=== PATIENT | female | born 1935 | race African-American/Black ===

== ENCOUNTER 2019-11-25 08:05 | Emergency (ER) | payer OTHER ==
[2019-11-25 08:21] VITALS: TEMP 98.5; BMI 17.2
[2019-11-25] MEDS ORDERED: CYCLOBENZAPRINE HCL 10 MG TABLET (FP) PO ONE (08:42)
[2019-11-25] MEDS ORDERED: ACETAMINOPHEN 325 MG TABLET (FP) PO ONE (08:43)
[2019-11-25] MEDS ORDERED: ACETAMINOPHEN 325 MG TABLET (FP) ONE (08:50)
[2019-11-25] MEDS ORDERED: CYCLOBENZAPRINE HCL 10 MG TABLET (FP) ONE (08:50)
--- NOTE | 2019-11-25 09:19 | PDOC ---
History of Present Illness - General Chief Complaint: Pain, Acute Stated Complaint: NECK PAIN Time Seen by Provider: 11/25/19 08:28 History Source: Patient Exam Limitations: No Limitations - History of Present Illness Initial Comments: 11/25/19 08:16 84-year-old female presents to ED with complaints of right-sided neck pain rating to her right shoulder for the past 2 weeks causing her difficulty sleeping due to pain. Patient states was seen by her PCP last week who prescribed her 3 days of prednisone 20 mg with minimal relief. Patient states has been also taking Motrin Tylenol with no improvement. Patient denies difficulty breathing, difficulty swallowing, headache, fever, chills or dizziness/weakness. Patient states appetite remains the same and denies any previous injury or recent fall Is this a multiple visit Asthma Patient?: No Timing/Duration: other Severity: mild, moderate Associated Symptoms: reports: other Past History - Travel Traveled outside of the country in the last 30 days: No Close contact w/someone who was outside of country & ill: No - Past Medical History Allergies/Adverse Reactions: Allergies Allergy/AdvReac Type Severity Reaction Status Date / Time No Known Allergies Allergy Verified 06/22/18 15:22 Home Medications: Ambulatory Orders Amlodipine Besylate [Norvasc -] 10 mg PO DAILY #30 tablet 06/28/18 Carvedilol [Coreg -] 12.5 mg PO BID #60 tablet 06/28/18 Latanoprost 0.005% Eye Drops [Xalatan 0.005% Eye Drops -] 1 drop OU HS #10 ml Lisinopril [Prinivil] 40 mg PO DAILY #30 tablet 06/28/18 Timolol 0.5% [Timoptic 0.5%] 1 drop OU DAILY #15 ml 06/28/18 Warfarin Sodium [Coumadin] 5 mg PO DAILY@1800 #30 tablet 06/28/18 Cyclobenzaprine HCl [Flexeril 10 mg] 5 mg PO BID PRN #12 tablet 11/25/19 Anemia: No Asthma: No Cancer: No Cardiac Disorders: Yes (murmur as a chils/ asymptomatic) CVA: No COPD: No Dementia: No Diabetes: No GI Disorders: No Disorders: No HTN: Yes Liver Disease: No Seizures: No Thyroid Disease: No - Surgical History Abdominal Surgery: No Appendectomy: No Cardiac Surgery: No Orthopedic Surgery: Yes (hip) - Psycho Social/Smoking Cessation Hx Smoking History: Never smoked Have you smoked in the past 12 months: Yes Number of Cigarettes Smoked Daily: 3 Hx Alcohol Use: No Drug/Substance Use Hx: No Substance Use Type: Alcohol Hx Substance Use Treatment: No Patient Lives Alone: No Lives with/in: Children Review of Systems - Review of Systems Able to Perform ROS?: Yes Constitutional: No: Symptoms Reported HEENTM: No: Symptoms Reported Respiratory: No: Symptoms reported Cardiac (ROS): No: Symptoms Reported ABD/GI: No: Symptoms Reported : No: Symptoms Reported Musculoskeletal: Yes: Joint Pain, Neck Pain. No: Back Pain, Joint Swelling, Joint Stiffness Integumentary: No: Symptoms Reported Neurological: No: Symptoms reported Hematologic/Lymphatic: No: Symptoms Reported *Physical Exam - Vital Signs Last Vital Signs Temp Pulse Resp BP Pulse Ox 98.5 F 57 L 17 112/55 L 99 11/25/19 08:18 11/25/19 08:18 11/25/19 08:18 11/25/19 08:18 11/25/19 08:18 - Physical Exam General Appearance: Yes: Nourished, Appropriately Dressed. No: Apparent Distress HEENT: positive: TMs Normal, Pharynx Normal. negative: Pale Conjunctivae Neck: positive: Supple, Tender lateral (Right trapezius). negative: Decreased range of motion, Tender midline Respiratory/Chest: positive: Lungs Clear, Normal Breath Sounds. negative: Chest Tender, Respiratory Distress, Accessory Muscle Use Cardiovascular: positive: Regular Rhythm, Regular Rate. negative: Murmur Extremity: positive: Normal Capillary Refill, Normal Inspection, Normal Range of Motion, Tender (Posterior right shoulder over trapezius) Integumentary: positive: Normal Color, Warm, Moist. negative: Rash, Swelling, Ecchymosis Neurologic: positive: Motor Strength 5/5 (Right shoulder shrug, lateral/front raise, and hand grasp) ED Treatment Course - RADIOLOGY Radiology Studies Ordered: Category Date Time Status CERVICAL SPINE CT W/O CONTR [CT] Stat CT Scan 11/25/19 08:28 Ordered SHOULDER-RIGHT [RAD] Stat Radiology 11/25/19 08:40 Completed Medical Decision Making - Medical Decision Making 11/25/19 08:20 Chief complaint: Right back right shoulder/neck pain for the past 2 to 3 weeks unrelieved with Tylenol and prednisone 3-day pack of 20 mg prescribed by her PCP Dr. Saleh. Exam: Patient with no midline vertebral or cervical tenderness. Noted right trapezius tenderness extending from the base of skull extending to right shoulder. Plan: Shoulder x-ray and cervical CT. Flexeril, Tylenol 11/25/19 09:21 X-ray of the right shoulder shows no acute fracture or subluxation. There is a slight prominence of the right hilum which is unchanged from 06/22/2018. 11/25/19 10:43 Spoke to radiologist who states CT of the spine show spondylolisthesis with narrowed disc spaces/bodies. No fracture subluxation or foreign body/mass. No previous CT for comparison. Recommendation to follow-up with PCP for physical therapy take medication for discomfort and apply heat to the affected area 11/25/19 10:44 Patient states feeling better Discharge - Discharge Information Problems reviewed: Yes Clinical Impression/Diagnosis: Spondylolisthesis of cervical region Condition: Improved Disposition: HOME - Additional Discharge Information Prescriptions: Cyclobenzaprine HCl [Flexeril 10 mg] 5 mg PO BID PRN #12 tablet PRN Reason: Back Pain - Follow up/Referral - Patient Discharge Instructions Patient Printed Discharge Instructions: DI for Spondylolisthesis Additional Instructions: Take Flexeril with 975 mg of Tylenol and if no relief tonight start the Percocet only tomorrow which is also twice a day. Follow-up with physical therapy. May apply heat to the affected area. - Post Discharge Activity
[2019-11-25 11:14] VITALS: BP 111/63; PULSE 69
== END 2019-11-25 11:00 | disposition home or self-care (01) ==
LOC: JER 08:05
DX: M43.12 Spondylolisthesis, cervical region (principal); R01.1 Cardiac murmur, unspecified; I10 Essential (primary) hypertension; Z87.891 Personal history of nicotine dependence
CPT/HCPCS: 72125-TC; 73030-TC-RT-FY; 99282-25

== ENCOUNTER 2019-12-01 05:12 | Inpatient (IN) | payer OTHER ==
[2019-12-01] MEDS ORDERED: SODIUM CHLORIDE 500 ML IV STA ×2 (05:16→21:30)
[2019-12-01] MEDS ORDERED: LIDOCAINE 5% TOPICAL PATCH TP ONE (05:30)
[2019-12-01] MEDS ORDERED: diazePAM 2 MG TABLET PO ONE (05:32)
[2019-12-01] MEDS ORDERED: GABAPENTIN 300 MG CAPSULE PO ONE (05:32)
[2019-12-01] MEDS ORDERED: ACETAMINOPHEN 1000 MG/100 ML VIAL (NON FORMULARY) IVPB ONE (05:32)
[2019-12-01] MEDS ORDERED: ACETAMINOPHEN INJECTION 100 ML IVPB ONE (05:39)
[2019-12-01] MEDS ORDERED: GABAPENTIN 100 MG CAPSULE ONE ×2 (05:39→05:54)
[2019-12-01] MEDS ORDERED: diazePAM 2 MG TABLET ONE (05:39)
[2019-12-01] MEDS ORDERED: LIDOCAINE 5% TOPICAL PATCH ONE (05:40)
--- NOTE | 2019-12-01 05:40 | PDOC ---
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 The pt states that 3 weeks ago she was able to walk with a walker and is now unable to ambulate. She reports RUE and RLE weakness. She denies any recent trauma or falls. She has been seen by her PCP and OT for her symptoms with no improvement. She is currently unable to transfer from bed to chair and it was necessary to lift her from one to the other. The pt lives at home with her daughter and who are now having to take off of work to attempt to care for her. PCP: Dr. Irma Miller 12/01/19 05:57 Past History - Past Medical History Allergies/Adverse Reactions: Allergies Allergy/AdvReac Type Severity Reaction Status Date / Time No Known Allergies Allergy Verified 12/01/19 05:34 Home Medications: Ambulatory Orders Amlodipine Besylate [Norvasc -] 10 mg PO DAILY 12/01/19 Carvedilol [Coreg -] 25 mg PO BID 12/01/19 Lisinopril [Prinivil -] 40 mg PO DAILY 12/01/19 Warfarin Sodium [Coumadin] 5 mg PO ASDIR 12/01/19 Anemia: No Asthma: No Cancer: No Cardiac Disorders: Yes (murmur as a chils/ asymptomatic) CVA: No COPD: No Dementia: No Diabetes: No GI Disorders: No Disorders: No HTN: Yes Liver Disease: No Seizures: No Thyroid Disease: No - Surgical History Abdominal Surgery: No Appendectomy: No Cardiac Surgery: No Orthopedic Surgery: Yes (hip) - Immunization History Immunization Up to Date: Yes - Psycho Social/Smoking Cessation Hx Smoking History: Never smoked Have you smoked in the past 12 months: Yes Number of Cigarettes Smoked Daily: 3 Hx Alcohol Use: No Drug/Substance Use Hx: No Substance Use Type: Alcohol Hx Substance Use Treatment: No Review of Systems - Review of Systems Able to Perform ROS?: Yes Comments:: GENERAL/CONSTITUTIONAL: No fever or chills HEAD, EYES, EARS, NOSE AND THROAT: No change in vision. No change in hearing. No sore throat CARDIOVASCULAR: No shortness of breath RESPIRATORY: Denies cough, hemoptysis GASTROINTESTINAL: No nausea, vomiting, diarrhea or constipation GENITOURINARY: No dysuria, frequency, or change in urination MUSCULOSKELETAL: per HPI SKIN: No rash NEUROLOGIC: +intermittent tingling of b/l hands, R>L; No headache, vertigo, loss of consciousness ENDOCRINE: No increased thirst. No abnormal weight change HEMATOLOGIC/LYMPHATIC: No anemia, easy bleeding, or history of blood clots; + warfarin ALLERGIC/IMMUNOLOGIC: No hives or skin allergy 12/01/19 05:40 Is the patient limited Burkin[place] proficient: No *Physical Exam - Vital Signs Last Vital Signs Temp Pulse Resp BP Pulse Ox 98.1 F 69 18 128/92 98 12/01/19 05:15 12/01/19 05:15 12/01/19 05:15 12/01/19 05:15 12/01/19 05:15 - Physical Exam GENERAL: Awake, alert, and oriented to person/place/time, in no acute distress HEAD: No signs of trauma, normocephalic, atraumatic EYES: PERRLA, EOMI, sclera anicteric, conjunctiva clear ENT: Hearing grossly normal, nares patent, oropharynx clear without exudates. No uvular deviation. Moist mucosa NECK: b/l paraspinous TTP, ROM intact, no stepoffs LUNGS: No distress, speaks in full sentences, clear to auscultation bilaterally HEART: Regular rate and rhythm, normal S1 and S2, no murmurs appreciated, peripheral pulses normal and equal bilaterally CHEST: Diffuse chest wall TTP w/o ecchymosis or bony tenderness ABDOMEN: Soft, nontender, normoactive bowel sounds. No guarding, no rebound EXTREMITIES: Moves all extremities independently, RUE/RLE 4/5; LUE/LLE 5/5 strength NEUROLOGICAL: Cranial nerves II through XII grossly intact. Normal speech, RUE/ RLE 4/5; LUE/LLE 5/5 strength, decreased sensation to light touch over RUE/RLE SKIN: Warm, Dry 12/01/19 05:40 ED Treatment Course - LABORATORY CBC & Chemistry Diagram: 12/01/19 06:00 12/01/19 06:00 - Medications Given in the ED: ED Medications Discontinued Medications Generic Name Dose Route Start Last Admin Trade Name Grant PRN Reason Stop Dose Admin Sodium Chloride 500 mls @ 500 mls/hr 12/01/19 05:16 12/01/19 05:30 Normal Saline - IV 12/01/19 06:15 Not Given ASDIR STA Medical Decision Making - Medical Decision Making The pt is an 84F w/a history of a-flutter (warfarin), HTN, HLD, glaucoma, and 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 Concern for unsafe home setting for pt given functional status Consider subacute stroke or spinal cord compression ED Course Labs sent ECG CT head and c-spine Tylenol, Lidoderm patch, and gabapentin for pain 12/01/19 05:42 No leukocytosis No anemia Lytes unremarkable LFTs unremarkable Trop I 0.18 INR supra-theraputic 12/01/19 06:59 ECG w/ sinus rhythm w/ frequent PACs, TWI in V4-6; no axis deviation Pt signed out to Dr. Mullen 12/01/19 07:01 Discharge - Discharge Information Problems reviewed: Yes Clinical Impression/Diagnosis: Right sided weakness Condition: Fair - Follow up/Referral - Patient Discharge Instructions - Post Discharge Activity
--- NOTE | 2019-12-01 06:25 | PDOC ---
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 - Physicial Exam PE: 12/01/19 06:23 Vitals: Triage Vital signs reviewed General Appearance: No acute distress, well nourished well developed, Head: Atraumatic, Extremities: Limited range of motion to right upper right lower extremity secondary to pain no cyanosis, clubbing, or edema Skin: Warm and dry, no rashes or lesions, no rash, no petechiae Neuro: Strength 4 out of 5 right upper extremity right lower extremity 5 out of 5 left upper extremity left lower extremity sensation intact to all extremities , Psych: flat affect - Medical Decision Making 12/01/19 06:22 84F w/a history of a-flutter (warfarin), HTN, HLD, glaucoma, and 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 12/01/19 06:24 3 to 4 weeks ago patient was able to ambulate at home with a walker now currently had to be carried in by her son Progressively worsening pain and concerning for progressively worsening right- sided weakness differential diagnosis includes possible CVA subacute, chronic pain syndrome, disc herniation with radiculopathy Given patient's inability to ambulate transfer patient unsafe to be discharged home We will start with head CT labs and admit for neurology consultation MRI and further evaluation
[2019-12-01 06:27] LABS: BASO % 0.2 % (0-2.0); EOS % 0.3 % (0-4.5); HEMATOCRIT 36.7 % (32.4-45.2); HEMOGLOBIN 12.2 GM/dL (10.7-15.3); LYMPH % 10.1 % (8-40); MCH 31.2 pg (25.7-33.7); MCHC 33.1 g/dl (32.0-36.0); MEAN CELL VOLUME 94.2 fl (80-96); MONO % 8.3 % (3.8-10.2); NEUT % 81.1 % (42.8-82.8); PLATELET COUNT 180 K/MM3 (134-434); RDW 14.5 % (11.6-15.6); WHITE BLOOD COUNT 6.5 K/mm3 (4.0-10.0)
[2019-12-01 06:44] LABS: PROTHROMBIN TIME (PATIENT) 63.3 SEC (9.7-13.0)
[2019-12-01 06:47] LABS: ACTIVATED PTT 57.9 SECONDS (25.2-36.5)
[2019-12-01 06:49] LABS: CHOLESTEROL 167 mg/dL (50-200); HDL CHOLESTEROL 58 mg/dL (40-60); LDL CHOLESTEROL (ONLY SJRH) 81 mg/dL (5-100); TRIGLYCERIDES 130 mg/dL (0-150)
[2019-12-01 06:51] LABS: ALBUMIN 2.4 g/dl (3.4-5.0); BILIRUBIN,TOTAL 0.8 mg/dL (0.2-1); CALCIUM 8.2 mg/dL (8.5-10.1); CREATININE 1.1 mg/dL (0.55-1.3); POTASSIUM 3.8 mmol/L (3.5-5.1); TOT PROT 5.8 g/dl (6.4-8.2)
[2019-12-01 06:59] LABS: INR 5.28 (0.83-1.09)
[2019-12-01 07:12] VITALS: BMI 22.8
--- NOTE | 2019-12-01 07:50 | PDOC ---
*Physical Exam - Vital Signs Last Vital Signs Temp Pulse Resp BP Pulse Ox 98.1 F 69 18 128/92 98 12/01/19 05:15 12/01/19 05:15 12/01/19 05:15 12/01/19 05:15 12/01/19 05:15 - Physical Exam 12/01/19 07:50 Patient signed out by resident Dr. Lockett CT cervical spine: moderate central canal narrowing at the c5-c6 level and multilevel neuroforaminal narrowing Head CT: no acute pathology Will need admission for pain control and MRI for further workup Plan for admission ED Treatment Course - LABORATORY CBC & Chemistry Diagram: 12/10/19 07:23 12/10/19 06:00 - ADDITIONAL ORDERS Additional order review: Laboratory Results 12/01/19 12/01/19 12/01/19 06:00 06:00 06:00 PT with INR INR PTT (Actin FS) Sodium 140 Potassium 3.8 Chloride 108 H Carbon Dioxide 25 Anion Gap 7 L BUN 14.0 Creatinine 1.1 Est GFR (CKD-EPI)AfAm 53.77 Est GFR (CKD-EPI)NonAf 46.39 Random Glucose 134 H Calcium 8.2 L Total Bilirubin 0.8 AST 26 ALT 30 Alkaline Phosphatase 65 Troponin I 0.18 H Total Protein 5.8 L Albumin 2.4 L Triglycerides 130 Cholesterol 167 Total LDL Cholesterol 81 HDL Cholesterol 58 12/01/19 06:00 PT with INR 63.30 H INR 5.28 H* PTT (Actin FS) 57.9 H Sodium Potassium Chloride Carbon Dioxide Anion Gap BUN Creatinine Est GFR (CKD-EPI)AfAm Est GFR (CKD-EPI)NonAf Random Glucose Calcium Total Bilirubin AST ALT Alkaline Phosphatase Troponin I Total Protein Albumin Triglycerides Cholesterol Total LDL Cholesterol HDL Cholesterol 12/01/19 06:00 RBC 3.90 MCV 94.2 MCHC 33.1 RDW 14.5 MPV 9.0 D Neutrophils % 81.1 D Lymphocytes % 10.1 D Monocytes % 8.3 Eosinophils % 0.3 Basophils % 0.2 - Medications Given in the ED: ED Medications Discontinued Medications Generic Name Dose Route Start Last Admin Trade Name Freq PRN Reason Stop Dose Admin Acetaminophen 1,000 mg 12/01/19 05:32 12/01/19 06:04 Ofirmev Injection - IVPB 12/01/19 05:33 1,000 mg ONCE ONE Administration Diazepam 2 mg 12/01/19 05:32 12/01/19 05:54 Valium - PO 12/01/19 05:33 Not Given ONCE ONE Gabapentin 300 mg 12/01/19 05:32 12/01/19 06:04 Neurontin - PO 12/01/19 05:33 300 mg ONCE ONE Administration Sodium Chloride 500 mls @ 500 mls/hr 12/01/19 05:16 12/01/19 05:30 Normal Saline - IV 12/01/19 06:15 Not Given ASDIR STA Lidocaine 1 patch 12/01/19 05:30 12/01/19 06:04 Lidoderm Patch - TP 12/01/19 05:31 1 patch ONCE ONE Administration Discharge - Discharge Information Problems reviewed: Yes Clinical Impression/Diagnosis: Right sided weakness Condition: Fair Disposition: [facility] F[facility] - Follow up/Referral - Patient Discharge Instructions - Post Discharge Activity
--- NOTE | 2019-12-01 10:05 | EKG ---
Test Reason : Blood Pressure : / mmHG Vent. Rate : 082 BPM Atrial Rate : 082 BPM P-R Int : 136 ms QRS Dur : 086 ms QT Int : 412 ms P-R-T Axes : 042 -02 147 degrees QTc Int : 481 ms SINUS RHYTHM WITH PREMATURE ATRIAL COMPLEXES SEPTAL INFARCT , AGE UNDETERMINED ABNORMAL ECG WHEN COMPARED WITH ECG OF 27-JUN-2018 11:14, PREMATURE ATRIAL COMPLEXES ARE SEEN Confirmed by MADHAVI PUTNAM, SHAWNA ([id number]) on 12/01/2019 10:04:56 AM Referred By: Confirmed By:SHAWNA HENDRICKSON MD
[2019-12-01] MEDS ORDERED: ASPIRIN 325 MG ENTERIC COATED TABLET (FP) PO STA (11:33)
--- NOTE | 2019-12-01 11:43 | HP ---
CHIEF COMPLAINT: weakness, numbness PCP: Dr. 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 Over the past month patient admits worsening weakness of bilateral upper and lower extremities; worst at right lower extremity. Associated with sharp, excruciating pain at her neck that radiates down to her bilateral shoulders, and into her arms. Admits paresthesias bilateral hands. Patient's family at bedside states that approx one month ago patient was able to walk with her walker, however now is bed bound. Denies any recent fall, or trauma. Last appointment with primary care physician was within past few weeks; noted that INR was within normal limits. Currently denies headache, changes in vision, chest pain, palpitations, bowel or bladder incontinence. ER course was notable for: (1) CT head (2) Troponin 0.18 (3) Recent Travel: denies PAST MEDICAL HISTORY: hypertension, hyperlipidemia, Atrial flutter, CVA PAST SURGICAL HISTORY: right hip surgery Social History: Currently lives at home with her children who assist in activities of daily living; currently bed bound. Smoking: Quit 2 years ago. Over 20 years smoking history of 1 pack/ week Alcohol: Denies Drugs: Denies Allergies No Known Allergies Allergy (Verified 12/01/19 05:34) HOME MEDICATIONS: Home Medications Medication Instructions Recorded Amlodipine Besylate [Norvasc -] 10 mg PO DAILY 12/01/19 Carvedilol [Coreg -] 25 mg PO BID 12/01/19 Lisinopril [Prinivil -] 40 mg PO DAILY 12/01/19 Warfarin Sodium [Coumadin] 4 mg PO UTDICT 12/01/19 Warfarin Sodium [Coumadin] 5 mg PO ASDIR 12/01/19 REVIEW OF SYSTEMS 10 system review of systems performed; as per HPI. PHYSICAL EXAMINATION Vital Signs - 24 hr 12/01/19 12/01/19 05:15 10:39 Temperature 98.1 F 99.0 F Pulse Rate 69 Pulse Rate [ 59 L Left] Respiratory 18 18 Rate Blood Pressure 128/92 Blood Pressure 124/87 [Right Arm] O2 Sat by Pulse 98 100 Oximetry (%) GENERAL: Awake, alert, and fully oriented, in mild distress. HEAD: Normal with no signs of trauma. EYES: Pupils equal, round and reactive to light, extraocular movements intact, sclera anicteric, conjunctiva clear. EARS, NOSE, THROAT: Oropharynx clear without exudates. Dry mucous membranes. NECK: Supple without lymphadenopathy, or JVD. LUNGS: Breath sounds equal, clear to auscultation bilaterally. No wheezes, and no crackles. No accessory muscle use. HEART: Irregular rate and rhythm, normal S1 and S2 without murmur, rub or gallop. ABDOMEN: Soft, nontender, not distended. Normoactive bowel sounds, no guarding, no rebound tenderness. MUSCULOSKELETAL: Strength left and right upper extremities 2/5. Right lower extremity 1/5. Left lower extremity 2/5. Strength testing limited by pain. EXTREMITIES: 2+ radial, dorsalis pedis pulses bilterally. Cool. No cyanosis. No clubbing. No peripheral edema bilateral lower extremities. NEUROLOGICAL: Cranial nerves II-XII grossly intact. NIHSS 12 (left arm pronator drift 2+, right arm pronator drift 2+, left leg pronator drift 2+, right leg pronaotr drift 3+, limb ataxia 2+, dysarthria 1+) PSYCHIATRIC: Cooperative. Appropriate mood and affect. SKIN: Warm, dry. Laboratory Results - last 24 hr 12/01/19 12/01/19 12/01/19 06:00 06:00 06:00 WBC 6.5 RBC 3.90 Hgb 12.2 Hct 36.7 MCV 94.2 MCH 31.2 MCHC 33.1 RDW 14.5 Plt Count 180 D MPV 9.0 D Absolute Neuts (auto) 5.3 Neutrophils % 81.1 D Lymphocytes % 10.1 D Monocytes % 8.3 Eosinophils % 0.3 Basophils % 0.2 Nucleated RBC % 0 PT with INR 63.30 H INR 5.28 H* PTT (Actin FS) 57.9 H Sodium Potassium Chloride Carbon Dioxide Anion Gap BUN Creatinine Est GFR (CKD-EPI)AfAm Est GFR (CKD-EPI)NonAf Random Glucose Calcium Total Bilirubin AST ALT Alkaline Phosphatase Troponin I Total Protein Albumin Triglycerides 130 Cholesterol 167 Total LDL Cholesterol 81 HDL Cholesterol 58 12/01/19 12/01/19 12/01/19 06:00 06:00 09:32 WBC RBC Hgb Hct MCV MCH MCHC RDW Plt Count MPV Absolute Neuts (auto) Neutrophils % Lymphocytes % Monocytes % Eosinophils % Basophils % Nucleated RBC % PT with INR INR PTT (Actin FS) Sodium 140 Potassium 3.8 Chloride 108 H Carbon Dioxide 25 Anion Gap 7 L BUN 14.0 Creatinine 1.1 Est GFR (CKD-EPI)AfAm 53.77 Est GFR (CKD-EPI)NonAf 46.39 Random Glucose 134 H Calcium 8.2 L Total Bilirubin 0.8 AST 26 ALT 30 Alkaline Phosphatase 65 Troponin I 0.18 H 0.21 H Total Protein 5.8 L Albumin 2.4 L Triglycerides Cholesterol Total LDL Cholesterol HDL Cholesterol ASSESSMENT/PLAN: Patient is an 84 year old female with history of hypertension, hyperlipidemia, Atrial flutter (on Coumadin), 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 Diffuse weakness -Unclear etiology; relatively recent worsening strength concerning for CVA, however INR reportedly has been normal this past month. Currently supratherapeutic. Patient does have prior CVA in 2018. Negative falls or trauma. Will load with Aspirin 325mg. -CT head reveals chronic lacunar infarct, without acute pathology. -Obtain MRI brain to evaluate for CVA -MRI cervical, thoracic spine to evaluate for paresthesias, weakness. Concern for cord compression, however patient denies bowel/ bladder incontinence. -Neurology evaluation (Dr. Becker) -Cardiac telemetry monitoring -Physical therapy evaluation -Cardiac transthoracic ECHO -Carotid duplex ultrasound -Speech and swallow evaluation, ophthalmic pathologist evaluation -Fall precautions NSTEMI -EKG reveals atrial flutter T wave inversions and ST depressions in lateral leads -Troponin 0.18 -> 0.21 .Will trend. -Cardiology evaluation (Dr. Fermin) -Patient received Aspirin 325mg. INR currently supratherapeutic; will hold chemical anticoagulation pending cardiology evaluation -Cardiac telemetry monitoring Atrial flutter -Rate controlled. Will hold Coumadin in setting of supratherapeutic INR -Rate control with Metoprolol. -Follow PT/INR Hypertension -Currently normotensive. Will hold home antihypertensives to allow for permissive hypertension until CVA is ruled out. -Monitor vital signs closely FEN -Gently hydration with IV normal saline at 75mL/ hour -Follow BMP, replete as necessary -NPO pending speech pathology evaluation Prophylaxis -INR supratherapeutic. Will hold chemical anticoagulation for now, follow daily PT/INR Disposition -Admit to Stroke (telemetry) floor. Visit type - Emergency Visit Emergency Visit: Yes ED Registration Date: 12/01/19 Care time: The patient presented to the Emergency Department on the above date and was hospitalized for further evaluation of their emergent condition. - New Patient This patient is new to me today: Yes Date on this admission: 12/01/19 - Critical Care Critical Care patient: No ATTENDING PHYSICIAN STATEMENT I saw and evaluated the patient. I reviewed the resident's note and discussed the case with the resident. I agree with the resident's findings and plan as documented. SUBJECTIVE: OBJECTIVE: ASSESSMENT AND PLAN:
[2019-12-01] MEDS ORDERED: ASPIRIN 325 MG ENTERIC COATED TABLET (FP) ONE (12:41)
--- NOTE | 2019-12-01 15:05 | ECHO ---
Version: 1 Name: MICHAEL LEE Exam: Adult Echocardiogram Study Date: 12/01/2019, 12:49 PM Age: 84 Years MMode/2D Measurements & Calculations IVSd: 2.04 cm LVIDs: 1.47 cm LVIDd: 3.0 cm LVPWd: 2.15 cm ACS: 1.82 cm Ao root diam: 3.1 cm LA dimension: 5.3 cm Doppler Measurements & Calculations MV E max feliciano: 63.4 cm/sec Med E/e': 23.1 MV A max feliciano: 58.0 cm/sec Med Peak E' Feliciano: 2.7 cm/sec MV E/A: 1.09 Lat E/e': 16.1 Lat Peak E' Feliciano: 3.9 cm/sec MR max P.4 mmHg Ao max P.5 mmHg Ao V2 max: 169.4 cm/sec Procedure A complete two-dimensional transthoracic echocardiogram was performed (2D, M-mode, Doppler and color flow Doppler). Left Ventricle The left ventricle is normal in size. There is severe concentric left ventricular hypertrophy. Left ventricular systolic function is normal. Ejection Fraction = >70%. No regional wall motion abnormali ties noted. Possible infiltrative heart disease. Right Ventricle The right ventricle is grossly normal size. The right ventricular wall motion is normal. Atria The left atrium is severely dilated. Right atrial size is normal. Mitral Valve There is mild mitral valve thickening. There is mild mitral annular calcification. There is mild keshia ral regurgitation. Tricuspid Valve The tricuspid valve is not well visualized, but is grossly normal. There is mild tricuspid regurgita tion. Aortic Valve There is mild aortic sclerosis.;. No aortic regurgitation is present. Pulmonic Valve The pulmonic valve is not well visualized. Mild pulmonic valvular regurgitation. Great Vessels The aortic root is normal size. Pericardium/Pleura There is no pericardial effusion. Summary Statements The left ventricle is normal in size. There is severe concentric left ventricular hypertrophy. Left ventricular systolic function is normal. No regional wall motion abnormalities noted. Ejection Fraction = >70%. The right ventricular wall motion is normal. The left atrium is severely dilated. Right atrial size is normal. There is mild mitral annular calcification. There is mild mitral valve thickening. There is mild mitral regurgitation. There is mild tricuspid regurgitation. There is mild aortic sclerosis.; Mild pulmonic valvular regurgitation. There is no pericardial effusion. Possible infiltrative heart disease Seth Castaneda MD 12/01/2019, 3:04 PM Ordering Physician: NADEEM ANDUJAR Performed By: Belkys Ferguson
--- NOTE | 2019-12-01 15:44 | PN ---
Teaching Attending Note Name of Resident: Quang López ATTENDING PHYSICIAN STATEMENT I saw and evaluated the patient. I reviewed the resident's note and discussed the case with the resident. I agree with the resident's findings and plan as documented. SUBJECTIVE: Reports pain in neck and on movement of UEs and weakness RLE OBJECTIVE: Afebrile, Hemodynamically Stable. Last Vital Signs Temp Pulse Resp BP Pulse Ox 98.1 F 88 20 115/55 L 98 12/01/19 13:25 12/01/19 13:25 12/01/19 13:25 12/01/19 13:25 12/01/19 13:25 HEENT - Atraumatic, Normocephalic. Heart - S1, S2, RRR Lungs - clear to auscultation Abdomen - Soft, non-tender. Extremities - decreased ROM RLE and bilateral UEs due to pain/weakness Neuro - AAO x 3. Decreased Power bilateral UEs and RLE ?limited by pain Laboratory Results - last 24 hr 12/01/19 12/01/19 12/01/19 06:00 06:00 06:00 WBC 6.5 RBC 3.90 Hgb 12.2 Hct 36.7 MCV 94.2 MCH 31.2 MCHC 33.1 RDW 14.5 Plt Count 180 D MPV 9.0 D Absolute Neuts (auto) 5.3 Neutrophils % 81.1 D Lymphocytes % 10.1 D Monocytes % 8.3 Eosinophils % 0.3 Basophils % 0.2 Nucleated RBC % 0 PT with INR 63.30 H INR 5.28 H* PTT (Actin FS) 57.9 H Sodium Potassium Chloride Carbon Dioxide Anion Gap BUN Creatinine Est GFR (CKD-EPI)AfAm Est GFR (CKD-EPI)NonAf Random Glucose Calcium Total Bilirubin AST ALT Alkaline Phosphatase Creatine Kinase Troponin I Total Protein Albumin Triglycerides 130 Cholesterol 167 Total LDL Cholesterol 81 HDL Cholesterol 58 12/01/19 12/01/19 12/01/19 06:00 06:00 09:32 WBC RBC Hgb Hct MCV MCH MCHC RDW Plt Count MPV Absolute Neuts (auto) Neutrophils % Lymphocytes % Monocytes % Eosinophils % Basophils % Nucleated RBC % PT with INR INR PTT (Actin FS) Sodium 140 Potassium 3.8 Chloride 108 H Carbon Dioxide 25 Anion Gap 7 L BUN 14.0 Creatinine 1.1 Est GFR (CKD-EPI)AfAm 53.77 Est GFR (CKD-EPI)NonAf 46.39 Random Glucose 134 H Calcium 8.2 L Total Bilirubin 0.8 AST 26 ALT 30 Alkaline Phosphatase 65 Creatine Kinase Troponin I 0.18 H 0.21 H Total Protein 5.8 L Albumin 2.4 L Triglycerides Cholesterol Total LDL Cholesterol HDL Cholesterol 12/01/19 13:00 WBC RBC Hgb Hct MCV MCH MCHC RDW Plt Count MPV Absolute Neuts (auto) Neutrophils % Lymphocytes % Monocytes % Eosinophils % Basophils % Nucleated RBC % PT with INR INR PTT (Actin FS) Sodium Potassium Chloride Carbon Dioxide Anion Gap BUN Creatinine Est GFR (CKD-EPI)AfAm Est GFR (CKD-EPI)NonAf Random Glucose Calcium Total Bilirubin AST ALT Alkaline Phosphatase Creatine Kinase 46 Troponin I 0.22 H Total Protein Albumin Triglycerides Cholesterol Total LDL Cholesterol HDL Cholesterol Current Medications Generic Name Dose Route Start Last Admin Trade Name Freq PRN Reason Stop Dose Admin Miscellaneous 1 each 12/01/19 22:00 Lidoderm Patch Removal MC DAILY@2200 [facility] Home Medications Medication Instructions Recorded Amlodipine Besylate [Norvasc -] 10 mg PO DAILY 12/01/19 Carvedilol [Coreg -] 25 mg PO BID 12/01/19 Lisinopril [Prinivil -] 40 mg PO DAILY 12/01/19 Warfarin Sodium [Coumadin] 4 mg PO UTDICT 12/01/19 Warfarin Sodium [Coumadin] 5 mg PO ASDIR 12/01/19 ASSESSMENT AND PLAN: 84 year old female with history of HTN, HLD, Atrial flutter (on Coumadin), 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 In 1 month she went from mobilizing with walker to essentially being bed-bound. 1. Neck Pain associated with progressive bilateral UE pain/weakness and RLE weakness Hx prior CVA CT head - shows chronic lacunar infarct on L, no acute findings. CT C-Spine - Severe narrowing C5/6, anterolithesis C7/T1 Hx suspicious for possible spinal lesion - MRI C/T Spine requested along with MRI Brain. US Carotid shows greater than 50% stenosis on L - will consult Vascular Surgery for further recommendations. Echo requested. PT/ST Neuro evaluation. 2. Elevated Troponin, etiology unclear .TnI 0.18 ---> 0.22 ECG - ST/T wave inversion/depression lateral leads. Asymptomatic, no chest discomfort. ?ACS versus neurocardiac phenomenon Telemonitoring Serial TropI measurements. Load with Aspirin Cardiology eval. 3. Atrial Flutter Continue Coreg. Coumadin held due to Supratherapeutic INR. 4. HTN - normally on Coreg, Lisinopril and Norvasc. Will resume only Coreg with slow re-introduction of other anti-hypertensives given borderline BP. DVT Px - on Coumadin, INR Supratherapeutic.
--- NOTE | 2019-12-01 15:50 | CONSULT ---
Admitting History and Physical - Primary Care Physician PCP: Huy Byrnes - Admission History of Present Illness: Per EMR- Patient is an 84 year old female with history of hypertension, hyperlipidemia, Atrial flutter (on Coumadin), 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 Over the past month patient admits worsening weakness of bilateral upper and lower extremities; worst at right lower extremity. Associated with sharp, excruciating pain at her neck that radiates down to her bilateral shoulders, and into her arms. Admits paresthesias bilateral hands. Patient's family at bedside states that approx one month ago patient was able to walk with her walker, however now is bed bound. CT cervical spine: moderate central canal narrowing at the c5-c6 level and multilevel neuroforaminal narrowing Head CT: no acute pathology Pt was independent until a month ago.According to pt's daughter, she had her flu shot early August,(She is not allergic to eggs), got sick late September, was vomiting. They report neck pain/weakness October, then back pain/weakness , then Right arm, left arm, now right leg. Left leg still stronger than right, recently started "slurring her speech" and coughing while drinking.No change in cognition. History Source: Patient, Family Member, Medical Record Limitations to Obtaining History: Clinical Condition (weak, tired) - Past Medical History Cardiovascular: Yes: HTN - Past Surgical History Past Surgical History: Yes: Joint Replacement - Smoking History Smoking history: Never smoked Have you smoked in the past 12 months: Yes Aproximately how many cigarettes per day: 3 - Alcohol/Substance Use Hx Alcohol Use: No History of Substance Use: reports: None History - Admission Reason For Visit: ELEVATED TROPONIN LEVEL, UNABLE TO WALK,WEAKNESS - Diagnostics X-ray: Report Reviewed CT Scan: Report Reviewed MRI: Pending Other: Report Reviewed (50% stenosis on the left internal carotid) - General Mental Status: Alert and Oriented, Awake and Alert, Able to Follow Commands, Flat Affect Attention: Intact Ability to Follow Directions: Good Head/Neck Control: Fair (Reportedly able to control head in upright but fatiques , needs to lean after a while) - Hearing Hearing: Functional Speech Evaluation - Communication Primary Language: ARABIC Communication: Yes: Simple Responses Oral Expression Ability: Yes: Mild Impairment - Speech Production Able to Make Needs Known: Yes: WNL Intelligibility: Yes: Mildly Impaired - Speech Characteristics Voice Loudness: Mildly Soft/Quiet Voice Pitch: Yes: Normal Voice Phonatory-based Quality: Yes: Harsh, Dysphonia Speech Clarity: < 100% Nasal Resonance: Normal Articulation: Yes: Precise (reported by family to be slurred at times.) Rate of Speech: Intact (articulatory diadochokinesis wnl) - Language/Auditory Comprehension Follows: Yes: 2 Stage Simple Commands Observation: Able to respond to yes/no queries: Yes, Yes/No Confusion: No, Comprehends Conversational Speech: Yes - Language/Verbal Expression Able to Communicate Wants and Needs: Yes: WNL - Swallow Evaluation/Bedside Assessment Current Nutritional Intake: NPO Oral Secretions: Yes: WFL Dentition: Yes: Adequate Facial Symmetry at Rest: Symmetrical Facial Symmetry on Retraction: Symmetrical Facial Movement: Controlled Against Resistance Opening: Normal Against Resistance Closing: Normal Pucker Lips: Normal Smile: Normal Lingual Movement: Symmetric Lingual Speed of Movement: Normal Lingual Movement Strgth Against Opposition: Reduced Lingual Movement Characteristics: Fasciculations (possibly? Mild? Reviewed with Neurology to reassess) Laryngeal Elevation: WFL Laryngeal Movement: Able to Palpate Rate of Intake: WFL Bolus Size: WFL Labial Seal: WFL Chewing: WFL Oral Prep Time: WFL A-P Transit: WFL Timing of Swallow: WFL Coughing/Throat Clear: No Recommendations - Speech Evaluation, Impression/Plan Impression: c/o feeling tired/weak. Dysphonia. Language/cognition intact. Slight tongue fasciculations? unsure. Progressive weakness/pain from neck>back> right UE>leftUE> right LE (per daughter)- r/o progressive neuromuscular disease ? Swallow seems functional presently. Aspiration risk. Monitor for deterioration of speech,swallow,pulmonary function. Case reviewed with Dr. Becker. w/u in progress. - Disposition [facility]charge to: [facility], To be Determined - Dysphagia Impressions/Plan Dysphagia Impressions: Mild Impairment, Risk of Aspiration *Silent aspiration: cannot be R/O at bedside Dysphagia Treatment Plan: Small Bites, Chin Tuck/Down, Clear Pocket Food, Trial Feedings, Safe Rate, 1/2 tsp. at a time, Elevate HOB during feed Recommendations: Neuro Consult (f/u -pending bloodwork, MRI, EMG?), Modified Barium Swallow (if cough, congestion, fever) - Recommendations Diet Consistency: Dysphagia Whole Medication Administration: Crushed with applesauce Liquids: Thin Liquids (monitor tolerance) Supplement: Magic Cup, Ensure Pudding
--- NOTE | 2019-12-01 16:23 | CON.NEURO ---
Consult Consult Specialty:: Rosita Referred by:: ER Reason for Consultation:: Pain - History of Present Illness History of Present Illness: this is a pleasant 84-year-old right-handed female patient with multiple medical problem including cardiac arrhythmia or atrial fibrillation on anticoagulation hypertension history of prior stroke in the past coronary artery disease osteoarthritis. Patientcame into the hospital with subacute onset of difficulty with numbness tingling pain. Patient describes mostly neck pain patient denies any history of trauma to the head. Patient had a carotid Doppler and a CAT scan of the headache review the CAT scan of the head which revealed no evidence of acute pathology. When the patient came in her INR was 5.28. Patient was admitted to telemetry for questionable stroke. Since admission patient has been stable with no change in her neurological condition. - History Source History Provided By: Patient, Medical Record Limitations to Obtaining History: Clinical Condition - Past Medical History Cardio/Vascular: Yes: HTN - Past Surgical History Past Surgical History: Yes: Joint Replacement - Alcohol/Substance Use Hx Alcohol Use: No History of Substance Use: reports: None - Smoking History Smoking history: Never smoked Have you smoked in the past 12 months: Yes Aproximately how many cigarettes per day: 3 Home Medications - Allergies Allergies/Adverse Reactions: Allergies Allergy/AdvReac Type Severity Reaction Status Date / Time No Known Allergies Allergy Verified 12/01/19 05:34 - Home Medications Home Medications: Ambulatory Orders Amlodipine Besylate [Norvasc -] 10 mg PO DAILY 12/01/19 Carvedilol [Coreg -] 25 mg PO BID 12/01/19 Lisinopril [Prinivil -] 40 mg PO DAILY 12/01/19 Warfarin Sodium [Coumadin] 4 mg PO UTDICT 12/01/19 Warfarin Sodium [Coumadin] 5 mg PO ASDIR 12/01/19 Family Medical History Family History: Unremarkable Review of Systems - Review of Systems Constitutional: reports: No Symptoms Eyes: reports: No Symptoms Neurological: reports: Headache, Incoordination, Numbness, Parasthesia Physical Exam-Neuro Vital Signs: Vital Signs Temperature 98.1 F 12/01/19 13:25 Pulse Rate 88 12/01/19 13:25 Respiratory Rate 20 12/01/19 13:25 Blood Pressure 115/55 L 12/01/19 13:25 O2 Sat by Pulse Oximetry (%) 98 12/01/19 13:25 Constitutional: Yes: Well Nourished Neck: Yes: WNL Cardiovascular: Yes: WNL Labs: CBC, BMP 12/01/19 06:00 12/01/19 06:00 INR, PTT INR 5.28 (0.83-1.09) H* 12/01/19 06:00 - Neuro Exam Level Of Consciousness: Yes: Oriented to Person, Oriented to Place Eyes: Yes: PERRLA Speech: WNL Dominant Hand: Right Cranial Nerves II-XII Intact: Yes Gag: Present DTR's: 1+ Left Bicep, 1+ Right Bicep, 1+ Left Tricep, 1+ Right Tricep Response to light touch: Abnormal Response to pain prick: Abnormal Response to temperature: Abnormal Motor Strength: 3/5: Left Arm, Right Arm, Left Leg, Right Leg Gait: Deferred Imaging - Results Cat Scan: Image Reviewed Ultrasound: Image Reviewed Problem List - Problems (1) Right sided weakness Code(s): R53.1 - WEAKNESS (2) Acute visual loss Code(s): H53.139 - SUDDEN VISUAL LOSS, UNSPECIFIED EYE Qualifiers: Laterality: unspecified laterality Qualified Code(s): H53.139 - Sudden visual loss, unspecified eye Assessment/Plan 84-year-old woman with multiple medical problem cardiac arrhythmia with risk of embolic stroke very high on top of this patient. Atherosclerotic disease with over 50% stenosis on the left internal carotid Questionable TIA. stroke prevention. Cervical spondylosis 1 Fall precautions. Increase by mouth fluid intake. Tight INR control. MRI MRA of the brain with no contrast. suggest vascular surgery evaluation. Statin. physical therapy. ESR C-reactive protein Thank you very much for allowing me to be part of this patient neurological care Neha Becker M.D.
[2019-12-01] MEDS: CARVEDILOL 25 MG TABLET (FP) PO SCH (22:49)
[2019-12-02] MEDS ORDERED: SODIUM CHLORIDE 1,000 ML IV SCH ×3 (00:30→09:00)
[2019-12-02] MEDS: ATORVASTATIN CA 40 MG TABLET (FP) PO SCH ×2 (01:35→21:16)
[2019-12-02] MEDS: LIDOCAINE PATCH REMOVAL MC SCH ×2 (01:35→21:16)
[2019-12-02] MEDS: ACETAMINOPHEN 325 MG TABLET (FP) PO PRN ×2 (01:48→14:45)
[2019-12-02] MEDS ORDERED: LACTATED RINGERS SOLUTION 1,000 ML/1,000 ML INFUS.BAG IV SCH ×3 (06:30→14:52)
[2019-12-02 06:34] LABS: BASO % 0.2 % (0-2.0); EOS % 0.1 % (0-4.5); HEMATOCRIT 34.8 % (32.4-45.2); HEMOGLOBIN 11.5 GM/dL (10.7-15.3); LYMPH % 10.8 % (8-40); MEAN CELL VOLUME 94.1 fl (80-96); MEAN PLT VOLUME 9.1 fl (7.5-11.1); MONO % 6.6 % (3.8-10.2); NEUT % 82.3 % (42.8-82.8); PLATELET COUNT 178 K/MM3 (134-434); RDW 14.4 % (11.6-15.6); WHITE BLOOD COUNT 6.5 K/mm3 (4.0-10.0)
[2019-12-02 06:53] LABS: INR 3.66 (0.83-1.09); PROTHROMBIN TIME (PATIENT) 43.7 SEC (9.7-13.0)
[2019-12-02 06:56] LABS: ACTIVATED PTT 44.8 SECONDS (25.2-36.5)
[2019-12-02 07:22] LABS: BILIRUBIN,TOTAL 0.8 mg/dL (0.2-1); BLOOD UREA NITROGEN 18.6 mg/dL (7-18); CALCIUM 8.1 mg/dL (8.5-10.1); MAGNESIUM 1.8 mg/dL (1.8-2.4); PHOSPHOROUS 3.4 mg/dL (2.5-4.9); POTASSIUM 3.8 mmol/L (3.5-5.1)
[2019-12-02] MEDS ORDERED: SODIUM CHLORIDE 500 ML IV STA (08:32)
[2019-12-02] MEDS ORDERED: PIPERACILLIN/TAZOB 3.375 GM 3.375 GM in DEXTROSE 5%-WATER - 50 ML IVPB ONE (08:41)
--- NOTE | 2019-12-02 08:53 | PN ---
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 (short form) - Note 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: NEUROSURGERY CONSULT DICTATED Chart reviewed MRI's/CT's reviewed Neck pain with R arm shooting pain and inability to ambulate for 1 month ( walking with walker previously) h/o hypertension, hyperlipidemia, Atrial flutter (on Coumadin), CVA (2018- residual right sided deficits) c/o diffuse worsening weakness, and numbness R > > L. + paresthesias bilateral hands. Denies any recent fall or trauma. Denies headache, N/V, chest pain, palpitations, bowel or bladder incontinence. PE: AF, 82/47 HEENT- NC/AT; Neck- supple; Cor-Irreg; Chest- CTA B; Abd- benign; Ext- no C/C/E CN- intact; Motor- R UE 0-1/5 and LE 0/5; Sensation- intact LT; DTR- hyporereflexic, no LTS WBC 6.5, CRP 8.5; ESR pending; Cr 1 CT C spine- marked C5-6 DDD with anterior wedging C5-6, retrolisthesis,moderate to marked central stenosis, moderate C4-5 stenosis Brain MRI (prelim)- B moderate periventricular small vessel dz; no acute ischemia C spine MRI (prelim)- multilevel DDD; C5-6 vertebral edema, central disc protrusion C4-5 and C5-6; moderate to marked C5-6 (L > R) central and foramenal stenosis and mild-moderate C4-5 stenosis, extensive spondylosis; loss of lordosis; no clear cord edema or myelomalacia Cervical stenosis with myelopathy and profound R sided weakness Possible candidate for cervical decompression and fusion with instrumentation at least C4-5-6 High risk procedure given poor neurological condition/function, degree of compression, and cardiac conditions and prior CVA, as well as need to hold AC for long periods of time chago-operatively Pros and cons f/w pt and daughter Vero by phone C-collar ordered for immobilization/comfort All questions answered MRI with dov to r/o inflammatory/infectious process C5-6 ID consult pending D/w medical team Family wants to make her comfortable for now Will give decadron 2 mg q 6hrs and neurontin
--- NOTE | 2019-12-02 09:14 | PN ---
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, Physician History of Present Illness: events noted Chart review Seen on the medical floor No cardiac event still on the anticoagulation Right leg 0 out of 5 left leg 1 out of 5 Right arm 1 out of 5 Left arm 3 out of 5 Seen by neurosurgery MRI of the brain with no evidence of acute RUMPER pathology MRI of the cervical spine with a high degree cervical compression on the spinal cord with multilevel disc disease Reports are not still available - Current Medication List Current Medications: Active Medications Acetaminophen (Tylenol -) 650 mg PO Q6H PRN PRN Reason: Fever Or Pain Last Admin: 12/02/19 01:48 Dose: 650 mg Aspirin (Asa -) 81 mg PO DAILY MICHAEL Atorvastatin Calcium (Lipitor -) 40 mg PO HS [facility] Last Admin: 12/02/19 01:35 Dose: 40 mg Carvedilol (Coreg -) 25 mg PO BID [facility] Last Admin: 12/01/19 22:49 Dose: Not Given Dexamethasone Sodium Phosphate (Decadron Injection -) 2 mg IVPUSH Q6H-IV MICHAEL Gabapentin (Neurontin -) 100 mg PO TID MICHAEL Lactated Ringer's (Lactated Ringers Solution) 1,000 ml in 1,000 mls @ 125 mls/ hr IV ASDIR MICHAEL Sodium Chloride (Normal Saline -) 500 mls @ 500 mls/hr IV ASDIR STA Stop: 12/02/19 09:31 Last Admin: 12/02/19 08:48 Dose: 500 mls/hr Sodium Chloride (Normal Saline -) 1,000 mls @ 100 mls/hr IV ASDIR MICHAEL Miscellaneous (Lidoderm Patch Removal) 1 each MC DAILY@2200 [facility] Last Admin: 12/02/19 01:35 Dose: 1 each - Objective Vital Signs: Vital Signs Temperature 98.0 F 12/02/19 08:11 Pulse Rate 75 12/02/19 08:11 Respiratory Rate 18 12/02/19 08:11 Blood Pressure 82/47 L 12/02/19 08:11 O2 Sat by Pulse Oximetry (%) 97 12/01/19 21:00 Constitutional: Yes: Well Nourished Eyes: Yes: WNL Neurological: Yes: Alert, Oriented, Babinski negative Labs: CBC, BMP 12/02/19 05:35 12/02/19 05:35 INR, PTT INR 3.66 (0.83-1.09) H 12/02/19 05:35 Problem List - Problems (1) Right sided weakness Assessment/Plan: cervicalstenosis with high degree myelopathy Stroke prevention No acute CVA 1. Continued anti-coagulation. 2. EMG nerve conduction testing. 3. Blood work. 4. SCDs. 5. Physical therapy. . Agree to the plan from the neurosurgery Code(s): R53.1 - WEAKNESS (2) Acute visual loss Code(s): H53.139 - SUDDEN VISUAL LOSS, UNSPECIFIED EYE Qualifiers: Laterality: unspecified laterality Qualified Code(s): H53.139 - Sudden visual loss, unspecified eye
--- NOTE | 2019-12-02 09:33 | PN ---
Teaching Attending Note Name of Resident: Juanita Nash ATTENDING PHYSICIAN STATEMENT I saw and evaluated the patient. I reviewed the resident's note and discussed the case with the resident. I agree with the resident's findings and plan as documented. SUBJECTIVE: she denies any cp or SOB. reports weakness in upper and lower extremities x 2 weeks. denies fever ro chills. denies neck trauma. she reports not being able to urinate since yesterday. not able to have BM since being here . denies saddel anesthesia OBJECTIVE: NAD, awake, alert, cooperative. MMM, no facial droop. CV: irreg irreg , 3/6 SM at apex. Lungs: CTAB Abd: soft, TTP in suprapubic area, bladder is percussed half way between pubic area and umbilicus . Neuro: no facial droop. EOMI, round pupilsm reactive to light . nl facial sensation . tongue at mid line. strength: RUE: shoulder shrug 2/5, shoulder abduction 2/5, biceps 0/5, triceps 0/5, hand associate professor of violin 0. wrist flexion /extension 0. LUE: shoulder shrug 2/5, shoulder abduction 2/5, biceps 3/5, triceps 3/5, hand associate professor of violin weak . wrist flexion /extension 0. RLE: hip flexion 1/5, knee flexion /extension 0/5, ankle dorsiflexion /plantar flexion 0/5. LLE: hip flexion 0/5, knee flexion /extension 0/5, ankle dorsiflexion /plantar flexion 0/5. reflexes: 1+ knee jerk and biceps on L. 0 on R. ankle jerk 0 b/l. sensation to light touch normal even in saddle area. rectal tone : decreased skin: stage 2 saccraal. R posterior shoulder unstagable lesion ASSESSMENT AND PLAN: 84 y/o lady with h.o HTn, CVA, A flutter/A fib , HLP who presented with progressive weakness of upper and lower extremities. 1- C5-6 discitis/OM 2- C5-6 mild cord compression 3- cervical disc disease 4- Urinary retention /fecal retention 5- elevated trop 6- H/o A fib . 7- Coumadin coagulopathy plan : - blood cx - D/w Id , hold off Abx pending MRI with Ty . possible aspiration per IR after MRI results - consult neuro sx. Recs appreciated - MRI of C spine with Ty. - MRI of T spine was not done. will hold off now and focus onn C spine. if T MRI is deemed necessary per neuro sx , will reorder. - echo - IVF, bolus and continuous. Monitor BP - place a guzman - d/w patient the possible need for surgery , she defers for now and wants to speak to children. case was d/w daughter by resident, also no decision on sx is made . - cont to hold coumadin. INR 3.6 - Card eval pending . trop decreased. NO PC . EKG with a fib ,. lateral TWI - Tx to ICU due to hypotension Critical Care Total Critical Care Time (in minutes): 40 Critical Care Statement: The care of this patient involved high complexity decision making to prevent further life threatening deterioration of the patient 's condition and/or to evaluate & treat vital organ system(s) failure or risk of failure.
[2019-12-02] MEDS ORDERED: VANCOMYCIN 1 GM in D5W (PRE-DOCKED) 1,000 MG/250 ML IVPB SCH (10:00)
[2019-12-02] MEDS ORDERED: ASPIRIN 81 MG CHEWABLE TABLETS PO SCH (10:00)
[2019-12-02] MEDS: DEXAMETHASONE SOD PHOSPHATE 4 MG/1 ML VIAL IVPUSH SCH ×3 (10:20→21:15)
[2019-12-02] MEDS: CARVEDILOL 25 MG TABLET (FP) PO SCH (10:20)
--- NOTE | 2019-12-02 10:33 | CON.CARD ---
Consult Consult Specialty:: Cardiology Referred by:: Hospitalist Reason for Consultation:: Cardiac evaluation - History of Present Illness Chief Complaint: Weakness and numbness History of Present Illness: Patient is an 84 year old female with underlying history of HTN, hypercholesterolemia, atrial flutter and CVA with history of visual deficit who presented with diffuse weakness and numbness. Patient also complained of neck discomfort radiating to bilateral shoulders and into the arm and complained of paresthesia of the hands. Patient was seen by Neurosurgery (Dr. Dez Xiao) for cervical spinal stenosis. MRI was suggestive of c5-c6 osteomyelitis/discitis and c4-c5 degenerative disc disease. Echocardiography revealed normal LVEF with severe concentric LVH ?infiltrative disease and mild MR and TR and dilated LA cavity. She denies chest pain, shortness of breath or palpitations. She denies fever or chills. She denies headache or lightheadedness. She denies nausea, vomiting, diarrhea or abdominal pain. She denies change in vision. 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 Cardio/Vascular: Yes: AFIB (Atrial flutter), HTN, Hyperlipdemia - Past Surgical History Past Surgical History: Yes: Joint Replacement - Alcohol/Substance Use Hx Alcohol Use: No History of Substance Use: reports: None - Smoking History Smoking history: Former smoker Have you smoked in the past 12 months: No If you are a former smoker, when did you quit?: 2 yrs Home Medications - Allergies Allergies/Adverse Reactions: Allergies Allergy/AdvReac Type Severity Reaction Status Date / Time No Known Allergies Allergy Verified 12/01/19 05:34 - Home Medications Home Medications: Ambulatory Orders Amlodipine Besylate [Norvasc -] 10 mg PO DAILY 12/01/19 Carvedilol [Coreg -] 25 mg PO BID 12/01/19 Lisinopril [Prinivil -] 40 mg PO DAILY 12/01/19 Warfarin Sodium [Coumadin] 4 mg PO UTDICT 12/01/19 Warfarin Sodium [Coumadin] 5 mg PO ASDIR 12/01/19 Cyclobenzaprine HCl 5 mg PO PRN 12/02/19 Family Medical History Other Family History: HTN, CAD Review of Systems Unable to obtain ROS, reason: Unable to fully obtain - Review of Systems Cardiovascular: denies: Chest Pain, Palpitations, Shortness of Breath Respiratory: denies: Cough Gastrointestinal: denies: Melena, Nausea, Rectal Bleeding, Vomiting Musculoskeletal: reports: Joint Pain Neurological: reports: Parasthesia, Unsteady Gait, Weakness. denies: Dizziness , Headache, Seizure, Syncope Vital Signs: Vital Signs Temperature 98.0 F 12/02/19 08:11 Pulse Rate 75 12/02/19 08:11 Respiratory Rate 18 12/02/19 08:11 Blood Pressure 82/47 L 12/02/19 08:11 O2 Sat by Pulse Oximetry (%) 97 12/01/19 21:00 Neck: Yes: Supple Respiratory: Yes: CTA Bilaterally Gastrointestinal: Yes: Normal Bowel Sounds, Soft. No: Tenderness Cardiovascular: Yes: Regular Rate and Rhythm JVD: No PMI: Non-Displaced Heart Sounds: Yes: S1, S2. No: Gallop Edema: No - Other Data Labs, Other Data: CBC, BMP 12/02/19 05:35 12/02/19 05:35 INR, PTT INR 3.66 (0.83-1.09) H 12/02/19 05:35 Troponin, BNP 12/01/19 12/01/19 13:00 17:15 Troponin I 0.22 H 0.21 H Sinus rhythm with APC and ST-T abnormality in inferolateral leads Echo: Report Reviewed Imaging - Results Chest X-ray: Report Reviewed (No acute pathology) Cat Scan: Report Reviewed (Head CT, Cervical CT noted) Ultrasound: Report Reviewed (Carotid Doppler right carotid stenosis) MRI: Report Reviewed (Cervical MRI noted) EKG: Report Reviewed Problem List - Problems (1) CVA (cerebral vascular accident) Code(s): I63.9 - CEREBRAL INFARCTION, UNSPECIFIED (2) Abnormal ECG Code(s): R94.31 - ABNORMAL ELECTROCARDIOGRAM [ECG] [EKG] (3) Weakness Code(s): R53.1 - WEAKNESS (4) Paresthesia Code(s): R20.2 - PARESTHESIA OF SKIN (5) Hypercholesterolemia Code(s): E78.00 - PURE HYPERCHOLESTEROLEMIA, UNSPECIFIED (6) HTN (hypertension) Code(s): I10 - ESSENTIAL (PRIMARY) HYPERTENSION (7) Hypotension Code(s): I95.9 - HYPOTENSION, UNSPECIFIED (8) LVH (left ventricular hypertrophy) Code(s): I51.7 - CARDIOMEGALY (9) Right sided weakness Code(s): R53.1 - WEAKNESS (10) Atrial flutter Code(s): I48.92 - UNSPECIFIED ATRIAL FLUTTER Qualifiers: Atrial flutter type: atypical Qualified Code(s): I48.4 - Atypical atrial flutter (11) Demand ischemia Code(s): I24.8 - OTHER FORMS OF ACUTE ISCHEMIC HEART DISEASE (12) Cervical spinal stenosis Code(s): M48.02 - SPINAL STENOSIS, CERVICAL REGION Assessment/Plan 1. Cervical spinal stenosis and possible osteomyelitis/discitis 2. HTN 3. Hypercholesterolemia 4. History of atrial flutter [id number] score of 6-7 5. CVA 6. Concentric LVH ? rule out infiltrative heart disease 7. Abnormal ECG suggests CAD 8. Demand ischemia with elevated troponin PLAN: 1. Currently hypotensive. Carvedilol, Amlodipine and Lisinopril held until BP normalized. Fluid resuscitation. 2. Neurosurgery input noted and further plans are to be followed 3. Steroids as per Neurosurgery 4. Trend troponin 5. Echocardiography reviewed. 6. Currently Coumadin held due to supratherapeutic INR. Keep INR btw 2-3 unless surgery is planned 7. May consider Tm99 PYP study to rule out amyloidosis once clinically stable Further plans are to be followed Seth Castaneda MD
--- NOTE | 2019-12-02 11:47 | PN ---
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, SPORTS MEDICINE PHYSICIAN - Note 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: Followed by neurodurgery and neurosurgery MRI of the brain with no evidence of acute BALANCE WHEEL FACER pathology MRI of the cervical spine with a high degree cervical compression on the spinal cord with multilevel disc disease Selected Entries 12/01/19 12/01/19 12/01/19 05:15 10:39 13:25 Breakfast Temperature 98.1 F 99.0 F 98.1 F Blood Pressure 128/92 Blood Pressure 124/87 115/55 L [Right Arm] 12/01/19 12/01/19 12/01/19 16:41 18:00 19:24 Breakfast Temperature 97.8 F 97.5 F L Blood Pressure 110/51 L 84/44 L 94/49 L Blood Pressure [Right Arm] 12/01/19 12/02/19 12/02/19 20:00 00:00 02:00 Breakfast Temperature 97.5 F L 97.8 F Blood Pressure 87/44 L 99/50 L 98/55 L Blood Pressure [Right Arm] 12/02/19 12/02/19 12/02/19 06:00 06:23 06:45 Breakfast Temperature 97.8 F Blood Pressure 80/41 L 81/36 L 89/48 L Blood Pressure [Right Arm] 12/02/19 12/02/19 12/02/19 07:38 08:11 08:38 Breakfast Temperature 98.0 F Blood Pressure 91/47 L 82/47 L 87/43 L Blood Pressure [Right Arm] 12/02/19 12/02/19 12/02/19 09:50 10:28 10:50 Breakfast 0 Temperature Blood Pressure 93/56 L 95/47 L Blood Pressure [Right Arm] Laboratory Tests 12/01/19 12/02/19 12/02/19 06:00 05:35 05:35 WBC 6.5 PT with INR 63.30 H 43.70 H INR 5.28 H* 3.66 H
--- NOTE | 2019-12-02 12:10 | PN ---
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 (short form) - Note 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: ID CONSULT DICTATED MRI EVIDENCE OF POSSIBLE OM/ DISCITIS AT C5C6 LEVEL PT FOR MRI WITH GADOLINIUM IN THE ABSENCE OF +BC WOULD HOLD OFF ON EMPIRIC ANTIBIOTIC THERAPY IN ANTICIPATION OF POSSIBLE ASPIRATION/BX OF DISC SPACE FOR CULTURES DISCUSSED WITH NEUROSURGERY
--- NOTE | 2019-12-02 12:51 | CONS ---
INFECTIOUS DISEASE CONSULTATION DATE OF CONSULTATION: DATE OF DICTATION: 12/02/2019 HISTORY: The patient is an 84-year-old female who was evaluated for MRI finding of osteomyelitis/diskitis C5-C6. The patient was admitted to the hospital on December 01, 2019, with worsening back and neck pain associated with weakness. According to the notes, she had been able to ambulate 3 weeks ago with a walker, however, now is nonambulatory. She presented to the hospital where an MRI of the brain was performed and was negative for acute CVA. CT of the cervical spine showed marked C5-C6 degenerative disk disease with anterior wedging. A cervical spine MRI was performed and showed multilevel degenerative disk disease, C5-C6 vertebral edema with disk protrusion C4-C5, C5-C6, and [id number] central foraminal stenosis. She was seen in consultation by neurosurgery and felt to possibly be a candidate for cervical decompression and fusion with instrumentation at the C4-C6 level. Her clinical course has been complicated by hypotension and atrial flutter. An MRI with gadolinium has been ordered to further assess the presence or absence of diskitis/osteomyelitis at the C5-C6 level. The patient denies any traumatic injury to her neck or spine. No recent febrile illness. Blood cultures have been obtained and are pending. Her hospital course is significant for absence of fever and a normal white blood cell count. Sedimentation rate 46, C-reactive protein 8.5. PAST MEDICAL HISTORY: Positive for stroke, atrial flutter, hypertension, hyperlipidemia, glaucoma, chronic back pain. ALLERGIES: No known allergies. MEDICATIONS: Norvasc, Coreg, Prinivil, Coumadin. SOCIAL HISTORY: She reports being born in [place] and a lifelong resident. No significant travel history. LABORATORY DATA: White count 6.5, hematocrit 34.8, platelets 178. Blood cultures pending. PHYSICAL EXAMINATION: General: She is supine in bed. Weak appearing. Vital Signs: Temperature 98.0, blood pressure 95/47, pulse 77 irregular, respirations 20 per minute. HEENT: Sclerae anicteric. Heart: Sounds S1, S2. Irregular. Lungs: Grossly clear. Diminished bilaterally. Abdomen: Soft and nontender. Extremities: Positive for pedal edema. Negative Homans sign. IMPRESSION: MRI evidence of possible osteomyelitis/diskitis at the C5-C6 level. PLAN: Patient is to have an MRI with gadolinium. Await that study. Case discussed with neurosurgery. We will hold on antibiotic therapy at the present time. Should there be evidence of diskitis or osteomyelitis, would obtain percutaneous aspiration of the disk space or vertebral biopsy for culture and pathology. Would hold off on antibiotics pending possible biopsy to increase yield of any bacterial growth. Obtain specimen for routine culture and sensitivity, AFB, and fungi. Antibiotics can be started after biopsies are performed or if blood cultures become positive. Thank you for the kind referral. TARUN SALMERON M.D. [id number]
--- NOTE | 2019-12-02 13:06 | CONSULT ---
Consultation: REQUESTING PROVIDER: Dr Schwarz CONSULT REQUEST: ICU management HISTORY OF PRESENT ILLNESS: Patient is an 84 year old female with history of hypertension, hyperlipidemia, Atrial flutter (on Coumadin), CVA (2018- residual right visual deficits) presents with complaint of diffuse worsening weakness, and numbness found to have C5-C6 cord compression and possible discitis of C5-C6 on MRI- ICU was consulted for hypotension- patients MAPS were ranging from 62-72 ; patient had received 500cc bolus x1 and was started on LR maintenance fluid of 125. REVIEW OF SYSTEMS: CONSTITUTIONAL: Absent: fever, chills, diaphoresis, generalized weakness, malaise, loss of appetite, weight change HEENT: Absent: rhinorrhea, nasal congestion, throat pain, throat swelling, difficulty swallowing, mouth swelling, ear pain, eye pain, visual changes CARDIOVASCULAR: Absent: chest pain, syncope, palpitations, irregular heart rate, lightheadedness , peripheral edema RESPIRATORY: Absent: cough, shortness of breath, dyspnea with exertion, orthopnea, wheezing, stridor, hemoptysis GASTROINTESTINAL: Absent: abdominal pain, abdominal distension, nausea, vomiting, diarrhea, constipation, melena, hematochezia GENITOURINARY: Absent: dysuria, frequency, urgency, hesitancy, hematuria, flank pain, genital pain MUSCULOSKELETAL: Absent: myalgia, arthralgia, joint swelling, back pain, neck pain SKIN: Absent: rash, itching, pallor HEMATOLOGIC/IMMUNOLOGIC: Absent: easy bleeding, easy bruising, lymphadenopathy, frequent infections ENDOCRINE: Absent: unexplained weight gain, unexplained weight loss, heat intolerance, cold intolerance NEUROLOGIC: Present: focal weakness, paresthesias Absent: headache, focal weakness or paresthesias, dizziness, unsteady gait, seizure, mental status changes, bladder or bowel incontinence PSYCHIATRIC: Absent: anxiety, depression, suicidal or homicidal ideation, hallucinations. PHYSICAL EXAMINATION Vital Signs - 24 hr 12/01/19 12/01/19 12/01/19 13:25 16:41 17:25 Temperature 98.1 F 97.8 F Pulse Rate 85 Pulse Rate [ 88 Left] Respiratory 20 22 H Rate Blood Pressure 110/51 L Blood Pressure 115/55 L [Right Arm] O2 Sat by Pulse 98 97 Oximetry (%) 12/01/19 12/01/19 12/01/19 18:00 19:24 20:00 Temperature 97.5 F L 97.5 F L Pulse Rate 89 79 71 Pulse Rate [ Left] Respiratory 22 H 22 H 20 Rate Blood Pressure 84/44 L 94/49 L 87/44 L Blood Pressure [Right Arm] O2 Sat by Pulse Oximetry (%) 12/01/19 12/02/19 12/02/19 21:00 00:00 02:00 Temperature 97.8 F Pulse Rate 78 Pulse Rate [ Left] Respiratory 20 20 Rate Blood Pressure 99/50 L 98/55 L Blood Pressure [Right Arm] O2 Sat by Pulse 97 Oximetry (%) 12/02/19 12/02/19 12/02/19 06:00 06:23 06:45 Temperature 97.8 F Pulse Rate 79 83 Pulse Rate [ Left] Respiratory 20 Rate Blood Pressure 80/41 L 81/36 L 89/48 L Blood Pressure [Right Arm] O2 Sat by Pulse Oximetry (%) 12/02/19 12/02/19 12/02/19 07:38 08:11 08:38 Temperature 98.0 F Pulse Rate 82 75 86 Pulse Rate [ Left] Respiratory 18 18 Rate Blood Pressure 91/47 L 82/47 L 87/43 L Blood Pressure [Right Arm] O2 Sat by Pulse Oximetry (%) 12/02/19 12/02/19 09:50 10:50 Temperature Pulse Rate 81 77 Pulse Rate [ Left] Respiratory Rate Blood Pressure 93/56 L 95/47 L Blood Pressure [Right Arm] O2 Sat by Pulse Oximetry (%) GENERAL: Awake, alert, laying in bed; NAD . EYES: PEERLA; EOMI; no scleral icterus NECK: no JVD; no lymphadenopathy LUNGS: CTA B/L; no rales/rhonchi or wheezing HEART: irregularly irregular s1 s2 + murmur RUSB ABDOMEN: Soft, NT/ND +BS in all 4 quadrants MUSCULOSKELETAL: Normal range of motion at all joints. No bony deformities or tenderness. No CVA tenderness. EXTREMITIES: warm; well-perfused trace pedal edema B/L NEUROLOGICAL: Cranial nerves II-XII intact. Normal speech. RUE 2/5 strength; RLE 3/5; LUE 2/5 strength LLE 1/5 strength sensation intact; no facial droop PSYCHIATRIC: Cooperative. Good eye contact. Appropriate mood and affect. SKIN: Warm, dry, normal turgor, no rashes or lesions noted. Laboratory Results - last 24 hr 12/01/19 12/01/19 12/02/19 13:00 17:15 05:35 WBC 6.5 RBC 3.70 Hgb 11.5 Hct 34.8 MCV 94.1 MCH 31.0 MCHC 33.0 RDW 14.4 Plt Count 178 MPV 9.1 Absolute Neuts (auto) 5.4 Neutrophils % 82.3 Lymphocytes % 10.8 Monocytes % 6.6 Eosinophils % 0.1 Basophils % 0.2 Nucleated RBC % 0 ESR PT with INR INR PTT (Actin FS) Sodium Potassium Chloride Carbon Dioxide Anion Gap BUN Creatinine Est GFR (CKD-EPI)AfAm Est GFR (CKD-EPI)NonAf Random Glucose Hemoglobin A1c % Calcium Phosphorus Magnesium Total Bilirubin AST ALT Alkaline Phosphatase Creatine Kinase 46 44 Troponin I 0.22 H 0.21 H C-Reactive Protein Total Protein Albumin Triglycerides Cholesterol Total LDL Cholesterol HDL Cholesterol TSH 12/02/19 12/02/19 12/02/19 05:35 05:35 05:35 WBC RBC Hgb Hct MCV MCH MCHC RDW Plt Count MPV Absolute Neuts (auto) Neutrophils % Lymphocytes % Monocytes % Eosinophils % Basophils % Nucleated RBC % ESR PT with INR 43.70 H INR 3.66 H PTT (Actin FS) 44.8 H Sodium 139 Potassium 3.8 Chloride 110 H Carbon Dioxide 22 Anion Gap 7 L BUN 18.6 H Creatinine 1.0 Est GFR (CKD-EPI)AfAm 60.33 Est GFR (CKD-EPI)NonAf 52.06 Random Glucose 99 Hemoglobin A1c % 6.1 Calcium 8.1 L Phosphorus 3.4 Magnesium 1.8 Total Bilirubin 0.8 AST 14 L ALT 21 Alkaline Phosphatase 57 Creatine Kinase Troponin I C-Reactive Protein Total Protein 5.0 L Albumin 2.0 L Triglycerides 96 Cholesterol 143 Total LDL Cholesterol 71 HDL Cholesterol 54 TSH 0.61 12/02/19 12/02/19 05:35 05:35 WBC RBC Hgb Hct MCV MCH MCHC RDW Plt Count MPV Absolute Neuts (auto) Neutrophils % Lymphocytes % Monocytes % Eosinophils % Basophils % Nucleated RBC % ESR 46 H PT with INR INR PTT (Actin FS) Sodium Potassium Chloride Carbon Dioxide Anion Gap BUN Creatinine Est GFR (CKD-EPI)AfAm Est GFR (CKD-EPI)NonAf Random Glucose Hemoglobin A1c % Calcium Phosphorus Magnesium Total Bilirubin AST ALT Alkaline Phosphatase Creatine Kinase Troponin I C-Reactive Protein 8.5 H Total Protein Albumin Triglycerides Cholesterol Total LDL Cholesterol HDL Cholesterol TSH Active Medications Generic Name Dose Route Start Last Admin Trade Name Grant PRN Reason Stop Dose Admin Acetaminophen 650 mg 12/02/19 01:34 12/02/19 01:48 Tylenol - PO 650 mg Q6H PRN Administration Fever Or Pain Atorvastatin Calcium 40 mg 12/01/19 22:00 12/02/19 01:35 Lipitor - PO 40 mg HS MICHAEL Administration Dexamethasone Sodium Phosphate 2 mg 12/02/19 09:15 12/02/19 10:20 Decadron Injection - IVPUSH 2 mg Q6H-IV MICHAEL Administration Gabapentin 100 mg 12/02/19 14:00 Neurontin - PO TID MICHAEL Lactated Ringer's 1,000 ml in 1,000 mls @ 100 mls/hr 12/02/19 11:54 Lactated Ringers Solution IV ASDIR MICHAEL Miscellaneous 1 each 12/01/19 22:00 12/02/19 01:35 Lidoderm Patch Removal MC 1 each DAILY@2200 MICHAEL Administration ASSESSMENT/PLAN: Patient is an 84 year old female with history of hypertension, hyperlipidemia, Atrial flutter (on Coumadin), CVA (2018- residual right visual deficits) presents with complaint of diffuse worsening weakness, and numbness found to have C5-C6 cord compression and possible discitis of C5-C6 on MRI- ICU was consulted for hypotension #Neuro history of CVA c5/c6 cord compression; possible c5-c6 discitis neuro surg consulted- family wants to hold off surgery for now decadron 2q6H neuro checks neuro on board #Cardio HTN, HLD< A flutter -hypotensive; received 500cc bolus and started on maintenance fluids -maintain MAP of >65 not needing ICU and pressors at the moment; will reevaluate c/w coumadin c/w lipitor hold off anti-hypertensives give another 500 cc bolus F/E/N LR @125ml/hr monitor electrolytes NPO until speech and swallow dvt ppx: coumadin not needing ICU currently- will reevalute later on this afternoon; Dispo: We will continue to follow the patient. Thank you for this consultative opportunity. ATTENDING PHYSICIAN STATEMENT I saw and evaluated the patient. I reviewed the resident's note and discussed the case with the resident. I agree with the resident's findings and plan as documented. SUBJECTIVE: OBJECTIVE: ASSESSMENT AND PLAN:
--- NOTE | 2019-12-02 13:49 | CONSULT ---
Consult Consult Specialty:: PM&R Dr Maya for Dr Barroso Reason for Consultation:: EMG - History of Present Illness Chief Complaint: diffuse weakness, R>L History of Present Illness: This is an 84 year old woman with a medical history of CVA 2018 with residual visual deficits, A flutter, HTN, HLD, who was admitted to [facility] 12/01/19 with 1 month of rapidly worsening weakness, R>L body. She reports 1 month ago she could walk "as much as I needed to", now bedbound. MRI brain 12/01/19 showed no acute pathology with chronic microvascular changes. MRI cervical spine 12/01/19 shows possible osteomyelitis/ disciitis C5/6 with grade 1 retrolisthesis C5 over C6 and B facet athropathy causing moderate to marked canal stenosis and mild cord compression, B C6 nerve root impingement, C4/5 moderately severe DDD with disc osteophytes causing cord impingement and moderate central stenosis, and C6/7 L lateral HNP impinging L C7 nerve. Neurology was consulted, who requested MRI/ MRA brain and Vascular consult. ST consult determined she has mild dysphagia. Cardiology was consulted as well. She has not been seen by PT. Physiatry was requested to perform EMG which was completed. - Past Medical History Cardio/Vascular: Yes: HTN - Past Surgical History Past Surgical History: Yes: Joint Replacement - Alcohol/Substance Use Hx Alcohol Use: No History of Substance Use: reports: None - Smoking History Smoking history: Never smoked Have you smoked in the past 12 months: Yes Aproximately how many cigarettes per day: 3 If you are a former smoker, when did you quit?: 2 yrs - Social History Usual Living Arrangement: Other (lives with family in house, previously ambulated with ) Home Medications - Allergies Allergies/Adverse Reactions: Allergies Allergy/AdvReac Type Severity Reaction Status Date / Time No Known Allergies Allergy Verified 12/01/19 05:34 - Home Medications Home Medications: Ambulatory Orders Amlodipine Besylate [Norvasc -] 10 mg PO DAILY 12/01/19 Carvedilol [Coreg -] 25 mg PO BID 12/01/19 Lisinopril [Prinivil -] 40 mg PO DAILY 12/01/19 Warfarin Sodium [Coumadin] 4 mg PO UTDICT 12/01/19 Warfarin Sodium [Coumadin] 5 mg PO ASDIR 12/01/19 Review of Systems Findings/Remarks: Denies fevers, chills, changes in vision/ hearing/ mood, CP, SOB, abdominal pain , nausea, vomiting, constipation, diarrhea, dysuria, BUE/ BLE paresthesias/ numbness. Notes profound progressive weakness, R>L body. Physical Exam Vital Signs: Vital Signs Temperature 98.0 F 12/02/19 08:11 Pulse Rate 77 12/02/19 10:50 Respiratory Rate 18 12/02/19 08:11 Blood Pressure 95/47 L 12/02/19 10:50 O2 Sat by Pulse Oximetry (%) 97 12/01/19 21:00 Musculoskeletal: Yes: Other (General: calm elderly AAF lying in bed NAD, speaks quietly; unable to range BUE/ BLE 2/2 pain, grossly 1/5 RUE, 2/5 LUE, 0/5 RLE except for 1/5 R HF, and 4/5 LLE except for 2/5 L HF; Pinprick reduced BUE/ BLE ; no BLE pitting edema, no B calf tenderness) Labs: CBC, BMP 12/02/19 05:35 12/02/19 05:35 Imaging - Results MRI: Report Reviewed (as per HPI) Assessment/Plan Electrodiagnostics were performed, please see scanned images for further details. There is electrophysiological evidence of a severe sensorimotor, axonal with rare demyelination, peripheral neuropathy. There was no obvious evidence of a bilateral cervical or right lumbar radiculopathy. Study was limited by diffuse weakness causing inability to participate. 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 5) Moderate to severe multiple cervical stenosis with mild cord compression C5/6 6) Possible C5/6 disciitis/ osteomyelitis 7) Mild dysphagia 8) Cervical DDD/ DJD 9) hx CVA 2018 with residual visual deficits 10) A flutter, HTN, HLD 11) BMI WNL 12) Up to date flu shot, no documented pneumovax Recommendations: 1) PT for stretching strenghtening ROM and functional mobility 2) Falls, safety precautions 3) Cardiac precautions 4) Peripheral neuropathy work-up: ddx includes but is not limited to: vitamin deficiency (B12, folate, thiamine), EtOH abuse, gout, sarcoid, connective tissue diseae (ie, RA/ SLE), chronic liver disease, hypothyroidism, DM, renal disease 5) Continue plan/ work-up as per Neurology; rapidity of acute changes/ loss of function not necessarily explained by EMG findings 6) Denies constipation on current bowel regimen 7) Continue plan per primary team 8) Consider repeat EMG in 1-2 months if weakness progresses; if discharged, may f/u with Dr Barroso at [facility], [phone], option 1 9) Discharge planning: to be determined once medically stable, likely will require [facility]/ SNF once medically stable Thank you for this referral.
[2019-12-02] MEDS: GABAPENTIN 100 MG CAPSULE PO SCH ×2 (14:45→21:16)
[2019-12-02] MEDS ORDERED: LACTATED RINGERS SOLUTION 1,000 ML/500 ML INFUS.BAG IV ONE (15:00)
--- NOTE | 2019-12-02 15:27 | CONS ---
DATE OF CONSULTATION: 12/02/2019 CHIEF COMPLAINT: Right upper and lower extremity weakness and inability to ambulate. HISTORY OF PRESENT ILLNESS: Patient is an 84-year-old, right-handed female with a history of atrial flutter on Coumadin, hypertension, hypercholesterolemia, CVA, who complained of worsening weakness for the past month. She was previously able to ambulate with a walker, by report. She is complaining of pain shooting down through her right shoulder and right arm and forearm. She developed worsening weakness of the right upper and lower extremity. She denies bowel or bladder incontinence. She has no significant chest pain or headaches. She also has paresthesias of her hands. There is no recent fever or chills or any recent infection, by report. PAST MEDICAL HISTORY: Significant for hypertension, atrial flutter on anticoagulation, hypercholesterolemia, CVA. CURRENT MEDICATIONS: Include Lidoderm patches, Tylenol, Coreg, Lipitor, baby aspirin. ALLERGIES: There is no known drug allergy. FAMILY HISTORY: Noncontributory. SOCIAL HISTORY: She does not smoke or drink. She lives at home. She is retired. REVIEW OF SYSTEMS: Otherwise negative for major constitutional, head and neck, cardiovascular, pulmonary, gastrointestinal, genitourinary, endocrinological, neurological or psychological problem except for the above. PHYSICAL EXAMINATION: Vital Signs: Temperature is 98, blood pressure is 182/47 with a pulse rate of 75. HEENT: Examination shows her to be normocephalic, atraumatic, anicteric. Neck: Supple with mild tenderness on the right side and paraspinal muscle spasm. Range of motion is diminished. Coronary: Examination demonstrated irregular rhythm. Lungs: Clear bilaterally. Abdomen: Benign. Extremities: Examination showed no obvious signs of DVT. Neurologic: Cranial nerves examination intact 2 through 12. Motor examination shows fairly flaccid right side upper and lower extremity. Right upper extremity is at best 1 out of 5 and lower extremity is 0 out of 5. Sensory examination is intact to light touch. Deep tendon reflexes are hyporeflexive throughout. There is no pathological long-tract sign. Gait was not tested for safety reasons. LABORATORY: Examination shows a white blood cell count of 6.5. ESR is pending. Hemoglobin is 11.5. BUN and creatinine are 18.6 and 1, respectively. C- reactive protein is 8.5. INR is 3.66 and PTT is 44.8. IMAGING: CT scan of the head demonstrated oxbf-uo-jalaxope periventricular small-vessel disease. There is a chronic left cerebellar lacunar infarct. CT scan of the cervical spine demonstrated multi-level degenerative disk disease and qgkdcclb-sv-erxqvg spondylosis. There is degenerative disk space narrowing at C5-6 with anterior wedging of C5 greater than C6. There is retrolisthesis at C5-6. There is also facet arthrosis at multiple levels. MRI of the brain demonstrated moderate periventricular small-vessel disease with no acute stroke. This is preliminary finding. MRI of the cervical spine demonstrated moderate C5-6 disk space narrowing with spondylolisthesis. There is a broad-based disk bulge and biujprow-ex-uwpcnh canal stenosis. There is C4-5 disk protrusion with mild spinal cord impingement. There is no edema or myelomalacia of the spinal cord. There is some mild C4-5 foraminal narrowing. Multi-level degenerative disk disease and spondylosis is once again noted. IMPRESSION: 1. C5-C6 disk disease with possible diskitis/osteomyelitis with stenosis. 2. C4-C5 moderate stenosis. 3. Atrial flutter, on anticoagulation, and hypertension. 4. History of cerebrovascular accident. RECOMMENDATIONS: Patient presents with a 1-month history of progressive weakness and severe pain going down through her right shoulder and arm. She also has hand paresthesia. She has no fever or chills or any recent infections. On neurological examination, she has nearly-flaccid right upper and lower extremity. She has no aphasia or asymmetry. CT scan and non-contrast MRI demonstrated C5-6 disk space collapse with degenerative disk disease, as well as edema of the vertebral body of C5 and C6. There is also partial collapse of the C5 more than C6 vertebral body. There is borlapvk-gt-dvjlnc stenosis, as a result, and disk protrusion, and osteophytes. There is also upli-nc-cowghpib stenosis at C4-5. It is curious that she has moderate concentric stenosis at C5-6 but predominantly right sided (arm and leg) weakness and pain. An MRI of the cervical spine with dov is recommended with contrast to rule out diskitis/osteomyelitis. In the meantime, in order to better control her pain, I would recommend low-dose IV steroid of Decadron 2 mg q.6 and Neurontin for her radiculopathy. I did speak to the daughter in detail about a potential surgery. It would be extremely high risk because of her age, cardiac condition, as well as prior stroke. She would also need to be off anticoagulation, for at least 48 hours before and after surgery. Increased embolic or thrombolic risks can be anticipated, based on that. The patient was already seen by her radiology interventional physician, by report. The pros and cons of treatment approaches were discussed with the patient, medical team, as well as her daughter by telephone. I also ordered a rigid cervical collar to be applied, for both immobilization and comfort. Infectious Disease team has already been consulted. ANNIKA BERNARD M.D. [id number] MTDD
--- NOTE | 2019-12-02 15:59 | PN ---
Teaching Attending Note Name of Resident: Genia Mcneil ATTENDING PHYSICIAN STATEMENT I saw and evaluated the patient. I reviewed the resident's note and discussed the case with the resident. I agree with the resident's findings and plan as documented. SUBJECTIVE: Patient seen and examined in the Telemetry unit. 84 F, hypertension, hyperlipidemia, Atrial flutter (on Coumadin),and pervious CVA. Admitted via the ER due to weakness and numbness due to a C5-C6 cord compression and possible discitis of C5-C6 on MRI. ICU consulted for hypotension. At the time of evaluation it appears that the patient has only received 1 x 500cc bolus and was started on LR @ 125cc/hr. She is asymptomatic at present. Intake & Output 11/29/19 11/30/19 12/01/19 12/02/19 23:59 23:59 23:59 23:59 Intake Total 450 Output Total 1000 Balance -550 Weight 121 lb 121 lb Last Vital Signs Temp Pulse Resp BP Pulse Ox 98.0 F 114 H 18 90/47 L 96 12/02/19 08:11 12/02/19 14:00 12/02/19 08:11 12/02/19 14:00 12/02/19 08:50 Active Medications Acetaminophen (Tylenol -) 650 mg PO Q6H PRN PRN Reason: Fever Or Pain Last Admin: 12/02/19 14:45 Dose: 650 mg Atorvastatin Calcium (Lipitor -) 40 mg PO HS [facility] Last Admin: 12/02/19 01:35 Dose: 40 mg Dexamethasone Sodium Phosphate (Decadron Injection -) 2 mg IVPUSH Q6H-IV [facility] Last Admin: 12/02/19 14:45 Dose: 2 mg Gabapentin (Neurontin -) 100 mg PO TID [facility] Last Admin: 12/02/19 14:45 Dose: 100 mg Lactated Ringer's (Lactated Ringers Solution) 1,000 ml in 1,000 mls @ 125 mls/ hr IV ASDIR MICHAEL Lactated Ringer's (Lactated Ringers Solution) 1,000 ml in 500 mls @ 500 mls/hr IV ONCE ONE Stop: 12/02/19 15:59 Last Admin: 12/02/19 15:09 Dose: 500 mls/hr Miscellaneous (Lidoderm Patch Removal) 1 each [facility] DAILY@2200 [facility] Last Admin: 12/02/19 01:35 Dose: 1 each GENERAL: Awake, alert, laying in bed; NAD . EYES: PEERLA; EOMI; no scleral icterus NECK: no JVD; no lymphadenopathy LUNGS: CTA B/L; no rales/rhonchi or wheezing HEART: irregularly irregular s1 s2 + murmur RUSB ABDOMEN: Soft, NT/ND +BS in all 4 quadrants MUSCULOSKELETAL: Normal range of motion at all joints. No bony deformities or tenderness. No CVA tenderness. EXTREMITIES: warm; well-perfused trace pedal edema B/L NEUROLOGICAL: RUE 2/5 strength; RLE 3/5; LUE 2/5 strength LLE 1/5 strength sensation intact; no facial droop PSYCHIATRIC: Cooperative. Good eye contact. Appropriate mood and affect. SKIN: Warm, dry, normal turgor, no rashes or lesions noted. Laboratory Results - last 24 hr 12/01/19 12/01/19 12/02/19 13:00 17:15 05:35 WBC 6.5 RBC 3.70 Hgb 11.5 Hct 34.8 MCV 94.1 MCH 31.0 MCHC 33.0 RDW 14.4 Plt Count 178 MPV 9.1 Absolute Neuts (auto) 5.4 Neutrophils % 82.3 Lymphocytes % 10.8 Monocytes % 6.6 Eosinophils % 0.1 Basophils % 0.2 Nucleated RBC % 0 ESR PT with INR INR PTT (Actin FS) Sodium Potassium Chloride Carbon Dioxide Anion Gap BUN Creatinine Est GFR (CKD-EPI)AfAm Est GFR (CKD-EPI)NonAf Random Glucose Hemoglobin A1c % Calcium Phosphorus Magnesium Total Bilirubin AST ALT Alkaline Phosphatase Creatine Kinase 46 44 Troponin I 0.22 H 0.21 H C-Reactive Protein Total Protein Albumin Triglycerides Cholesterol Total LDL Cholesterol HDL Cholesterol TSH 12/02/19 12/02/19 12/02/19 05:35 05:35 05:35 WBC RBC Hgb Hct MCV MCH MCHC RDW Plt Count MPV Absolute Neuts (auto) Neutrophils % Lymphocytes % Monocytes % Eosinophils % Basophils % Nucleated RBC % ESR PT with INR 43.70 H INR 3.66 H PTT (Actin FS) 44.8 H Sodium 139 Potassium 3.8 Chloride 110 H Carbon Dioxide 22 Anion Gap 7 L BUN 18.6 H Creatinine 1.0 Est GFR (CKD-EPI)AfAm 60.33 Est GFR (CKD-EPI)NonAf 52.06 Random Glucose 99 Hemoglobin A1c % 6.1 Calcium 8.1 L Phosphorus 3.4 Magnesium 1.8 Total Bilirubin 0.8 AST 14 L ALT 21 Alkaline Phosphatase 57 Creatine Kinase Troponin I C-Reactive Protein Total Protein 5.0 L Albumin 2.0 L Triglycerides 96 Cholesterol 143 Total LDL Cholesterol 71 HDL Cholesterol 54 TSH 0.61 12/02/19 12/02/19 05:35 05:35 WBC RBC Hgb Hct MCV MCH MCHC RDW Plt Count MPV Absolute Neuts (auto) Neutrophils % Lymphocytes % Monocytes % Eosinophils % Basophils % Nucleated RBC % ESR 46 H PT with INR INR PTT (Actin FS) Sodium Potassium Chloride Carbon Dioxide Anion Gap BUN Creatinine Est GFR (CKD-EPI)AfAm Est GFR (CKD-EPI)NonAf Random Glucose Hemoglobin A1c % Calcium Phosphorus Magnesium Total Bilirubin AST ALT Alkaline Phosphatase Creatine Kinase Troponin I C-Reactive Protein 8.5 H Total Protein Albumin Triglycerides Cholesterol Total LDL Cholesterol HDL Cholesterol TSH ASSESSMENT/PLAN: Hypotension due to suspected Hypovolemia Low clinical suspicion of Sepsis Hypertension Hyperlipidemia Atrial flutter (on Coumadin) Previous CVA C5 - C6 cord compression AFlutter IVF resuscitation Noted ID evaluation: Off ABX for now Close monitoring of hemodynamics Follow I & O Decadron noted Follow Neuro exam Rate control per Cardiology Hold any anti-hypertensive agents At present clinically stable to remain in Telemetry Please call for any change in condition or with any questions Thank you. Dr Martino
[2019-12-02] MEDS: VASOPRESSIN 50 UNITS in SODIUM CHLORIDE 97.5 ML IVPB SCH (18:04)
[2019-12-02] MEDS: LACTATED RINGERS SOLUTION 1,000 ML/1,000 ML INFUS.BAG IV SCH (18:05)
--- NOTE | 2019-12-02 20:28 | PN ---
Physical Exam: SUBJECTIVE: Patient seen and examined. Patient found to have cord compression and possible discitis on MRI imaging. Spoke with family and Dr. Xiao ([facility] [[email or web address] regarding findings. Patient is leaving decisions on continuing care to her family. Family is not ready to make a decision on whether or not they would even want surgery at this point but will have a family meeting tonight to decide further course of action. Family is ok with central line if needed for pressor support and want patient to remain full code status. OBJECTIVE: Vital Signs Period Temp Pulse Resp BP Sys/Hutton Pulse Ox Last 24 Hr 97.5 F-98.0 F 71-114 18-20 69-106/36-57 96-99 GENERAL: The patient is awake, alert, and fully oriented, in no acute distress. HEAD: Normal with no signs of trauma. EYES: PERRL, EOMI NECK: Trachea midline, full range of motion, supple. LUNGS: Breath sounds equal, clear to auscultation bilaterally, no wheezes, no crackles, no accessory muscle use. HEART: irregularly irregular ABDOMEN: Soft, nontender, nondistended, normoactive bowel sounds, no guarding EXTREMITIES: 2+ pulses, warm NEUROLOGICAL: Normal speech. No facial droop. Right sided weakness > left. 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 2/5 shoulder shruf bilaterally. 0/5 biceps, triceps on right side. 3/5 biceps, triceps on left side. 0/5 strength bilaterally of lower extremity. Able to wiggle toes on left lower extremity but not right lower extremity. sensation intact throughout. 1+ patellar and biceps reflex on Left, 0 on right. no saddle anesthesia. Decreased rectal tone. PSYCH: Normal mood, normal affect. SKIN: Warm, dry, normal turgor. Small area of skin breakage noted over sacral area, no signs of infection, bleeding Laboratory Results - last 24 hr 12/02/19 12/02/19 12/02/19 05:35 05:35 05:35 WBC 6.5 RBC 3.70 Hgb 11.5 Hct 34.8 MCV 94.1 MCH 31.0 MCHC 33.0 RDW 14.4 Plt Count 178 MPV 9.1 Absolute Neuts (auto) 5.4 Neutrophils % 82.3 Lymphocytes % 10.8 Monocytes % 6.6 Eosinophils % 0.1 Basophils % 0.2 Nucleated RBC % 0 ESR PT with INR 43.70 H INR 3.66 H PTT (Actin FS) 44.8 H Sodium 139 Potassium 3.8 Chloride 110 H Carbon Dioxide 22 Anion Gap 7 L BUN 18.6 H Creatinine 1.0 Est GFR (CKD-EPI)AfAm 60.33 Est GFR (CKD-EPI)NonAf 52.06 Random Glucose 99 Hemoglobin A1c % Calcium 8.1 L Phosphorus 3.4 Magnesium 1.8 Total Bilirubin 0.8 AST 14 L ALT 21 Alkaline Phosphatase 57 C-Reactive Protein Total Protein 5.0 L Albumin 2.0 L Triglycerides 96 Cholesterol 143 Total LDL Cholesterol 71 HDL Cholesterol 54 TSH 0.61 12/02/19 12/02/19 12/02/19 05:35 05:35 05:35 WBC RBC Hgb Hct MCV MCH MCHC RDW Plt Count MPV Absolute Neuts (auto) Neutrophils % Lymphocytes % Monocytes % Eosinophils % Basophils % Nucleated RBC % ESR 46 H PT with INR INR PTT (Actin FS) Sodium Potassium Chloride Carbon Dioxide Anion Gap BUN Creatinine Est GFR (CKD-EPI)AfAm Est GFR (CKD-EPI)NonAf Random Glucose Hemoglobin A1c % 6.1 Calcium Phosphorus Magnesium Total Bilirubin AST ALT Alkaline Phosphatase C-Reactive Protein 8.5 H Total Protein Albumin Triglycerides Cholesterol Total LDL Cholesterol HDL Cholesterol TSH Active Medications Generic Name Dose Route Start Last Admin Trade Name Freq PRN Reason Stop Dose Admin Acetaminophen 650 mg 12/02/19 01:34 12/02/19 14:45 Tylenol - PO 650 mg Q6H PRN Administration Fever Or Pain Atorvastatin Calcium 40 mg 12/01/19 22:00 12/02/19 01:35 Lipitor - PO 40 mg HS MICHAEL Administration Dexamethasone Sodium Phosphate 2 mg 12/02/19 09:15 12/02/19 14:45 Decadron Injection - IVPUSH 2 mg Q6H-IV MICHAEL Administration Gabapentin 100 mg 12/02/19 14:00 12/02/19 14:45 Neurontin - PO 100 mg TID MICHAEL Administration Lactated Ringer's 1,000 ml in 1,000 mls @ 125 mls/hr 12/02/19 16:00 12/02/19 18:05 Lactated Ringers Solution IV 125 mls/hr ASDIR MICHAEL Administration Vasopressin 50 units/ Sodium 100 mls @ 4 mls/hr 12/02/19 17:15 12/02/19 18:04 Chloride IVPB 5 units/hr TITR MICHAEL 10 mls/hr Administration Protocol 2 UNITS/HR Miscellaneous 1 each 12/01/19 22:00 12/02/19 01:35 Lidoderm Patch Removal MC 1 each DAILY@2200 MICHAEL Administration ASSESSMENT/PLAN: 84 y/o/f with PMHx of hypertension, hyperlipidemia, Atrial flutter (on Coumadin) , 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 findings suspicious for discitis/osteomyelitis of C5/C6 with prevertebral soft tissue thickening/prevertebral fluid seen. - Holding abx for discitis pending MRI with gadolinium due to need for possible aspiration pending results -CT head reveals chronic lacunar infarct, without acute pathology. -Neurology evaluation (Dr. Becker) -NSx consulted (Dr. Xiao) - possible candidate for cervical decompression and fusion - High risk procedure given poor neurological condition/function, degree of compression, and cardiac conditions and prior CVA, as well as need to hold AC for long periods of time chago-operatively - MRI with dov to r/o inflammatory/infectious process C5-6 - Started on Decadron 2mg Q6hrs and Neurontin 100mg TID -ECHO - EF >70%, possible infiltrative heart disease, severe concentric left ventricular hypertrophy -Carotid duplex ultrasound - significant intimal thickening in both common carotid arteries up to the bifurcation. moderate dize plaques with calcifications of the right common carotid bifurcation, front and proximal internal carotid artery as well as large plaques with calcifications at the left common carotid bifurcation/bulb and proximal internal carotid artery without evidence of hemodynamically significant stenosis. -Speech and swallow evaluation - dysphagia whole diet with thin liquids. give medications crushed with applesauce -Fall precautions -F/u Blood cx -PMR consulted for EMG, will follow recs Hypotension -unclear etiology -Patient transferred to ICU for closer monitoring and possible need for pressors -IVF -holding anti-HTN meds NSTEMI -EKG reveals atrial flutter T wave inversions and ST depressions in lateral leads -Troponin trended to peak of 0.22 -Cardiology evaluation (Dr. Fermin), appreciate recs -Holding AC in the anticipation of possible surgical intervention -Follow INR -Cardiac telemetry monitoring Atrial flutter -Rate controlled. Will hold Coumadin in setting of supratherapeutic INR and need for possible surgical intervention -holding metoprolol as patient is currently hypotensive -Follow PT/INR FEN -LR @ 125mls/hr -monitor and replete lytes as needed -Dysphagia whole diet with thin liquids Prophylaxis -INR supratherapeutic. follow PT/INR -holding chemical AC in case surgical intervention is needed Disposition -Transferred to ICU for closer monitoring, hypotension, possible need for pressors Visit type - Emergency Visit Emergency Visit: Yes ED Registration Date: 12/01/19 Care time: The patient presented to the Emergency Department on the above date and was hospitalized for further evaluation of their emergent condition. - New Patient This patient is new to me today: Yes Date on this admission: 12/02/19 - Critical Care Critical Care patient: Yes Total Critical Care Time (in minutes): 36 Critical Care Statement: The care of this patient involved high complexity decision making to prevent further life threatening deterioration of the patient 's condition and/or to evaluate & treat vital organ system(s) failure or risk of failure. ATTENDING PHYSICIAN STATEMENT I saw and evaluated the patient. I reviewed the resident's note and discussed the case with the resident. I agree with the resident's findings and plan as documented. SUBJECTIVE: OBJECTIVE: ASSESSMENT AND PLAN:
[2019-12-02 22:50] LABS: EPI CELLS 6.8 /HPF (0-5/HPF); HYALINE CASTS 34 /lpf (0-8); PH,URINE 5.5 (5.0-8.0); URINE APPEARANCE CLOUDY; URINE BACTERIA 966.4 /hpf (NEGATIVE); URINE BILIRUBIN NEGATIVE (NEGATIVE); URINE COLOR YELLOW; URINE GLUCOSE (UA) NEGATIVE (NEGATIVE); URINE KETONE TRACE (NEGATIVE); URINE LEUK ESTERASE 2+ (NEGATIVE); URINE NITRITE NEGATIVE (NEGATIVE); URINE PROTEIN 1+ (NEGATIVE); URINE WBC 117 /hpf (0-5)
--- NOTE | 2019-12-02 23:44 | PN ---
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 (short form) - Note 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: Pt seen and reassessed on telemetry unit. Found to remain hypotensive with MAP in the 50s despite maintenance fluids @ 125 cc/hr and another 500cc bolus. She also remains asymptomatic at this time. Will transfer patient to ICU for close BP monitoring and start peripheral vasopressin. Dr. Galindo contacted and made aware. Daughter and son at bedside and verbalized understanding and in agreement of plan for transfer to ICU for further monitoring. Both agreed for central line placement if needed in the future for potential vasopressor support if hemodynamics remain unstable. Consent form signed and placed in chart.
[2019-12-03 00:32] LABS: URINE RBC 31.7 /hpf (0-4); YEAST NONE SEEN (NEGATIVE)
[2019-12-03] MEDS: DEXAMETHASONE SOD PHOSPHATE 4 MG/1 ML VIAL IVPUSH SCH ×4 (03:07→21:39)
[2019-12-03] MEDS: GABAPENTIN 100 MG CAPSULE PO SCH ×3 (06:13→21:39)
[2019-12-03] MEDS: ACETAMINOPHEN 325 MG TABLET (FP) PO PRN ×2 (06:13→21:46)
[2019-12-03 07:35] LABS: INR 3.11 (0.83-1.09); PROTHROMBIN TIME (PATIENT) 37.1 SEC (9.7-13.0)
[2019-12-03 07:56] LABS: ALBUMIN 1.8 g/dl (3.4-5.0); BILIRUBIN,TOTAL 0.6 mg/dL (0.2-1); BLOOD UREA NITROGEN 25.4 mg/dL (7-18); CALCIUM 7.7 mg/dL (8.5-10.1); MAGNESIUM 1.7 mg/dL (1.8-2.4); TOT PROT 4.8 g/dl (6.4-8.2)
[2019-12-03] MEDS ORDERED: MAGNESIUM SULF 50% (8.12 MEQ/2 ML-1 GM VIAL) IVPB ONE (07:56)
[2019-12-03 08:28] LABS: HEMATOCRIT 31.4 % (32.4-45.2); HEMOGLOBIN 10.5 GM/dL (10.7-15.3); MCH 31.3 pg (25.7-33.7); MCHC 33.3 g/dl (32.0-36.0); MEAN CELL VOLUME 93.9 fl (80-96); MEAN PLT VOLUME 9.3 fl (7.5-11.1); PLATELET COUNT 182 K/MM3 (134-434); RBC 3.35 M/mm3 (3.60-5.2); RDW 14.9 % (11.6-15.6); WHITE BLOOD COUNT 10.2 K/mm3 (4.0-10.0)
--- NOTE | 2019-12-03 09:14 | PN ---
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 (short form) - Note 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: NEUROSURGERY Neck pain with R arm shooting pain and inability to ambulate for 1 month In ICU for hypotension In less pain In [place] J collar PE: AF, 89/47 Sitting up in bed; in good spirit HEENT- NC/AT; Neck- supple; Cor-Irreg; Chest- CTA B; Abd- benign; Ext- no C/C/E CN- intact; Motor- R UE 2-3/5 and LE 0/5; L sided 4-; Sensation- intact LT; DTR - hyporereflexic, no LTS Blood culture / gram + cocci in chain CT C spine- marked C5-6 DDD with anterior wedging C5-6, retrolisthesis, moderate to marked central stenosis, moderate C4-5 stenosis Brain MRI - B moderate periventricular small vessel dz; no acute ischemia C spine MRI - multilevel DDD; C5-6 vertebral edema, central disc protrusion C4- 5 and C5-6; moderate to marked C5-6 (L > R) central and foramenal stenosis and mild-moderate C4-5 stenosis, extensive spondylosis; loss of lordosis; no clear cord edema or myelomalacia 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 and profound R sided weakness, which is not concordant with symmetric B stenosis at C5-6 stenosis (in fact L sided stenosis is slightly more severe) Possible candidate for cervical decompression and fusion with instrumentation at least C4-5-6 High risk procedure given poor neurological condition/function, degree of compression, and cardiac conditions and prior CVA, as well as need to hold AC for long periods of time chago-operatively Pros and cons f/w pt and daughter Vero by phone Family opting for medical tx only C-collar ordered for immobilization/comfort All questions answered MRI with dov pending D/w ID Consider IR for bx as surgery is not desired, though has 11/29 blood culture D/C decadron in AM 12/04 after 48 hrs
--- NOTE | 2019-12-03 09:22 | PN ---
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, DENTURE PACKER - Note 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: Patient's b/p remained low. Transferred to ICU EMG-electrophysiological evidence of a severe sensorimotor, axonal with rare demyelination, peripheral neuropathy. There was no obvious evidence of a bilateral cervical or right lumbar radiculopathy Selected Entries 12/02/19 12/02/19 12/02/19 02:00 06:00 08:11 Diet Tolerated Temperature 97.8 F 97.8 F 98.0 F 12/02/19 12/02/19 12/02/19 10:28 19:41 22:02 Diet Tolerated Refused Refused Temperature 98.3 F 12/03/19 02:00 Diet Tolerated Temperature 98.2 F Laboratory Tests 12/02/19 12/03/19 05:35 06:30 WBC 6.5 10.2 H Dysphagia whole/thin liquids ordered.
[2019-12-03] MEDS ORDERED: DEXTROSE 5%-WATER - 50 ML IVPB ONE (09:48)
[2019-12-03] MEDS ORDERED: cefTRIAXone SODIUM 1 GM VIAL ONE (09:48)
[2019-12-03] MEDS ORDERED: CEFTRIAXONE 1 GM in DEXTROSE 5%-WATER - 50 ML IVPB SCH (10:00)
[2019-12-03] MEDS: CEFTRIAXONE 2 GM in DEXTROSE 5%-WATER 100 ML IVPB SCH (11:15)
[2019-12-03] MEDS ORDERED: SODIUM CHLORIDE 500 ML IV STA (11:17)
[2019-12-03] MEDS ORDERED: PT OWN MED DRAWER 7, Y5N ONE (11:36)
[2019-12-03] MEDS ORDERED: DEXTROSE 5%-WATER 100 ML IVPB ONE (11:36)
--- NOTE | 2019-12-03 11:51 | PN ---
Teaching Attending Note Name of Resident: Evelyn Mott ATTENDING PHYSICIAN STATEMENT I saw and evaluated the patient. I reviewed the resident's note and discussed the case with the resident. I agree with the resident's findings and plan as documented. SUBJECTIVE: Pt seen and examined in the ICU. Transferred to ICU for refractory hypotension, briefly on vasopressin gtt now off pressors. OBJECTIVE: Vital Signs Period Temp Pulse Resp BP Sys/Hutton Pulse Ox Last 24 Hr 97.9 F-98.3 F 78-114 13-19 69-135/39-90 96-99 Intake & Output 11/30/19 12/01/19 12/02/19 12/03/19 23:59 23:59 23:59 23:59 Intake Total 3247 979 Output Total 1000 300 Balance 2247 679 Weight 54.885 kg 54.885 kg Gen: NAD in cervical collar Heart: RRR Lung: decreased breath sounds at the bases Abd: soft, nontender Ext: no edema CBC, BMP 12/03/19 06:30 12/03/19 06:30 Active Medications Acetaminophen (Tylenol -) 650 mg PO Q6H PRN PRN Reason: Fever Or Pain Last Admin: 12/03/19 06:13 Dose: 650 mg Atorvastatin Calcium (Lipitor -) 40 mg PO HS MICHAEL Last Admin: 12/02/19 21:16 Dose: 40 mg Dexamethasone Sodium Phosphate (Decadron Injection -) 2 mg IVPUSH Q6H-IV [facility]HAEL Last Admin: 12/03/19 10:44 Dose: 2 mg Gabapentin (Neurontin -) 100 mg PO TID MICHAEL Last Admin: 12/03/19 06:13 Dose: 100 mg Lactated Ringer's (Lactated Ringers Solution) 1,000 ml in 1,000 mls @ 125 mls/ hr IV ASDIR MICHAEL Last Admin: 12/02/19 18:05 Dose: 125 mls/hr Vasopressin 50 units/ Sodium (Chloride) 100 mls @ 4 mls/hr IVPB TITR MICHAEL; Protocol Last Titration: 12/03/19 05:00 Dose: 2 units/hr, 4 mls/hr Ceftriaxone Sodium 2 gm/ (Dextrose) 100 mls @ 100 mls/hr IVPB DAILY MICHAEL; Protocol Vancomycin HCl (Vancomycin (Pre-Docked)) 1,000 mg in 250 mls @ 166.667 mls/hr IVPB BID MICHAEL; Protocol Sodium Chloride (Normal Saline -) 500 mls @ 500 mls/hr IV ASDIR STA Stop: 12/03/19 12:16 Miscellaneous (Lidoderm Patch Removal) 1 each MC DAILY@2200 [facility] Last Admin: 12/02/19 21:16 Dose: 1 each ASSESSMENT AND PLAN: Hypovolemic Shock Cervical Spinal Cord Compression Atrial Flutter LV Diastolic Dysfunction r/o UTI Hyperlipidemia h/o HTN h/o CVA - IVF boluses as needed - decadron per neurosurgery - on empiric antibiotics - f/u cultures - neuro checks - MRI C-spine - rate controlled - continue anticoagulation - continue ICU monitoring for now
--- NOTE | 2019-12-03 12:05 | PN ---
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, Physician History of Present Illness: Hemodynamics stabilizing off pressors, remains in rate-controlled afib. - Current Medication List Current Medications: Active Medications Acetaminophen (Tylenol -) 650 mg PO Q6H PRN PRN Reason: Fever Or Pain Last Admin: 12/03/19 06:13 Dose: 650 mg Atorvastatin Calcium (Lipitor -) 40 mg PO HS MICHAEL Last Admin: 12/02/19 21:16 Dose: 40 mg Dexamethasone Sodium Phosphate (Decadron Injection -) 2 mg IVPUSH Q6H-IV MICHAEL Last Admin: 12/03/19 10:44 Dose: 2 mg Gabapentin (Neurontin -) 100 mg PO TID MICHAEL Last Admin: 12/03/19 06:13 Dose: 100 mg Lactated Ringer's (Lactated Ringers Solution) 1,000 ml in 1,000 mls @ 125 mls/ hr IV ASDIR MICHAEL Last Admin: 12/02/19 18:05 Dose: 125 mls/hr Vasopressin 50 units/ Sodium (Chloride) 100 mls @ 4 mls/hr IVPB TITR MICHAEL; Protocol Last Titration: 12/03/19 05:00 Dose: 2 units/hr, 4 mls/hr Ceftriaxone Sodium 2 gm/ (Dextrose) 100 mls @ 100 mls/hr IVPB DAILY MICHAEL; Protocol Vancomycin HCl (Vancomycin (Pre-Docked)) 1,000 mg in 250 mls @ 166.667 mls/hr IVPB BID MICHAEL; Protocol Sodium Chloride (Normal Saline -) 500 mls @ 500 mls/hr IV ASDIR STA Stop: 12/03/19 12:16 Miscellaneous (Lidoderm Patch Removal) 1 each MC DAILY@2200 [facility] Last Admin: 12/02/19 21:16 Dose: 1 each - Objective Vital Signs: Vital Signs Temperature 97.9 F 12/03/19 10:00 Pulse Rate 83 12/03/19 10:00 Respiratory Rate 18 12/03/19 10:00 Blood Pressure 112/48 L 12/03/19 10:00 O2 Sat by Pulse Oximetry (%) 100 12/03/19 09:00 Constitutional: Yes: No Distress, Calm, Thin Neck: Yes: Supple Cardiovascular: Yes: Pulse Irregular Respiratory: Yes: Regular, Diminished Gastrointestinal: Yes: Normal Bowel Sounds, Soft Edema: No Labs: CBC, BMP 12/03/19 06:30 12/03/19 06:30 INR, PTT INR 3.11 (0.83-1.09) H 12/03/19 06:30 - ....Imaging EKG: Report Reviewed (Tele: Rate-controlled afib) Problem List - Problems (1) Abnormal ECG Code(s): R94.31 - ABNORMAL ELECTROCARDIOGRAM [ECG] [EKG] (2) CVA (cerebral vascular accident) Code(s): I63.9 - CEREBRAL INFARCTION, UNSPECIFIED Qualifiers: CVA mechanism: unspecified Qualified Code(s): I63.9 - Cerebral infarction, unspecified (3) Cervical spinal stenosis Code(s): M48.02 - SPINAL STENOSIS, CERVICAL REGION (4) HTN (hypertension) Code(s): I10 - ESSENTIAL (PRIMARY) HYPERTENSION Qualifiers: Hypertension type: essential hypertension Qualified Code(s): I10 - Essential (primary) hypertension (5) Hypercholesterolemia Code(s): E78.00 - PURE HYPERCHOLESTEROLEMIA, UNSPECIFIED (6) LVH (left ventricular hypertrophy) Code(s): I51.7 - CARDIOMEGALY (7) Atrial flutter Code(s): I48.92 - UNSPECIFIED ATRIAL FLUTTER Qualifiers: Atrial flutter type: atypical Qualified Code(s): I48.4 - Atypical atrial flutter (8) Spondylolisthesis of cervical region Code(s): M43.12 - SPONDYLOLISTHESIS, CERVICAL REGION (9) Demand ischemia Code(s): I24.8 - OTHER FORMS OF ACUTE ISCHEMIC HEART DISEASE Assessment/Plan 12/01/19 Normal LV size with severe LVH with normal LV fxn, severe LAE, mild MR , TR, UT, possible infiltrative heart disease 1. Cervical spinal cord compression and possible C5/C6 osteomyelitis/discitis 2. Strep bacteremia with hypovolemic/septic shock 2. HTN heart disease 3. Hypercholesterolemia 4. Paroxysmal atrial fib/flutter [id number] score of 6-7 and supratherapeutic INR 5. CVA 6. Concentric LVH ? rule out infiltrative heart disease 7. Abnormal ECG suggests CAD 8. Demand ischemia with elevated troponin PLAN: 1. Abx course per C&S 2. Resume Carvedilol, Amlodipine and Lisinopril once hemodynamics stabilize. Fluid resuscitation, decadron per NSG 3. Neurosurgery input noted and family opts for medical therapy 4. Troponin downtrending 5. MRI c-spine 6. Currently Coumadin held due to supratherapeutic INR. Keep INR btw 2-3 unless surgery is planned 7. May consider Tm99 PYP study to rule out amyloidosis once clinically stable
--- NOTE | 2019-12-03 12:07 | PN ---
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, Physician History of Present Illness: AWAKE, ALERT IN BED TRANSFERRED TO ICU WITH HYPOTENSION OFFERS NO COMPLAINTS DENIES PAIN AFEBRILE WBC SL ELEVATED BC + GPCC - Current Medication List Current Medications: Active Medications Acetaminophen (Tylenol -) 650 mg PO Q6H PRN PRN Reason: Fever Or Pain Last Admin: 12/03/19 06:13 Dose: 650 mg Atorvastatin Calcium (Lipitor -) 40 mg PO HS MICHAEL Last Admin: 12/02/19 21:16 Dose: 40 mg Dexamethasone Sodium Phosphate (Decadron Injection -) 2 mg IVPUSH Q6H-IV MICHAEL Last Admin: 12/03/19 10:44 Dose: 2 mg Gabapentin (Neurontin -) 100 mg PO TID MICHAEL Last Admin: 12/03/19 06:13 Dose: 100 mg Lactated Ringer's (Lactated Ringers Solution) 1,000 ml in 1,000 mls @ 125 mls/ hr IV ASDIR MICHAEL Last Admin: 12/02/19 18:05 Dose: 125 mls/hr Vasopressin 50 units/ Sodium (Chloride) 100 mls @ 4 mls/hr IVPB TITR MICHAEL; Protocol Last Titration: 12/03/19 05:00 Dose: 2 units/hr, 4 mls/hr Ceftriaxone Sodium 2 gm/ (Dextrose) 100 mls @ 100 mls/hr IVPB DAILY MICHAEL; Protocol Vancomycin HCl (Vancomycin (Pre-Docked)) 1,000 mg in 250 mls @ 166.667 mls/hr IVPB BID MICHAEL; Protocol Sodium Chloride (Normal Saline -) 500 mls @ 500 mls/hr IV ASDIR STA Stop: 12/03/19 12:16 Miscellaneous (Lidoderm Patch Removal) 1 each MC DAILY@2200 [facility] Last Admin: 12/02/19 21:16 Dose: 1 each - Objective Vital Signs: Vital Signs Temperature 97.9 F 12/03/19 10:00 Pulse Rate 83 12/03/19 10:00 Respiratory Rate 18 12/03/19 10:00 Blood Pressure 112/48 L 12/03/19 10:00 O2 Sat by Pulse Oximetry (%) 100 12/03/19 09:00 Constitutional: Yes: No Distress Eyes: Yes: Conjunctiva Clear Cardiovascular: Yes: Regular Rate and Rhythm, S1, S2 Respiratory: Yes: Diminished Gastrointestinal: Yes: Normal Bowel Sounds, Soft. No: Tenderness Edema: Yes Labs: CBC, BMP 12/03/19 06:30 12/03/19 06:30 INR, PTT INR 3.11 (0.83-1.09) H 12/03/19 06:30 Assessment/Plan R/O OSTEOMYELITIS/ DISCITIS C5C6 +BC STREP SP REPEAT BC OBTAINED START CEFTRIAXONE/ VANCOMYCIN AWAIT C/S RESULTS
[2019-12-03] MEDS: VANCOMYCIN 1 GRAM (PRE-DOCKED) 1,000 MG/250 ML BAG IVPB SCH ×2 (12:54→21:40)
--- NOTE | 2019-12-03 13:43 | PN ---
Physical Exam: SUBJECTIVE: Patient seen and examined. Peripheral vaso stopped this morning w/ MAP maintained mid 60s, . Cervical collar in place. OBJECTIVE: Vital Signs Period Temp Pulse Resp BP Sys/Hutton Pulse Ox Last 24 Hr 97.9 F-98.3 F 78-114 13-19 69-135/39-90 96-100 GENERAL: lying in bed NAD HEENT: hard c-collar in place. PERRLA. MMM. LUNGS: CTABL no incr work of breathing HEART: RRR S1S2 heard no mrg ABDOMEN: Soft NTND. +BS. EXTREMITIES: 2+ pulses, warm, well-perfused, no edema. NEUROLOGICAL: Reflexes: 1+ b/l bicep; 1+ L brachioradialis, 0 R brachioradialis. 1+ b/l knee jerk, 1+ b/l ankle jerk. 0 anal wink, no rectal tone. Handgrip strength diminished b/l, L stronger than R Sensation: Decreased RUE sensation to sharp/ dull. Intact LUE & b/l LE, diminished RLE. Motor: decreased motor strength throughout. 1/5 LUE; 0/5 RUE extension/ flexion. 1/5 LLE & RLE extension/ flexion SKIN: No rahes or lesions noted Laboratory Results - last 24 hr 12/02/19 12/02/19 12/02/19 21:10 21:10 21:10 WBC RBC Hgb Hct MCV MCH MCHC RDW Plt Count MPV ESR PT with INR INR Sodium Potassium Chloride Carbon Dioxide Anion Gap BUN Creatinine Est GFR (CKD-EPI)AfAm Est GFR (CKD-EPI)NonAf Random Glucose Calcium Magnesium Total Bilirubin GGT 26 AST ALT Alkaline Phosphatase Total Protein Albumin Vitamin B12 481 Serum Folate 5 Urine Color Urine Appearance Urine pH Ur Specific Yoder Urine Protein Urine Glucose (UA) Urine Ketones Urine Blood Urine Nitrite Urine Bilirubin Urine Urobilinogen Ur Leukocyte Esterase Urine WBC (Auto) Urine RBC (Auto) Urine Casts (Auto) U Pathogenic Cast Auto U Epithel Cells (Auto) Urine Bacteria (Auto) Urine Yeast (Auto) Rheumatoid Factor < 10.0 12/02/19 12/03/19 12/03/19 22:00 06:30 06:30 WBC RBC Hgb Hct MCV MCH MCHC RDW Plt Count MPV ESR PT with INR 37.10 H INR 3.11 H Sodium 140 Potassium 4.0 Chloride 111 H Carbon Dioxide 20 L Anion Gap 9 BUN 25.4 H Creatinine 1.0 Est GFR (CKD-EPI)AfAm 60.33 Est GFR (CKD-EPI)NonAf 52.06 Random Glucose 129 H Calcium 7.7 L Magnesium 1.7 L Total Bilirubin 0.6 GGT AST 20 ALT 24 Alkaline Phosphatase 56 Total Protein 4.8 L Albumin 1.8 L Vitamin B12 Serum Folate Urine Color Yellow Urine Appearance Cloudy Urine pH 5.5 Ur Specific Yoder 1.019 Urine Protein 1+ H Urine Glucose (UA) Negative Urine Ketones Trace H Urine Blood 3+ H Urine Nitrite Negative Urine Bilirubin Negative Urine Urobilinogen 1.0 Ur Leukocyte Esterase 2+ H Urine WBC (Auto) 117 Urine RBC (Auto) 31.7 Urine Casts (Auto) 34 U Pathogenic Cast Auto Few U Epithel Cells (Auto) 6.8 Urine Bacteria (Auto) 966.4 Urine Yeast (Auto) None seen Rheumatoid Factor 12/03/19 12/03/19 06:30 06:30 WBC 10.2 H RBC 3.35 L Hgb 10.5 L Hct 31.4 L MCV 93.9 MCH 31.3 MCHC 33.3 RDW 14.9 Plt Count 182 MPV 9.3 ESR 91 H PT with INR INR Sodium Potassium Chloride Carbon Dioxide Anion Gap BUN Creatinine Est GFR (CKD-EPI)AfAm Est GFR (CKD-EPI)NonAf Random Glucose Calcium Magnesium Total Bilirubin GGT AST ALT Alkaline Phosphatase Total Protein Albumin Vitamin B12 Serum Folate Urine Color Urine Appearance Urine pH Ur Specific Yoder Urine Protein Urine Glucose (UA) Urine Ketones Urine Blood Urine Nitrite Urine Bilirubin Urine Urobilinogen Ur Leukocyte Esterase Urine WBC (Auto) Urine RBC (Auto) Urine Casts (Auto) U Pathogenic Cast Auto U Epithel Cells (Auto) Urine Bacteria (Auto) Urine Yeast (Auto) Rheumatoid Factor Active Medications Generic Name Dose Route Start Last Admin Trade Name Freq PRN Reason Stop Dose Admin Acetaminophen 650 mg 12/02/19 01:34 12/03/19 06:13 Tylenol - PO 650 mg Q6H PRN Administration Fever Or Pain Atorvastatin Calcium 40 mg 12/01/19 22:00 12/02/19 21:16 Lipitor - PO 40 mg HS MICHAEL Administration Dexamethasone Sodium Phosphate 2 mg 12/02/19 09:15 12/03/19 10:44 Decadron Injection - IVPUSH 2 mg Q6H-IV MICHAEL Administration Gabapentin 100 mg 12/02/19 14:00 12/03/19 06:13 Neurontin - PO 100 mg TID MICHAEL Administration Lactated Ringer's 1,000 ml in 1,000 mls @ 125 mls/hr 12/02/19 16:00 12/02/19 18:05 Lactated Ringers Solution IV 125 mls/hr ASDIR MICHAEL Administration Vasopressin 50 units/ Sodium 100 mls @ 4 mls/hr 12/02/19 17:15 12/03/19 05:00 Chloride IVPB 2 units/hr TITR MICHAEL 4 mls/hr Titration Protocol 2 UNITS/HR Ceftriaxone Sodium 2 gm/ 100 mls @ 100 mls/hr 12/03/19 11:15 12/03/19 11:15 Dextrose IVPB 100 mls/hr DAILY MICHAEL Administration Protocol Vancomycin HCl 1,000 mg in 250 mls @ 166.667 mls/hr 12/03/19 11:15 12/03/19 12:54 Vancomycin (Pre-Docked) IVPB 166.667 mls/hr BID MICHAEL Administration Protocol Miscellaneous 1 each 12/01/19 22:00 12/02/19 21:16 Lidoderm Patch Removal MC 1 each DAILY@2200 MICHAEL Administration Imaging: CT C-spine 11/25/19: C5-C6. Facet joint arthropathy with widened facet joints. Retrolisthesis of C4 on C5 betito, 4.5 mm. Central spinal canal stenosis, the AP dimension of spinal canal betito. 5.4 mm. Bilateral neural foramina stenosis. Loss of height of C5 vertebral body anteriorly. Demineralized endplates with irregular contour of the endplates. Anterior annular calcifications. No evidence of significant prevertebral soft tissue swelling. Differential diagnosis, chronic intervertebral osteochondrosis possibly related to instability in view of the presence of the facet joint arthropathy, retrolisthesis, discitis. CT C-spine 12/01: Severe degenerative narrowing of C5-C6 intervertebral disc space with marked anterior wedging/ compression of C5 and mild to moderate compression of C6 vertebral bodies that may be related to prior trauma, degenerative changes or infection. Grade 1 retrolisthesis of C5 over C6 with mild posterior spur formation resulting in moderate canal stenosis as well as moderately severe narrowing of the right foramen and moderate narrowing of the left foramen again seen. Widening of the facet joints again noted, bilaterally without gross jumped facets or subluxation. Minimal anterolisthesis of C7 over T1 again noted. Otherwise, no gross acute fracture or subluxation are identified. MRI brain & C-spinew/o contrast 12/02: Findings as described above suggestive of osteomyelitis/discitis at C5-C6 level. Grade 1 retrolisthesis of C5 over C6, approximately 5 mm with mild broadbase disc bulge and bilateral facet hypertrophy resulting in moderate to marked canal stenosis and at least mild cord compression. Marked narrowing of the new foramina impinging both C6 nerve roots C4-C5 moderately severe degenerative disc disease with mild to moderate disc osteophyte complex impinging the cord and resulting in moderate degenerative central spinal canal stenosis. C6-C7 mild mainly left lateral disc bulge impinging left C7 nerve root Carotid U/s 12/01: There is significant intimal thickening in both common carotid arteries up to the bifurcation. Multiple moderate-sized plaques with calcifications in the proximal and mid left common carotid artery. There are moderate-size plaques with calcifications of the right common carotid bifurcation, frontal and proximal internal carotid artery as well as large plaques with calcifications at the left common carotid bifurcation/bulb and proximal internal carotid artery without evidence of hemodynamically significant stenosis, bilaterally. However, on the grayscale images, there appears to be greater than 50% stenosis in the left bulb/proximal internal carotid artery. Correlation with CTA of the neck could be obtained for further evaluation. CT head 12/01: Moderate atrophy. Left cerebellar chronic lacunar infarct again seen. Otherwise, no gross acute intracranial pathology is identified. Correlate clinically to determine further evaluation and follow-up. ASSESSMENT/PLAN: 84 y.o. F PMH HTN, HLD, A-flutter (on coumadin), CVA (2018 w/ residual R sided deficits of RUE & RLE, R sided vision) presenting fror weakness & cervical joseph thesias found to have c-spine stenosis. #[employer] -Imaging studies CT head, CT Brain & c-spine, MRI brain & C-spine as above -Scheduled for MRI brain w/ contrast tonight -Neurology (Dr. Perez) following -Neurosurgery (Dr. Xiao): possible candidate for cervical decompression & fusion C4-C6 although procedure is high-risk. C/w Baca J collar. F/u MRI w. contrast. -Continue decadron & gabapentin -Speech & swallow evaluated: dysphagia whole/ thin liquids -frequent neuro checks #CV -Overnight patient was hypotensive, MAP 50's s/p fluid resuscitation & brought to ICU -Peripheral vaso started overnight w/ improvement of MAP; patient has been off pressors sice this morning w/ MAP improvement -No CVC placed, monitor off pressors-- (access to IJ may be problematic w/ cervical spinal compression-- peripheral pressors if needed) -A-flutter: was on coumadin, INR supratherapeutic therefore holding for now. Maintain therapeutic INR 2-3 -Holding home anti-htn meds (amlodipine, lisinpril) -Trops peaked at 0.22 -Monitor vitals closely -cardio following-- may consider Tm99 PYP study to r/o amyloidosis once clinically stable #Pulm -no acute issues -Saturating 97% on RA -CXR shows no acute pathology #ID -Poss OM of c-spine seen on MRI; neurosurg not feasible at this time, consider IR biopsy although risks involved given degree of compression -1 of 2 blood cx's growing gm + cocci; f/u repeat cultures -Starting ceftriaxone/ vanc -ID following #FEN -LR @125cc/hr -trend lytes replete prn -whole/ thin liquids dysphagia diet #PPX -holding coumadin 2/2 supratherapeutic INR; follow coags #Dispo -Patient expresses verbal wishes to have medical management decisions made by her son Herve who she states is her HCP -Continue with ICU monitoring Visit type - Emergency Visit Emergency Visit: No - New Patient This patient is new to me today: No - Critical Care Critical Care patient: Yes Total Critical Care Time (in minutes): 36 Critical Care Statement: The care of this patient involved high complexity decision making to prevent further life threatening deterioration of the patient's condition and/or to evaluate & treat vital organ system(s) failure or risk of failure. ATTENDING PHYSICIAN STATEMENT I saw and evaluated the patient. I reviewed the resident's note and discussed the case with the resident. I agree with the resident's findings and plan as documented. SUBJECTIVE: OBJECTIVE: ASSESSMENT AND PLAN:
[2019-12-03] MEDS: LACTATED RINGERS SOLUTION 1,000 ML/1,000 ML INFUS.BAG IV SCH (17:43)
[2019-12-03] MEDS: AMINO ACIDS/PROTEIN HYDROLYS 30 ML LIQUID.PKT PO SCH (17:44)
[2019-12-03] MEDS: VASOPRESSIN 50 UNITS in SODIUM CHLORIDE 97.5 ML IVPB SCH (17:45)
--- NOTE | 2019-12-03 18:07 | PN ---
Physical Exam: SUBJECTIVE: Patient seen and examined. No acute events overnight. MRI not done as patient's BP was not stable. Patient states that she is feeling better today and is able to move her left arm and leg more today compared to yesterday. Denies chest pain, abd pain, fever, chills, SOB. OBJECTIVE: Vital Signs Period Temp Pulse Resp BP Sys/Hutton Pulse Ox Last 24 Hr 97.8 F-98.3 F 72-94 13-21 69-135/39-90 96-100 GENERAL: The patient is awake, alert, and fully oriented, in no acute distress. HEAD: Normal with no signs of trauma. EYES: PERRL, EOMI NECK: Trachea midline, full range of motion, supple. LUNGS: Breath sounds equal, clear to auscultation bilaterally, no wheezes, no crackles, no accessory muscle use. HEART: irregularly irregular ABDOMEN: Soft, nontender, nondistended, normoactive bowel sounds, no guarding EXTREMITIES: 2+ pulses, warm NEUROLOGICAL: Normal speech. No facial droop. Right sided weakness > left. 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 2/5 shoulder shrug bilaterally. 0/5 biceps, triceps on right side. 3/5 biceps, triceps on left side. 0/5 strength of right lower extremity. Able to bend left lower extremity at the knee and flex/extend ankle. Able to wiggle toes on left lower extremity but not right lower extremity. sensation intact throughout. PSYCH: Normal mood, normal affect. SKIN: Warm, dry, normal turgor. Small area of skin breakage noted over sacral area, no signs of infection, bleeding Laboratory Results - last 24 hr 12/02/19 12/02/19 12/02/19 21:10 21:10 21:10 WBC RBC Hgb Hct MCV MCH MCHC RDW Plt Count MPV ESR PT with INR INR Sodium Potassium Chloride Carbon Dioxide Anion Gap BUN Creatinine Est GFR (CKD-EPI)AfAm Est GFR (CKD-EPI)NonAf Random Glucose Calcium Magnesium Total Bilirubin GGT 26 AST ALT Alkaline Phosphatase Total Protein Albumin Vitamin B12 481 Serum Folate 5 Urine Color Urine Appearance Urine pH Ur Specific [place] Urine Protein Urine Glucose (UA) Urine Ketones Urine Blood Urine Nitrite Urine Bilirubin Urine Urobilinogen Ur Leukocyte Esterase Urine WBC (Auto) Urine RBC (Auto) Urine Casts (Auto) U Pathogenic Cast Auto U Epithel Cells (Auto) Urine Bacteria (Auto) Urine Yeast (Auto) Rheumatoid Factor < 10.0 12/02/19 12/03/19 12/03/19 22:00 06:30 06:30 WBC RBC Hgb Hct MCV MCH MCHC RDW Plt Count MPV ESR PT with INR 37.10 H INR 3.11 H Sodium 140 Potassium 4.0 Chloride 111 H Carbon Dioxide 20 L Anion Gap 9 BUN 25.4 H Creatinine 1.0 Est GFR (CKD-EPI)AfAm 60.33 Est GFR (CKD-EPI)NonAf 52.06 Random Glucose 129 H Calcium 7.7 L Magnesium 1.7 L Total Bilirubin 0.6 GGT AST 20 ALT 24 Alkaline Phosphatase 56 Total Protein 4.8 L Albumin 1.8 L Vitamin B12 Serum Folate Urine Color Yellow Urine Appearance Cloudy Urine pH 5.5 Ur Specific [place] 1.019 Urine Protein 1+ H Urine Glucose (UA) Negative Urine Ketones Trace H Urine Blood 3+ H Urine Nitrite Negative Urine Bilirubin Negative Urine Urobilinogen 1.0 Ur Leukocyte Esterase 2+ H Urine WBC (Auto) 117 Urine RBC (Auto) 31.7 Urine Casts (Auto) 34 U Pathogenic Cast Auto Few U Epithel Cells (Auto) 6.8 Urine Bacteria (Auto) 966.4 Urine Yeast (Auto) None seen Rheumatoid Factor 12/03/19 12/03/19 06:30 06:30 WBC 10.2 H RBC 3.35 L Hgb 10.5 L Hct 31.4 L MCV 93.9 MCH 31.3 MCHC 33.3 RDW 14.9 Plt Count 182 MPV 9.3 ESR 91 H PT with INR INR Sodium Potassium Chloride Carbon Dioxide Anion Gap BUN Creatinine Est GFR (CKD-EPI)AfAm Est GFR (CKD-EPI)NonAf Random Glucose Calcium Magnesium Total Bilirubin GGT AST ALT Alkaline Phosphatase Total Protein Albumin Vitamin B12 Serum Folate Urine Color Urine Appearance Urine pH Ur Specific [place] Urine Protein Urine Glucose (UA) Urine Ketones Urine Blood Urine Nitrite Urine Bilirubin Urine Urobilinogen Ur Leukocyte Esterase Urine WBC (Auto) Urine RBC (Auto) Urine Casts (Auto) U Pathogenic Cast Auto U Epithel Cells (Auto) Urine Bacteria (Auto) Urine Yeast (Auto) Rheumatoid Factor Active Medications Generic Name Dose Route Start Last Admin Trade Name Freq PRN Reason Stop Dose Admin Acetaminophen 650 mg 12/02/19 01:34 12/03/19 06:13 Tylenol - PO 650 mg Q6H PRN Administration Fever Or Pain Amino Acids 30 ml 12/03/19 17:30 12/03/19 17:44 Prosource No Carb Liquid Pkt PO 30 ml BID@0800,1730 MICHAEL Administration Atorvastatin Calcium 40 mg 12/01/19 22:00 12/02/19 21:16 Lipitor - PO 40 mg HS MICHAEL Administration Dexamethasone Sodium Phosphate 2 mg 12/02/19 09:15 12/03/19 15:08 Decadron Injection - IVPUSH 2 mg Q6H-IV MICHAEL Administration Gabapentin 100 mg 12/02/19 14:00 12/03/19 15:08 Neurontin - PO 100 mg TID MICHAEL Administration Lactated Ringer's 1,000 ml in 1,000 mls @ 125 mls/hr 12/02/19 16:00 12/03/19 17:43 Lactated Ringers Solution IV 125 mls/hr ASDIR MICHAEL Administration Vasopressin 50 units/ Sodium 100 mls @ 4 mls/hr 12/02/19 17:15 12/03/19 17:45 Chloride IVPB Not Given TITR MICHAEL Protocol 2 UNITS/HR Ceftriaxone Sodium 2 gm/ 100 mls @ 100 mls/hr 12/03/19 11:15 12/03/19 11:15 Dextrose IVPB 100 mls/hr DAILY MICHAEL Administration Protocol Vancomycin HCl 1,000 mg in 250 mls @ 166.667 mls/hr 12/03/19 11:15 12/03/19 12:54 Vancomycin (Pre-Docked) IVPB 166.667 mls/hr BID MICHAEL Administration Protocol Miscellaneous 1 each 12/01/19 22:00 12/02/19 21:16 Lidoderm Patch Removal MC 1 each DAILY@2200 MICHAEL Administration ASSESSMENT/PLAN: 84 y/o/f with PMHx of hypertension, hyperlipidemia, Atrial flutter (on Coumadin) , 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 findings suspicious for discitis/osteomyelitis of C5/C6 with prevertebral soft tissue thickening/prevertebral fluid seen. -CT head reveals chronic lacunar infarct, without acute pathology. -Neurology evaluation (Dr. Becker) -NSx consulted (Dr. Xiao) - possible candidate for cervical decompression and fusion - High risk procedure given poor neurological condition/function, degree of compression, and cardiac conditions and prior CVA, as well as need to hold AC for long periods of time chago-operatively - MRI with dov to r/o inflammatory/infectious process C5-6 still pending until patient is stable enough to go down for MRI - Started on Decadron 2mg Q6hrs and Neurontin 100mg TID -ECHO - EF >70%, possible infiltrative heart disease, severe concentric left ventricular hypertrophy -Carotid duplex ultrasound - significant intimal thickening in both common carotid arteries up to the bifurcation. moderate dize plaques with calcifications of the right common carotid bifurcation, front and proximal internal carotid artery as well as large plaques with calcifications at the left common carotid bifurcation/bulb and proximal internal carotid artery without evidence of hemodynamically significant stenosis. -Speech and swallow evaluation - dysphagia whole diet with thin liquids. give medications crushed with applesauce -Fall precautions -F/u Blood cx -PMR consulted for EMG, will follow recs Hypotension -unclear etiology, possibly 2/2 to UTI vs +Blood cx -Patient transferred to ICU for closer monitoring -IVF -holding anti-HTN meds -Intermittently on peripheral vasopression for BP support Sepsis 2/2 UTI vs +Blood cx? -UA positive for UTI. Trace ketones, 2+ Leuk esterase. WBC 117, Bacteria 996 -Blood cx positive, possible contaminate -Repeat Blood cx -Started on Vancomycin and Ceftriaxone (12/03) NSTEMI -EKG reveals atrial flutter T wave inversions and ST depressions in lateral leads -Troponin trended to peak of 0.22 -Cardiology evaluation (Dr. Fermin), appreciate recs -Holding AC in the anticipation of possible surgical intervention -Follow INR -Cardiac telemetry monitoring Atrial flutter -Rate controlled. Will hold Coumadin in setting of supratherapeutic INR and need for possible surgical intervention -holding metoprolol as patient is currently hypotensive -Follow PT/INR FEN -LR @ 125mls/hr -monitor and replete lytes as needed -Dysphagia whole diet with thin liquids Prophylaxis -INR supratherapeutic. follow PT/INR -holding chemical AC in case surgical intervention is needed Disposition -Transferred to ICU for closer monitoring, hypotension, possible need for pressors Visit type - Emergency Visit Emergency Visit: Yes ED Registration Date: 12/01/19 Care time: The patient presented to the Emergency Department on the above date and was hospitalized for further evaluation of their emergent condition. - New Patient This patient is new to me today: No - Critical Care Critical Care patient: Yes Total Critical Care Time (in minutes): 36 Critical Care Statement: The care of this patient involved high complexity decision making to prevent further life threatening deterioration of the patient 's condition and/or to evaluate & treat vital organ system(s) failure or risk of failure. ATTENDING PHYSICIAN STATEMENT I saw and evaluated the patient. I reviewed the resident's note and discussed the case with the resident. I agree with the resident's findings and plan as documented. SUBJECTIVE: OBJECTIVE: ASSESSMENT AND PLAN:
[2019-12-03] MEDS: ATORVASTATIN CA 40 MG TABLET (FP) PO SCH (21:39)
[2019-12-03] MEDS: LIDOCAINE PATCH REMOVAL MC SCH (21:40)
--- NOTE | 2019-12-03 22:37 | PN ---
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, Physician History of Present Illness: events noted Chart reviwed Alert Awake Oriented Feels better hemodynmically still with low but better BP Seen in [facility] ICU On a collar - Current Medication List Current Medications: Active Medications Acetaminophen (Tylenol -) 650 mg PO Q6H PRN PRN Reason: Fever Or Pain Last Admin: 12/03/19 21:46 Dose: 650 mg Amino Acids (Prosource No Carb Liquid Pkt) 30 ml PO BID@0800,1730 [facility] Last Admin: 12/03/19 17:44 Dose: 30 ml Atorvastatin Calcium (Lipitor -) 40 mg PO HS MICHAEL Last Admin: 12/03/19 21:39 Dose: 40 mg Dexamethasone Sodium Phosphate (Decadron Injection -) 2 mg IVPUSH Q6H-IV MICHAEL Last Admin: 12/03/19 21:39 Dose: 2 mg Gabapentin (Neurontin -) 100 mg PO TID MICHAEL Last Admin: 12/03/19 21:39 Dose: 100 mg Lactated Ringer's (Lactated Ringers Solution) 1,000 ml in 1,000 mls @ 125 mls/ hr IV ASDIR MICHAEL Last Admin: 12/03/19 17:43 Dose: 125 mls/hr Vasopressin 50 units/ Sodium (Chloride) 100 mls @ 4 mls/hr IVPB TITR MICHAEL; Protocol Last Admin: 12/03/19 17:45 Dose: Not Given Ceftriaxone Sodium 2 gm/ (Dextrose) 100 mls @ 100 mls/hr IVPB DAILY [facility]; Protocol Last Admin: 12/03/19 11:15 Dose: 100 mls/hr Vancomycin HCl (Vancomycin (Pre-Docked)) 1,000 mg in 250 mls @ 166.667 mls/hr IVPB BID MICHAEL; Protocol Last Admin: 12/03/19 21:40 Dose: 166.667 mls/hr Miscellaneous (Lidoderm Patch Removal) 1 each MC DAILY@2200 MICHAEL Last Admin: 12/03/19 21:40 Dose: 1 each - Objective Vital Signs: Vital Signs Temperature 97.8 F 12/03/19 14:00 Pulse Rate 73 12/03/19 19:00 Respiratory Rate 15 12/03/19 19:52 Blood Pressure 105/42 L 12/03/19 19:00 O2 Sat by Pulse Oximetry (%) 100 12/03/19 19:52 Constitutional: Yes: Well Nourished Eyes: Yes: WNL HENT: Yes: WNL Neurological: Yes: Alert, Oriented, Babinski positive ...Motor Strength: LUE (2), LLE (3), RUE (1), RLE (0) Labs: CBC, BMP 12/03/19 06:30 12/03/19 06:30 INR, PTT INR 3.11 (0.83-1.09) H 12/03/19 06:30 Problem List - Problems (1) Right sided weakness Assessment/Plan: Await MRI results DVT prophylaxis Await neuropathy panel PT Agree to neurosurgery plan follow nuclear study Code(s): R53.1 - WEAKNESS (2) Acute visual loss Code(s): H53.139 - SUDDEN VISUAL LOSS, UNSPECIFIED EYE Qualifiers: Laterality: unspecified laterality Qualified Code(s): H53.139 - Sudden visual loss, unspecified eye
[2019-12-04] MEDS: DEXAMETHASONE SOD PHOSPHATE 4 MG/1 ML VIAL IVPUSH SCH (03:00)
[2019-12-04] MEDS: GABAPENTIN 100 MG CAPSULE PO SCH ×3 (06:02→22:18)
[2019-12-04 07:01] LABS: BASO % 0.1 % (0-2.0); HEMOGLOBIN 10.6 GM/dL (10.7-15.3); LYMPH % 3.4 % (8-40); MCH 31.2 pg (25.7-33.7); MCHC 33.2 g/dl (32.0-36.0); MEAN PLT VOLUME 8.5 fl (7.5-11.1); MONO % 3.3 % (3.8-10.2); NEUT % 93.2 % (42.8-82.8); PLATELET COUNT 193 K/MM3 (134-434); RDW 14.8 % (11.6-15.6); WHITE BLOOD COUNT 10.4 K/mm3 (4.0-10.0)
[2019-12-04 07:16] LABS: PROTHROMBIN TIME (PATIENT) 49.3 SEC (9.7-13.0)
[2019-12-04 07:40] LABS: BLOOD UREA NITROGEN 27.2 mg/dL (7-18); POTASSIUM 4.1 mmol/L (3.5-5.1)
[2019-12-04 07:41] LABS: ALBUMIN 1.8 g/dl (3.4-5.0); BILIRUBIN,TOTAL 0.3 mg/dL (0.2-1); MAGNESIUM 1.8 mg/dL (1.8-2.4); PHOSPHOROUS 2.7 mg/dL (2.5-4.9); TOT PROT 4.9 g/dl (6.4-8.2)
[2019-12-04 08:06] LABS: CARCINOEMBRYONIC ANTIGEN 7.6 ng/mL (0.0-4.7)
[2019-12-04 08:39] LABS: INR 4.12 (0.83-1.09)
--- NOTE | 2019-12-04 08:43 | PN ---
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 (short form) - Note 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: NEUROSURGERY Neck pain better In ICU In less pain In [place] J collar PE: AF, BP higher Sitting up in bed; in good spirit HEENT- NC/AT; Neck- supple; Cor-Irreg; Chest- CTA B; Abd- benign; Ext- no C/C/E CN- intact; Motor- R UE 2-3/5 and LE 0/5; L side 4-; Sensation- intact LT; DTR- hyporereflexic, no LTS Blood culture 1/4 gram group B strep CT C spine- marked C5-6 DDD with anterior wedging C5-6, retrolisthesis, moderate to marked central stenosis, moderate C4-5 stenosis Brain MRI - B moderate periventricular small vessel dz; no acute ischemia C spine MRI - multilevel DDD; C5-6 vertebral edema, central disc protrusion C4- 5 and C5-6; moderate to marked C5-6 (L > R) central and foramenal stenosis and mild-moderate C4-5 stenosis, extensive spondylosis; loss of lordosis; no clear cord edema or myelomalacia 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
[2019-12-04 08:53] LABS: ANISOCYTOSIS 0; MACROCYTOSIS 0; PLATELET ESTIMATE NORMAL
[2019-12-04] MEDS ORDERED: DEXTROSE 5%-WATER 100 ML IVPB ONE (09:36)
[2019-12-04] MEDS: VANCOMYCIN 1 GRAM (PRE-DOCKED) 1,000 MG/250 ML BAG IVPB SCH (09:40)
[2019-12-04] MEDS: CEFTRIAXONE 2 GM in DEXTROSE 5%-WATER 100 ML IVPB SCH (09:40)
[2019-12-04] MEDS: AMINO ACIDS/PROTEIN HYDROLYS 30 ML LIQUID.PKT PO SCH ×2 (09:40→17:00)
--- NOTE | 2019-12-04 09:49 | PN ---
Teaching Attending Note Name of Resident: Sabra Santiago ATTENDING PHYSICIAN STATEMENT I saw and evaluated the patient. I reviewed the resident's note and discussed the case with the resident. I agree with the resident's findings and plan as documented. Seen and examined; no new complaints. Stable. XF from ICU. Off pressors. On abx now per ID. Family does not wish for surgical procedure but is discussing IR with respect to bx. Discussed with Dr. Xiao. Moreno fernandez. 10 sys ROS done and negative aside from HPI VS labs imaging reviewed NAD AAO resting in bed HR wnl, +s1/2 Normal mood, appropriate behavior NT ND +BS CN2-12 wnl, no fnd imaging reviewed Microbiology 12/02/19 00:00 Blood - Peripheral Venous Blood Culture - Preliminary NO GROWTH OBTAINED AFTER 96 HOURS, INCUBATION TO CONTINUE FOR 1 DAYS. 12/02/19 00:00 Blood - Peripheral Venous Blood Culture - Preliminary NO GROWTH OBTAINED AFTER 96 HOURS, INCUBATION TO CONTINUE FOR 1 DAYS. 12/02/19 10:07 Blood - Peripheral Venous Blood Culture - Final Strep Agalactiae Group B 12/02/19 09:53 Blood - Peripheral Venous Blood Culture - Preliminary NO GROWTH OBTAINED AFTER 72 HOURS, INCUBATION TO CONTINUE FOR 2 DAYS. 12/03/19 07:38 Blood - Peripheral Venous Blood Culture - Preliminary NO GROWTH OBTAINED AFTER 48 HOURS, INCUBATION TO CONTINUE FOR 3 DAYS. 12/03/19 07:30 Blood - Peripheral Venous Blood Culture - Preliminary NO GROWTH OBTAINED AFTER 48 HOURS, INCUBATION TO CONTINUE FOR 3 DAYS. Echo noted; discussed Imaging reviewed; pending contrasted MRI. We called down to elucidate when this would be done. Delay due to the use of pressors. ASSESSMENT AND PLAN: Patient presents for suspected discitis, nsgy and IR following. Started on empiric abx as was on pressors. 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 Continue to monitor; appreicate all epert input.
--- NOTE | 2019-12-04 10:09 | PN ---
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, Physician History of Present Illness: AWAKE, RESPONSIVE IN BED CERVICAL COLLAR IN PLACE COMPLAINS OF R SHOULDER PAIN DENIES NECK PAIN AFEBRILE WBC SL ELEVATED 10.4 BC + GRP B STREP REPEAT BC PENDING ECHO NOTED NO VEGETATIONS - Current Medication List Current Medications: Active Medications Acetaminophen (Tylenol -) 650 mg PO Q6H PRN PRN Reason: Fever Or Pain Last Admin: 12/03/19 21:46 Dose: 650 mg Amino Acids (Prosource No Carb Liquid Pkt) 30 ml PO BID@0800,1730 [facility] Last Admin: 12/04/19 09:40 Dose: 30 ml Atorvastatin Calcium (Lipitor -) 40 mg PO HS [facility] Last Admin: 12/03/19 21:39 Dose: 40 mg Gabapentin (Neurontin -) 100 mg PO TID [facility] Last Admin: 12/04/19 06:02 Dose: 100 mg Lactated Ringer's (Lactated Ringers Solution) 1,000 ml in 1,000 mls @ 125 mls/ hr IV ASDIR [facility] Last Admin: 12/03/19 17:43 Dose: 125 mls/hr Ceftriaxone Sodium 2 gm/ (Dextrose) 100 mls @ 100 mls/hr IVPB DAILY [facility]; Protocol Last Admin: 12/04/19 09:40 Dose: 100 mls/hr Vancomycin HCl (Vancomycin (Pre-Docked)) 1,000 mg in 250 mls @ 166.667 mls/hr IVPB BID [facility]; Protocol Last Admin: 12/04/19 09:40 Dose: 166.667 mls/hr Miscellaneous (Lidoderm Patch Removal) 1 each MC DAILY@2200 [facility] Last Admin: 12/03/19 21:40 Dose: 1 each - Objective Vital Signs: Vital Signs Temperature 97.4 F L 12/04/19 09:49 Pulse Rate 78 12/04/19 08:22 Respiratory Rate 16 12/04/19 08:22 Blood Pressure 131/77 12/04/19 09:00 O2 Sat by Pulse Oximetry (%) 98 12/04/19 08:35 Constitutional: Yes: No Distress Eyes: Yes: Conjunctiva Clear Cardiovascular: Yes: Regular Rate and Rhythm, S1, S2 Respiratory: Yes: CTA Bilaterally Gastrointestinal: Yes: Normal Bowel Sounds, Soft. 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
--- NOTE | 2019-12-04 10:31 | PN ---
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, Physician History of Present Illness: Hemodynamics stabilized off pressors, remains in rate-controlled afib. - Current Medication List Current Medications: Active Medications Acetaminophen (Tylenol -) 650 mg PO Q6H PRN PRN Reason: Fever Or Pain Last Admin: 12/03/19 21:46 Dose: 650 mg Amino Acids (Prosource No Carb Liquid Pkt) 30 ml PO BID@0800,1730 [facility] Last Admin: 12/04/19 09:40 Dose: 30 ml Atorvastatin Calcium (Lipitor -) 40 mg PO HS [facility] Last Admin: 12/03/19 21:39 Dose: 40 mg Gabapentin (Neurontin -) 100 mg PO TID [facility] Last Admin: 12/04/19 06:02 Dose: 100 mg Lactated Ringer's (Lactated Ringers Solution) 1,000 ml in 1,000 mls @ 125 mls/ hr IV ASDIR [facility] Last Admin: 12/03/19 17:43 Dose: 125 mls/hr Ceftriaxone Sodium 2 gm/ (Dextrose) 100 mls @ 100 mls/hr IVPB DAILY [facility]; Protocol Last Admin: 12/04/19 09:40 Dose: 100 mls/hr Miscellaneous (Lidoderm Patch Removal) 1 each MC DAILY@2200 [facility] Last Admin: 12/03/19 21:40 Dose: 1 each - Objective Vital Signs: Vital Signs Temperature 97.4 F L 12/04/19 09:49 Pulse Rate 78 12/04/19 08:22 Respiratory Rate 16 12/04/19 08:22 Blood Pressure 131/77 12/04/19 09:00 O2 Sat by Pulse Oximetry (%) 98 12/04/19 08:35 Constitutional: Yes: No Distress, Calm, Thin Neck: Yes: Supple Cardiovascular: Yes: Pulse Irregular Respiratory: Yes: Regular, Diminished Gastrointestinal: Yes: Normal Bowel Sounds, Soft Edema: No Labs: CBC, BMP 12/04/19 06:27 12/04/19 06:27 INR, PTT INR 4.12 (0.83-1.09) H* 12/04/19 06:27 - ....Imaging EKG: Report Reviewed (Tele: Afib) Problem List - Problems (1) Abnormal ECG Code(s): R94.31 - ABNORMAL ELECTROCARDIOGRAM [ECG] [EKG] (2) CVA (cerebral vascular accident) Code(s): I63.9 - CEREBRAL INFARCTION, UNSPECIFIED Qualifiers: CVA mechanism: unspecified Qualified Code(s): I63.9 - Cerebral infarction, unspecified (3) Cervical spinal stenosis Code(s): M48.02 - SPINAL STENOSIS, CERVICAL REGION (4) HTN (hypertension) Code(s): I10 - ESSENTIAL (PRIMARY) HYPERTENSION Qualifiers: Hypertension type: essential hypertension Qualified Code(s): I10 - Essential (primary) hypertension (5) Hypercholesterolemia Code(s): E78.00 - PURE HYPERCHOLESTEROLEMIA, UNSPECIFIED (6) LVH (left ventricular hypertrophy) Code(s): I51.7 - CARDIOMEGALY (7) Atrial flutter Code(s): I48.92 - UNSPECIFIED ATRIAL FLUTTER Qualifiers: Atrial flutter type: atypical Qualified Code(s): I48.4 - Atypical atrial flutter (8) Spondylolisthesis of cervical region Code(s): M43.12 - SPONDYLOLISTHESIS, CERVICAL REGION (9) Demand ischemia Code(s): I24.8 - OTHER FORMS OF ACUTE ISCHEMIC HEART DISEASE Assessment/Plan 12/01/19 Normal LV size with severe LVH with normal LV fxn, severe LAE, mild MR , TR, [place], possible infiltrative heart disease 1. Cervical spinal cord compression and possible C5/C6 osteomyelitis/discitis 2. Group B strep bacteremia with hypovolemic/septic shock 2. HTN heart disease 3. Hypercholesterolemia 4. Paroxysmal atrial fib/flutter [id number] score of 6-7 and supratherapeutic INR 5. CVA 6. Concentric LVH ? rule out infiltrative heart disease 7. Abnormal ECG suggests CAD 8. Demand ischemia with elevated troponin PLAN: 1. Abx course 6-8 weeks per C&S 2. Resume Carvedilol, Amlodipine and Lisinopril once hemodynamics stabilize. Fluid resuscitation, decadron per NSG 3. Neurosurgery input noted and family opts for medical therapy 4. Troponin downtrending 5. MRI c-spine 6. Currently Coumadin held due to supratherapeutic INR. Keep INR btw 2-3 unless surgery is planned 7. May consider Tm99 PYP study to rule out amyloidosis once clinically stable
--- NOTE | 2019-12-04 11:08 | PN ---
Teaching Attending Note Name of Resident: Jose Beaulieu ATTENDING PHYSICIAN STATEMENT I saw and evaluated the patient. I reviewed the resident's note and discussed the case with the resident. I agree with the resident's findings and plan as documented. SUBJECTIVE: Pt seen and examined in the ICU. Off pressors, blood pressures improved. Heart rates controlled. OBJECTIVE: Vital Signs Period Temp Pulse Resp BP Sys/Hutton Pulse Ox Last 24 Hr 97.4 F-98 F 60-83 15-21 96-131/42-86 98-100 Intake & Output 12/01/19 12/02/19 12/03/19 12/04/19 23:59 23:59 23:59 23:59 Intake Total 3247 3985 875 Output Total 1000 800 450 Balance 2247 3185 425 Weight 54.885 kg 54.885 kg Gen: NAD in cervical collar Heart: RRR Lung: decreased breath sounds at the bases Abd: soft, nontender Ext: + UE edema CBC, BMP 12/04/19 06:27 12/04/19 06:27 Active Medications Acetaminophen (Tylenol -) 650 mg PO Q6H PRN PRN Reason: Fever Or Pain Last Admin: 12/03/19 21:46 Dose: 650 mg Amino Acids (Prosource No Carb Liquid Pkt) 30 ml PO BID@0800,1730 [facility] Last Admin: 12/04/19 09:40 Dose: 30 ml Atorvastatin Calcium (Lipitor -) 40 mg PO HS [facility] Last Admin: 12/03/19 21:39 Dose: 40 mg Carvedilol (Coreg -) 3.125 mg PO BID [facility] Gabapentin (Neurontin -) 100 mg PO TID [facility] Last Admin: 12/04/19 06:02 Dose: 100 mg Lactated Ringer's (Lactated Ringers Solution) 1,000 ml in 1,000 mls @ 125 mls/ hr IV ASDIR [facility] Last Admin: 12/03/19 17:43 Dose: 125 mls/hr Ceftriaxone Sodium 2 gm/ (Dextrose) 100 mls @ 100 mls/hr IVPB DAILY [facility]; Protocol Last Admin: 12/04/19 09:40 Dose: 100 mls/hr Lisinopril (Prinivil) 5 mg PO DAILY [facility] Miscellaneous (Lidoderm Patch Removal) 1 each MC DAILY@2200 [facility] Last Admin: 12/03/19 21:40 Dose: 1 each ASSESSMENT AND PLAN: Hypovolemic Shock r/o Cervical Spinal Cord Compression Atrial Flutter LV Diastolic Dysfunction r/o UTI Group B Strep Bacteremia Hyperlipidemia h/o HTN h/o CVA Anemia - IVF boluses as needed - decadron per neurosurgery - on empiric antibiotics - f/u cultures - neuro checks - MRI C-spine - rate controlled - continue anticoagulation - can monitor on floor
--- NOTE | 2019-12-04 11:28 | PN ---
Teaching Attending Note Name of Resident: Sabra Santiago ASSESSMENT AND PLAN: I saw and evaluated the patient. I reviewed the resident's note and discussed the case with the resident. I agree with the resident's findings and plan as documented. Will discuss about initiating abx as still in septic shock needing pressors. If family wants no tx may be medical management anyways. FU additional cx, rest per resident note. 10 sys ROS done and negative aside from HPI VS labs imaging reviewed NAD AAO resting in bed HR wnl, +s1/2 Normal mood, appropriate behavior NT ND +BS CN2-12 wnl, no fnd imaging reviewed Microbiology 12/02/19 00:00 Blood - Peripheral Venous Blood Culture - Preliminary NO GROWTH OBTAINED AFTER 96 HOURS, INCUBATION TO CONTINUE FOR 1 DAYS. 12/02/19 00:00 Blood - Peripheral Venous Blood Culture - Preliminary NO GROWTH OBTAINED AFTER 96 HOURS, INCUBATION TO CONTINUE FOR 1 DAYS. 12/02/19 10:07 Blood - Peripheral Venous Blood Culture - Final Strep Agalactiae Group B 12/02/19 09:53 Blood - Peripheral Venous Blood Culture - Preliminary NO GROWTH OBTAINED AFTER 72 HOURS, INCUBATION TO CONTINUE FOR 2 DAYS. 12/03/19 07:38 Blood - Peripheral Venous Blood Culture - Preliminary NO GROWTH OBTAINED AFTER 48 HOURS, INCUBATION TO CONTINUE FOR 3 DAYS. 12/03/19 07:30 Blood - Peripheral Venous Blood Culture - Preliminary NO GROWTH OBTAINED AFTER 48 HOURS, INCUBATION TO CONTINUE FOR 3 DAYS. Echo noted; discussed Imaging reviewed; pending contrasted MRI. We called down to elucidate when this would be done. Delay due to the use of pressors. ASSESSMENT AND PLAN: Patient presents for suspected discitis, nsgy following. 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 Continue to monitor; appreicate all epert input.
[2019-12-04] MEDS: ACETAMINOPHEN 325 MG TABLET (FP) PO PRN (11:45)
[2019-12-04] MEDS: LACTATED RINGERS SOLUTION 1,000 ML/1,000 ML INFUS.BAG IV SCH (12:00)
[2019-12-04] MEDS: oxyCODONE HCL 5 MG TABLET PO PRN ×2 (13:48→22:18)
--- NOTE | 2019-12-04 14:50 | PN ---
Physical Exam: SUBJECTIVE: Patient seen and examined in the morning. No acute events overnight, no events on cardiac monitoring. Patient is now off of vasopressors. No complaints of chest pain, shortness of breath, abdominal pain. Patient complains of generalized myalgias. OBJECTIVE: Vital Signs Period Temp Pulse Resp BP Sys/Hutton Pulse Ox Last 24 Hr 97.4 F-98 F 60-82 15-20 104-131/42-77 98-100 GENERAL: The patient is awake, alert, and fully oriented, in no acute distress. HEAD: Normal with no signs of trauma. EYES: PERRLA, EOMI LUNGS: Breath sounds equal, clear to auscultation bilaterally, no wheezes, no crackles HEART: S1 S2 no murmurs rubs or gallops ABDOMEN: Soft, nontender, nondistended, normoactive bowel sounds, no guarding, no rebound, no hepatosplenomegaly, no masses. EXTREMITIES: 2+ pulses, warm, well-perfused, no edema. NEUROLOGICAL: 0/5 Right upper and lower extremity strength. 3/5 strength on the left upper and lower extremity. No facial droop. Gross sensation in tact. PSYCH: Normal mood, normal affect. SKIN: Warm, dry, normal turgor, no rashes or lesions noted Laboratory Results - last 24 hr 12/03/19 12/03/19 12/04/19 06:30 06:30 06:27 WBC 10.4 H RBC 3.40 L Hgb 10.6 L Hct 32.0 L MCV 94.0 MCH 31.2 MCHC 33.2 RDW 14.8 Plt Count 193 MPV 8.5 Absolute Neuts (auto) 9.7 H Neutrophils % 93.2 H Neutrophils % (Manual) 91.0 H Band Neutrophils % 0.0 Lymphocytes % 3.4 L D Lymphocytes % (Manual) 7.0 L Monocytes % 3.3 L Monocytes % (Manual) 2 L Eosinophils % 0.0 D Eosinophils % (Manual) 0.0 Basophils % 0.1 Basophils % (Manual) 0.0 Myelocytes % (Man) 0 Promyelocytes % (Man) 0 Blast Cells % (Manual) 0 Nucleated RBC % 0 Metamyelocytes 0 Hypochromia 0 Platelet Estimate Normal Polychromasia 0 Poikilocytosis 0 Anisocytosis 0 Microcytosis 0 Macrocytosis 0 PT with INR INR Sodium Potassium Chloride Carbon Dioxide Anion Gap BUN Creatinine Est GFR (CKD-EPI)AfAm Est GFR (CKD-EPI)NonAf Random Glucose Hemoglobin A1c % 5.8 Calcium Phosphorus Magnesium Total Bilirubin AST ALT Alkaline Phosphatase Total Protein Albumin Carcinoembryonic Ag 7.6 H 12/04/19 12/04/19 06:27 06:27 WBC RBC Hgb Hct MCV MCH MCHC RDW Plt Count MPV Absolute Neuts (auto) Neutrophils % Neutrophils % (Manual) Band Neutrophils % Lymphocytes % Lymphocytes % (Manual) Monocytes % Monocytes % (Manual) Eosinophils % Eosinophils % (Manual) Basophils % Basophils % (Manual) Myelocytes % (Man) Promyelocytes % (Man) Blast Cells % (Manual) Nucleated RBC % Metamyelocytes Hypochromia Platelet Estimate Polychromasia Poikilocytosis Anisocytosis Microcytosis Macrocytosis PT with INR 49.30 H INR 4.12 H* Sodium 138 Potassium 4.1 Chloride 109 H Carbon Dioxide 22 Anion Gap 7 L BUN 27.2 H Creatinine 1.0 Est GFR (CKD-EPI)AfAm 60.33 Est GFR (CKD-EPI)NonAf 52.06 Random Glucose 163 H Hemoglobin A1c % Calcium 8.0 L Phosphorus 2.7 Magnesium 1.8 Total Bilirubin 0.3 AST 19 ALT 22 Alkaline Phosphatase 56 Total Protein 4.9 L Albumin 1.8 L Carcinoembryonic Ag Active Medications Generic Name Dose Route Start Last Admin Trade Name Freq PRN Reason Stop Dose Admin Acetaminophen 650 mg 12/02/19 01:34 12/04/19 11:45 Tylenol - PO 650 mg Q6H PRN Administration Fever Amino Acids 30 ml 12/03/19 17:30 12/04/19 09:40 Prosource No Carb Liquid Pkt PO 30 ml BID@0800,1730 MICHAEL Administration Atorvastatin Calcium 40 mg 12/01/19 22:00 12/03/19 21:39 Lipitor - PO 40 mg HS MICHAEL Administration Carvedilol 3.125 mg 12/04/19 22:00 Coreg - PO BID MICHAEL Gabapentin 100 mg 12/02/19 14:00 12/04/19 13:49 Neurontin - PO 100 mg TID MICHAEL Administration Ceftriaxone Sodium 2 gm/ 100 mls @ 100 mls/hr 12/03/19 11:15 12/04/19 09:40 Dextrose IVPB 100 mls/hr DAILY MICHAEL Administration Protocol Lactated Ringer's 1,000 ml in 1,000 mls @ 42 mls/hr 12/04/19 11:11 12/04/19 12:00 Lactated Ringers Solution IV 42 mls/hr ASDIR MICHAEL Administration Lisinopril 5 mg 12/05/19 10:00 Prinivil PO DAILY MICHAEL Miscellaneous 1 each 12/01/19 22:00 12/03/19 21:40 Lidoderm Patch Removal MC 1 each DAILY@2200 MICHAEL Administration Oxycodone HCl 5 mg 12/04/19 13:24 12/04/19 13:48 Roxicodone - PO 5 mg Q6H PRN Administration PAIN LEVEL 6-10 ASSESSMENT/PLAN: 84 F PMH HTN, HLD, A-flutter (coumadin), 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 Neuro -CT head showed no acute changes, left cerebellar chronic lacunar infarct present. -CT Spine on 11/25 showed C5-C6. Facet joint arthropathy with widened facet joints. Retrolisthesis of C4 on C5 betito, 4.5 mm. Central spinal canal stenosis, the AP dimension of spinal canal betito. 5.4 mm. Bilateral neural foramina stenosis. Loss of height of C5 vertebral body anteriorly. Demineralized endplates with irregular contour of the endplates. Anterior annular calcifications. No evidence of significant prevertebral soft tissue swelling. -CT spine on 12/01 showed Severe degenerative narrowing of C5-C6 intervertebral disc space with marked anterior wedging/ compression of C5 and mild to moderate compression of C6 vertebral bodies that may be related to prior trauma, degenerative changes or infection. Grade 1 retrolisthesis of C5 over C6 with mild posterior spur formation resulting in moderate canal stenosis as well as moderately severe narrowing of the right foramen and moderate narrowing of the left foramen again seen. -MRI Brain and C-spine suggestive of osteomyelitis/discitis at C5-C6 level. Grade 1 retrolisthesis of C5 over C6, approximately 5 mm with mild broadbase disc bulge and bilateral facet hypertrophy resulting in moderate to marked canal stenosis and at least mild cord compression. Marked narrowing of the new foramina impinging both C6 nerve roots C4-C5 moderately severe degenerative disc disease with mild to moderate disc osteophyte complex impinging the cord and resulting in moderate degenerative central spinal canal stenosis. C6-C7 mild mainly left lateral disc bulge impinging left C7 nerve root -MRI c-spine with contrast planned for today early evening -Bone scan ordered. -EMG shows demyelinating neuropathy -last dose of decadron -continue with gabepentin -continue Willacy J collar -Neurology consulted, appreciate recs -Neurosurgery consulted, appreciate recs Cardiovascular -Patient maintaining MAP >65. -Vasopressin stopped -A-flutter, patient is supratherapuetic. Holding coumadin -Troponin peaked at 0.22 -May consider Tm99 PYP study to rule out amyloidosis once clinically stable as per cardiology -Can resume Carvedilol, Amlodipine, Lisinopril when HD tolerate. -Cardiology consulted, appreciate recs Pulmonology -no acute issues -Satting well on RA ID -Potential Osteomyelitis seen on C-spine MRI. 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 Visit type - Emergency Visit Emergency Visit: Yes ED Registration Date: 12/01/19 Care time: The patient presented to the Emergency Department on the above date and was hospitalized for further evaluation of their emergent condition. - New Patient This patient is new to me today: No - Critical Care Critical Care patient: Yes Total Critical Care Time (in minutes): 45 Critical Care Statement: The care of this patient involved high complexity dec ision making to prevent further life threatening deterioration of the patient's condition and/or to evaluate & treat vital organ system(s) failure or risk of failure. ATTENDING PHYSICIAN STATEMENT I saw and evaluated the patient. I reviewed the resident's note and discussed the case with the resident. I agree with the resident's findings and plan as documented. SUBJECTIVE: OBJECTIVE: ASSESSMENT AND PLAN:
--- NOTE | 2019-12-04 15:29 | PN ---
Physical Exam: SUBJECTIVE: Patient seen and examined. Patient feels that she is getting some of her strength back and is able to move her right arm more today. No acute events overnight. Unable to get MRI due to availability issues, will hopefully get MRI tonight. OBJECTIVE: Vital Signs Period Temp Pulse Resp BP Sys/Hutton Pulse Ox Last 24 Hr 97.4 F-98 F 60-82 15-20 104-131/42-77 98-100 GENERAL: The patient is awake, alert, and fully oriented, in no acute distress. HEAD: Normal with no signs of trauma. EYES: PERRL, EOMI NECK: Trachea midline, full range of motion, supple. LUNGS: Breath sounds equal, clear to auscultation bilaterally, no wheezes, no crackles, no accessory muscle use. HEART: irregularly irregular ABDOMEN: Soft, nontender, nondistended, normoactive bowel sounds, no guarding EXTREMITIES: 2+ pulses, warm NEUROLOGICAL: Normal speech. No facial droop. Right sided weakness > left. Weak hand form tamper bilaterally but improving. 2/5 shoulder shrug bilaterally. 2/5 biceps , triceps on right side. 3/5 biceps, triceps on left side. 1/5 strength of right lower extremity. Able to bend left lower extremity at the knee and flex/ extend ankle. Able to wiggle toes on bilateral lower extremities. sensation intact throughout. PSYCH: Normal mood, normal affect. SKIN: Warm, dry, normal turgor. Laboratory Results - last 24 hr 12/03/19 12/03/19 12/04/19 06:30 06:30 06:27 WBC 10.4 H RBC 3.40 L Hgb 10.6 L Hct 32.0 L MCV 94.0 MCH 31.2 MCHC 33.2 RDW 14.8 Plt Count 193 MPV 8.5 Absolute Neuts (auto) 9.7 H Neutrophils % 93.2 H Neutrophils % (Manual) 91.0 H Band Neutrophils % 0.0 Lymphocytes % 3.4 L D Lymphocytes % (Manual) 7.0 L Monocytes % 3.3 L Monocytes % (Manual) 2 L Eosinophils % 0.0 D Eosinophils % (Manual) 0.0 Basophils % 0.1 Basophils % (Manual) 0.0 Myelocytes % (Man) 0 Promyelocytes % (Man) 0 Blast Cells % (Manual) 0 Nucleated RBC % 0 Metamyelocytes 0 Hypochromia 0 Platelet Estimate Normal Polychromasia 0 Poikilocytosis 0 Anisocytosis 0 Microcytosis 0 Macrocytosis 0 PT with INR INR Sodium Potassium Chloride Carbon Dioxide Anion Gap BUN Creatinine Est GFR (CKD-EPI)AfAm Est GFR (CKD-EPI)NonAf Random Glucose Hemoglobin A1c % 5.8 Calcium Phosphorus Magnesium Total Bilirubin AST ALT Alkaline Phosphatase Total Protein Albumin Carcinoembryonic Ag 7.6 H 12/04/19 12/04/19 06:27 06:27 WBC RBC Hgb Hct MCV MCH MCHC RDW Plt Count MPV Absolute Neuts (auto) Neutrophils % Neutrophils % (Manual) Band Neutrophils % Lymphocytes % Lymphocytes % (Manual) Monocytes % Monocytes % (Manual) Eosinophils % Eosinophils % (Manual) Basophils % Basophils % (Manual) Myelocytes % (Man) Promyelocytes % (Man) Blast Cells % (Manual) Nucleated RBC % Metamyelocytes Hypochromia Platelet Estimate Polychromasia Poikilocytosis Anisocytosis Microcytosis Macrocytosis PT with INR 49.30 H INR 4.12 H* Sodium 138 Potassium 4.1 Chloride 109 H Carbon Dioxide 22 Anion Gap 7 L BUN 27.2 H Creatinine 1.0 Est GFR (CKD-EPI)AfAm 60.33 Est GFR (CKD-EPI)NonAf 52.06 Random Glucose 163 H Hemoglobin A1c % Calcium 8.0 L Phosphorus 2.7 Magnesium 1.8 Total Bilirubin 0.3 AST 19 ALT 22 Alkaline Phosphatase 56 Total Protein 4.9 L Albumin 1.8 L Carcinoembryonic Ag Active Medications Generic Name Dose Route Start Last Admin Trade Name Freq PRN Reason Stop Dose Admin Acetaminophen 650 mg 12/02/19 01:34 12/04/19 11:45 Tylenol - PO 650 mg Q6H PRN Administration Fever Amino Acids 30 ml 12/03/19 17:30 12/04/19 09:40 Prosource No Carb Liquid Pkt PO 30 ml BID@0800,1730 MICHAEL Administration Atorvastatin Calcium 40 mg 12/01/19 22:00 12/03/19 21:39 Lipitor - PO 40 mg HS MICHAEL Administration Carvedilol 3.125 mg 12/04/19 22:00 Coreg - PO BID MICHAEL Gabapentin 100 mg 12/02/19 14:00 12/04/19 13:49 Neurontin - PO 100 mg TID MICHAEL Administration Ceftriaxone Sodium 2 gm/ 100 mls @ 100 mls/hr 12/03/19 11:15 12/04/19 09:40 Dextrose IVPB 100 mls/hr DAILY MICHAEL Administration Protocol Lactated Ringer's 1,000 ml in 1,000 mls @ 42 mls/hr 12/04/19 11:11 12/04/19 12:00 Lactated Ringers Solution IV 42 mls/hr ASDIR MICHAEL Administration Lisinopril 5 mg 12/05/19 10:00 Prinivil PO DAILY MICHAEL Miscellaneous 1 each 12/01/19 22:00 12/03/19 21:40 Lidoderm Patch Removal MC 1 each DAILY@2200 MICHAEL Administration Oxycodone HCl 5 mg 12/04/19 13:24 12/04/19 13:48 Roxicodone - PO 5 mg Q6H PRN Administration PAIN LEVEL 6-10 ASSESSMENT/PLAN: 84 y/o/f with PMHx of hypertension, hyperlipidemia, Atrial flutter (on Coumadin) , 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 #Diffuse weakness possibly 2/2 to cervical cord compression -MRI with severe central canal stenosis at C5/C6 with B/L neural foraminal stenosis and cord compression. findings suspicious for discitis/osteomyelitis of C5/C6 with prevertebral soft tissue thickening/prevertebral fluid seen. -CT head reveals chronic lacunar infarct, without acute pathology. -Neurology evaluation (Dr. Becker) -NSx consulted (Dr. Xiao) - possible candidate for cervical decompression and fusion - High risk procedure given poor neurological condition/function, degree of compression, and cardiac conditions and prior CVA, as well as need to hold AC for long periods of time chago-operatively - MRI with dov to r/o inflammatory/infectious process C5-6 still pending due to MRI availability - Discontinue Decadron. - Continue Neurontin 100mg TID -ECHO - EF >70%, possible infiltrative heart disease, severe concentric left ventricular hypertrophy -Carotid duplex ultrasound - significant intimal thickening in both common carotid arteries up to the bifurcation. moderate dize plaques with calcifications of the right common carotid bifurcation, front and proximal internal carotid artery as well as large plaques with calcifications at the left common carotid bifurcation/bulb and proximal internal carotid artery without evidence of hemodynamically significant stenosis. -Speech and swallow evaluation - dysphagia whole diet with thin liquids. give medications crushed with applesauce -Fall precautions -PMR consulted for EMG, will follow recs -Bone scan ordered #Sepsis 2/2 UTI vs +Blood cx? -UA positive for UTI. Trace ketones, 2+ Leuk esterase. WBC 117, Bacteria 996 -Blood cx positive for Group B strep -repeat Blood cultures negative to date -Continue Ceftriaxone (started 12/03) -DC Vanco -will need terminal gauger (6-8weeks) of abx tx -Hypotension improved, off vasopressin #NSTEMI -EKG reveals atrial flutter T wave inversions and ST depressions in lateral leads -Troponin trended to peak of 0.22 -Cardiology evaluation (Dr. Fermin), appreciate recs -May consider Tm99 PYP study to rule out amyloidosis once clinically stable -Holding AC in the anticipation of possible surgical intervention -Follow INR -Cardiac telemetry monitoring #Atrial flutter -Rate controlled. Will hold Coumadin in setting of supratherapeutic INR and need for possible surgical intervention -holding metoprolol as patient is currently hypotensive -Follow PT/INR -Keep INR between 2-3 unless surgery or biopsy by IR planned #FEN -LR @ 42mls/hr -monitor and replete lytes as needed -Dysphagia whole diet with thin liquids #Prophylaxis -INR supratherapeutic. follow PT/INR -holding chemical AC in case surgical intervention is needed #Disposition -MRI pending -Andre does not want surgery at this time Visit type - Emergency Visit Emergency Visit: Yes ED Registration Date: 12/01/19 Care time: The patient presented to the Emergency Department on the above date and was hospitalized for further evaluation of their emergent condition. - New Patient This patient is new to me today: No - Critical Care Critical Care patient: Yes Total Critical Care Time (in minutes): 36 Critical Care Statement: The care of this patient involved high complexity decision making to prevent further life threatening deterioration of the patient 's condition and/or to evaluate & treat vital organ system(s) failure or risk of failure. ATTENDING PHYSICIAN STATEMENT I saw and evaluated the patient. I reviewed the resident's note and discussed the case with the resident. I agree with the resident's findings and plan as documented. SUBJECTIVE: OBJECTIVE: ASSESSMENT AND PLAN:
--- NOTE | 2019-12-04 17:23 | PN ---
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, Physician History of Present Illness: events noted Cahrt reviwed Alert awake Follws commands Still with same weakness BP is better - Current Medication List Current Medications: Active Medications Acetaminophen (Tylenol -) 650 mg PO Q6H PRN PRN Reason: Fever Last Admin: 12/04/19 11:45 Dose: 650 mg Amino Acids (Prosource No Carb Liquid Pkt) 30 ml PO BID@0800,1730 [facility] Last Admin: 12/04/19 17:00 Dose: 30 ml Atorvastatin Calcium (Lipitor -) 40 mg PO HS [facility] Last Admin: 12/03/19 21:39 Dose: 40 mg Carvedilol (Coreg -) 3.125 mg PO BID MICHAEL Gabapentin (Neurontin -) 100 mg PO TID [facility] Last Admin: 12/04/19 13:49 Dose: 100 mg Ceftriaxone Sodium 2 gm/ (Dextrose) 100 mls @ 100 mls/hr IVPB DAILY [facility]; Protocol Last Admin: 12/04/19 09:40 Dose: 100 mls/hr Lactated Ringer's (Lactated Ringers Solution) 1,000 ml in 1,000 mls @ 42 mls/ hr IV ASDIR [facility] Last Admin: 12/04/19 12:00 Dose: 42 mls/hr Lisinopril (Prinivil) 5 mg PO DAILY [facility] Miscellaneous (Lidoderm Patch Removal) 1 each MC DAILY@2200 [facility] Last Admin: 12/03/19 21:40 Dose: 1 each Oxycodone HCl (Roxicodone -) 5 mg PO Q6H PRN PRN Reason: PAIN LEVEL 6-10 Last Admin: 12/04/19 13:48 Dose: 5 mg - Objective Vital Signs: Vital Signs Temperature 97.6 F 12/04/19 14:00 Pulse Rate 82 12/04/19 16:00 Respiratory Rate 18 12/04/19 16:00 Blood Pressure 120/52 L 12/04/19 16:00 O2 Sat by Pulse Oximetry (%) 98 12/04/19 08:35 Constitutional: Yes: Well Nourished Eyes: Yes: WNL Neurological: Yes: Alert, Oriented, Babinski negative ...Motor Strength: RUE (1), RLE (0) Labs: CBC, BMP 12/04/19 06:27 12/04/19 06:27 INR, PTT INR 4.12 (0.83-1.09) H* 12/04/19 06:27 Problem List - Problems (1) Right sided weakness Assessment/Plan: 1. Bone scan 2. PT bedside Neuropathy moise in progress Neurottin the same Code(s): R53.1 - WEAKNESS (2) Acute visual loss Code(s): H53.139 - SUDDEN VISUAL LOSS, UNSPECIFIED EYE Qualifiers: Laterality: unspecified laterality Qualified Code(s): H53.139 - Sudden visual loss, unspecified eye
[2019-12-04] MEDS ORDERED: CARVEDILOL 3.125 MG TABLET (FP) PO SCH (22:00)
[2019-12-04] MEDS: ATORVASTATIN CA 40 MG TABLET (FP) PO SCH (22:18)
[2019-12-05] MEDS: LIDOCAINE PATCH REMOVAL MC SCH (00:11)
[2019-12-05] MEDS: GABAPENTIN 100 MG CAPSULE PO SCH ×3 (05:06→21:00)
[2019-12-05 07:15] LABS: INR 3.75 (0.83-1.09); PROTHROMBIN TIME (PATIENT) 44.9 SEC (9.7-13.0)
[2019-12-05 07:16] LABS: BASO % 0.1 % (0-2.0); HEMATOCRIT 31.5 % (32.4-45.2); HEMOGLOBIN 10.3 GM/dL (10.7-15.3); LYMPH % 3.6 % (8-40); MCHC 32.8 g/dl (32.0-36.0); MEAN CELL VOLUME 94.6 fl (80-96); MEAN PLT VOLUME 8.5 fl (7.5-11.1); MONO % 4.6 % (3.8-10.2); NEUT % 91.7 % (42.8-82.8); PLATELET COUNT 180 K/MM3 (134-434); RBC 3.33 M/mm3 (3.60-5.2); RDW 14.3 % (11.6-15.6); WHITE BLOOD COUNT 8.5 K/mm3 (4.0-10.0)
[2019-12-05 07:38] LABS: ALBUMIN 1.7 g/dl (3.4-5.0); BILIRUBIN,TOTAL 0.2 mg/dL (0.2-1); BLOOD UREA NITROGEN 25.9 mg/dL (7-18); CREATININE 0.9 mg/dL (0.55-1.3); PHOSPHOROUS 2.4 mg/dL (2.5-4.9); POTASSIUM 4.1 mmol/L (3.5-5.1); TOT PROT 4.6 g/dl (6.4-8.2)
--- NOTE | 2019-12-05 07:40 | PN ---
Physical Exam: SUBJECTIVE: Patient seen and examined. No changes to prior. Still wearing C- collar. States that she feels about the same. Denies chest pain, SOB, chills, fever, or other concerns. OBJECTIVE: Vital Signs Period Temp Pulse Resp BP Sys/[place]utton Pulse Ox Last 24 Hr 97.4 F-97.8 F 60-87 16-22 112-135/47-77 98-98 GENERAL: The patient is awake, alert, and fully oriented, in no acute distress. HEAD: Normal with no signs of trauma. EYES: PERRL, EOMI NECK: Trachea midline, full range of motion, supple. LUNGS: Breath sounds equal, clear to auscultation bilaterally, no wheezes, no crackles, no accessory muscle use. HEART: irregularly irregular ABDOMEN: Soft, nontender, nondistended, normoactive bowel sounds, no guarding EXTREMITIES: 2+ pulses, warm NEUROLOGICAL: Normal speech. No facial droop. Right sided weakness > left. 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 2/5 shoulder shrug bilaterally. 2/5 biceps , triceps on right side. 3/5 biceps, triceps on left side. 1/5 strength of right lower extremity. Able to bend left lower extremity at the knee and flex/ extend ankle. Able to wiggle toes on bilateral lower extremities. sensation intact throughout. PSYCH: Normal mood, normal affect. SKIN: Warm, dry, normal turgor. Laboratory Results - last 24 hr 12/03/19 12/03/19 12/04/19 06:30 06:30 06:27 Neutrophils % (Manual) 91.0 H Band Neutrophils % 0.0 Lymphocytes % (Manual) 7.0 L Monocytes % (Manual) 2 L Eosinophils % (Manual) 0.0 Basophils % (Manual) 0.0 Myelocytes % (Man) 0 Promyelocytes % (Man) 0 Blast Cells % (Manual) 0 Nucleated RBC % 0 Metamyelocytes 0 Hypochromia 0 Platelet Estimate Normal Polychromasia 0 Poikilocytosis 0 Anisocytosis 0 Microcytosis 0 Macrocytosis 0 PT with INR INR Sodium Potassium Chloride Carbon Dioxide Anion Gap BUN Creatinine Est GFR (CKD-EPI)AfAm Est GFR (CKD-EPI)NonAf Random Glucose Calcium Phosphorus Magnesium Total Bilirubin AST ALT Alkaline Phosphatase Total Protein Total Protein (PEP) 4.8 L Albumin Albumin (PEP) 2.1 L Globulin 2.7 Albumin/Globulin Ratio 0.8 Beta Globulins 0.6 L Aldolase 6.8 Carcinoembryonic Ag 7.6 H Vancomycin Pre-Dose JOSE DE JESUS M-Obdulio Not observed ESE Screen Negative 12/04/19 12/04/19 12/05/19 06:27 06:27 01:30 Neutrophils % (Manual) Band Neutrophils % Lymphocytes % (Manual) Monocytes % (Manual) Eosinophils % (Manual) Basophils % (Manual) Myelocytes % (Man) Promyelocytes % (Man) Blast Cells % (Manual) Nucleated RBC % Metamyelocytes Hypochromia Platelet Estimate Polychromasia Poikilocytosis Anisocytosis Microcytosis Macrocytosis PT with INR INR 4.12 H* Sodium 138 Potassium 4.1 Chloride 109 H Carbon Dioxide 22 Anion Gap 7 L BUN 27.2 H Creatinine 1.0 Est GFR (CKD-EPI)AfAm 60.33 Est GFR (CKD-EPI)NonAf 52.06 Random Glucose 163 H Calcium 8.0 L Phosphorus 2.7 Magnesium 1.8 Total Bilirubin 0.3 AST 19 ALT 22 Alkaline Phosphatase 56 Total Protein 4.9 L Total Protein (PEP) Albumin 1.8 L Albumin (PEP) Globulin Albumin/Globulin Ratio Beta Globulins Aldolase Carcinoembryonic Ag Vancomycin Pre-Dose 12.3 L JOSE DE JESUS M-Obdulio SEE Screen 12/05/19 12/05/19 06:10 07:00 Neutrophils % (Manual) Band Neutrophils % Lymphocytes % (Manual) Monocytes % (Manual) Eosinophils % (Manual) Basophils % (Manual) Myelocytes % (Man) Promyelocytes % (Man) Blast Cells % (Manual) Nucleated RBC % Metamyelocytes Hypochromia Platelet Estimate Polychromasia Poikilocytosis Anisocytosis Microcytosis Macrocytosis PT with INR 44.90 H INR 3.75 H Sodium 140 Potassium 4.1 Chloride 110 H Carbon Dioxide 25 Anion Gap 5 L BUN 25.9 H Creatinine 0.9 Est GFR (CKD-EPI)AfAm 68.53 Est GFR (CKD-EPI)NonAf 59.13 Random Glucose 96 Calcium 8.0 L Phosphorus 2.4 L Magnesium 2.0 Total Bilirubin 0.2 AST 27 ALT 33 Alkaline Phosphatase 55 Total Protein 4.6 L Total Protein (PEP) Albumin 1.7 L Albumin (PEP) Globulin Albumin/Globulin Ratio Beta Globulins Aldolase Carcinoembryonic Ag Vancomycin Pre-Dose JOSE DE JESUS M-Obdulio ESE Screen Active Medications Generic Name Dose Route Start Last Admin Trade Name Freq PRN Reason Stop Dose Admin Acetaminophen 650 mg 12/05/19 00:11 Tylenol - PO Q6H PRN Fever Or Pain Amino Acids 30 ml 12/05/19 08:00 Prosource No Carb Liquid Pkt PO BID@0800,1730 [facility] Atorvastatin Calcium 40 mg 12/05/19 22:00 Lipitor - PO HS MICHAEL Carvedilol 3.125 mg 12/05/19 10:00 Coreg - PO BID MICHAEL Gabapentin 100 mg 12/05/19 06:00 12/05/19 05:06 Neurontin - PO 100 mg TID MICHAEL Administration Lactated Ringer's 1,000 ml in 1,000 mls @ 42 mls/hr 12/04/19 11:11 12/04/19 12:00 Lactated Ringers Solution IV 42 mls/hr ASDIR MICHAEL Administration Ceftriaxone Sodium 2 gm/ 100 mls @ 100 mls/hr 12/05/19 10:00 Dextrose IVPB DAILY [facility] Protocol Lisinopril 5 mg 12/05/19 10:00 Prinivil PO DAILY MICHAEL Oxycodone HCl 5 mg 12/04/19 13:24 12/04/19 22:18 Roxicodone - PO 5 mg Q6H PRN Administration PAIN LEVEL 6-10 ASSESSMENT/PLAN: 84 y/o/f with PMHx of hypertension, hyperlipidemia, Atrial flutter (on Coumadin) , 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 #Diffuse weakness possibly 2/2 to cervical cord compression -MRI with severe central canal stenosis at C5/C6 with B/L neural foraminal stenosis and cord compression. findings suspicious for discitis/osteomyelitis of C5/C6 with prevertebral soft tissue thickening/prevertebral fluid seen. -CT head reveals chronic lacunar infarct, without acute pathology. -Neurology evaluation (Dr. Becker) -NSx consulted (Dr. Xiao) - Family to opt for medical management at this time, do not want surgery - MRI with dov - OM of C5-C6 and possibly anterior aspect of C4. No gross paravertebral abscess identified - Discontinued Decadron. - Continue Neurontin 100mg TID -ECHO - EF >70%, possible infiltrative heart disease, severe concentric left ventricular hypertrophy -Carotid duplex ultrasound - significant intimal thickening in both common carotid arteries up to the bifurcation. moderate dize plaques with calcifications of the right common carotid bifurcation, front and proximal internal carotid artery as well as large plaques with calcifications at the left common carotid bifurcation/bulb and proximal internal carotid artery without evidence of hemodynamically significant stenosis. -Speech and swallow evaluation - dysphagia whole diet with thin liquids. give medications crushed with applesauce -Fall precautions -PMR consulted for EMG, will follow recs -Bone scan ordered #Sepsis 2/2 UTI vs +Blood cx -UA positive for UTI. Trace ketones, 2+ Leuk esterase. 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 Fermin), appreciate recs -May consider Tm99 PYP study to rule out amyloidosis once clinically stable -Holding AC in the anticipation of possible surgical intervention -Follow INR -Cardiac telemetry monitoring - Resumed Carvedilol 3.125 bid, Lipitor 40 qd, Lisinopril 5mg daily. Resume other anti-HTN home meds as appropriate #Atrial flutter -Rate controlled. Will hold Coumadin in setting of supratherapeutic INR and need for possible surgical intervention -holding metoprolol as patient is currently hypotensive -Follow PT/INR -Keep INR between 2-3 unless surgery or biopsy by IR planned #FEN -LR @ 42mls/hr -monitor and replete lytes as needed -Dysphagia whole diet with thin liquids #Prophylaxis -INR supratherapeutic. follow PT/INR -holding chemical AC #Disposition -Famly does not want surgery at this time -continue medical management Visit type - Emergency Visit Emergency Visit: Yes ED Registration Date: 12/01/19 Care time: The patient presented to the Emergency Department on the above date and was hospitalized for further evaluation of their emergent condition. - New Patient This patient is new to me today: No - Critical Care Critical Care patient: No ATTENDING PHYSICIAN STATEMENT I saw and evaluated the patient. I reviewed the resident's note and discussed the case with the resident. I agree with the resident's findings and plan as documented. SUBJECTIVE: OBJECTIVE: ASSESSMENT AND PLAN:
--- NOTE | 2019-12-05 08:15 | PN ---
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 (short form) - Note 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: NEUROSURGERY Neck pain better On 7W In less pain In [place] J collar PE: Tmax 97.8, AF, BP higher Sitting up in bed; in good spirit HEENT- NC/AT; Neck- supple; Cor-Irreg; Chest- CTA B; Abd- benign; Ext- no C/C/E CN- intact; Motor- R UE 2-3/5 and LE 0/5; L side 4-; Sensation- intact LT; DTR- hyporereflexic, no LTS WBC 8.5 Blood culture 1/4 gram group B strep CT C spine- marked C5-6 DDD with anterior wedging C5-6, retrolisthesis, moderate to marked central stenosis, moderate C4-5 stenosis Brain MRI - B moderate periventricular small vessel dz; no acute ischemia C spine MRI - multilevel DDD; C5-6 vertebral edema, central disc protrusion C4- 5 and C5-6; moderate to marked C5-6 (L > R) central and foramenal stenosis and mild-moderate C4-5 stenosis, extensive spondylosis; loss of lordosis; no clear cord edema or myelomalacia C spine with dov- poor imaging quliaty though with enhancement of C5 and C6, mild lower ant C4 enhancement, other findings per prior completed noncontrast study 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
[2019-12-05] MEDS ORDERED: DEXTROSE 5%-WATER 100 ML IVPB ONE (08:50)
--- NOTE | 2019-12-05 09:48 | PN ---
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, Physician History of Present Illness: Remains in rate-controlled afib. Underwent c-spine MRI. - Current Medication List Current Medications: Active Medications Acetaminophen (Tylenol -) 650 mg PO Q6H PRN PRN Reason: Fever Or Pain Amino Acids (Prosource No Carb Liquid Pkt) 30 ml PO BID@0800,1730 [facility] Atorvastatin Calcium (Lipitor -) 40 mg PO HS [facility] Carvedilol (Coreg -) 3.125 mg PO BID [facility] Gabapentin (Neurontin -) 100 mg PO TID [facility] Last Admin: 12/05/19 05:06 Dose: 100 mg Lactated Ringer's (Lactated Ringers Solution) 1,000 ml in 1,000 mls @ 42 mls/ hr IV ASDIR [facility] Last Admin: 12/04/19 12:00 Dose: 42 mls/hr Ceftriaxone Sodium 2 gm/ (Dextrose) 100 mls @ 100 mls/hr IVPB DAILY [facility]; Protocol Lisinopril (Prinivil) 5 mg PO DAILY [facility] Oxycodone HCl (Roxicodone -) 5 mg PO Q6H PRN PRN Reason: PAIN LEVEL 6-10 Last Admin: 12/04/19 22:18 Dose: 5 mg - Objective Vital Signs: Vital Signs Temperature 97.4 F L 12/05/19 05:00 Pulse Rate 81 12/05/19 01:00 Respiratory Rate 20 12/05/19 05:00 Blood Pressure 135/64 12/05/19 05:00 O2 Sat by Pulse Oximetry (%) 98 12/04/19 21:00 Constitutional: Yes: No Distress, Calm, Thin Neck: Yes: Supple Cardiovascular: Yes: Pulse Irregular Respiratory: Yes: Regular, Diminished Gastrointestinal: Yes: Normal Bowel Sounds, Soft Edema: No Labs: CBC, BMP 12/05/19 06:10 12/05/19 06:10 INR, PTT INR 3.75 (0.83-1.09) H 12/05/19 07:00 Problem List - Problems (1) Abnormal ECG Code(s): R94.31 - ABNORMAL ELECTROCARDIOGRAM [ECG] [EKG] (2) CVA (cerebral vascular accident) Code(s): I63.9 - CEREBRAL INFARCTION, UNSPECIFIED Qualifiers: CVA mechanism: unspecified Qualified Code(s): I63.9 - Cerebral infarction, unspecified (3) Cervical spinal stenosis Code(s): M48.02 - SPINAL STENOSIS, CERVICAL REGION (4) HTN (hypertension) Code(s): I10 - ESSENTIAL (PRIMARY) HYPERTENSION Qualifiers: Hypertension type: essential hypertension Qualified Code(s): I10 - Essential (primary) hypertension (5) Hypercholesterolemia Code(s): E78.00 - PURE HYPERCHOLESTEROLEMIA, UNSPECIFIED (6) LVH (left ventricular hypertrophy) Code(s): I51.7 - CARDIOMEGALY (7) Atrial flutter Code(s): I48.92 - UNSPECIFIED ATRIAL FLUTTER Qualifiers: Atrial flutter type: atypical Qualified Code(s): I48.4 - Atypical atrial flutter (8) Spondylolisthesis of cervical region Code(s): M43.12 - SPONDYLOLISTHESIS, CERVICAL REGION (9) Demand ischemia Code(s): I24.8 - OTHER FORMS OF ACUTE ISCHEMIC HEART DISEASE Assessment/Plan 12/01/19 Normal LV size with severe LVH with normal LV fxn, severe LAE, mild MR , TR, NC, possible infiltrative heart disease 1. Cervical spinal cord compression and possible C5/C6 osteomyelitis/discitis 2. Group B strep bacteremia with hypovolemic/septic shock 2. HTN heart disease 3. Hypercholesterolemia 4. Paroxysmal atrial fib/flutter [id number] score of 6-7 and supratherapeutic INR 5. CVA 6. Concentric LVH ? rule out infiltrative heart disease 7. Abnormal ECG suggests CAD 8. Demand ischemia with elevated troponin PLAN: 1. Abx course 6-8 weeks per C&S 2. Resumed Carvedilol 3.125 bid, Lipitor 40 qd, Amlodipine and Lisinopril 5 qd with uptitration as hemodynamics tolerate 3. Neurosurgery input noted and family opts for medical therapy 4. Troponin downtrending 5. MRI c-spine 6. Currently Coumadin held due to supratherapeutic INR. Keep INR btw 2-3 unless surgery is planned 7. May consider Tm99 PYP study to rule out amyloidosis once clinically stable
[2019-12-05] MEDS ORDERED: LISINOPRIL 5 MG TABLET (FP) PO SCH (10:00)
[2019-12-05] MEDS: AMINO ACIDS/PROTEIN HYDROLYS 30 ML LIQUID.PKT PO SCH ×2 (10:08→16:38)
[2019-12-05] MEDS: CARVEDILOL 3.125 MG TABLET (FP) PO SCH ×2 (10:09→21:00)
[2019-12-05] MEDS: LISINOPRIL 5 MG TABLET (FP) PO SCH (10:09)
[2019-12-05] MEDS: CEFTRIAXONE 2 GM in DEXTROSE 5%-WATER 100 ML IVPB SCH (10:09)
--- NOTE | 2019-12-05 10:24 | PN ---
Teaching Attending Note Name of Resident: Sabra Santiago I saw and evaluated the patient. I reviewed the resident's note and discussed the case with the resident. I agree with the resident's findings and plan as documented. Seen and examined; no new complaints. Stable. XF from ICU. Off pressors. On abx now per ID. Family does not wish for surgical procedure but is discussing IR with respect to bx. Discussed with Dr. Xiao. DCing greggadron. 10 sys ROS done and negative aside from HPI VS labs imaging reviewed NAD AAO resting in bed HR wnl, +s1/2 Normal mood, appropriate behavior NT ND +BS CN2-12 wnl, no fnd imaging reviewed Microbiology 12/02/19 00:00 Blood - Peripheral Venous Blood Culture - Preliminary NO GROWTH OBTAINED AFTER 96 HOURS, INCUBATION TO CONTINUE FOR 1 DAYS. 12/02/19 00:00 Blood - Peripheral Venous Blood Culture - Preliminary NO GROWTH OBTAINED AFTER 96 HOURS, INCUBATION TO CONTINUE FOR 1 DAYS. 12/02/19 10:07 Blood - Peripheral Venous Blood Culture - Final Strep Agalactiae Group B 12/02/19 09:53 Blood - Peripheral Venous Blood Culture - Preliminary NO GROWTH OBTAINED AFTER 72 HOURS, INCUBATION TO CONTINUE FOR 2 DAYS. 12/03/19 07:38 Blood - Peripheral Venous Blood Culture - Preliminary NO GROWTH OBTAINED AFTER 48 HOURS, INCUBATION TO CONTINUE FOR 3 DAYS. 12/03/19 07:30 Blood - Peripheral Venous Blood Culture - Preliminary NO GROWTH OBTAINED AFTER 48 HOURS, INCUBATION TO CONTINUE FOR 3 DAYS. Echo noted; discussed Imaging reviewed; pending contrasted MRI. We called down to elucidate when this would be done. Delay due to the use of pressors. ASSESSMENT AND PLAN: Patient presents for suspected discitis, nsgy and IR following. Continue abx, MRI done today and pending report. Once this is done will elucidate if any biopsy needs to absolutely be completed and will thusly be able to dispo. She is stable on the floor. Problems include: -Septic Shock, resolved. -Probable discitis, pending potential biopsy -UTI -Severe central canal stenosis at C5/C6 with B/L neural foraminal stenosis and cord compression -P-AF/Aflutter on AC, held 2/2 coagulopathy -Coagulopathy, trending coags -Hx HTN -Hx HLD -Bacteremia -NSTEMI, likely secondary to subendocardial ischemia -Consider tech99 to r/o amyloid. Continue to monitor; appreicate all epert input.
[2019-12-05 11:52] LABS: ANISOCYTOSIS 0; MACROCYTOSIS 0; PLATELET ESTIMATE NORMAL
[2019-12-05] MEDS: LACTATED RINGERS SOLUTION 1,000 ML/1,000 ML INFUS.BAG IV SCH (13:53)
[2019-12-05] MEDS: oxyCODONE HCL 5 MG TABLET PO PRN (13:54)
[2019-12-05] MEDS: ACETAMINOPHEN 325 MG TABLET (FP) PO PRN (15:37)
[2019-12-05] MEDS ORDERED: oxyCODONE HCL 5 MG TABLET PO ONE (17:20)
--- NOTE | 2019-12-05 19:27 | PN ---
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, Physician History of Present Illness: AWAKE, RESPONSIVE IN BED CERVICAL COLLAR IN PLACE COMPLAINS OF R SHOULDER PAIN DENIES NECK PAIN AFEBRILE BC + GRP B STREP REPEAT BC NO GROWTH ECHO NOTED NO VEGETATIONS - Current Medication List Current Medications: Active Medications Acetaminophen (Tylenol -) 650 mg PO Q6H PRN PRN Reason: Fever Or Pain Last Admin: 12/05/19 15:37 Dose: 650 mg Amino Acids (Prosource No Carb Liquid Pkt) 30 ml PO BID@0800,1730 [facility] Last Admin: 12/05/19 16:38 Dose: 30 ml Atorvastatin Calcium (Lipitor -) 40 mg PO HS [facility] Carvedilol (Coreg -) 3.125 mg PO BID [facility] Last Admin: 12/05/19 10:09 Dose: 3.125 mg Gabapentin (Neurontin -) 100 mg PO TID [facility] Last Admin: 12/05/19 13:54 Dose: 100 mg Lactated Ringer's (Lactated Ringers Solution) 1,000 ml in 1,000 mls @ 42 mls/ hr IV ASDIR [facility] Last Admin: 12/05/19 13:53 Dose: 42 mls/hr Ceftriaxone Sodium 2 gm/ (Dextrose) 100 mls @ 100 mls/hr IVPB DAILY [facility]; Protocol Last Admin: 12/05/19 10:09 Dose: 100 mls/hr Lisinopril (Prinivil) 5 mg PO DAILY [facility] Last Admin: 12/05/19 10:09 Dose: 5 mg Oxycodone HCl (Roxicodone -) 5 mg PO Q6H PRN PRN Reason: PAIN LEVEL 6-10 Last Admin: 12/05/19 13:54 Dose: 5 mg - Objective Vital Signs: Vital Signs Temperature 98.7 F 12/05/19 18:00 Pulse Rate 88 12/05/19 18:00 Respiratory Rate 20 12/05/19 14:24 Blood Pressure 103/59 L 12/05/19 18:00 O2 Sat by Pulse Oximetry (%) 98 12/05/19 09:00 Eyes: Yes: Sclera Icterus Cardiovascular: Yes: Regular Rate and Rhythm, S1, S2 Respiratory: Yes: CTA Bilaterally Gastrointestinal: Yes: Normal Bowel Sounds, Soft Edema: Yes Labs: CBC, BMP 12/05/19 06:10 12/05/19 06:10 INR, PTT INR 3.75 (0.83-1.09) H 12/05/19 07:00 Assessment/Plan GRP B STREP BACTEREMIA PROBABLE GRP B STREP OSTEOMYELITIS/ DISCITIS C5C6 REPEAT BC NO GROWTH CONTINUE CEFTRIAXONE WILL NEED MCC (6-8W) IV ANTIBIOTIC TX
[2019-12-05] MEDS: VANCOMYCIN 1 GRAM (PRE-DOCKED) 1,000 MG/250 ML BAG IVPB SCH (20:25)
[2019-12-05] MEDS: ATORVASTATIN CA 40 MG TABLET (FP) PO SCH (21:00)
[2019-12-05] MEDS ORDERED: LIDOCAINE PATCH REMOVAL MC SCH (22:00)
[2019-12-06] MEDS: ACETAMINOPHEN 325 MG TABLET (FP) PO PRN ×3 (01:31→17:56)
[2019-12-06] MEDS: oxyCODONE HCL 5 MG TABLET PO PRN ×3 (01:31→17:57)
[2019-12-06] MEDS: GABAPENTIN 100 MG CAPSULE PO SCH ×3 (05:04→22:34)
[2019-12-06] MEDS ORDERED: DEXTROSE 5%-WATER 100 ML IVPB ONE (09:31)
[2019-12-06] MEDS: AMINO ACIDS/PROTEIN HYDROLYS 30 ML LIQUID.PKT PO SCH ×2 (09:42→16:35)
[2019-12-06] MEDS: CEFTRIAXONE 2 GM in DEXTROSE 5%-WATER 100 ML IVPB SCH (09:53)
[2019-12-06] MEDS: CARVEDILOL 3.125 MG TABLET (FP) PO SCH ×2 (09:54→22:33)
[2019-12-06] MEDS: LISINOPRIL 5 MG TABLET (FP) PO SCH (09:54)
--- NOTE | 2019-12-06 09:55 | PN ---
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, Physician History of Present Illness: Patient is an 84 year old female with underlying history of HTN, hypercholesterolemia, atrial flutter and CVA with history of visual deficit who presented with diffuse weakness and numbness. Patient also complained of neck discomfort radiating to bilateral shoulders and into the arm and complained of paresthesia of the hands. Patient was seen by Neurosurgery (Dr. Dez Xiao) for cervical spinal stenosis. MRI was suggestive of c5-c6 osteomyelitis/discitis and c4-c5 degenerative disc disease. Echocardiography revealed normal LVEF with severe concentric LVH ?infiltrative disease and mild MR and TR and dilated LA cavity. She denies chest pain, shortness of breath or palpitations. She denies fever or chills. She denies headache or lightheadedness. She denies nausea, vomiting, diarrhea or abdominal pain. She denies change in vision. She denies recent fall or any trauma - Current Medication List Current Medications: Active Medications Acetaminophen (Tylenol -) 650 mg PO Q6H PRN PRN Reason: Fever Or Pain Last Admin: 12/06/19 09:45 Dose: 650 mg Amino Acids (Prosource No Carb Liquid Pkt) 30 ml PO BID@0800,1730 [facility] Last Admin: 12/06/19 09:42 Dose: 30 ml Atorvastatin Calcium (Lipitor -) 40 mg PO HS [facility] Last Admin: 12/05/19 21:00 Dose: 40 mg Carvedilol (Coreg -) 3.125 mg PO BID [facility] Last Admin: 12/06/19 09:54 Dose: 3.125 mg Gabapentin (Neurontin -) 100 mg PO TID [facility] Last Admin: 12/06/19 05:04 Dose: 100 mg Lactated Ringer's (Lactated Ringers Solution) 1,000 ml in 1,000 mls @ 42 mls/ hr IV ASDIR [facility] Last Admin: 12/05/19 13:53 Dose: 42 mls/hr Ceftriaxone Sodium 2 gm/ (Dextrose) 100 mls @ 100 mls/hr IVPB DAILY [facility]; Protocol Last Admin: 12/06/19 09:53 Dose: 100 mls/hr Lisinopril (Prinivil) 5 mg PO DAILY [facility] Last Admin: 12/06/19 09:54 Dose: 5 mg Oxycodone HCl (Roxicodone -) 5 mg PO Q6H PRN PRN Reason: PAIN LEVEL 6-10 Last Admin: 12/06/19 09:42 Dose: 5 mg - Objective Vital Signs: Vital Signs Temperature 97.7 F 12/06/19 09:54 Pulse Rate 88 12/06/19 09:54 Respiratory Rate 20 12/06/19 09:54 Blood Pressure 119/62 12/06/19 09:54 O2 Sat by Pulse Oximetry (%) 98 12/05/19 21:00 Eyes: Yes: WNL, Conjunctiva Clear, EOM Intact HENT: Yes: WNL, Atraumatic, Normocephalic Neck: Yes: WNL, Supple, Trachea Midline Cardiovascular: Yes: WNL, Regular Rate and Rhythm Respiratory: Yes: WNL, Regular, CTA Bilaterally Gastrointestinal: Yes: WNL, Normal Bowel Sounds Genitourinary: Yes: WNL Musculoskeletal: Yes: WNL Extremities: Yes: WNL Edema: No Integumentary: Yes: WNL ...Motor Strength: WNL Psychiatric: Yes: WNL Labs: CBC, BMP 12/05/19 06:10 12/05/19 06:10 INR, PTT INR 3.75 (0.83-1.09) H 12/05/19 07:00 Assessment/Plan 12/01/19 Normal LV size with severe LVH with normal LV fxn, severe LAE, mild MR , TR, SD, possible infiltrative heart disease 1. Cervical spinal cord compression and possible C5/C6 osteomyelitis/discitis 2. Group B strep bacteremia with hypovolemic/septic shock 2. HTN heart disease 3. Hypercholesterolemia 4. Paroxysmal atrial fib/flutter [id number] score of 6-7 and supratherapeutic INR 5. CVA 6. Concentric LVH ? rule out infiltrative heart disease 7. Abnormal ECG suggests CAD 8. Demand ischemia with elevated troponin PLAN: 1. Abx course 6-8 weeks per C&S 2. Resumed Carvedilol 3.125 bid, Lipitor 40 qd, Amlodipine and Lisinopril 5 qd with uptitration as hemodynamics tolerate 3. Neurosurgery input noted and family opts for medical therapy 4. Troponin downtrending 5. MRI c-spine 6. Currently Coumadin held due to supratherapeutic INR. Keep INR btw 2-3 unless surgery is planned 7. May consider Tm99 PYP study to rule out amyloidosis once clinically stable. coverage dr. Fermin
--- NOTE | 2019-12-06 10:10 | PN ---
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 (short form) - Note 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: NEUROSURGERY R shoulder pain Family at bedside On 7W In less pain In [place] J collar PE: Tmax 98.4, AF, BP higher Sitting up in bed; in good spirit HEENT- NC/AT; Neck- supple; Cor-Irreg; Chest- CTA B; Abd- benign; Ext- no C/C/E CN- intact; Motor- R UE 2/5 and LE 0/5; L side 4-; Sensation- intact LT; DTR- hyporereflexic, no LTS Blood culture 1/4 gram group B strep; repeat negative CT C spine- marked C5-6 DDD with anterior wedging C5-6, retrolisthesis, moderate to marked central stenosis, moderate C4-5 stenosis Brain MRI - B moderate periventricular small vessel dz; no acute ischemia C spine MRI - multilevel DDD; C5-6 vertebral edema, central disc protrusion C4- 5 and C5-6; moderate to marked C5-6 (L > R) central and foramenal stenosis and mild-moderate C4-5 stenosis, extensive spondylosis; no cord edema or myelomalacia C spine with dov- poor imaging quliaty though with enhancement of C5 and C6, mild lower ant C4 enhancement, other findings per prior completed noncontrast study 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
--- NOTE | 2019-12-06 13:32 | PN ---
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, Physician History of Present Illness: events noted Chart reviewed Was out of the ICU Hemodynamically stable Seen on the floor Still using the Solomon collar Weakness is same Right leg is 0 - Current Medication List Current Medications: Active Medications Acetaminophen (Tylenol -) 650 mg PO Q6H PRN PRN Reason: Fever Or Pain Last Admin: 12/06/19 09:45 Dose: 650 mg Amino Acids (Prosource No Carb Liquid Pkt) 30 ml PO BID@0800,1730 [facility] Last Admin: 12/06/19 09:42 Dose: 30 ml Atorvastatin Calcium (Lipitor -) 40 mg PO HS [facility] Last Admin: 12/05/19 21:00 Dose: 40 mg Carvedilol (Coreg -) 3.125 mg PO BID [facility] Last Admin: 12/06/19 09:54 Dose: 3.125 mg Gabapentin (Neurontin -) 100 mg PO TID [facility] Last Admin: 12/06/19 05:04 Dose: 100 mg Lactated Ringer's (Lactated Ringers Solution) 1,000 ml in 1,000 mls @ 42 mls/ hr IV ASDIR [facility] Last Admin: 12/05/19 13:53 Dose: 42 mls/hr Ceftriaxone Sodium 2 gm/ (Dextrose) 100 mls @ 100 mls/hr IVPB DAILY [facility]; Protocol Last Admin: 12/06/19 09:53 Dose: 100 mls/hr Lisinopril (Prinivil) 5 mg PO DAILY [facility] Last Admin: 12/06/19 09:54 Dose: 5 mg Oxycodone HCl (Roxicodone -) 5 mg PO Q6H PRN PRN Reason: PAIN LEVEL 6-10 Last Admin: 12/06/19 09:42 Dose: 5 mg - Objective Vital Signs: Vital Signs Temperature 97.7 F 12/06/19 09:54 Pulse Rate 88 12/06/19 09:54 Respiratory Rate 20 12/06/19 09:54 Blood Pressure 119/62 12/06/19 09:54 O2 Sat by Pulse Oximetry (%) 98 12/05/19 21:00 Constitutional: Yes: Well Nourished, Diaphoresis Eyes: Yes: WNL Neurological: Yes: Alert, Oriented, Babinski positive ...Motor Strength: LUE (4), LLE (3), RUE (1), RLE (0) Labs: CBC, BMP 12/05/19 06:10 12/05/19 06:10 INR, PTT INR 3.75 (0.83-1.09) H 12/05/19 07:00 Problem List - Problems (1) Right sided weakness Assessment/Plan: osteomyelitis confirmed on the MRI with contrast nuclear study is not done continue the collar. Follow-up with ID. Physical therapy. DVT prophylaxis. Agreed to the neurosurgery plan Code(s): R53.1 - WEAKNESS (2) Acute visual loss Code(s): H53.139 - SUDDEN VISUAL LOSS, UNSPECIFIED EYE Qualifiers: Laterality: unspecified laterality Qualified Code(s): H53.139 - Sudden visual loss, unspecified eye
--- NOTE | 2019-12-06 13:34 | PN ---
Physical Exam: SUBJECTIVE: Patient seen and examined. She has no complaints. OBJECTIVE: Vital Signs Period Temp Pulse Resp BP Sys/Hutton Pulse Ox Last 24 Hr 97.7 F-98.7 F 80-88 20-20 103-122/59-74 98 GENERAL: The patient is awake, alert, and fully oriented, in no acute distress, wearing [place] J cervical collar. LUNGS: Breath sounds equal, clear to auscultation bilaterally, no wheezes, no crackles, no accessory muscle use. HEART: Regular rate and rhythm, S1, S2 without murmur, rub or gallop. ABDOMEN: Soft, nontender, nondistended, normoactive bowel sounds, no guarding, no rebound, no hepatosplenomegaly, no masses. EXTREMITIES: 2+ pulses, warm, well-perfused, no edema. Laboratory Results - last 24 hr 12/02/19 21:10 Homocysteine 9.1 Active Medications Generic Name Dose Route Start Last Admin Trade Name Freq PRN Reason Stop Dose Admin Acetaminophen 650 mg 12/05/19 00:11 12/06/19 09:45 Tylenol - PO 650 mg Q6H PRN Administration Fever Or Pain Amino Acids 30 ml 12/05/19 08:00 12/06/19 09:42 Prosource No Carb Liquid Pkt PO 30 ml BID@0800,1730 MICHAEL Administration Atorvastatin Calcium 40 mg 12/05/19 22:00 12/05/19 21:00 Lipitor - PO 40 mg HS MICHAEL Administration Carvedilol 3.125 mg 12/05/19 10:00 12/06/19 09:54 Coreg - PO 3.125 mg BID MICHAEL Administration Gabapentin 100 mg 12/05/19 06:00 12/06/19 05:04 Neurontin - PO 100 mg TID MICHAEL Administration Lactated Ringer's 1,000 ml in 1,000 mls @ 42 mls/hr 12/04/19 11:11 12/05/19 13:53 Lactated Ringers Solution IV 42 mls/hr ASDIR MICHAEL Administration Ceftriaxone Sodium 2 gm/ 100 mls @ 100 mls/hr 12/05/19 10:00 12/06/19 09:53 Dextrose IVPB 100 mls/hr DAILY MICHAEL Administration Protocol Lisinopril 5 mg 12/05/19 10:00 12/06/19 09:54 Prinivil PO 5 mg DAILY MICHAEL Administration Oxycodone HCl 5 mg 12/04/19 13:24 12/06/19 09:42 Roxicodone - PO 5 mg Q6H PRN Administration PAIN LEVEL 6-10 ASSESSMENT/PLAN: This is an 84 year old woman with a history of HTN, hyperlipidemia, atrial flutter, CVA who presented to the ED with neck pain, increasing weakness of both arms and both legs, and paresthesias of her hands. 1. Cervical stenosis with myelopathy - Family chose conservative management over surgery - Continue Neurontin - Maintain cervical collar x 10 weeks 2. Septic shock secondary to UTI, group B Strep bacteremia and C5-C6 discitis/ osteomyelitis - Off pressors - Continue ceftriaxone x 6-8 weeks 3. Demand ischemia 4. HTN - Continue lisinopril, Coreg 5. Hyperlipidemia - Continue Lipitor 6. Paroxysmal atrial flutter - Currently in sinus rhythm - Coumadin on hold secondary to supratherapeutic INR - Monitor INR and keep 2-3 7. History of CVA 8. Disposition - Plan for discharge to short-term rehab Visit type - Emergency Visit Emergency Visit: Yes ED Registration Date: 12/01/19 Care time: The patient presented to the Emergency Department on the above date and was hospitalized for further evaluation of their emergent condition. - New Patient This patient is new to me today: Yes Date on this admission: 12/06/19 - Critical Care Critical Care patient: No - Discharge Referral Referred to [facility] Med P.C.: No
[2019-12-06] MEDS: LACTATED RINGERS SOLUTION 1,000 ML/1,000 ML INFUS.BAG IV SCH (14:16)
[2019-12-06] MEDS: ATORVASTATIN CA 40 MG TABLET (FP) PO SCH (22:33)
[2019-12-07] MEDS: oxyCODONE HCL 5 MG TABLET PO PRN ×2 (03:43→14:00)
[2019-12-07] MEDS: GABAPENTIN 100 MG CAPSULE PO SCH ×3 (05:57→22:22)
[2019-12-07 06:45] LABS: HEMATOCRIT 30.2 % (32.4-45.2); MCH 31.1 pg (25.7-33.7); MCHC 33.2 g/dl (32.0-36.0); MEAN CELL VOLUME 93.9 fl (80-96); MEAN PLT VOLUME 8.7 fl (7.5-11.1); PLATELET COUNT 189 K/MM3 (134-434); RBC 3.22 M/mm3 (3.60-5.2); RDW 14.4 % (11.6-15.6)
[2019-12-07 07:00] LABS: BLOOD UREA NITROGEN 23.9 mg/dL (7-18); CALCIUM 7.7 mg/dL (8.5-10.1); CREATININE 0.8 mg/dL (0.55-1.3); POTASSIUM 3.8 mmol/L (3.5-5.1)
[2019-12-07 07:42] LABS: INR 2.38 (0.83-1.09); PROTHROMBIN TIME (PATIENT) 28.3 SEC (9.7-13.0)
--- NOTE | 2019-12-07 08:00 | PN ---
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, Physician History of Present Illness: Patient is an 84 year old female with underlying history of HTN, hypercholesterolemia, atrial flutter and CVA with history of visual deficit who presented with diffuse weakness and numbness. Patient also complained of neck discomfort radiating to bilateral shoulders and into the arm and complained of paresthesia of the hands. Patient was seen by Neurosurgery (Dr. Dez Xiao) for cervical spinal stenosis. MRI was suggestive of c5-c6 osteomyelitis/discitis and c4-c5 degenerative disc disease. Echocardiography revealed normal LVEF with severe concentric LVH ?infiltrative disease and mild MR and TR and dilated LA cavity. She denies chest pain, shortness of breath or palpitations. She denies fever or chills. She denies headache or lightheadedness. She denies nausea, vomiting, diarrhea or abdominal pain. She denies change in vision. She denies recent fall or any trauma - Current Medication List Current Medications: Active Medications Acetaminophen (Tylenol -) 650 mg PO Q6H PRN PRN Reason: Fever Or Pain Last Admin: 12/06/19 17:56 Dose: 650 mg Amino Acids (Prosource No Carb Liquid Pkt) 30 ml PO BID@0800,1730 [facility] Last Admin: 12/06/19 16:35 Dose: 30 ml Atorvastatin Calcium (Lipitor -) 40 mg PO HS [facility] Last Admin: 12/06/19 22:33 Dose: 40 mg Carvedilol (Coreg -) 3.125 mg PO BID [facility] Last Admin: 12/06/19 22:33 Dose: 3.125 mg Gabapentin (Neurontin -) 100 mg PO TID [facility] Last Admin: 12/07/19 05:57 Dose: 100 mg Lactated Ringer's (Lactated Ringers Solution) 1,000 ml in 1,000 mls @ 42 mls/ hr IV ASDIR [facility] Last Admin: 12/06/19 14:16 Dose: 42 mls/hr Ceftriaxone Sodium 2 gm/ (Dextrose) 100 mls @ 100 mls/hr IVPB DAILY [facility]; Protocol Last Admin: 12/06/19 09:53 Dose: 100 mls/hr Lisinopril (Prinivil) 5 mg PO DAILY [facility] Last Admin: 12/06/19 09:54 Dose: 5 mg Oxycodone HCl (Roxicodone -) 5 mg PO Q6H PRN PRN Reason: PAIN LEVEL 6-10 Last Admin: 12/07/19 03:43 Dose: 5 mg - Objective Vital Signs: Vital Signs Temperature 98.1 F 12/07/19 06:00 Pulse Rate 92 H 12/07/19 06:00 Respiratory Rate 19 12/07/19 06:00 Blood Pressure 113/59 L 12/07/19 06:00 O2 Sat by Pulse Oximetry (%) 96 12/06/19 21:00 Eyes: Yes: WNL, Conjunctiva Clear, EOM Intact HENT: Yes: WNL, Atraumatic, Normocephalic Neck: Yes: WNL, Supple, Trachea Midline Cardiovascular: Yes: WNL, Regular Rate and Rhythm Respiratory: Yes: WNL, Regular, CTA Bilaterally Gastrointestinal: Yes: WNL, Normal Bowel Sounds Genitourinary: Yes: WNL Musculoskeletal: Yes: WNL Extremities: Yes: WNL Edema: No Integumentary: Yes: WNL Neurological: Yes: Alert, Oriented ...Motor Strength: WNL Psychiatric: Yes: WNL Labs: CBC, BMP 12/07/19 05:40 INR, PTT INR 2.38 (0.83-1.09) H 12/07/19 05:40 Problem List - Problems (1) Abnormal ECG Code(s): R94.31 - ABNORMAL ELECTROCARDIOGRAM [ECG] [EKG] (2) CVA (cerebral vascular accident) Code(s): I63.9 - CEREBRAL INFARCTION, UNSPECIFIED Qualifiers: CVA mechanism: unspecified Qualified Code(s): I63.9 - Cerebral infarction, unspecified (3) Cervical spinal stenosis Code(s): M48.02 - SPINAL STENOSIS, CERVICAL REGION (4) HTN (hypertension) Code(s): I10 - ESSENTIAL (PRIMARY) HYPERTENSION Qualifiers: Hypertension type: essential hypertension Qualified Code(s): I10 - Essential (primary) hypertension (5) Hypercholesterolemia Code(s): E78.00 - PURE HYPERCHOLESTEROLEMIA, UNSPECIFIED (6) Hypotension Code(s): I95.9 - HYPOTENSION, UNSPECIFIED (7) LVH (left ventricular hypertrophy) Code(s): I51.7 - CARDIOMEGALY (8) Paresthesia Code(s): R20.2 - PARESTHESIA OF SKIN (9) Right sided weakness Code(s): R53.1 - WEAKNESS (10) Weakness Code(s): R53.1 - WEAKNESS (11) Acute visual loss Code(s): H53.139 - SUDDEN VISUAL LOSS, UNSPECIFIED EYE Qualifiers: Laterality: unspecified laterality Qualified Code(s): H53.139 - Sudden visual loss, unspecified eye (12) Atrial flutter Code(s): I48.92 - UNSPECIFIED ATRIAL FLUTTER Qualifiers: Atrial flutter type: atypical Qualified Code(s): I48.4 - Atypical atrial flutter (13) Spondylolisthesis of cervical region Code(s): M43.12 - SPONDYLOLISTHESIS, CERVICAL REGION (14) Poor compliance with medication Code(s): Z91.14 - PATIENT'S OTHER NONCOMPLIANCE WITH MEDICATION REGIMEN (15) Demand ischemia Code(s): I24.8 - OTHER FORMS OF ACUTE ISCHEMIC HEART DISEASE (16) Hypertensive emergency, no CHF Code(s): I16.1 - HYPERTENSIVE EMERGENCY Assessment/Plan 12/01/19 Normal LV size with severe LVH with normal LV fxn, severe LAE, mild MR , TR, KS, possible infiltrative heart disease 1. Cervical spinal cord compression and possible C5/C6 osteomyelitis/discitis 2. Group B strep bacteremia with hypovolemic/septic shock 2. HTN heart disease 3. Hypercholesterolemia 4. Paroxysmal atrial fib/flutter [id number] score of 6-7 and supratherapeutic INR 5. CVA 6. Concentric LVH ? rule out infiltrative heart disease 7. Abnormal ECG suggests CAD 8. Demand ischemia with elevated troponin PLAN: 1. Abx course 6-8 weeks per C&S 2. Resumed Carvedilol 3.125 bid, Lipitor 40 qd, Amlodipine and Lisinopril 5 qd with uptitration as hemodynamics tolerate 3. Neurosurgery input noted and family opts for medical therapy 4. Troponin downtrending 5. MRI c-spine 6. Currently Coumadin held due to supratherapeutic INR. Keep INR btw 2-3 unless surgery is planned 7. May consider Tm99 PYP study to rule out amyloidosis once clinically stable. coverage dr. Fermin
--- NOTE | 2019-12-07 08:54 | PN ---
Teaching Attending Note Name of Resident: Balwinder Ackerman ATTENDING PHYSICIAN STATEMENT I saw and evaluated the patient. I reviewed the resident's note and discussed the case with the resident. I agree with the resident's findings and plan as documented. Seen and examined; please see resident note for further historical information. I personally verified all z[place]ora historical information and exam findings. Personally interpreted all imaging and diagnostics and reviewed appropriate consults. I reviewed all labs and vital signs as per resident note and EMR as documented. I agree with the above assessment and plan unless supplemented by myself in the following. Agree with subjective information as outlined in the resident history of present illness. No additional information afforded by the family or the patient at this juncture 10 item review of systems was completed and is negative aside from history of present illness. VS, labs, imaging reviewed NAD, AAO, resting comfortably in bed. RRR s1/2 no mgr Normal muscle tone no developing myelopathic symptoms or exam signs Neck is supple, trachea midline, no teofilo LN. somewhat limited ROM secondary to pain Lungs CTAB with sym expansion NT ND +BS no teofilo organomegaly CN2-12 wnl; no FND NC AT EOMI PERRLA Normal mood, appropriate behavior, euthymic affect No skin breakdown or rashes noted Echocardiogram reviewed from December 01 MRI reviewed. Microbiology reviewed, group B strep bacteremia noted Potential outpatient tech 99 scan to rule out infiltrative heart disease from underlying amyloidosis Assessment plan: Patient presents with suspected discitis and group B strep bacteremia and septic shock which is now resolved and she is off pressors. She remains in a [place] J cervical collar with neurosurgery, neurology, and infectious disease following. The family is opted for conservative approach given her age and comorbidities. Problems include: Septic shock, resolved and off pressors Cervical stenosis with myelopathy Osteomyelitis, MRI confirmed. Antibiotics for 6 to 8 weeks as per infectious disease consultation. 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 Will consult pharmacy to help with dosing. Monitor INR Supratherapeutic INR as per above History of CVA as per above Deconditioning, plan for SNF placement. Rule out infiltrative heart disease with likely tch-99 scan as outpatient Need to discuss full goals of care with family prior to discharge as given the nature of her disease is a good chance that she will have continued moderate to severe symptomatology potentially necessitating readmission for pain control, worsening of the neuropathy or myelopathy.
[2019-12-07] MEDS ORDERED: DEXTROSE 5%-WATER 100 ML IVPB ONE (09:14)
--- NOTE | 2019-12-07 09:21 | PN ---
Physical Exam: SUBJECTIVE: Patient seen and examined at the bedside. Patient states she feels tired but feels that her limbs are stronger than yesterday. Endorses limb numbness. Denies extremity pain, cp, sob, abd pain, n/v/c/d, headaches, dizziness, lightheadedness. OBJECTIVE: Vital Signs Period Temp Pulse Resp BP Sys/Hutton Pulse Ox Last 24 Hr 97.7 F-98.3 F 86-92 19-20 92-119/42-62 96 GENERAL: The patient is awake, alert, and fully oriented, in no acute distress. HEAD: Normal with no signs of trauma. EYES: PERRL, extraocular movements intact. ENT: Ooropharynx clear without exudates, moist mucous membranes. NECK: In cervical collar. LUNGS: Breath sounds equal, clear to auscultation bilaterally, no wheezes, no crackles, no accessory muscle use. HEART: Normal rate and irregular rhythm, S1, S2 without murmur, rub. ABDOMEN: Soft, nontender, nondistended, normoactive bowel sounds, no guarding, no rebound, no masses. EXTREMITIES: 2+ pulses, warm, well-perfused, no edema. NEUROLOGICAL: No facial droop. Weak hand managing attorney bilaterally worse on the R. 2/5 shoulder shrug bilaterally. 2/5 biceps, triceps on right side. 4/5 biceps, triceps on left side. 0/5 strength of right lower extremity. 4/5 LLE throughout. Sensation diminished on the R side on the lower extremity to gross touch. All other sensation intact PSYCH: Normal mood, normal affect. SKIN: Warm, dry, normal turgor, no rashes or lesions noted Laboratory Results - last 24 hr 12/07/19 12/07/19 12/07/19 05:40 05:40 05:40 WBC 9.0 RBC 3.22 L Hgb 10.0 L Hct 30.2 L MCV 93.9 MCH 31.1 MCHC 33.2 RDW 14.4 Plt Count 189 MPV 8.7 PT with INR 28.30 H INR 2.38 H Sodium 140 Potassium 3.8 Chloride 110 H Carbon Dioxide 26 Anion Gap 4 L BUN 23.9 H Creatinine 0.8 Est GFR (CKD-EPI)AfAm 79.02 Est GFR (CKD-EPI)NonAf 68.18 Random Glucose 88 Calcium 7.7 L Active Medications Generic Name Dose Route Start Last Admin Trade Name Freq PRN Reason Stop Dose Admin Acetaminophen 650 mg 12/05/19 00:11 12/06/19 17:56 Tylenol - PO 650 mg Q6H PRN Administration Fever Or Pain Amino Acids 30 ml 12/05/19 08:00 12/06/19 16:35 Prosource No Carb Liquid Pkt PO 30 ml BID@0800,1730 MICHAEL Administration Atorvastatin Calcium 40 mg 12/05/19 22:00 12/06/19 22:33 Lipitor - PO 40 mg HS MICHAEL Administration Carvedilol 3.125 mg 12/05/19 10:00 12/06/19 22:33 Coreg - PO 3.125 mg BID MICHAEL Administration Gabapentin 100 mg 12/05/19 06:00 12/07/19 05:57 Neurontin - PO 100 mg TID MICHAEL Administration Lactated Ringer's 1,000 ml in 1,000 mls @ 42 mls/hr 12/04/19 11:11 12/06/19 14:16 Lactated Ringers Solution IV 42 mls/hr ASDIR MICHAEL Administration Ceftriaxone Sodium 2 gm/ 100 mls @ 100 mls/hr 12/05/19 10:00 12/06/19 09:53 Dextrose IVPB 100 mls/hr DAILY MICHAEL Administration Protocol Lisinopril 5 mg 12/05/19 10:00 12/06/19 09:54 Prinivil PO 5 mg DAILY MICHAEL Administration Oxycodone HCl 5 mg 12/04/19 13:24 12/07/19 03:43 Roxicodone - PO 5 mg Q6H PRN Administration PAIN LEVEL 6-10 ASSESSMENT/PLAN: Mary Lou Garza is an 84 year old female with a past medical history of hypertension, hyperlipidemia, Atrial flutter (on Coumadin), 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 Diffuse weakness 2/2 to cervical cord compression - MRI with severe central canal stenosis at C5/C6 with B/L neural foraminal stenosis and cord compression. findings suspicious for discitis/o osteomyelitis of C5/C6 with prevertebral soft tissue thickening/prevertebral fluid seen. - MRI with dov - OM of C5-C6 and possibly anterior aspect of C4. No gross paravertebral abscess identified - CT head reveals chronic lacunar infarct, without acute pathology. - Neurology evaluation (Dr. Becker), recs appreciated - NSx consulted (Dr. Xiao), recs appreciated - Family to opt for medical management at this time, do not want surgery - Discontinued Decadron. - Continue Neurontin 100mg TID - ECHO - EF >70%, possible infiltrative heart disease, severe concentric left ventricular hypertrophy - Carotid duplex ultrasound - significant intimal thickening in both common carotid arteries up to the bifurcation. moderate dize plaques with calcifications of the right common carotid bifurcation, front and proximal internal carotid artery as well as large plaques with calcifications at the left common carotid bifurcation/bulb and proximal internal carotid artery without evidence of hemodynamically significant stenosis. - Speech and swallow evaluation - dysphagia whole diet with thin liquids. give medications crushed with applesauce - Fall precautions - PMR consulted for EMG, will follow recs Sepsis 2/2 UTI vs +Blood cx - UA positive for UTI. Trace ketones, 2+ Leuk esterase. WBC 117, Bacteria 996, repeat UA positive for infection, improved - Ucx pending - Blood cx positive for Group B strep - repeat Blood cultures negative to date - Continue Ceftriaxone (started 12/03), discussed MRI findings with ID - will need penitentiary (6-8weeks) of abx tx for osteo, will need PICC placement with IR - Hypotension improved, off vasopressin NSTEMI - EKG reveals atrial flutter T wave inversions and ST depressions in lateral leads - Troponin trended to peak of 0.22 - Cardiology evaluation (Dr. Fermin), appreciate recs - May consider Tm99 PYP study to rule out amyloidosis once clinically stable, will likely have as outpatient - Follow INR - Cardiac telemetry monitoring - Resumed Carvedilol 3.125 bid, Lipitor 40 qd, Lisinopril 5mg daily. Atrial flutter - Rate controlled. - holding metoprolol as patient is currently hypotensive - Follow PT/INR, coumadin dosing as per pharmacy - Keep INR between 2-3 DVT Prophylaxis - SCDs - follow PT/INR, redose coumadin as per pharmacy FEN - LR @ 42mls/hr - continue to monitor electrolytes and replete as necessary - Dysphagia whole diet with thin liquids Disposition - continue to monitor on Med-surg - Family does not want surgery at this time, will continue with medical management - pending placement at [facility] Visit type - Emergency Visit Emergency Visit: Yes ED Registration Date: 12/01/19 Care time: The patient presented to the Emergency Department on the above date and was hospitalized for further evaluation of their emergent condition. - New Patient This patient is new to me today: Yes Date on this admission: 12/07/19 - Critical Care Critical Care patient: No
--- NOTE | 2019-12-07 09:25 | PN ---
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 (short form) - Note 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: NEUROSURGERY In minimal pain this am In [place] J collar PE: Tmax 98.4, AF, VSS Sitting up in bed; in good spirit HEENT- NC/AT; Neck- supple; Cor-Irreg; Chest- CTA B; Abd- benign; Ext- no C/C/E CN- intact; Motor- R UE 2/5 and LE 0/5; L side 4-; Sensation- intact LT; DTR- hyporereflexic, no LTS Blood culture 1/4 gram group B strep; repeat negative C spine MRI - multilevel DDD; C5-6 vertebral edema, central disc protrusion C4- 5 and C5-6; moderate to marked C5-6 (L > R) central and foramenal stenosis and mild-moderate C4-5 stenosis, extensive spondylosis; no cord edema or myelomalacia C spine with dov- poor imaging quliaty though with enhancement of C5 and C6, mild lower ant C4 enhancement, other findings per prior completed noncontrast study 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 and profound R sided weakness, though is not concordant with symmetric B stenosis at C5-6 stenosis (in fact L sided stenosis is slightly more severe); clinical picture complicated by multiple prior CVS's C-collar for immobilization/comfort x 10- weeks Family opted against surgucal intervention after hearing the pros and cons (pt deferred decision to family) long-term iv abx 6-8 weeks per ID Consider IR for bx as surgery is not desired, though pt has 1/4+ blood culture with group B strep on ceftriaxone; ID feels dx is accurate and coverage is adequate Care d/w medical team
[2019-12-07] MEDS: AMINO ACIDS/PROTEIN HYDROLYS 30 ML LIQUID.PKT PO SCH ×2 (09:29→17:31)
[2019-12-07] MEDS: CEFTRIAXONE 2 GM in DEXTROSE 5%-WATER 100 ML IVPB SCH (09:29)
[2019-12-07] MEDS: LISINOPRIL 5 MG TABLET (FP) PO SCH (09:31)
[2019-12-07] MEDS: CARVEDILOL 3.125 MG TABLET (FP) PO SCH ×2 (09:40→22:22)
[2019-12-07 12:53] LABS: EPI CELLS 5.4 /HPF (0-5/HPF); HYALINE CASTS 3 /lpf (0-8); URINE APPEARANCE CLEAR; URINE BILIRUBIN NEGATIVE (NEGATIVE); URINE COLOR YELLOW; URINE GLUCOSE (UA) NEGATIVE (NEGATIVE); URINE KETONE NEGATIVE (NEGATIVE); URINE LEUK ESTERASE 1+ (NEGATIVE); URINE NITRITE NEGATIVE (NEGATIVE); URINE PROTEIN 2+ (NEGATIVE); URINE RBC 198 /hpf (0-4); URINE UROBILINOGEN 0.2 mg/dL (0.2-1.0); URINE WBC 19 /hpf (0-5)
[2019-12-07] MEDS: LACTATED RINGERS SOLUTION 1,000 ML/1,000 ML INFUS.BAG IV SCH (15:07)
[2019-12-07] MEDS: ACETAMINOPHEN 325 MG TABLET (FP) PO PRN (15:10)
[2019-12-07] MEDS ORDERED: PT OWN MED DRAWER 7, Y5N ONE (22:15)
[2019-12-07] MEDS: ATORVASTATIN CA 40 MG TABLET (FP) PO SCH (22:22)
[2019-12-08] MEDS: oxyCODONE HCL 5 MG TABLET PO PRN ×3 (02:27→22:04)
[2019-12-08] MEDS: GABAPENTIN 100 MG CAPSULE PO SCH ×3 (06:10→22:04)
[2019-12-08 07:41] LABS: BASO % 0.1 % (0-2.0); EOS % 0.2 % (0-4.5); HEMATOCRIT 31.5 % (32.4-45.2); HEMOGLOBIN 10.7 GM/dL (10.7-15.3); LYMPH % 4.8 % (8-40); MCH 32.1 pg (25.7-33.7); MCHC 33.9 g/dl (32.0-36.0); MEAN CELL VOLUME 94.6 fl (80-96); MEAN PLT VOLUME 8.8 fl (7.5-11.1); MONO % 4.3 % (3.8-10.2); NEUT % 90.6 % (42.8-82.8); PLATELET COUNT 226 K/MM3 (134-434); RBC 3.32 M/mm3 (3.60-5.2); RDW 14.5 % (11.6-15.6); WHITE BLOOD COUNT 10.4 K/mm3 (4.0-10.0)
[2019-12-08 08:16] LABS: INR 2.21 (0.83-1.09); PROTHROMBIN TIME (PATIENT) 26.3 SEC (9.7-13.0)
[2019-12-08 08:44] LABS: CALCIUM 7.6 mg/dL (8.5-10.1); CREATININE 0.9 mg/dL (0.55-1.3); MAGNESIUM 1.9 mg/dL (1.8-2.4); PHOSPHOROUS 2.7 mg/dL (2.5-4.9)
[2019-12-08] MEDS: AMINO ACIDS/PROTEIN HYDROLYS 30 ML LIQUID.PKT PO SCH ×2 (09:00→17:46)
--- NOTE | 2019-12-08 09:02 | PN ---
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, Physician History of Present Illness: Remains in rate-controlled afib. - Current Medication List Current Medications: Active Medications Acetaminophen (Tylenol -) 650 mg PO Q6H PRN PRN Reason: Fever Or Pain Last Admin: 12/07/19 15:10 Dose: 650 mg Amino Acids (Prosource No Carb Liquid Pkt) 30 ml PO BID@0800,1730 [facility] Last Admin: 12/07/19 17:31 Dose: 30 ml Atorvastatin Calcium (Lipitor -) 40 mg PO HS [facility] Last Admin: 12/07/19 22:22 Dose: 40 mg Carvedilol (Coreg -) 3.125 mg PO BID [facility] Last Admin: 12/07/19 22:22 Dose: 3.125 mg Gabapentin (Neurontin -) 100 mg PO TID [facility] Last Admin: 12/08/19 06:10 Dose: 100 mg Lactated Ringer's (Lactated Ringers Solution) 1,000 ml in 1,000 mls @ 42 mls/ hr IV ASDIR [facility] Last Admin: 12/07/19 15:07 Dose: 42 mls/hr Ceftriaxone Sodium 2 gm/ (Dextrose) 100 mls @ 100 mls/hr IVPB DAILY [facility]; Protocol Last Admin: 12/07/19 09:29 Dose: 100 mls/hr Lisinopril (Prinivil) 5 mg PO DAILY [facility] Last Admin: 12/07/19 09:31 Dose: 5 mg Oxycodone HCl (Roxicodone -) 5 mg PO Q6H PRN PRN Reason: PAIN LEVEL 6-10 Last Admin: 12/08/19 02:27 Dose: 5 mg - Objective Vital Signs: Vital Signs Temperature 97.4 F L 12/08/19 06:02 Pulse Rate 96 H 12/08/19 06:02 Respiratory Rate 12/08/19 06:02 Blood Pressure 144/62 12/08/19 06:02 O2 Sat by Pulse Oximetry (%) 96 12/07/19 21:00 Constitutional: Yes: No Distress, Calm, Thin Neck: Yes: Supple Cardiovascular: Yes: Regular Rate and Rhythm Respiratory: Yes: Regular, Diminished Gastrointestinal: Yes: Soft, Hypoactive Bowel Sounds Edema: No Labs: CBC, BMP 12/08/19 06:15 12/08/19 06:15 INR, PTT INR 2.21 (0.83-1.09) H 12/08/19 06:15 Problem List - Problems (1) Abnormal ECG Code(s): R94.31 - ABNORMAL ELECTROCARDIOGRAM [ECG] [EKG] (2) CVA (cerebral vascular accident) Code(s): I63.9 - CEREBRAL INFARCTION, UNSPECIFIED Qualifiers: CVA mechanism: unspecified Qualified Code(s): I63.9 - Cerebral infarction, unspecified (3) Cervical spinal stenosis Code(s): M48.02 - SPINAL STENOSIS, CERVICAL REGION (4) HTN (hypertension) Code(s): I10 - ESSENTIAL (PRIMARY) HYPERTENSION Qualifiers: Hypertension type: essential hypertension Qualified Code(s): I10 - Essential (primary) hypertension (5) Hypercholesterolemia Code(s): E78.00 - PURE HYPERCHOLESTEROLEMIA, UNSPECIFIED (6) LVH (left ventricular hypertrophy) Code(s): I51.7 - CARDIOMEGALY (7) Atrial flutter Code(s): I48.92 - UNSPECIFIED ATRIAL FLUTTER Qualifiers: Atrial flutter type: atypical Qualified Code(s): I48.4 - Atypical atrial flutter (8) Spondylolisthesis of cervical region Code(s): M43.12 - SPONDYLOLISTHESIS, CERVICAL REGION (9) Demand ischemia Code(s): I24.8 - OTHER FORMS OF ACUTE ISCHEMIC HEART DISEASE Assessment/Plan 12/01/19 Normal LV size with severe LVH with normal LV fxn, severe LAE, mild MR , TR, WI, possible infiltrative heart disease 12/04/2019: C spine MRI - multilevel DDD; C5-6 vertebral edema, central disc protrusion C4-5 and C5-6; moderate to marked C5-6 (L > R) central and foramenal stenosis and mild-moderate C4-5 stenosis, extensive spondylosis; loss of lordosis; no clear cord edema or myelomalacia 1. Cervical spinal cord compression and possible C5/C6 osteomyelitis/discitis 2. Group B strep bacteremia with hypovolemic/septic shock 2. HTN heart disease 3. Hypercholesterolemia 4. Paroxysmal atrial fib/flutter [id number] score of 6-7 and therapeutic INR 5. CVA 6. Concentric LVH ? rule out infiltrative heart disease 7. Abnormal ECG suggests CAD 8. Demand ischemia with elevated troponin PLAN: 1. Abx course 6-8 weeks per C&S, C-collar for immobilization/comfort x 10 weeks 2. Resumed Carvedilol 3.125 bid, Lipitor 40 qd, Amlodipine and Lisinopril 5 qd with uptitration as hemodynamics tolerate 3. Neurosurgery input noted and family opts for medical therapy 4. Troponin downtrending 5. MRI c-spine reviewed 6. Resume Coumadin per therapeutic INR. Keep INR btw 2-3 unless surgery is planned 7. May consider Tm99 PYP study to rule out amyloidosis once clinically stable
[2019-12-08] MEDS ORDERED: DEXTROSE 5%-WATER 100 ML IVPB ONE (10:05)
[2019-12-08] MEDS ORDERED: PT OWN MED DRAWER 7, Y5N ONE ×2 (10:06→13:07)
[2019-12-08] MEDS: LISINOPRIL 5 MG TABLET (FP) PO SCH (10:11)
[2019-12-08] MEDS: CARVEDILOL 3.125 MG TABLET (FP) PO SCH ×2 (10:12→22:56)
[2019-12-08] MEDS: CEFTRIAXONE 2 GM in DEXTROSE 5%-WATER 100 ML IVPB SCH (10:13)
--- NOTE | 2019-12-08 10:32 | PN ---
Teaching Attending Note Name of Resident: Balwinder Ackerman ATTENDING PHYSICIAN STATEMENT I saw and evaluated the patient. I reviewed the resident's note and discussed the case with the resident. I agree with the resident's findings and plan as documented. Daughter wish to rediscuss potential for operation with neurosurgery, communicated to their service. Decided to opt for medical intervention which is reasonable. Will resume discharge planning. Patient has no new complaints, denies progressive radicular symptoms, states she feels a little bit better today but still has overall weakness as described on previous examinations. She is afebrile, hemodynamically stable, and continues to be monitored on the medicine service. She continues on per infectious disease and we will continue to monitor her clinically. PICC line ordered. Can be discharged facility when bed made available. VS, labs, imaging reviewed NAD, AAO, resting comfortably in bed. RRR s1/2 no mgr Normal muscle tone, unchanged extremity exam with right lower extremity 0 out of 5 with bilateral upper extremity is able to be moved, mobile left lower extremity. Remains in Grayling J collar. Neck is supple, trachea midline, no teofilo LN Lungs CTAB with sym expansion NT ND +BS no teofilo organomegaly CN2-12 wnl; no FND NC AT EOMI PERRLA Normal mood, appropriate behavior, euthymic affect No skin breakdown or rashes noted Echocardiogram reviewed from December 01 MRI reviewed. Microbiology reviewed, group B strep bacteremia noted Potential outpatient tech 99 scan to rule out infiltrative heart disease from underlying amyloidosis Assessment plan: Patient presents with suspected discitis and group B strep bacteremia and septic shock which is now resolved and she is off pressors. She remains in a Grayling J cervical collar with neurosurgery, neurology, and infectious disease following. The family is opted for conservative approach given her age and comorbidities. Problems include: Septic shock, resolved and off pressors Cervical stenosis with myelopathy Osteomyelitis, MRI confirmed. Antibiotics for 6 to 8 weeks as per infectious disease consultation. 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 Will consult pharmacy to help with dosing. Monitor INR Supratherapeutic INR as per above History of CVA as per above Deconditioning, plan for SNF placement. Rule out infiltrative heart disease with likely tch-99 scan as outpatient Need to discuss full goals of care with family prior to discharge as given the nature of her disease is a good chance that she will have continued moderate to severe symptomatology potentially necessitating readmission for pain control, worsening of the neuropathy or myelopathy.
--- NOTE | 2019-12-08 10:41 | PN ---
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 (short form) - Note 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: NEUROSURGERY NO new complaint Ate only a little breakfast PE: Tmax 98.4, AF, VSS Sitting up in bed; in good spirit HEENT- NC/AT; Neck- supple; Cor-Irreg; Chest- CTA B; Abd- benign; Ext- no C/C/E CN- intact; Motor- R UE 2/5 and LE 0/5; L side 4-; Sensation- intact LT; DTR- hyporereflexic, no LTS WBC 10.4 Blood culture 1/ gram group B strep; repeat negative C-collar for immobilization/comfort x 10 weeks detention iv abx 6-8 weeks per ID
[2019-12-08] MEDS ORDERED: CARVEDILOL 3.125 MG TABLET (FP) PO ONE (11:48)
[2019-12-08] MEDS: ACETAMINOPHEN 325 MG TABLET (FP) PO PRN (13:09)
[2019-12-08] MEDS: LACTATED RINGERS SOLUTION 1,000 ML/1,000 ML INFUS.BAG IV SCH ×2 (13:10→18:47)
--- NOTE | 2019-12-08 15:45 | PN ---
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, Physician History of Present Illness: AWAKE, RESPONSIVE IN BED DENIES NECK PAIN AFEBRILE BC + GRP B STREP ECHO NOTED NO VEGETATIONS - Current Medication List Current Medications: Active Medications Acetaminophen (Tylenol -) 650 mg PO Q6H PRN PRN Reason: Fever Or Pain Last Admin: 12/08/19 13:09 Dose: 650 mg Amino Acids (Prosource No Carb Liquid Pkt) 30 ml PO BID@0800,1730 [facility] Last Admin: 12/08/19 09:00 Dose: Not Given Atorvastatin Calcium (Lipitor -) 40 mg PO HS [facility] Last Admin: 12/07/19 22:22 Dose: 40 mg Carvedilol (Coreg -) 3.125 mg PO BID [facility] Gabapentin (Neurontin -) 100 mg PO TID [facility] Last Admin: 12/08/19 13:09 Dose: 100 mg Lactated Ringer's (Lactated Ringers Solution) 1,000 ml in 1,000 mls @ 42 mls/ hr IV ASDIR [facility] Last Admin: 12/08/19 13:10 Dose: Not Given Ceftriaxone Sodium 2 gm/ (Dextrose) 100 mls @ 100 mls/hr IVPB DAILY [facility]; Protocol Last Admin: 12/08/19 10:13 Dose: 100 mls/hr Lisinopril (Prinivil) 5 mg PO DAILY [facility] Last Admin: 12/08/19 10:11 Dose: 5 mg Oxycodone HCl (Roxicodone -) 5 mg PO Q6H PRN PRN Reason: PAIN LEVEL 6-10 Last Admin: 12/08/19 09:00 Dose: 5 mg Warfarin Sodium (Coumadin -) 4 mg PO DAILY@1800 [facility] - Objective Vital Signs: Vital Signs Temperature 97.8 F 12/08/19 14:16 Pulse Rate 92 H 12/08/19 14:16 Respiratory Rate 18 12/08/19 14:16 Blood Pressure 97/55 L 12/08/19 14:16 O2 Sat by Pulse Oximetry (%) 96 12/08/19 09:00 Constitutional: Yes: No Distress Eyes: Yes: Conjunctiva Clear Cardiovascular: Yes: Regular Rate and Rhythm, S1, S2 Respiratory: Yes: CTA Bilaterally Gastrointestinal: Yes: Normal Bowel Sounds, Soft. No: Tenderness Edema: Yes Labs: CBC, BMP 12/08/19 06:15 12/08/19 06:15 INR, PTT INR 2.21 (0.83-1.09) H 12/08/19 06:15 Assessment/Plan GRP B STREP BACTEREMIA PROBABLE GRP B STREP OSTEOMYELITIS/ DISCITIS C5C6 REPEAT BC NO GROWTH CONTINUE CEFTRIAXONE WILL NEED MEDIA RELATIONS ASSOCIATE IV ANTIBIOTIC TX CEFTRIAXONE 2GM IVPB Q24H X 5 WEEKS
[2019-12-08] MEDS ORDERED: SODIUM CHLORIDE 0.9% 500 ML INFUS.BAG IV ONE (16:36)
[2019-12-08] MEDS: WARFARIN NA 2 MG TABLET (UD) PO SCH (17:56)
[2019-12-08] MEDS ORDERED: CARVEDILOL 6.25 MG TABLET (FP) PO SCH (22:00)
[2019-12-08] MEDS: ATORVASTATIN CA 40 MG TABLET (FP) PO SCH (22:04)
[2019-12-09] MEDS: GABAPENTIN 100 MG CAPSULE PO SCH ×3 (05:30→21:16)
--- NOTE | 2019-12-09 06:17 | PN ---
Physical Exam: SUBJECTIVE: THIS NOTE IS FOR 12/08/19 Patient seen and examined at bedside this AM. No acute events overnight. Pt here to be managed for osteomyelitis. Pt still declining surgical management. Pt having some discomfort with the neck collar. OBJECTIVE: Vital Signs Period Temp Pulse Resp BP Sys/Hutton Pulse Ox Last 24 Hr 97.4 F-98 F 91-101 16-20 87-127/51-84 96-97 GENERAL: The patient is awake, alert, and fully oriented, in no acute distress. NECK: neck collar in place LUNGS: Breath sounds equal, clear to auscultation bilaterally, no wheezes, no crackles, no accessory muscle use. HEART: Regular rate and rhythm, S1, S2 without murmur, rub or gallop. ABDOMEN: Soft, nontender, nondistended, normoactive bowel sounds, no guarding, no rebound. EXTREMITIES: 2+ pulses, warm, well-perfused, no edema. NEUROLOGICAL:No facial droop. Weak hand rail track maintainer bilaterally worse on the R. 2/5 shoulder shrug bilaterally. 2/5 biceps, triceps on right side. 4/5 biceps, triceps on left side. 0/5 strength of right lower extremity. 4/5 LLE throughout. Sensation diminished on the R side on the lower extremity to gross touch. All other sensation intact. PSYCH: Normal mood, normal affect. SKIN: Warm, dry, no rashes or lesions noted Laboratory Results - last 24 hr 12/03/19 12/08/19 12/08/19 06:30 06:15 06:15 WBC 10.4 H RBC 3.32 L Hgb 10.7 Hct 31.5 L MCV 94.6 MCH 32.1 MCHC 33.9 RDW 14.5 Plt Count 226 MPV 8.8 Absolute Neuts (auto) 9.4 H Neutrophils % 90.6 H Lymphocytes % 4.8 L D Monocytes % 4.3 Eosinophils % 0.2 D Basophils % 0.1 Nucleated RBC % 0 PT with INR 26.30 H INR 2.21 H Sodium Potassium Chloride Carbon Dioxide Anion Gap BUN Creatinine Est GFR (CKD-EPI)AfAm Est GFR (CKD-EPI)NonAf Random Glucose Calcium Phosphorus Magnesium Serum Cryoglobulins 12/08/19 06:15 WBC RBC Hgb Hct MCV MCH MCHC RDW Plt Count MPV Absolute Neuts (auto) Neutrophils % Lymphocytes % Monocytes % Eosinophils % Basophils % Nucleated RBC % PT with INR INR Sodium 142 Potassium 4.0 Chloride 110 H Carbon Dioxide 25 Anion Gap 7 L BUN 24.0 H Creatinine 0.9 Est GFR (CKD-EPI)AfAm 68.53 Est GFR (CKD-EPI)NonAf 59.13 Random Glucose 79 Calcium 7.6 L Phosphorus 2.7 Magnesium 1.9 Serum Cryoglobulins Active Medications Generic Name Dose Route Start Last Admin Trade Name Freq PRN Reason Stop Dose Admin Acetaminophen 650 mg 12/05/19 00:11 12/08/19 13:09 Tylenol - PO 650 mg Q6H PRN Administration Fever Or Pain Amino Acids 30 ml 12/05/19 08:00 12/08/19 17:46 Prosource No Carb Liquid Pkt PO Not Given BID@0800,1730 [facility] Atorvastatin Calcium 40 mg 12/05/19 22:00 12/08/19 22:04 Lipitor - PO 40 mg HS [facility] Administration Carvedilol 3.125 mg 12/08/19 22:00 12/08/19 22:56 Coreg - PO 3.125 mg BID [facility] Administration Gabapentin 100 mg 12/05/19 06:00 12/09/19 05:30 Neurontin - PO 100 mg TID [facility] Administration Lactated Ringer's 1,000 ml in 1,000 mls @ 42 mls/hr 12/04/19 11:11 12/08/19 18:47 Lactated Ringers Solution IV 42 mls/hr ASDIR [facility] Administration Ceftriaxone Sodium 2 gm/ 100 mls @ 100 mls/hr 12/05/19 10:00 12/08/19 10:13 Dextrose IVPB 100 mls/hr DAILY [facility] Administration Protocol Lisinopril 5 mg 12/05/19 10:00 12/08/19 10:11 Prinivil PO 5 mg DAILY [facility] Administration Oxycodone HCl 5 mg 12/07/19 15:32 12/08/19 22:04 Roxicodone - PO 5 mg Q6H PRN Administration PAIN LEVEL 6-10 Warfarin Sodium 4 mg 12/08/19 18:00 12/08/19 17:56 Coumadin - PO 4 mg DAILY@1800 [facility] Administration ASSESSMENT/PLAN: Mary Lou Garza is an 84 year old female with a past medical history of hypertension, hyperlipidemia, Atrial flutter (on Coumadin), 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 Images: - MRI with severe central canal stenosis at C5/C6 with B/L neural foraminal stenosis and cord compression. findings suspicious for discitis/o osteomyelitis of C5/C6 with prevertebral soft tissue thickening/prevertebral fluid seen. - MRI with dov - OM of C5-C6 and possibly anterior aspect of C4. No gross paravertebral abscess identified - CT head reveals chronic lacunar infarct, without acute pathology. - Carotid duplex ultrasound - significant intimal thickening in both common carotid arteries up to the bifurcation. moderate dize plaques with calcifications of the right common carotid bifurcation, front and proximal internal carotid artery as well as large plaques with calcifications at the left common carotid bifurcation/bulb and proximal internal carotid artery without evidence of hemodynamically significant stenosis. Diffuse weakness 2/2 to cervical cord compression - Neurology evaluation (Dr. Becker) signing off at this time - NSx consulted (Dr. Xiao)- d/w pt pros and cons of surgical debridement and possible improvement of R sided neuro deficits - cons are partially risks/co-morbidities of Aflutter on AC, CVA risks, other GA risks, age, although ID felt infection is under control. Daughter prefers medical tx. - Discontinued Decadron. - Continue Neurontin 100mg TID - ECHO - EF >70%, possible infiltrative heart disease, severe concentric left ventricular hypertrophy - Speech and swallow evaluation - dysphagia whole diet with thin liquids. give medications crushed with applesauce - Fall precautions - PMR consulted for EMG, will follow recs Sepsis 2/2 UTI vs +Blood cx - Ucx negative - Blood cx positive for Group B strep - repeat Blood cultures negative to date - Continue Ceftriaxone 2g daily X 5 wks upon d/c (started 12/03), discussed MRI findings with ID - obtaining PICC placement with IR - Hypotension improved, off vasopressin NSTEMI - EKG reveals atrial flutter T wave inversions and ST depressions in lateral leads - Troponin trended to peak of 0.22 - Cardiology evaluation (Dr. Fermin), appreciate recs - May consider Tm99 PYP study to rule out amyloidosis once clinically stable, will likely have as outpatient - Follow INR - Cardiac telemetry monitoring - Resumed Carvedilol 3.125 bid, Lipitor 40 qd, Lisinopril 5mg daily. Atrial flutter - Rate controlled. - holding metoprolol as patient is currently hypotensive - Follow PT/INR, coumadin 4mg confirmed with pharmacy as correct dose for d/c. Pt will f/u with PCP for INR check in 1-2 wks. - Keep INR between 2-3 DVT Prophylaxis - SCDs FEN - LR @ 42mls/hr - continue to monitor electrolytes and replete as necessary - Diabetic diet Disposition - continue to monitor on Med-surg - Family does not want surgery at this time, will continue with medical management - pending placement at SNF Visit type - Emergency Visit Emergency Visit: Yes ED Registration Date: 12/01/19 Care time: The patient presented to the Emergency Department on the above date and was hospitalized for further evaluation of their emergent condition. - New Patient This patient is new to me today: Yes Date on this admission: 12/09/19 - Critical Care Critical Care patient: No - Discharge Referral Referred to [facility] Med P.C.: No ATTENDING PHYSICIAN STATEMENT I saw and evaluated the patient. I reviewed the resident's note and discussed the case with the resident. I agree with the resident's findings and plan as documented. SUBJECTIVE: OBJECTIVE: ASSESSMENT AND PLAN:
--- NOTE | 2019-12-09 07:34 | PN ---
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 (short form) - Note 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: NEUROSURGERY No new complaint PE: Tmax 97.9, AF, VSS Sitting up in bed; in good spirit HEENT- NC/AT; Neck- supple; Cor-Irreg; Chest- CTA B; Abd- benign; Ext- no C/C/E CN- intact; Motor- R UE 2/5 and LE 0/5; L side 4-; Sensation- intact LT; DTR- hyporereflexic, no LTS WBC 10.4 Blood culture 11/29 gram group B strep; repeat negative C-collar for immobilization/comfort x 10 weeks meterman iv abx Ceftriaxone 5 weeks per ID C spine x-rays to assess alignment today Care d/w daughter yesterday by phone with pros and cons of surgical tx laid out , she opts to continue current iv abx course
[2019-12-09 08:39] LABS: BASO % 0.2 % (0-2.0); EOS % 0.3 % (0-4.5); HEMATOCRIT 31.7 % (32.4-45.2); HEMOGLOBIN 10.6 GM/dL (10.7-15.3); MCH 31.2 pg (25.7-33.7); MCHC 33.5 g/dl (32.0-36.0); MEAN CELL VOLUME 93.2 fl (80-96); MEAN PLT VOLUME 8.1 fl (7.5-11.1); NEUT % 87.5 % (42.8-82.8); PLATELET COUNT 301 K/MM3 (134-434); RDW 14.4 % (11.6-15.6); WHITE BLOOD COUNT 7.5 K/mm3 (4.0-10.0)
[2019-12-09 08:52] LABS: INR 2.6 (0.83-1.09)
[2019-12-09 09:03] LABS: ALBUMIN 1.6 g/dl (3.4-5.0); BILIRUBIN,TOTAL 0.2 mg/dL (0.2-1); BLOOD UREA NITROGEN 24.9 mg/dL (7-18); CALCIUM 7.8 mg/dL (8.5-10.1); POTASSIUM 4.1 mmol/L (3.5-5.1); TOT PROT 4.6 g/dl (6.4-8.2)
[2019-12-09] MEDS: AMINO ACIDS/PROTEIN HYDROLYS 30 ML LIQUID.PKT PO SCH ×2 (09:15→18:15)
[2019-12-09] MEDS ORDERED: PT OWN MED DRAWER 7, Y5N ONE (10:17)
[2019-12-09] MEDS ORDERED: DEXTROSE 5%-WATER 100 ML IVPB ONE (10:17)
[2019-12-09] MEDS: CEFTRIAXONE 2 GM in DEXTROSE 5%-WATER 100 ML IVPB SCH (10:19)
[2019-12-09] MEDS: LISINOPRIL 5 MG TABLET (FP) PO SCH (10:19)
[2019-12-09] MEDS: CARVEDILOL 3.125 MG TABLET (FP) PO SCH ×2 (10:20→21:16)
[2019-12-09] MEDS: oxyCODONE HCL 5 MG TABLET PO PRN (10:21)
[2019-12-09] MEDS: LACTATED RINGERS SOLUTION 1,000 ML/1,000 ML INFUS.BAG IV SCH (10:21)
[2019-12-09] MEDS ORDERED: IPRATROPIUM BR 0.02% 0.5 MG/2.5 ML VIAL.NEB. NEB PRN (10:50)
--- NOTE | 2019-12-09 12:57 | PN ---
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, Physician Chief Complaint: Currently with cervical collar History of Present Illness: Patient was seen and examined. Awake and alert. Chart was reviewed Denies chest pain or SOB, but with neck discomfort - Current Medication List Current Medications: Active Medications Acetaminophen (Tylenol -) 650 mg PO Q6H PRN PRN Reason: Fever Or Pain Last Admin: 12/08/19 13:09 Dose: 650 mg Amino Acids (Prosource No Carb Liquid Pkt) 30 ml PO BID@0800,1730 [facility] Last Admin: 12/09/19 09:15 Dose: Not Given Atorvastatin Calcium (Lipitor -) 40 mg PO HS [facility] Last Admin: 12/08/19 22:04 Dose: 40 mg Carvedilol (Coreg -) 3.125 mg PO BID [facility] Last Admin: 12/09/19 10:20 Dose: 3.125 mg Gabapentin (Neurontin -) 100 mg PO TID [facility] Last Admin: 12/09/19 05:30 Dose: 100 mg Ceftriaxone Sodium 2 gm/ (Dextrose) 100 mls @ 100 mls/hr IVPB DAILY [facility]; Protocol Last Admin: 12/09/19 10:19 Dose: 100 mls/hr Ipratropium [place] (Atrovent 0.02% Nebulizer -) 1 amp NEB Q6H PRN PRN Reason: DYSPEPSIA Stop: 12/16/19 10:50 Lisinopril (Prinivil) 5 mg PO DAILY [facility] Last Admin: 12/09/19 10:19 Dose: 5 mg Oxycodone HCl (Roxicodone -) 5 mg PO Q6H PRN PRN Reason: PAIN LEVEL 6-10 Last Admin: 12/09/19 10:21 Dose: 5 mg Warfarin Sodium (Coumadin -) 4 mg PO DAILY@1800 [facility] Last Admin: 12/08/19 17:56 Dose: 4 mg - Objective Vital Signs: Vital Signs Temperature 98.3 F 12/09/19 09:27 Pulse Rate 100 H 12/09/19 09:27 Respiratory Rate 22 H 12/09/19 09:27 Blood Pressure 121/68 12/09/19 09:27 O2 Sat by Pulse Oximetry (%) 97 12/09/19 08:06 Cardiovascular: Yes: Regular Rate and Rhythm, S1, S2 Respiratory: Yes: CTA Bilaterally Gastrointestinal: Yes: Normal Bowel Sounds, Soft. No: Tenderness Edema: No Labs: CBC, BMP 12/09/19 07:54 12/09/19 07:54 INR, PTT INR 2.60 (0.83-1.09) H 12/09/19 07:54 Problem List - Problems (1) CVA (cerebral vascular accident) Code(s): I63.9 - CEREBRAL INFARCTION, UNSPECIFIED Qualifiers: CVA mechanism: unspecified Qualified Code(s): I63.9 - Cerebral infarction, unspecified (2) Abnormal ECG Code(s): R94.31 - ABNORMAL ELECTROCARDIOGRAM [ECG] [EKG] (3) Weakness Code(s): R53.1 - WEAKNESS (4) Paresthesia Code(s): R20.2 - PARESTHESIA OF SKIN (5) Hypercholesterolemia Code(s): E78.00 - PURE HYPERCHOLESTEROLEMIA, UNSPECIFIED (6) HTN (hypertension) Code(s): I10 - ESSENTIAL (PRIMARY) HYPERTENSION Qualifiers: Hypertension type: essential hypertension Qualified Code(s): I10 - Essential (primary) hypertension (7) Hypotension Code(s): I95.9 - HYPOTENSION, UNSPECIFIED (8) LVH (left ventricular hypertrophy) Code(s): I51.7 - CARDIOMEGALY (9) Right sided weakness Code(s): R53.1 - WEAKNESS (10) Atrial flutter Code(s): I48.92 - UNSPECIFIED ATRIAL FLUTTER Qualifiers: Atrial flutter type: atypical Qualified Code(s): I48.4 - Atypical atrial flutter (11) Demand ischemia Code(s): I24.8 - OTHER FORMS OF ACUTE ISCHEMIC HEART DISEASE (12) Cervical spinal stenosis Code(s): M48.02 - SPINAL STENOSIS, CERVICAL REGION Assessment/Plan 1. Cervical spinal cord compression and possible C5/C6 osteomyelitis/discitis 2. Group B strep bacteremia with hypovolemic/septic shock 2. HTN 3. Hypercholesterolemia 4. Paroxysmal atrial fibrillation/flutter [id number] score of 6-7 5. CVA 6. Concentric LVH ? rule out infiltrative heart disease 7. Abnormal ECG suggests CAD 8. Demand ischemia with elevated troponin PLAN: 1. Antibiotic courseand C-collar for immobilization 2. Continue Carvedilol 3.125 mg BID, Lipitor 40 mg QHS and Lisinopril 5 mg QD with uptitration as hemodynamics tolerate 3. Neurosurgery input noted 4. Continue Coumadin per therapeutic INR. Keep INR btw 2-3 5. May consider Tm99 PYP study to rule out amyloidosis once clinically stable Seth Castaneda MD
--- NOTE | 2019-12-09 13:19 | PN ---
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 I offered her the pizza on the rable, that was her daughter's and she started eating it. Mastication is slow due to J brace, and swallow affected by brace as well. Upon questioning, she admits to feeling depressed. Wants to be home. Her daughter reports that 2-3 other family members had this disease and recovered functionally. Suggest soft, easy to chew diet, Outside food as desired HOB elevated. Small bites. Feed slowly. Alternate solids with liquids. Consider antidepressant/ appetite stimulant. Reviewed with nursing
[2019-12-09] MEDS ORDERED: FUROSEMIDE 40 MG/4 ML INJECTABLE VIAL IVPUSH ONE (16:46)
--- NOTE | 2019-12-09 16:48 | PN ---
Physical Exam: SUBJECTIVE: Patient seen and examined. No acute complaints. Still having significant weakness in her RLE unable to move it at all. LLE able to wiggle toes. OBJECTIVE: Vital Signs Period Temp Pulse Resp BP Sys/[place] Pulse Ox Last 24 Hr 97.4 F-98.3 F 91-111 20-22 87-127/52-84 97-97 GENERAL: The patient is awake, alert, and fully oriented, in no acute distress. NECK: C- collar in place. LUNGS: Breath sounds equal, wheezing worse at the bases. HEART: Regular rate and rhythm, S1, S2 without murmur, rub or gallop. ABDOMEN: Soft, nontender, nondistended, normoactive bowel sounds, no guarding, no rebound. EXTREMITIES: 2+ pulses, warm, well-perfused, no edema. NEUROLOGICAL: Normal speech, gait not observed. RLE 0/5 ROM, weakness but able to wiggle toes on LLE 2/5 ROM. SKIN: Warm, dry, no rashes or lesions noted Laboratory Results - last 24 hr 12/03/19 12/09/19 12/09/19 06:30 07:54 07:54 WBC 7.5 RBC 3.40 L Hgb 10.6 L Hct 31.7 L MCV 93.2 MCH 31.2 MCHC 33.5 RDW 14.4 Plt Count 301 D MPV 8.1 Absolute Neuts (auto) 6.6 Neutrophils % 87.5 H Lymphocytes % 6.0 L D Monocytes % 6.0 Eosinophils % 0.3 Basophils % 0.2 Nucleated RBC % 0 PT with INR 31.00 H INR 2.60 H Sodium Potassium Chloride Carbon Dioxide Anion Gap BUN Creatinine Est GFR (CKD-EPI)AfAm Est GFR (CKD-EPI)NonAf Random Glucose Calcium Total Bilirubin AST ALT Alkaline Phosphatase Total Protein Albumin Serum Cryoglobulins 12/09/19 07:54 WBC RBC Hgb Hct MCV MCH MCHC RDW Plt Count MPV Absolute Neuts (auto) Neutrophils % Lymphocytes % Monocytes % Eosinophils % Basophils % Nucleated RBC % PT with INR INR Sodium 142 Potassium 4.1 Chloride 111 H Carbon Dioxide 26 Anion Gap 5 L BUN 24.9 H Creatinine 1.0 Est GFR (CKD-EPI)AfAm 60.33 Est GFR (CKD-EPI)NonAf 52.06 Random Glucose 91 Calcium 7.8 L Total Bilirubin 0.2 AST 50 H ALT 52 Alkaline Phosphatase 84 Total Protein 4.6 L Albumin 1.6 L Serum Cryoglobulins Active Medications Generic Name Dose Route Start Last Admin Trade Name Freq PRN Reason Stop Dose Admin Acetaminophen 650 mg 12/05/19 00:11 12/08/19 13:09 Tylenol - PO 650 mg Q6H PRN Administration Fever Or Pain Amino Acids 30 ml 12/05/19 08:00 12/09/19 09:15 Prosource No Carb Liquid Pkt PO Not Given BID@0800,1730 [facility] Atorvastatin Calcium 40 mg 12/05/19 22:00 12/08/19 22:04 Lipitor - PO 40 mg HS MICHAEL Administration Carvedilol 3.125 mg 12/08/19 22:00 12/09/19 10:20 Coreg - PO 3.125 mg BID MICHAEL Administration Gabapentin 100 mg 12/05/19 06:00 12/09/19 14:40 Neurontin - PO Not Given TID [facility] Ceftriaxone Sodium 2 gm/ 100 mls @ 100 mls/hr 12/05/19 10:00 12/09/19 10:19 Dextrose IVPB 100 mls/hr DAILY MICHAEL Administration Protocol Ipratropium [place] 1 amp 12/09/19 10:50 Atrovent 0.02% Nebulizer - NEB 12/16/19 10:50 Q6H PRN DYSPEPSIA Lisinopril 5 mg 12/05/19 10:00 12/09/19 10:19 Prinivil PO 5 mg DAILY MICHAEL Administration Oxycodone HCl 5 mg 12/07/19 15:32 12/09/19 10:21 Roxicodone - PO 5 mg Q6H PRN Administration PAIN LEVEL 6-10 Warfarin Sodium 4 mg 12/08/19 18:00 12/08/19 17:56 Coumadin - PO 4 mg DAILY@1800 MICHAEL Administration ASSESSMENT/PLAN: Mary Lou Garza is an 84 year old female with a past medical history of hypertension, hyperlipidemia, Atrial flutter (on Coumadin), 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 Images: - MRI with severe central canal stenosis at C5/C6 with B/L neural foraminal stenosis and cord compression. findings suspicious for discitis/o osteomyelitis of C5/C6 with prevertebral soft tissue thickening/prevertebral fluid seen. - MRI with dov - OM of C5-C6 and possibly anterior aspect of C4. No gross paravertebral abscess identified - CT head reveals chronic lacunar infarct, without acute pathology. - Carotid duplex ultrasound - significant intimal thickening in both common carotid arteries up to the bifurcation. moderate dize plaques with calcifications of the right common carotid bifurcation, front and proximal internal carotid artery as well as large plaques with calcifications at the left common carotid bifurcation/bulb and proximal internal carotid artery without evidence of hemodynamically significant stenosis. Cervical cord myelopathy/osteomyelitis - C- spine sclerotic knob and neck with soft tissue calcifications. will need CT spine as o/p. - NSx consulted (Dr. Xiao)- can be d/c on steroid taper as written in my D/c plan. - PICC placed for residential abx - Continue Neurontin 100mg TID - ECHO - EF >70%, possible infiltrative heart disease, severe concentric left ventricular hypertrophy - Speech and swallow evaluation- soft diet with thin liquids. give medications crushed with applesauce - Fall precautions - Continue Ceftriaxone 2g daily X 5 wks upon d/c (started 12/03), discussed MRI findings with ID - 5mg Q8H prn oxycodone for pain scale 6-10 and continue as o/p. # ? Pleural Fluid/Infiltrate - CXR showing PF with atelectasis/infiltrate at left base - IV lasix 40 IVP - will assess patient U.O. following this and place guzman back in if pt not tolerating voiding trial. - ipratroprium neb prn and will continue as o/p. - pt is hypoalbuminemic due to malnourishment likely and likely is cause of the pleural fluid from decreased oncotic pressure induced 3rd spacing. - Protein-5.7, Alb- 2.8 Ruled out NSTEMI - EKG reveals atrial flutter T wave inversions and ST depressions in lateral leads - Troponin trended to peak of 0.22 - May consider Tm99 PYP study to rule out amyloidosis once clinically stable, will likely have as outpatient - Cardiac telemetry monitoring - Resumed Carvedilol 3.125 bid, Lipitor 40 qd, Lisinopril 5mg daily. Paroxysmal Atrial flutter - Rate controlled. - holding metoprolol as patient is currently hypotensive - Follow PT/INR, coumadin 4mg confirmed with pharmacy as correct dose for d/c. Pt will f/u with PCP for INR check in 1-2 wks. - Keep INR between 2-3 DVT Prophylaxis - SCDs pt on coumadin. FEN - holding fluids - continue to monitor electrolytes and replete as necessary - Diabetic diet Disposition - continue to monitor on Med-Surg - placement confirmed at [facility] Visit type - Emergency Visit Emergency Visit: Yes ED Registration Date: 12/01/19 Care time: The patient presented to the Emergency Department on the above date and was hospitalized for further evaluation of their emergent condition. - New Patient This patient is new to me today: No - Critical Care Critical Care patient: No - Discharge Referral Referred to [facility] Med P.C.: No ATTENDING PHYSICIAN STATEMENT I saw and evaluated the patient. I reviewed the resident's note and discussed the case with the resident. I agree with the resident's findings and plan as documented. SUBJECTIVE: OBJECTIVE: ASSESSMENT AND PLAN:
--- NOTE | 2019-12-09 17:05 | PN ---
Teaching Attending Note Name of Resident: Wisam Moss ATTENDING PHYSICIAN STATEMENT I saw and evaluated the patient. I reviewed the resident's note and discussed the case with the resident. I agree with the resident's findings and plan as documented. SUBJECTIVE: Complains of discomfort bilateral UEs. OBJECTIVE: Afebrile, Hemodynamically Stable. Last Vital Signs Temp Pulse Resp BP Pulse Ox 98.3 F 111 H 20 118/59 L 97 12/09/19 13:35 12/09/19 13:35 12/09/19 13:35 12/09/19 13:35 12/09/19 08:06 HEENT - Atraumatic, Normocephalic. C-Collar in place. Heart - S1, S2, Tachy Lungs - bilateral wheeze. Abdomen - Soft, non-tender. Bowel Sounds normal. Extremities - no edema, no calf tenderness. Neuro - Bilateral UE weakness sec to pain 4/5. LLE 3-4/5, RLE 2/5 Laboratory Results - last 24 hr 12/03/19 12/09/19 12/09/19 06:30 07:54 07:54 WBC 7.5 RBC 3.40 L Hgb 10.6 L Hct 31.7 L MCV 93.2 MCH 31.2 MCHC 33.5 RDW 14.4 Plt Count 301 D MPV 8.1 Absolute Neuts (auto) 6.6 Neutrophils % 87.5 H Lymphocytes % 6.0 L D Monocytes % 6.0 Eosinophils % 0.3 Basophils % 0.2 Nucleated RBC % 0 PT with INR 31.00 H INR 2.60 H Sodium Potassium Chloride Carbon Dioxide Anion Gap BUN Creatinine Est GFR (CKD-EPI)AfAm Est GFR (CKD-EPI)NonAf Random Glucose Calcium Total Bilirubin AST ALT Alkaline Phosphatase Total Protein Albumin Serum Cryoglobulins 12/09/19 07:54 WBC RBC Hgb Hct MCV MCH MCHC RDW Plt Count MPV Absolute Neuts (auto) Neutrophils % Lymphocytes % Monocytes % Eosinophils % Basophils % Nucleated RBC % PT with INR INR Sodium 142 Potassium 4.1 Chloride 111 H Carbon Dioxide 26 Anion Gap 5 L BUN 24.9 H Creatinine 1.0 Est GFR (CKD-EPI)AfAm 60.33 Est GFR (CKD-EPI)NonAf 52.06 Random Glucose 91 Calcium 7.8 L Total Bilirubin 0.2 AST 50 H ALT 52 Alkaline Phosphatase 84 Total Protein 4.6 L Albumin 1.6 L Serum Cryoglobulins Current Medications Generic Name Dose Route Start Last Admin Trade Name Freq PRN Reason Stop Dose Admin Acetaminophen 650 mg 12/05/19 00:11 12/08/19 13:09 Tylenol - PO 650 mg Q6H PRN Administration Fever Or Pain Amino Acids 30 ml 12/05/19 08:00 12/09/19 09:15 Prosource No Carb Liquid Pkt PO Not Given BID@0800,1730 [facility] Atorvastatin Calcium 40 mg 12/05/19 22:00 12/08/19 22:04 Lipitor - PO 40 mg HS [facility] Administration Carvedilol 3.125 mg 12/08/19 22:00 12/09/19 10:20 Coreg - PO 3.125 mg BID [facility] Administration Gabapentin 100 mg 12/05/19 06:00 12/09/19 14:40 Neurontin - PO Not Given TID [facility] Ceftriaxone Sodium 2 gm/ 100 mls @ 100 mls/hr 12/05/19 10:00 12/09/19 10:19 Dextrose IVPB 100 mls/hr DAILY [facility] Administration Protocol Ipratropium [place] 1 amp 12/09/19 10:50 Atrovent 0.02% Nebulizer - NEB 12/16/19 10:50 Q6H PRN DYSPEPSIA Lisinopril 5 mg 12/05/19 10:00 12/09/19 10:19 Prinivil PO 5 mg DAILY [facility] Administration Oxycodone HCl 5 mg 12/07/19 15:32 12/09/19 10:21 Roxicodone - PO 5 mg Q6H PRN Administration PAIN LEVEL 6-10 Warfarin Sodium 4 mg 12/08/19 18:00 12/08/19 17:56 Coumadin - PO 4 mg DAILY@1800 [facility] Administration Home Medications Medication Instructions Recorded Amlodipine Besylate [Norvasc -] 10 mg PO DAILY 12/01/19 Carvedilol [Coreg -] 25 mg PO BID 12/01/19 Lisinopril [Prinivil -] 40 mg PO DAILY 12/01/19 Warfarin Sodium [Coumadin] 4 mg PO UTDICT 12/01/19 Warfarin Sodium [Coumadin] 5 mg PO ASDIR 12/01/19 Cyclobenzaprine HCl 5 mg PO PRN 12/02/19 Ipratropium 0.02% Nebulizer 0.5 mg IH PRN #1 vial.neb. 12/09/19 [Atrovent 0.02% Nebulizer -] Oxycodone HCl 5 mg PO Q8H PRN #30 tablet MDD 40 12/09/19 Prednisone See Taper PO ASDIR #18 tablet 12/09/19 ASSESSMENT AND PLAN: 84 year old female with HTN, HLD, Atrial flutter, Hx of CVA, presented to the ED with neck pain, increasing weakness of both arms and RLE, progressed to LLE. 1. Cervical stenosis with myelopathy/Cord Compression Patient/family declines Neurosurgical intervention. Completed course of steroids Continue Neurontin and Cervical collar (for 10 weeks) 2. Septic Shock sec to C5/6 Disciitis/OM + UTI with Group B Strep Bacteremia Maintaining BP off pressors. Continue ceftriaxone for 6 weeks total as per ID PICC and Adira when stable. 3. Acute on Chronic Diastolic CHF, likely sec to IV fluid hydration. CXR changes and bilateral wheeze on PE Lasix IVP 40mg X 1. Will monitor response. 4. HTN - continue Lisinopril, Coreg. 5. HLD - Continue Lipitor. 6. Atrial flutter (Paroxysmal) On coumadin. INR therapeutic, 2.6. Continue Coreg 7. Hx CVA - continue Coumadin, Statin DVT Px - on Coumadin. Dispo - Adira in AM
[2019-12-09] MEDS: WARFARIN NA 2 MG TABLET (UD) PO SCH (18:15)
[2019-12-09] MEDS: ATORVASTATIN CA 40 MG TABLET (FP) PO SCH (21:16)
[2019-12-10] MEDS: GABAPENTIN 100 MG CAPSULE PO SCH ×2 (06:35→14:26)
[2019-12-10 07:47] LABS: BASO % 0.4 % (0-2.0); EOS % 0.5 % (0-4.5); HEMATOCRIT 32.5 % (32.4-45.2); HEMOGLOBIN 10.7 GM/dL (10.7-15.3); LYMPH % 9.4 % (8-40); MCH 31.1 pg (25.7-33.7); MEAN CELL VOLUME 94.2 fl (80-96); MEAN PLT VOLUME 8.5 fl (7.5-11.1); MONO % 8.1 % (3.8-10.2); NEUT % 81.6 % (42.8-82.8); PLATELET COUNT 284 K/MM3 (134-434); RBC 3.45 M/mm3 (3.60-5.2); RDW 14.5 % (11.6-15.6); WHITE BLOOD COUNT 4.9 K/mm3 (4.0-10.0)
[2019-12-10 08:02] LABS: ALBUMIN 1.6 g/dl (3.4-5.0); BILIRUBIN,TOTAL 0.2 mg/dL (0.2-1); BLOOD UREA NITROGEN 27.6 mg/dL (7-18); CALCIUM 7.9 mg/dL (8.5-10.1); CREATININE 1.2 mg/dL (0.55-1.3); POTASSIUM 3.7 mmol/L (3.5-5.1); TOT PROT 4.8 g/dl (6.4-8.2)
[2019-12-10] MEDS ORDERED: DEXTROSE 5%-WATER 100 ML IVPB ONE (09:12)
[2019-12-10] MEDS ORDERED: PT OWN MED DRAWER 7, Y5N ONE (09:12)
--- NOTE | 2019-12-10 09:53 | EKG ---
Test Reason : Blood Pressure : / mmHG Vent. Rate : 100 BPM Atrial Rate : 159 BPM P-R Int : 000 ms QRS Dur : 084 ms QT Int : 386 ms P-R-T Axes : 000 -20 147 degrees QTc Int : 497 ms ATRIAL FIBRILLATION WITH PREMATURE VENTRICULAR OR ABERRANTLY CONDUCTED COMPLEXES SEPTAL INFARCT (CITED ON OR BEFORE 22-JUN-2018) ABNORMAL ECG WHEN COMPARED WITH ECG OF 01-DEC-2019 06:21, ATRIAL FIBRILLATION HAS REPLACED SINUS RHYTHM T WAVE INVERSION MORE EVIDENT IN ANTERIOR LEADS Confirmed by YE PUTNAM, YANY ([id number]) on 12/10/2019 9:53:05 AM Referred By: Confirmed By:YANY BELCHER MD
--- NOTE | 2019-12-10 10:17 | PN ---
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, Physician History of Present Illness: Remains in rate-controlled afib. Plan for PICC line. - Current Medication List Current Medications: Active Medications Acetaminophen (Tylenol -) 650 mg PO Q6H PRN PRN Reason: Fever Or Pain Last Admin: 12/08/19 13:09 Dose: 650 mg Amino Acids (Prosource No Carb Liquid Pkt) 30 ml PO BID@0800,1730 [facility] Last Admin: 12/09/19 18:15 Dose: Not Given Atorvastatin Calcium (Lipitor -) 40 mg PO HS [facility] Last Admin: 12/09/19 21:16 Dose: 40 mg Carvedilol (Coreg -) 3.125 mg PO BID [facility] Last Admin: 12/09/19 21:16 Dose: 3.125 mg Carvedilol (Coreg -) 3.125 mg PO ONCE ONE Stop: 12/10/19 10:17 Gabapentin (Neurontin -) 100 mg PO TID [facility] Last Admin: 12/10/19 06:35 Dose: 100 mg Ceftriaxone Sodium 2 gm/ (Dextrose) 100 mls @ 100 mls/hr IVPB DAILY [facility]; Protocol Last Admin: 12/09/19 10:19 Dose: 100 mls/hr Ipratropium [place] (Atrovent 0.02% Nebulizer -) 1 amp NEB Q6H PRN PRN Reason: DYSPEPSIA Stop: 12/16/19 10:50 Last Admin: 12/09/19 18:24 Dose: 1 amp Lisinopril (Prinivil) 5 mg PO DAILY [facility] Last Admin: 12/09/19 10:19 Dose: 5 mg Oxycodone HCl (Roxicodone -) 5 mg PO Q6H PRN PRN Reason: PAIN LEVEL 6-10 Last Admin: 12/09/19 10:21 Dose: 5 mg Warfarin Sodium (Coumadin -) 4 mg PO DAILY@1800 [facility] Last Admin: 12/09/19 18:15 Dose: 4 mg - Objective Vital Signs: Vital Signs Temperature 98.1 F 12/10/19 06:02 Pulse Rate 107 H 12/10/19 06:02 Respiratory Rate 20 12/10/19 06:02 Blood Pressure 157/82 12/10/19 06:02 O2 Sat by Pulse Oximetry (%) 97 12/09/19 21:00 Constitutional: Yes: No Distress, Calm, Thin Neck: Yes: Supple Cardiovascular: Yes: Pulse Irregular Respiratory: Yes: Regular, Diminished Gastrointestinal: Yes: Normal Bowel Sounds, Soft Edema: No Labs: CBC, BMP 12/10/19 07:23 12/10/19 06:00 INR, PTT INR 2.60 (0.83-1.09) H 12/09/19 07:54 Problem List - Problems (1) Abnormal ECG Code(s): R94.31 - ABNORMAL ELECTROCARDIOGRAM [ECG] [EKG] (2) CVA (cerebral vascular accident) Code(s): I63.9 - CEREBRAL INFARCTION, UNSPECIFIED Qualifiers: CVA mechanism: unspecified Qualified Code(s): I63.9 - Cerebral infarction, unspecified (3) Cervical spinal stenosis Code(s): M48.02 - SPINAL STENOSIS, CERVICAL REGION (4) HTN (hypertension) Code(s): I10 - ESSENTIAL (PRIMARY) HYPERTENSION Qualifiers: Hypertension type: essential hypertension Qualified Code(s): I10 - Essential (primary) hypertension (5) Hypercholesterolemia Code(s): E78.00 - PURE HYPERCHOLESTEROLEMIA, UNSPECIFIED (6) LVH (left ventricular hypertrophy) Code(s): I51.7 - CARDIOMEGALY (7) Atrial flutter Code(s): I48.92 - UNSPECIFIED ATRIAL FLUTTER Qualifiers: Atrial flutter type: atypical Qualified Code(s): I48.4 - Atypical atrial flutter (8) Spondylolisthesis of cervical region Code(s): M43.12 - SPONDYLOLISTHESIS, CERVICAL REGION (9) Demand ischemia Code(s): I24.8 - OTHER FORMS OF ACUTE ISCHEMIC HEART DISEASE Assessment/Plan 12/01/19 Normal LV size with severe LVH with normal LV fxn, severe LAE, mild MR , TR, WI, possible infiltrative heart disease 12/04/2019: C spine MRI - multilevel DDD; C5-6 vertebral edema, central disc protrusion C4-5 and C5-6; moderate to marked C5-6 (L > R) central and foramenal stenosis and mild-moderate C4-5 stenosis, extensive spondylosis; loss of lordosis; no clear cord edema or myelomalacia 1. Cervical spinal cord compression and possible C5/C6 osteomyelitis/discitis 2. Group B strep bacteremia with hypovolemic/septic shock 2. HTN 3. Hypercholesterolemia 4. Paroxysmal atrial fibrillation/flutter [id number] score of 6-7 5. CVA 6. Concentric LVH ? rule out infiltrative heart disease 7. Abnormal ECG suggests CAD 8. Demand ischemia with elevated troponin PLAN: 1. Complete antibiotic course via PICC line and C-collar for immobilization 2. Continue Carvedilol 3.125 mg BID, Lipitor 40 mg QHS and Lisinopril 5 mg QD with uptitration as hemodynamics tolerate 3. Neurosurgery input noted 4. Continue Coumadin per therapeutic INR. Keep INR btw 2-3 5. May consider Tm99 PYP study to rule out amyloidosis once clinically stable
[2019-12-10] MEDS: oxyCODONE HCL 5 MG TABLET PO PRN (10:51)
[2019-12-10] MEDS: CEFTRIAXONE 2 GM in DEXTROSE 5%-WATER 100 ML IVPB SCH (10:53)
[2019-12-10] MEDS: CARVEDILOL 3.125 MG TABLET (FP) PO SCH (10:54)
[2019-12-10] MEDS: CARVEDILOL 3.125 MG TABLET (FP) PO ONE ×2 (10:54→11:13)
[2019-12-10] MEDS: LISINOPRIL 5 MG TABLET (FP) PO SCH (10:57)
[2019-12-10] MEDS: AMINO ACIDS/PROTEIN HYDROLYS 30 ML LIQUID.PKT PO SCH ×2 (10:59→18:25)
--- NOTE | 2019-12-10 12:45 | PN ---
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 - Note 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: Per ID- GRP B STREP BACTEREMIA PROBABLE GRP B STREP OSTEOMYELITIS/ DISCITIS C5C6 WILL NEED HALFWAY IV ANTIBIOTIC TX CEFTRIAXONE 2GM IVPB Q24H X 5 WEEKS Selected Entries 12/08/19 12/08/19 12/08/19 02:02 06:02 09:43 Breakfast 100% Lunch Temperature 98.3 F 97.4 F L 12/08/19 12/08/19 12/08/19 09:53 09:57 10:40 Breakfast 100% 0 Lunch Temperature 98 F 12/08/19 12/08/19 12/08/19 14:16 15:06 18:00 Breakfast Lunch 25% Temperature 97.8 F 97.8 F 12/08/19 12/09/19 12/09/19 22:00 01:57 06:02 Breakfast Lunch Temperature 97.9 F 97.4 F L 97.7 F 12/09/19 12/09/19 12/10/19 09:26 09:27 01:49 Breakfast 25% Lunch Temperature 98.3 F 97.4 F L 12/10/19 12/10/19 12/10/19 06:02 11:52 11:53 Breakfast 0 0 Lunch Temperature 98.1 F Laboratory Tests 12/07/19 12/08/19 12/09/19 05:40 06:15 07:54 WBC 9.0 10.4 H 7.5 12/10/19 07:23 WBC 4.9 Appetite quite limited. Suggest soft, easy to chew diet, Outside food as desired HOB elevated. Small bites. Feed slowly. Alternate solids with liquids. Consider antidepressant/ appetite stimulant. Reviewed with nursing
[2019-12-10] MEDS ORDERED: DEXAMETHASONE 4 MG TABLET (FP) PO SCH (14:00)
--- NOTE | 2019-12-10 14:11 | DS ---
Physical Exam: SUBJECTIVE: Patient seen and examined at bedside. C- collar in place, not c/o pain. PICC line in place. No fevers, chills overnight. Pt found to have Aflutter and stable trops slight bump and no symptoms. OBJECTIVE: Vital Signs Period Temp Pulse Resp BP Sys/Hutton Pulse Ox Last 24 Hr 97.4 F-98.1 F 95-107 20-20 119-157/72-82 97 PHYSICAL EXAM GENERAL: The patient is awake, alert, and fully oriented, in no acute distress. NECK: C- collar in place LUNGS: Breath sounds reduced, no wheezes present. HEART: Regular rate and rhythm, S1, S2 without murmur, rub or gallop. ABDOMEN: Soft, nontender, nondistended, normoactive bowel sounds, no guarding, no rebound, EXTREMITIES: 2+ pulses, warm, well-perfused, no edema. NEUROLOGICAL: unable to move b/l LE's, LLE can only wiggle toes. Slightly worse than yesterday. LABS Laboratory Results - last 24 hr 12/09/19 12/10/19 12/10/19 22:30 06:00 06:00 WBC RBC Hgb Hct MCV MCH MCHC RDW Plt Count MPV Absolute Neuts (auto) Neutrophils % Lymphocytes % Monocytes % Eosinophils % Basophils % Nucleated RBC % Sodium 143 Potassium 3.7 Chloride 111 H Carbon Dioxide 28 Anion Gap 4 L BUN 27.6 H Creatinine 1.2 Est GFR (CKD-EPI)AfAm 48.40 Est GFR (CKD-EPI)NonAf 41.76 Random Glucose 123 H Calcium 7.9 L Total Bilirubin 0.2 AST 72 H ALT 64 H Alkaline Phosphatase 87 Creatine Kinase 65 Troponin I 0.23 H 0.24 H Total Protein 4.8 L Albumin 1.6 L 12/10/19 07:23 WBC 4.9 RBC 3.45 L Hgb 10.7 Hct 32.5 MCV 94.2 MCH 31.1 MCHC 33.0 RDW 14.5 Plt Count 284 MPV 8.5 Absolute Neuts (auto) 4.0 Neutrophils % 81.6 Lymphocytes % 9.4 D Monocytes % 8.1 Eosinophils % 0.5 Basophils % 0.4 Nucleated RBC % 0 Sodium Potassium Chloride Carbon Dioxide Anion Gap BUN Creatinine Est GFR (CKD-EPI)AfAm Est GFR (CKD-EPI)NonAf Random Glucose Calcium Total Bilirubin AST ALT Alkaline Phosphatase Creatine Kinase Troponin I Total Protein Albumin HOSPITAL COURSE: Date of Admission:12/01/19 Imaging: - MRI: severe central canal stenosis at C5/C6 with B/L neural foraminal stenosis and cord compression. findings suspicious for discitis/o osteomyelitis of C5/C6 with prevertebral soft tissue thickening/prevertebral fluid seen. - MRI with dov - OM of C5-C6 and possibly anterior aspect of C4. No gross paravertebral abscess identified - CT head reveals chronic lacunar infarct, without acute pathology. - Carotid duplex ultrasound - significant intimal thickening in both common carotid arteries up to the bifurcation. moderate dize plaques with calcifications of the right common carotid bifurcation, front and proximal internal carotid artery as well as large plaques with calcifications at the left common carotid bifurcation/bulb and proximal internal carotid artery without evidence of hemodynamically significant stenosis. CXR- ? pleural fluid w atelectasis/infiltrate in LLL This is an 84 y/o F with multiple comorbidities who was admitted to r/o CVA in presence of Aflutter. Full w/u for CVA did not show any Acute CVA. 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 Pt should follow up for CT spine given her recent findings on C-spine xray that showed soft tissue calcifications with neurosurgery (Dr. Xiao) as o/p as well as neuro (Dr. Perez). She was seen by ID (Azam) who placed her on ceftriaxone 2g daily X 5 wks for her OM treatment. Pt was sent home on a steroid taper per neurosurgeries requests as well. She is expected to follow up with ID regarding when exactly to d/c the abx. Furthermore, pt was monitored on tele for her pAF along with some trops that were likely due to demand ischemia from her tachycardia. Pt was also seen by cardio who would like to continue carvedilol 3.125 BID as well as pt should follow up with Dr. Murphy as o/ p. Pt on 12/09 was found to have some wheezing and a CXR found ? infiltrate/ pleural fluid but no wbc or fevers along with improvement in her wheezing with some lasix prompting her being stable enough for her d/c. She was informed that she may return at any time to the ER if she has any acute worsening of her current sx's or cp, sob, abd pain, nausea, vomiting. Date of Discharge: 12/10/19 Discharge Summary Problems reviewed: Yes Reason For Visit: ELEVATED TROPONIN LEVEL, UNABLE TO WALK,WEAKNESS Current Active Problems Cervical spinal stenosis (Acute) Hypercholesterolemia (Chronic) Hypotension (Chronic) LVH (left ventricular hypertrophy) (Chronic) Condition: Fair - Instructions Diet, Activity, Other Instructions: You were admitted for evaluation for body weakness. While you were here you had several imaging studies done (MRI, CT, Echo, Carotid). They were found to be abnormal indicating a questionable bone infection with some spinal cord tightness and inflammation. This has prompted us to place a special IV to give you antibiotics for several weeks. You should also wear a neck collar for the next 10 weeks. Medications to start taking after discharge. You will be taking ceftriaxone antibiotic for 6-8 weeks. Dose: 2g Ceftriaxone one time daily X 5 weeks upon d/c. Make sure to keep in contact with your infectious disease doctor (Dr. Nascimento) regarding how long to be on the antibiotics. Also, you will need to take your decadron (steroid) medication taper as follows: 4mg (one pill) X 3 per day for 3 days. Then 4mg(one pill) X 2 per day for 3 days. Then 4mg (one pill) X 1 per day for 3 days and then you can discontinue this medication. Total of 18 pills in 9 days. You may take oxycodone 5mg one pill every 8 hours as needed for pain. You will need to take Lipitor 20mg one time per day before bed. You will need to take carvedilol 3.125 mg twice daily once when you wake up and the next dose 12 hours later for your blood pressure and heart rate management. You will to adjust your previous home dose of warfarin to 4mg by mouth (one pill ) once daily. You should have a blood test (PT/INR) checked every 2 weeks now that your INR is stable (between 2-3). You will need to take Ipratroprium 0.8% Nebulizer as needed for wheezing daily and let your primary doctor know that you have been wheezing while here. You will need to continue all other home medications as prescribed. You will need to follow up with Infectious disease (Dr. Nascimento) in 1 week. You will need to follow up with your Primary care physician in 3-5 days. You should follow up with your research manager(Dr. Murphy) in 1 week. You should follow up with your neurosurgeon (Dr. Xiao) for possible CT (imaging ) of your neck given we did find some calcification on your bone in your neck OR if you are experiencing any signs of weakness within a week. Return to the hospital emergency room if you have any worsening of your symptoms or chest pain, shortness of breath. Referrals: Rehan Nascimento MD [Staff Physician] - Dez Xiao MD [Staff Physician] - Steven Murphy MD [Staff Physician] - 1 Week Delmi Gamez MD [Staff Physician] - 1 Week Disposition: ALF FACILITY - Home Medications Comprehensive Discharge Medication List: Ambulatory Orders Amlodipine Besylate [Norvasc -] 10 mg PO DAILY 12/01/19 Carvedilol [Coreg -] 25 mg PO BID 12/01/19 Lisinopril [Prinivil -] 40 mg PO DAILY 12/01/19 Warfarin Sodium [Coumadin] 4 mg PO UTDICT 12/01/19 Warfarin Sodium [Coumadin] 5 mg PO ASDIR 12/01/19 Cyclobenzaprine HCl 5 mg PO PRN 12/02/19 Ipratropium 0.02% Nebulizer [Atrovent 0.02% Nebulizer -] 0.5 mg IH PRN #1 vial.neb. 12/09/19 Oxycodone HCl 5 mg PO Q8H PRN #30 tablet MDD 40 12/09/19 Dexamethasone [Decadron] See Taper PO ASDIR 9 Days #18 tablet 12/10/19 - Discharge Referral Referred to [facility] No ATTENDING PHYSICIAN STATEMENT I saw and evaluated the patient. I reviewed the resident's note and discussed the case with the resident. I agree with the resident's findings and plan as documented. SUBJECTIVE: OBJECTIVE: ASSESSMENT AND PLAN:
--- NOTE | 2019-12-10 15:11 | PN ---
Teaching Attending Note Name of Resident: Wisam Moss ATTENDING PHYSICIAN STATEMENT I saw and evaluated the patient. I reviewed the resident's note and discussed the case with the resident. I agree with the resident's findings and plan as documented. SUBJECTIVE: Complains of some discomfort bilateral UEs, poor appetite. OBJECTIVE: Afebrile, Hemodynamically Stable. Signs appear progressive now with urinary retention requiring indwelling guzman. Last Vital Signs Temp Pulse Resp BP Pulse Ox 97.6 F 100 H 18 117/56 L 97 12/10/19 14:55 12/10/19 14:55 12/10/19 14:55 12/10/19 14:55 12/09/19 21:00 HEENT - Atraumatic, Normocephalic. C-Collar in place. Heart - S1, S2, HR 100 Lungs - wheeze resolved. Abdomen - Soft, non-tender. Bowel Sounds normal. Extremities - no edema, no calf tenderness. Neuro - Bilateral UE weakness 4/5. LLE 2/5, RLE 0/5 Laboratory Results - last 24 hr 12/09/19 12/10/19 12/10/19 22:30 06:00 06:00 WBC RBC Hgb Hct MCV MCH MCHC RDW Plt Count MPV Absolute Neuts (auto) Neutrophils % Lymphocytes % Monocytes % Eosinophils % Basophils % Nucleated RBC % Sodium 143 Potassium 3.7 Chloride 111 H Carbon Dioxide 28 Anion Gap 4 L BUN 27.6 H Creatinine 1.2 Est GFR (CKD-EPI)AfAm 48.40 Est GFR (CKD-EPI)NonAf 41.76 Random Glucose 123 H Calcium 7.9 L Total Bilirubin 0.2 AST 72 H ALT 64 H Alkaline Phosphatase 87 Creatine Kinase 65 Troponin I 0.23 H 0.24 H Total Protein 4.8 L Albumin 1.6 L 12/10/19 12/10/19 07:23 13:30 WBC 4.9 RBC 3.45 L Hgb 10.7 Hct 32.5 MCV 94.2 MCH 31.1 MCHC 33.0 RDW 14.5 Plt Count 284 MPV 8.5 Absolute Neuts (auto) 4.0 Neutrophils % 81.6 Lymphocytes % 9.4 D Monocytes % 8.1 Eosinophils % 0.5 Basophils % 0.4 Nucleated RBC % 0 Sodium Potassium Chloride Carbon Dioxide Anion Gap BUN Creatinine Est GFR (CKD-EPI)AfAm Est GFR (CKD-EPI)NonAf Random Glucose Calcium Total Bilirubin AST ALT Alkaline Phosphatase Creatine Kinase Troponin I 0.22 H Total Protein Albumin Current Medications Generic Name Dose Route Start Last Admin Trade Name Freq PRN Reason Stop Dose Admin Acetaminophen 650 mg 12/05/19 00:11 12/08/19 13:09 Tylenol - PO 650 mg Q6H PRN Administration Fever Or Pain Amino Acids 30 ml 12/05/19 08:00 12/10/19 10:59 Prosource No Carb Liquid Pkt PO 30 ml BID@0800,1730 MICHAEL Administration Atorvastatin Calcium 40 mg 12/05/19 22:00 12/09/19 21:16 Lipitor - PO 40 mg HS MICHAEL Administration Carvedilol 3.125 mg 12/08/19 22:00 12/10/19 10:54 Coreg - PO 3.125 mg BID MICHAEL Administration Dexamethasone 4 mg 12/10/19 14:00 12/10/19 14:26 Decadron - PO 4 mg TID MICHAEL Administration Gabapentin 100 mg 12/05/19 06:00 12/10/19 14:26 Neurontin - PO 100 mg TID MICHAEL Administration Ceftriaxone Sodium 2 gm/ 100 mls @ 100 mls/hr 12/05/19 10:00 12/10/19 10:53 Dextrose IVPB 100 mls/hr DAILY MICHAEL Administration Protocol Ipratropium [place] 1 amp 12/09/19 10:50 12/09/19 18:24 Atrovent 0.02% Nebulizer - NEB 12/16/19 10:50 1 amp Q6H PRN Administration DYSPEPSIA Lisinopril 5 mg 12/05/19 10:00 12/10/19 10:57 Prinivil PO 5 mg DAILY MICHAEL Administration Oxycodone HCl 5 mg 12/07/19 15:32 12/10/19 10:51 Roxicodone - PO 5 mg Q6H PRN Administration PAIN LEVEL 6-10 Warfarin Sodium 4 mg 12/08/19 18:00 12/09/19 18:15 Coumadin - PO 4 mg DAILY@1800 MICHAEL Administration Home Medications Medication Instructions Recorded Amlodipine Besylate [Norvasc -] 10 mg PO DAILY 12/01/19 Carvedilol [Coreg -] 25 mg PO BID 12/01/19 Lisinopril [Prinivil -] 40 mg PO DAILY 12/01/19 Warfarin Sodium [Coumadin] 4 mg PO UTDICT 12/01/19 Warfarin Sodium [Coumadin] 5 mg PO ASDIR 12/01/19 Cyclobenzaprine HCl 5 mg PO PRN 12/02/19 Ipratropium 0.02% Nebulizer 0.5 mg IH PRN #1 vial.neb. 12/09/19 [Atrovent 0.02% Nebulizer -] Oxycodone HCl 5 mg PO Q8H PRN #30 tablet MDD 40 12/09/19 Dexamethasone [Decadron] See Taper PO ASDIR 9 Days #18 12/10/19 tablet ASSESSMENT AND PLAN: 84 year old female with HTN, HLD, Atrial flutter, Hx of CVA, presented to the ED with neck pain, increasing weakness of both arms and RLE, progressed to LLE. 1. Cervical stenosis with myelopathy/Cord Compression Patient/family declines Neurosurgical intervention. Tapering course of steroid as per NeuroSx. Discussed with Dr. Xiao. Continue Neurontin and Cervical collar (for 10 weeks) Urinary retention - requiring guzman placement. Will need aggressive bowel regimen given progressive spinal symptoms/signs. 2. Septic Shock sec to C5/6 Disciitis/OM + UTI with Group B Strep Bacteremia Setic shock resolved, maintaining BP off pressors. Continue Ceftriaxone for additional 5 weeks as per ID PICC placed. For transfer to [facility]. 3. Acute on Chronic Diastolic CHF, likely sec to IV fluid hydration. CXR changes and bilateral wheeze on PE - responded to Lasix 40mg IVP x 1. No further signs of fluid overload. IV fluids stopped. 4. HTN - continue Lisinopril, Coreg. 5. HLD - Continue Lipitor. 6. Atrial flutter (Paroxysmal) On Coumadin. INR therapeutic - for INR in AM at [facility]. Continue Coreg 7. Hx CVA - continue Coumadin, Statin DVT Px - on Coumadin. Dispo - [facility] Prognosis - poor. Patient has progressive spinal symptoms, declines surgical intervention. Symptomatic treatment/support.
[2019-12-10] MEDS: WARFARIN NA 2 MG TABLET (UD) PO SCH (18:24)
[2019-12-10 18:37] VITALS: BP 110/66; PULSE 95; TEMP 98
== END 2019-12-10 18:53 | DRG 539 ==
LOC: JER 05:12 → JERBED 07:58 → J4W 15:42 → JICU 12-02 17:21 → J7W 12-04 21:14
PROVIDERS: ADMIT Internal Medicine
PROC: 02HV33Z Insertion of Infusion Device into Superior Vena Cava, Percutaneous Approach (ICD-10-PCS; principal; 2019-12-09)
PROC: B548ZZA Ultrasonography of Superior Vena Cava, Guidance (ICD-10-PCS; 2019-12-09)
DX: M46.22 Osteomyelitis of vertebra, cervical region (principal); R65.21 Severe sepsis with septic shock; A40.1 Sepsis due to streptococcus, group B; I50.33 Acute on chronic diastolic (congestive) heart failure; I48.92 Unspecified atrial flutter; H53.139 Sudden visual loss, unspecified eye; G95.29 Other cord compression; I24.8 Other forms of acute ischemic heart disease; N39.0 Urinary tract infection, site not specified; D68.9 Coagulation defect, unspecified; G95.89 Other specified diseases of spinal cord; M46.42 Discitis, unspecified, cervical region; E78.5 Hyperlipidemia, unspecified; H40.9 Unspecified glaucoma; Z79.01 Long term (current) use of anticoagulants; M43.10 Spondylolisthesis, site unspecified; Z86.73 Personal history of transient ischemic attack (TIA), and cerebral infarction without residual deficits; M48.02 Spinal stenosis, cervical region; I95.9 Hypotension, unspecified; E86.1 Hypovolemia; I48.0 Paroxysmal atrial fibrillation; I11.0 Hypertensive heart disease with heart failure
CPT/HCPCS: 36415; 36569; 70450-TC; 70551-TC; 71045-TC-FY; 72040-TC; 72125-TC; 72141-TC; 72142-TC; 77001-TC-FY; 80048; 80053; 80061; 81003; 82085; 82378; 82550; 82595; 82607; 82746; 82977; 83036; 83090; 83721; 83735; 84100; 84155; 84165; 84443; 84484; 85025; 85027; 85610; 85651; 85730; 86038; 86140; 86431; 87040; 87086; 87186; 93005; 93010; 93306-TC; 93880-TC; 94010; 94640; 95860-TC; 99285-25; A9579; C1751; G0480; J0131; J7030

== ENCOUNTER 2019-12-19 11:48 | Inpatient (IN) | payer OTHER ==
--- NOTE | 2019-12-19 12:09 | PDOC ---
History of Present Illness - General Chief Complaint: Rectal Bleed Stated Complaint: GI BLEED History Source: Patient Exam Limitations: No Limitations - History of Present Illness Initial Comments: 12/19/19 12:08 Mary Lou Garza is an 84F with PMH CVA with R-sided deficits, GBS bacteremia, Aflutter on Coumadin and Coreg, HTN, HLD, and cervical spine osteomyelitis on PICC ceftriaxone presenting with rectal and urinary bleeding. Per [facility] records and chart review, patient was recently admitted to [facility] for cervical spine osteomyelitis and sepsis as well as supratherapeutic INR, no neurosurgical intervention, discharged on 12/10/19 with a PICC and daily IV ceftriaxone to [facility]. Sent from [facility] for blood in stool and blood in urine. Patient is a poor historian and does not remember important aspects of her medical history, says she has never had a stroke and does not know about any spinal problems. Says she feels fine at this time. Patient denies any chest pain , neck pain, SOB, abdominal pain, burning with urination. family at bedside say that before her recent hospitalization she was more active , has had some confusion and weakness since being hospitalized last week and is acting at baseline, no new AMS. PMD [place] Past History - Past Medical History Allergies/Adverse Reactions: Allergies Allergy/AdvReac Type Severity Reaction Status Date / Time No Known Allergies Allergy Verified 12/01/19 05:34 Home Medications: Ambulatory Orders Amlodipine Besylate [Norvasc -] 10 mg PO DAILY 12/01/19 Carvedilol [Coreg -] 25 mg PO BID 12/01/19 Lisinopril [Prinivil -] 40 mg PO DAILY 12/01/19 Warfarin Sodium [Coumadin] 4 mg PO UTDICT 12/01/19 Warfarin Sodium [Coumadin] 5 mg PO ASDIR 12/01/19 Cyclobenzaprine HCl 5 mg PO PRN 12/02/19 Ipratropium 0.02% Nebulizer [Atrovent 0.02% Nebulizer -] 0.5 mg IH PRN #1 vial.neb. 12/09/19 Oxycodone HCl 5 mg PO Q8H PRN #30 tablet MDD 40 12/09/19 Dexamethasone [Decadron] See Taper PO ASDIR 9 Days #18 tablet 12/10/19 Acetaminophen 650 mg PO Q6H 12/19/19 Ceftriaxone 2 gm-D5w Bag 2 gm IV DAILY 12/19/19 Anemia: No Asthma: No Cancer: No Cardiac Disorders: Yes (murmur as a chils/ asymptomatic) CVA: Yes COPD: No Dementia: No Diabetes: No GI Disorders: No Disorders: No HTN: Yes Liver Disease: No Seizures: No Thyroid Disease: No - Surgical History Abdominal Surgery: No Appendectomy: No Cardiac Surgery: No Orthopedic Surgery: Yes (hip) - Immunization History Immunization Up to Date: Yes - Psycho Social/Smoking Cessation Hx Smoking History: Former smoker Have you smoked in the past 12 months: No Number of Cigarettes Smoked Daily: 3 If you are a former smoker, when did you quit?: 2 yrs 'Breaking Loose' booklet given: 12/01/19 Hx Alcohol Use: No Drug/Substance Use Hx: No Substance Use Type: Alcohol Hx Substance Use Treatment: No Review of Systems - Review of Systems Able to Perform ROS?: Yes Constitutional: No: Chills, Fever HEENTM: No: Symptoms Reported Respiratory: No: Cough, Shortness of Breath, Wheezing Cardiac (ROS): No: Chest Pain, Edema, Irregular Heart Rate, Lightheadedness, Palpitations ABD/GI: No: Nausea, Poor Appetite, Poor Fluid Intake : Yes: Hematuria. No: Burning Musculoskeletal: No: Back Pain, Neck Pain Integumentary: No: Symptoms Reported Neurological: Yes: Weakness Endocrine: No: Symptoms Reported Hematologic/Lymphatic: No: Symptoms Reported All Other Systems: Reviewed and Negative *Physical Exam - Physical Exam General Appearance: Yes: Appropriately Dressed, Thin. No: Apparent Distress HEENT: positive: EOMI, RAMAN, Normal ENT Inspection, Symmetrical, Pharynx Normal , Muffled/Hoarse voice, Hearing Grossly Normal. negative: Scleral Icterus (R), Scleral Icterus (L), Pharyngeal Erythema, Tonsillar Exudate, Tonsillar Erythema Neck: positive: Trachea midline, Normal Thyroid, Supple. negative: Tender, Rigid, Lymphadenopathy (R), Lymphadenopathy (L), Tender lateral, Tender midline Respiratory/Chest: positive: Lungs Clear, Normal Breath Sounds. negative: Chest Tender, Respiratory Distress, Accessory Muscle Use, Crackles, Rales, Rhonchi, Stridor, Wheezing Cardiovascular: positive: Regular Rhythm, Regular Rate. negative: Edema, Murmur Female Pelvic Exam: positive: other (has Adamson in place with 200cc yessi red urine, pus from urethra) Gastrointestinal/Abdominal: positive: Normal Bowel Sounds, Flat, Soft. negative : Tender, Organomegaly, Pulsatile Mass Rectal Exam: positive: heme positive stool. negative: normal rectal tone ( external anal spincter open with brown stool streake with blood leaking out, non -tender, no active bleeding), hemorrhoids Musculoskeletal: positive: Normal Inspection. negative: CVA Tenderness, Decreased Range of Motion Extremity: positive: Normal Capillary Refill, Normal Inspection, Normal Range of Motion, Pelvis Stable. negative: Tender Integumentary: positive: Normal Color, Dry, Warm, Other (Stage 1 ulcers to thoracic and lumbar spine) Neurologic: positive: nuclear medicine tech II-XII NML intact, Alert, Normal Response, Numbness ( says her sensation is decreased to R arm and leg). negative: Motor Strength 5/ 5 (poor ability to move R arm or R leg), Facial Droop ED Treatment Course - LABORATORY CBC & Chemistry Diagram: 12/19/19 13:45 12/19/19 13:45 Medical Decision Making - Medical Decision Making 12/19/19 14:06 Patient is an 84F with history of CVA with deficits, Aflutter on Coumadin, GBS bacteremia, cervical spine osteomyelitis on daily ceftriaxone, here for blood in urine and stool for the past few days. Rectal temperature is 95.7F, SBP 80s, non-tachycardic, with pus and bloody urine from urethra and mildly bloody stools, overall presentation concerning for sepsis. Per chart review patient had supratherapeutic INR, Coumadin was being withheld at [facility], last INR 8.3 on 12/15/19 per [facility] records, possible cause of bleeding. Has been getting 1g ceftriaxone daily via PICC but has clear signs of UTI despite this, last urine culture negative for infection at [facility]. Sepsis labs ordered, giving 30cc/kg IVF, ECG and CXR for eval heart condition and for PNA. 12/19/19 14:19 Labs notable for: - FOBT positive - VBG pH 7.28, CO2 70 consistent with acidosis, likely due to sepsis - lactate 2.2 - WBC 9.3 - Hgb 8.8 down from 10.7 nine days ago - INR 2.17 within range for Warfarin - UA + blood/LE consistent with UTI, giving 4.5mg Zosyn for treatment - K 5.8, giving 6U insulin with D50 and 1g calcium gluconate for treatment 12/19/19 16:[address] Chawla office for admission. 12/19/19 17:[address] Chawla's office. Spoke to Donna with hospitalist team, good for admission under Dr. Lawrence in tele. 12/19/19 18:35 Placing order for Adamson replacement. Discharge - Discharge Information Problems reviewed: Yes Clinical Impression/Diagnosis: Hyperkalemia, Lactic acidosis Osteomyelitis Qualifiers: Osteomyelitis type: unspecified type Osteomyelitis location: other site Qualified Code(s): M86.9 - Osteomyelitis, unspecified Atrial flutter Qualifiers: Atrial flutter type: typical Qualified Code(s): I48.3 - Typical atrial flutter Sepsis Qualifiers: Sepsis type: sepsis due to unspecified organism Sepsis acute organ dysfunction status: without acute organ dysfunction Qualified Code(s): A41.9 - Sepsis, unspecified organism Condition: Stable - Admission Yes - Follow up/Referral - Patient Discharge Instructions - Post Discharge Activity
[2019-12-19] MEDS ORDERED: SODIUM CHLORIDE 0.9% 500 ML INFUS.BAG IV ONE (12:32)
[2019-12-19] MEDS ORDERED: SODIUM CHLORIDE 1,837 ML IV ONE (13:29)
--- NOTE | 2019-12-19 13:59 | EKG ---
Test Reason : Blood Pressure : / mmHG Vent. Rate : 072 BPM Atrial Rate : 375 BPM P-R Int : 000 ms QRS Dur : 080 ms QT Int : 426 ms P-R-T Axes : 000 004 128 degrees QTc Int : 466 ms ATRIAL FIBRILLATION WITH PREMATURE VENTRICULAR OR ABERRANTLY CONDUCTED COMPLEXES T WAVE ABNORMALITY, CONSIDER LATERAL ISCHEMIA ABNORMAL ECG WHEN COMPARED WITH ECG OF 09-DEC-2019 18:35, CRITERIA FOR SEPTAL INFARCT ARE NO LONGER PRESENT T WAVE INVERSION NO LONGER EVIDENT IN ANTERIOR LEADS Confirmed by TARUN YOUNG MD ([id number]) on 12/19/2019 1:59:23 PM Referred By: Confirmed By:TARUN YOUNG MD
--- NOTE | 2019-12-19 14:02 | PDOC ---
Documentation entered by Cecilia Morales SCRIBE, acting as scribe for Wayne Delcid MD. Wayne Delcid MD: This documentation has been prepared by the Andrew keating Adrianna, SCRIBE, under my direction and personally reviewed by me in its entirety. I confirm that the documentation accurately reflects all work, treatment, procedures, and medical decision making performed by me. Attending Attestation - Resident Resident Name: EstefaniasullyLeon - ED Attending Attestation I have performed the following: I have examined & evaluated the patient, The case was reviewed & discussed with the resident, I agree w/resident's findings & plan, Exceptions are as noted - HPI HPI: The patient is an 84 year old female, with a significant PMH of a-flutter (on warfarin), HTN, HLD, glaucoma, GBS bacteremia, chronic back pain 2/2 spondylolisthesis, cervical spine osteomyelitis (on PICC ceftriaxone), and reported previous CVA (with right-sided deficits), who presents to the ED [facility] from [facility] for evaluation of rectal bleeding and hematuria. Patient was recently admitted to [facility] for cervical spine osteomyelitis, SEPSIS, and supratherapeutic INR. She was discharged 9 days ago with a PICC line and daily ceftriaxone. She returns today for blood in her stool and her urine. Patient is a poor historian, and denies any acute complaints while in the ED. Allergies: NKA, NKDA Surgical History: Hip orthopedic surgery Social History: Former smoker (quit 3 years ago). Denies EtOH or illicit drug use PCP: Dr. Chawla - Physicial Exam PE: Vitals: Triage vital signs reviewed General Appearance: No acute distress, well nourished, well developed Cardiac: Regular rate and rhythm, no murmurs, no rubs, no gallops Lungs: Clear to auscultation bilateral, good air movement bilaterally Abdomen: Soft, nondistended, normal bowel sounds, nontender to palpation Extremities: Full range of motion to all extremities, no cyanosis, clubbing, or edema Skin: Warm and dry, no rashes or lesions, no rash, no petechiae Psych: Normal mood, normal affect - Medical Decision Making 12/30/19 17:17 Patient on IV antibiotics for osteomyelitis presents with fatigue hypothermia and signs and symptoms consistent with sepsis Sepsis order set initiated Broad-spectrum antibiotics ordered Will admit to medicine for further management. Heart Score/ECG Review - ECG Impressions Comment:: EKG performed at 13:07 on 12/19/2019 demonstrates rate of 72bpm, Afib with premature ventricular or aberrantly conducted complexes. T wave abnormality, consider lateral ischemia.
[2019-12-19 14:10] LABS: VENOUS PH 7.28 (7.31-7.41)
[2019-12-19 14:11] LABS: VENOUS PO2 < 49 mmHg (28-48)
[2019-12-19 14:12] LABS: BASO % 0.1 % (0-2.0); EOS % 0.1 % (0-4.5); HEMATOCRIT 27.7 % (32.4-45.2); HEMOGLOBIN 8.8 GM/dL (10.7-15.3); LYMPH % 4.9 % (8-40); MCH 30.8 pg (25.7-33.7); MCHC 31.9 g/dl (32.0-36.0); MEAN CELL VOLUME 96.5 fl (80-96); MEAN PLT VOLUME 9.8 fl (7.5-11.1); MONO % 3.9 % (3.8-10.2); PLATELET COUNT 197 K/MM3 (134-434); RBC 2.87 M/mm3 (3.60-5.2); RDW 14.7 % (11.6-15.6); WHITE BLOOD COUNT 9.3 K/mm3 (4.0-10.0)
[2019-12-19 14:13] LABS: VENOUS PC02 70.8 mmHg (38-52)
[2019-12-19 14:39] LABS: INR 2.17 (0.83-1.09); PROTHROMBIN TIME (PATIENT) 25.8 SEC (9.7-13.0)
[2019-12-19 14:42] LABS: ACTIVATED PTT 33.4 SECONDS (25.2-36.5)
[2019-12-19 14:45] LABS: PH,URINE 6.5 (5.0-8.0); URINE APPEARANCE Turbid; URINE BILIRUBIN Negative (NEGATIVE); URINE COLOR Red; URINE GLUCOSE (UA) Negative (NEGATIVE); URINE KETONE Negative (NEGATIVE); URINE LEUK ESTERASE 3+ (NEGATIVE); URINE NITRITE Negative (NEGATIVE); URINE PROTEIN 2+ (NEGATIVE); URINE UROBILINOGEN 0.2 mg/dL (0.2-1.0)
[2019-12-19 15:29] LABS: ALBUMIN 1.6 g/dl (3.4-5.0); BILIRUBIN,TOTAL 0.3 mg/dL (0.2-1); BLOOD UREA NITROGEN 29.9 mg/dL (7-18); CALCIUM 7.7 mg/dL (8.5-10.1); CREATININE 0.9 mg/dL (0.55-1.3); POTASSIUM 5.8 mmol/L (3.5-5.1); TOT PROT 4.6 g/dl (6.4-8.2)
[2019-12-19] MEDS ORDERED: DEXTROSE 50%-WATER - 25 GM/50 ML VIAL IVPUSH ONE (15:32)
[2019-12-19] MEDS ORDERED: CALCIUM GLUCONATE 10% - 1,000 MG/10 ML VIAL IVPUSH ONE (15:32)
[2019-12-19] MEDS ORDERED: INSULIN REGULAR HUMAN 100 UNITS/ML *VIAL IVPUSH ONE (15:32)
[2019-12-19] MEDS ORDERED: PIPERACILLIN/TAZOB 4.5 GM 4.5 GM in DEXTROSE 5%-WATER 100 ML IVPB ONE (15:44)
[2019-12-19] MEDS ORDERED: DEXTROSE 50%-WATER - 25 GM/50 ML VIAL ONE (15:53)
[2019-12-19] MEDS ORDERED: PIPERACILLIN/TAZOB 4.5 GM 4.5 GM/100 ML BAG IVPB ONE (15:54)
[2019-12-19] MEDS ORDERED: INSULIN REGULAR HUMAN 100 UNITS/ML *VIAL ONE (15:54)
[2019-12-19] MEDS ORDERED: CALCIUM GLUCONATE 10% - 1,000 MG/10 ML VIAL ONE ×2 (15:54→16:06)
[2019-12-19 16:36] LABS: PLATELET ESTIMATE ADEQUATE
--- NOTE | 2019-12-19 17:53 | HP ---
CHIEF COMPLAINT: hematuria and bleeding via rectum. sent by [facility] PCP: Dr. Chawla HISTORY OF PRESENT ILLNESS: Patient is a 84 year old female with a significant past medical history of CVA with right sided deficits/weakness. She is bed bound at baseline and noted to also have weakness of her left lower ext. She is able to minimally move left arm. She has medical history that also includes, aflutter (on coumadin), hypertension, hyperlipidemia, recent cervical spine osteomyelitis with a picc line placement on last admission at [facility] (admitted on 12/01/2019 for sepsis, acute cervical spine osteomyelitis and supratherapeurtic INR. She was discharged on 12/10/2019). She was sent to [facility] on 12/10/2019 to continue Ceftriaxone and physical therapy but was sent back to [facility] today for rectal bleeding and hematuria. 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 She was seen by neurosurgery (Dr. Xiao). She was also seen by Dr. Nascimento (ID) and placed on ceftriaxone 2g daily for 5 weeks for osteomyelitis. Patient presents to the ED with a rectal temperature of 95.7 and placed on dylan hugger, SBP 80s with pus and bloody urine from urethra and mildly bloody stools. Overall presentation concerning for sepsis. Blood and urine cultures sent and pending. Was given Zosyn in the ED. Per chart review, patient had a supratherapeutic INR and coumadin was being withheld at [facility]. Her last INR 8.3 on 12/15/19 per [facility] records. ED course notable for: 1. rectal temperature is 95.7F SBP 80s, non-tachycardic, with pus and bloody urine from urethra and mildly bloody stools 2. lactic acidosis 2.2 3. INR of 8.3 on [facility] records, now 2.1 on [facility] labs. 4. IVF for hypotension 5. FOBT positive 6. VBG pH 7.28, CO2 70 consistent with acidosis 7. K. 5.8, treated and repeat labs pending (giving 6U insulin with D50 and 1g calcium gluconate) 8. WBC 9.3 10. hmg 8.8, down from 10.7 on recent admission 11. INR 2.17 within range for Warfarin 12. Zosyn for + UA 13. hypothermia (placed on dylan blanket) Recent Travel: none PAST MEDICAL/SURGICAL HISTORY: CVA, atrial flutter, hypertension, hyperlipidemia , cervical spine osteomyelitis Social History: Smoking: none Alcohol: none Drugs: none Allergies none No Known Allergies Allergy (Verified 12/01/19 05:34) HOME MEDICATIONS: Home Medications Medication Instructions Recorded Amlodipine Besylate [Norvasc -] 10 mg PO DAILY 12/01/19 Carvedilol [Coreg -] 25 mg PO BID 12/01/19 Lisinopril [Prinivil -] 40 mg PO DAILY 12/01/19 Warfarin Sodium [Coumadin] 4 mg PO UTDICT 12/01/19 Warfarin Sodium [Coumadin] 5 mg PO ASDIR 12/01/19 Cyclobenzaprine HCl 5 mg PO PRN 12/02/19 Ipratropium 0.02% Nebulizer 0.5 mg IH PRN #1 vial.neb. 12/09/19 [Atrovent 0.02% Nebulizer -] Oxycodone HCl 5 mg PO Q8H PRN #30 tablet MDD 40 12/09/19 Dexamethasone [Decadron] See Taper PO ASDIR 9 Days #18 12/10/19 tablet Acetaminophen 650 mg PO Q6H 12/19/19 Ceftriaxone 2 gm-D5w Bag 2 gm IV DAILY 12/19/19 PHYSICAL EXAMINATION Vital Signs - 24 hr 12/19/19 12/19/19 11:48 16:34 Temperature 95.7 F L 97.4 F L Pulse Rate 66 Pulse Rate [ 80 Left Radial] Respiratory 18 17 Rate Blood Pressure 88/53 L Blood Pressure 113/56 L [Left Arm] O2 Sat by Pulse 97 97 Oximetry (%) GENERAL: Awake, alert, speaks in a whisper, in no acute distress. HEAD: Normal with no signs of trauma. c collar in place. EYES: Pupils equal, round and reactive to light EARS, NOSE, THROAT: Ears normal, nares patent, oropharynx clear without exudates. dry mucous membranes. NECK: Normal range of motion, supple without lymphadenopathy, JVD, or masses. LUNGS: Breath sounds equal, diminished bilaterally, mild accessory muscle use. on 2 liters HEART: irregular ABDOMEN: Soft, nontender, not distended, normoactive bowel sounds, no guarding, no rebound, no masses. No hepatomegaly or splenomegaly. UPPER EXTREMITIES: able to minimally move left arm 2/5, left leg 2/5, right side hemiparesis. LOWER EXTREMITIES: +1 lower ext edema NEUROLOGICAL: slow normal speech.bed bound. PSYCHIATRIC: Cooperative. SKIN: stage 2, early stage 3 of sacrum Laboratory Results - last 24 hr 12/19/19 12/19/19 12/19/19 12:28 13:45 13:45 WBC 9.3 RBC 2.87 L Hgb 8.8 L Hct 27.7 L MCV 96.5 H MCH 30.8 MCHC 31.9 L RDW 14.7 Plt Count 197 D MPV 9.8 D Absolute Neuts (auto) 8.5 H Neutrophils % 91.0 H Neutrophils % (Manual) 88.0 H Lymphocytes % 4.9 L D Lymphocytes % (Manual) 8.0 D Monocytes % 3.9 Monocytes % (Manual) 4 Eosinophils % 0.1 Eosinophils % (Manual) 0.0 Basophils % 0.1 Basophils % (Manual) 0.0 Nucleated RBC % 0 Platelet Estimate Adequate PT with INR 25.80 H INR 2.17 H PTT (Actin FS) 33.4 VBG pH POC VBG pCO2 POC VBG pO2 VBG HCO3 VBG O2 Sat (Dilip) VBG Base Excess Sodium Potassium Chloride Carbon Dioxide Anion Gap BUN Creatinine Est GFR (CKD-EPI)AfAm Est GFR (CKD-EPI)NonAf Random Glucose Lactic Acid Calcium Total Bilirubin AST ALT Alkaline Phosphatase Troponin I Total Protein Albumin Urine Color Urine Appearance Urine pH Ur Specific [place] Urine Protein Urine Glucose (UA) Urine Ketones Urine Blood Urine Nitrite Urine Bilirubin Urine Urobilinogen Ur Leukocyte Esterase Stool Occult Blood Positive Blood Type Antibody Screen 12/19/19 12/19/19 12/19/19 13:45 13:45 13:45 WBC RBC Hgb Hct MCV MCH MCHC RDW Plt Count MPV Absolute Neuts (auto) Neutrophils % Neutrophils % (Manual) Lymphocytes % Lymphocytes % (Manual) Monocytes % Monocytes % (Manual) Eosinophils % Eosinophils % (Manual) Basophils % Basophils % (Manual) Nucleated RBC % Platelet Estimate PT with INR INR PTT (Actin FS) VBG pH POC VBG pCO2 POC VBG pO2 VBG HCO3 VBG O2 Sat (Dilip) VBG Base Excess Sodium 144 Potassium 5.8 H Chloride 109 H Carbon Dioxide 31 Anion Gap 4 L BUN 29.9 H Creatinine 0.9 Est GFR (CKD-EPI)AfAm 68.53 Est GFR (CKD-EPI)NonAf 59.13 Random Glucose 138 H Lactic Acid 2.2 H* Calcium 7.7 L Total Bilirubin 0.3 AST 151 H ALT 278 H Alkaline Phosphatase 88 Troponin I 0.15 H Total Protein 4.6 L Albumin 1.6 L Urine Color Urine Appearance Urine pH Ur Specific [place] Urine Protein Urine Glucose (UA) Urine Ketones Urine Blood Urine Nitrite Urine Bilirubin Urine Urobilinogen Ur Leukocyte Esterase Stool Occult Blood Blood Type O POSITIVE Antibody Screen Negative 12/19/19 12/19/19 13:45 13:45 WBC RBC Hgb Hct MCV MCH MCHC RDW Plt Count MPV Absolute Neuts (auto) Neutrophils % Neutrophils % (Manual) Lymphocytes % Lymphocytes % (Manual) Monocytes % Monocytes % (Manual) Eosinophils % Eosinophils % (Manual) Basophils % Basophils % (Manual) Nucleated RBC % Platelet Estimate PT with INR INR PTT (Actin FS) VBG pH 7.28 L POC VBG pCO2 70.8 H* POC VBG pO2 < 49 H VBG HCO3 32.5 H VBG O2 Sat (Dilip) 48.4 L VBG Base Excess 4.8 H Sodium Potassium Chloride Carbon Dioxide Anion Gap BUN Creatinine Est GFR (CKD-EPI)AfAm Est GFR (CKD-EPI)NonAf Random Glucose Lactic Acid Calcium Total Bilirubin AST ALT Alkaline Phosphatase Troponin I Total Protein Albumin Urine Color Red Urine Appearance Turbid Urine pH 6.5 Ur Specific [place] 1.020 Urine Protein 2+ H Urine Glucose (UA) Negative Urine Ketones Negative Urine Blood 3+ H Urine Nitrite Negative Urine Bilirubin Negative Urine Urobilinogen 0.2 Ur Leukocyte Esterase 3+ H Stool Occult Blood Blood Type Antibody Screen ASSESSMENT/PLAN: Problem List - Problem (1) GI bleed Assessment/Plan: FOBT positive with anemia Hgb 8.8 down from 10.7 nine days ago. type and screen now, repeat cbc q 6 hours hold coumadin protonix bid consider GI consult Code(s): K92.2 - GASTROINTESTINAL HEMORRHAGE, UNSPECIFIED (2) Hematuria Assessment/Plan: guzman catheter with gross hematuria Continue IVF hydration intake and output bladder ultrasound ordered Code(s): R31.9 - HEMATURIA, UNSPECIFIED (3) Hyperkalemia Assessment/Plan: K. 5.8, given insulin and calcium gluconate in ED . repeat levels now. Code(s): E87.5 - HYPERKALEMIA (4) Lactic acidosis Assessment/Plan: repeat until normalizes Code(s): E87.2 - ACIDOSIS (5) Osteomyelitis Assessment/Plan: treated with ceftriaxone 2 grams. continue per ID recommendations on last admission ID consulted (Dr Nascimento) Code(s): M86.9 - OSTEOMYELITIS, UNSPECIFIED Qualifiers: Osteomyelitis type: unspecified type Osteomyelitis location: other site Qualified Code(s): M86.9 - Osteomyelitis, unspecified (6) Sepsis Assessment/Plan: Blood and urine cultures pending given Zosyn in the ED Continue Ceftriaxone pending ID consult Code(s): A41.9 - SEPSIS, UNSPECIFIED ORGANISM Qualifiers: Sepsis type: sepsis due to unspecified organism Sepsis acute organ dysfunction status: without acute organ dysfunction Qualified Code(s): A41.9 - Sepsis, unspecified organism (7) Atrial flutter Assessment/Plan: coumadin on hold for acute bleeding monitor on tele Code(s): I48.92 - UNSPECIFIED ATRIAL FLUTTER Qualifiers: Atrial flutter type: typical Qualified Code(s): I48.3 - Typical atrial flutter (8) Hypotension Code(s): I95.9 - HYPOTENSION, UNSPECIFIED (9) Right sided weakness Assessment/Plan: physical therapy once more stable Code(s): R53.1 - WEAKNESS (10) CVA (cerebral vascular accident) Code(s): I63.9 - CEREBRAL INFARCTION, UNSPECIFIED Qualifiers: CVA mechanism: unspecified Qualified Code(s): I63.9 - Cerebral infarction, unspecified (11) Prophylactic measure Assessment/Plan: hold anticoagulation monitor on tele Code(s): Z29.9 - ENCOUNTER FOR PROPHYLACTIC MEASURES, UNSPECIFIED (12) Troponin I above reference range Assessment/Plan: no chest pain monitor on tele cardiology consulted Code(s): R79.89 - OTHER SPECIFIED ABNORMAL FINDINGS OF BLOOD CHEMISTRY Visit type - Emergency Visit Emergency Visit: Yes ED Registration Date: 12/19/19 Care time: The patient presented to the Emergency Department on the above date and was hospitalized for further evaluation of their emergent condition. - New Patient This patient is new to me today: Yes Date on this admission: 12/19/19 - Critical Care Critical Care patient: No
[2019-12-19] MEDS: SODIUM CHLORIDE 1,000 ML IV SCH (20:13)
[2019-12-19] MEDS ORDERED: PANTOPRAZOLE SODIUM 40 MG VIAL IVPUSH ONE (21:25)
[2019-12-19] MEDS: CARVEDILOL 25 MG TABLET (FP) PO SCH (22:00)
[2019-12-19] MEDS: PANTOPRAZOLE SODIUM 40 MG VIAL IVPUSH SCH (22:07)
[2019-12-19 22:53] LABS: BASO % 0.3 % (0-2.0); HEMATOCRIT 31.1 % (32.4-45.2); LYMPH % 3.2 % (8-40); MCH 30.7 pg (25.7-33.7); MCHC 32.2 g/dl (32.0-36.0); MEAN CELL VOLUME 95.5 fl (80-96); MEAN PLT VOLUME 9.2 fl (7.5-11.1); MONO % 4.6 % (3.8-10.2); NEUT % 91.9 % (42.8-82.8); PLATELET COUNT 188 K/MM3 (134-434); RBC 3.26 M/mm3 (3.60-5.2); RDW 15.1 % (11.6-15.6); WHITE BLOOD COUNT 10.1 K/mm3 (4.0-10.0)
[2019-12-20 07:09] LABS: BLOOD UREA NITROGEN 28.5 mg/dL (7-18); CALCIUM 7.5 mg/dL (8.5-10.1); CREATININE 0.8 mg/dL (0.55-1.3); POTASSIUM 4.3 mmol/L (3.5-5.1)
[2019-12-20 07:15] LABS: HEMATOCRIT 27.5 % (32.4-45.2); HEMOGLOBIN 8.9 GM/dL (10.7-15.3); MCH 31.1 pg (25.7-33.7); MCHC 32.4 g/dl (32.0-36.0); MEAN CELL VOLUME 95.9 fl (80-96); MEAN PLT VOLUME 8.9 fl (7.5-11.1); PLATELET COUNT 164 K/MM3 (134-434); RBC 2.87 M/mm3 (3.60-5.2); RDW 15.1 % (11.6-15.6)
[2019-12-20] MEDS ORDERED: DEXTROSE 5%-WATER 100 ML IVPB ONE ×2 (09:29→17:16)
[2019-12-20] MEDS: PANTOPRAZOLE SODIUM 40 MG VIAL IVPUSH SCH ×2 (09:53→21:32)
[2019-12-20] MEDS ORDERED: [UNRECOGNIZED DRUG - OTHER] IV SCH (10:00)
[2019-12-20] MEDS ORDERED: CEFTRIAXONE 2 GM IV SCH (10:00)
[2019-12-20] MEDS ORDERED: PANTOPRAZOLE SODIUM 40 MG VIAL IVPUSH SCH (10:00)
[2019-12-20] MEDS ORDERED: D5W IV SCH (10:00)
[2019-12-20] MEDS ORDERED: CEFTRIAXONE 2 GM in DEXTROSE 5%-WATER 100 ML IVPB SCH (10:00)
--- NOTE | 2019-12-20 10:24 | PN ---
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 (short form) - Note 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: ID consult dictated imp/reccd 84 yo female prior history of cva , recent admission 12/01 to 12/10- found to have cervical osteomyelitis and blood culture with grouop b strep started on ceftriaxone and discharged to [facility] on 12/10 on care home ceftriaone via picc line she is now admitted with rectal bleeding, also with hematuria (had guzman in [place] that was reportedly changed in ER) she had an elevated lactic acid of 2.3 and low bp in the ER GI bleed hematuria history of cervical osteomyelitis with group b strep bacteremia- on rocephin cannot r/o UTI no signs of picc line infection GI consult pending consider neurosurgery f/u received zosyn in ED for now will treat with zosyn to cover both group b strep and possible UTI f/u culture f/u esr/crp Problem List - Problems (1) GI bleed Code(s): K92.2 - GASTROINTESTINAL HEMORRHAGE, UNSPECIFIED Qualifiers: GI bleed type/associated pathology: anorectal hemorrhage Qualified Code(s) : K62.5 - Hemorrhage of anus and rectum (2) Hematuria Code(s): R31.9 - HEMATURIA, UNSPECIFIED (3) UTI (urinary tract infection) Code(s): N39.0 - URINARY TRACT INFECTION, SITE NOT SPECIFIED (4) Osteomyelitis of cervical spine Code(s): M46.22 - OSTEOMYELITIS OF [place], CERVICAL REGION (5) Group B streptococcal infection Code(s): A49.1 - STREPTOCOCCAL INFECTION, UNSPECIFIED SITE
[2019-12-20] MEDS: CARVEDILOL 25 MG TABLET (FP) PO SCH ×2 (11:01→21:32)
[2019-12-20] MEDS: LISINOPRIL 20 MG TABLET (FP) PO SCH (11:01)
--- NOTE | 2019-12-20 11:26 | CON.CARD ---
Consult Consult Specialty:: Cardiology Referred by:: Hospitalist Medicine Reason for Consultation:: Aflutter anticoagulation - History of Present Illness Chief Complaint: Rectal bleed and hematuria History of Present Illness: Patient is an 84 year old female with history of HTN, hypercholesterolemia, atrial flutter and CVA with right sided deficits/weakness on coumadin, recent admission 12/01 to 12/10- found to have cervical osteomyelitis and blood culture with grouop b strep, started on ceftriaxone and discharged to [place] on 12/10 on [facility] ceftriaone via picc line, now admitted with rectal bleeding, also with purulent hematuria (had guzman in ED that was reportedly changed in ER), hypothermia 95.7, INR on 12/15 was elevated over 8.3 12/15/19 but now 2.1, she had an elevated lactic acid of 2.3, K 5.8 and low sbp 80s stabilized with volume repletion. - History Source History Provided By: Medical Record Limitations to Obtaining History: Clinical Condition - Past Medical History SITE INTERPRETER: Yes: CVA Cardio/Vascular: Yes: AFIB (Atrial flutter), HTN, Hyperlipdemia - Past Surgical History Past Surgical History: Yes: Joint Replacement - Alcohol/Substance Use Hx Alcohol Use: No History of Substance Use: reports: None - Smoking History Smoking history: Former smoker Have you smoked in the past 12 months: No Aproximately how many cigarettes per day: 3 If you are a former smoker, when did you quit?: 2 yrs - Social History Usual Living Arrangement: Other (lives with family in house, previously ambulated with RW) Home Medications - Allergies Allergies/Adverse Reactions: Allergies Allergy/AdvReac Type Severity Reaction Status Date / Time No Known Allergies Allergy Verified 12/01/19 05:34 - Home Medications Home Medications: Ambulatory Orders Amlodipine Besylate [Norvasc -] 10 mg PO DAILY 12/01/19 Carvedilol [Coreg -] 25 mg PO BID 12/01/19 Lisinopril [Prinivil -] 40 mg PO DAILY 12/01/19 Warfarin Sodium [Coumadin] 4 mg PO UTDICT 12/01/19 Warfarin Sodium [Coumadin] 5 mg PO ASDIR 12/01/19 Cyclobenzaprine HCl 5 mg PO PRN 12/02/19 Ipratropium 0.02% Nebulizer [Atrovent 0.02% Nebulizer -] 0.5 mg IH PRN #1 vial.neb. 12/09/19 Oxycodone HCl 5 mg PO Q8H PRN #30 tablet MDD 40 12/09/19 Dexamethasone [Decadron] See Taper PO ASDIR 9 Days #18 tablet 12/10/19 Acetaminophen 650 mg PO Q6H 12/19/19 Ceftriaxone 2 gm-D5w Bag 2 gm IV DAILY 12/19/19 Review of Systems Unable to obtain ROS, reason: Nonverbal Vital Signs: Vital Signs Temperature 97.3 F L 12/20/19 09:38 Pulse Rate 75 12/20/19 09:38 Respiratory Rate 12/20/19 09:38 Blood Pressure 124/57 L 12/20/19 09:38 O2 Sat by Pulse Oximetry (%) 100 12/20/19 00:03 Constitutional: Yes: No Distress, Calm, Thin Neck: Yes: Supple Respiratory: Yes: Regular, Diminished Gastrointestinal: Yes: Normal Bowel Sounds, Soft Cardiovascular: Yes: Pulse Irregular JVD: No Carotid Bruit: No Heart Sounds: Yes: S1, S2 Murmur: Yes: Systolic Murmur, Grade 1 Edema: No - Other Data Labs, Other Data: CBC, BMP 12/20/19 05:30 12/20/19 06:00 INR, PTT INR 2.17 (0.83-1.09) H 12/19/19 13:45 Troponin, BNP 12/19/19 12/20/19 13:45 06:00 Troponin I 0.15 H 0.18 H Troponin, BNP 12/19/19 12/20/19 13:45 06:00 Troponin I 0.15 H 0.18 H Tele: Afib Afib @ 72 with PVC Ejection Fraction %: LVEF > or = 40 % Imaging - Results Chest X-ray: Report Reviewed (Bilateral effusions w/o congestion) Ultrasound: Report Reviewed (Normal bladder US) Problem List - Problems (1) Supratherapeutic INR Code(s): R79.1 - ABNORMAL COAGULATION PROFILE (2) GI bleed Code(s): K92.2 - GASTROINTESTINAL HEMORRHAGE, UNSPECIFIED Qualifiers: GI bleed type/associated pathology: anorectal hemorrhage Qualified Code(s) : K62.5 - Hemorrhage of anus and rectum (3) Hematuria Code(s): R31.9 - HEMATURIA, UNSPECIFIED (4) Hyperkalemia Code(s): E87.5 - HYPERKALEMIA (5) Atrial flutter Code(s): I48.92 - UNSPECIFIED ATRIAL FLUTTER Qualifiers: Atrial flutter type: typical Qualified Code(s): I48.3 - Typical atrial flutter (6) Hypercholesterolemia Code(s): E78.00 - PURE HYPERCHOLESTEROLEMIA, UNSPECIFIED (7) Hypotension Code(s): I95.9 - HYPOTENSION, UNSPECIFIED (8) LVH (left ventricular hypertrophy) Code(s): I51.7 - CARDIOMEGALY (9) Demand ischemia Code(s): I24.8 - OTHER FORMS OF ACUTE ISCHEMIC HEART DISEASE (10) CVA (cerebral vascular accident) Code(s): I63.9 - CEREBRAL INFARCTION, UNSPECIFIED Qualifiers: CVA mechanism: unspecified Qualified Code(s): I63.9 - Cerebral infarction, unspecified (11) HTN (hypertension) Code(s): I10 - ESSENTIAL (PRIMARY) HYPERTENSION Qualifiers: Hypertension type: essential hypertension Qualified Code(s): I10 - Essential (primary) hypertension Assessment/Plan 12/01/19 Normal LV size with severe LVH with normal LV fxn, severe LAE, mild MR , TR, [place], possible infiltrative heart disease 12/04/2019: C spine MRI - multilevel DDD; C5-6 vertebral edema, central disc protrusion C4-5 and C5-6; moderate to marked C5-6 (L > R) central and foramenal stenosis and mild-moderate C4-5 stenosis, extensive spondylosis; loss of lordosis; no clear cord edema or myelomalacia 1. GI bleed and hematuria in context of supratherapeutic INR 2. Cervical spinal cord compression C5/C6 osteomyelitis/discitis, cannot exclude UTI 3. Group B strep bacteremia on rocephin 4. HTN 5. Hypercholesterolemia 6. Paroxysmal atrial fibrillation/flutter [id number] score of 6-7 7. CVA 8. Concentric LVH ? rule out infiltrative heart disease 9. Abnormal ECG suggests CAD 10. Demand ischemia with elevated troponin PLAN: 1. Empiric zosyn course via PICC line for both group b strep and possible UTI and C-collar for immobilization, f/u C&S 2. Continue Carvedilol 25 mg BID, Norvasc 10 qd, Lipitor 40 mg QHS and Lisinopril 40 mg QD once hyperkalemia resolves with uptitration as hemodynamics tolerate 3. GI consult pending, monitor Hgb 4. Hold Coumadin pending hemostasis, consider switch to DOAC given suboptimal INR management 5. May consider Tm99 PYP study to rule out amyloidosis once clinically stable 6. Trend trops to document peak 7. Thank you for consultative opportunity
[2019-12-20 12:06] LABS: OVALOCYTE 1+; TEAR DROP CELLS 1+
[2019-12-20 12:07] LABS: PLATELET ESTIMATE ADEQUATE
--- NOTE | 2019-12-20 12:45 | PN ---
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, Physician - Current Medication List Current Medications: Active Medications Carvedilol (Coreg -) 25 mg PO BID [facility] Last Admin: 12/20/19 11:01 Dose: 25 mg Sodium Chloride (Normal Saline -) 1,000 mls @ 100 mls/hr IV ASDIR [facility] Last Admin: 12/19/19 20:13 Dose: 100 mls/hr Piperacillin Sod/Tazobactam (Sod 4.5 gm/ Dextrose) 100 mls @ 200 mls/hr IVPB Q8H-IV MICHAEL; Protocol Lisinopril (Prinivil) 40 mg PO DAILY [facility] Last Admin: 12/20/19 11:01 Dose: 40 mg Pantoprazole Sodium (Protonix Iv) 40 mg IVPUSH BID [facility] Last Admin: 12/20/19 09:53 Dose: 40 mg - Objective Vital Signs: Vital Signs Temperature 97.3 F L 12/20/19 09:38 Pulse Rate 75 12/20/19 09:38 Respiratory Rate 20 12/20/19 09:38 Blood Pressure 124/57 L 12/20/19 09:38 O2 Sat by Pulse Oximetry (%) 100 12/20/19 00:03 Labs: CBC, BMP 12/20/19 05:30 12/20/19 06:00 INR, PTT INR 2.17 (0.83-1.09) H 12/19/19 13:45
--- NOTE | 2019-12-20 12:49 | CON.GI ---
Consult Consult Specialty:: Gastroenterology ( covernig the [facility] GI service) Referred by:: Dr Aubrey Dougherty Reason for Consultation:: rectal bleeding - History of Present Illness Chief Complaint: offers no complaints History of Present Illness: 84 F is readmitted for LLE weakness after recent admission for cervical myelopathy and osteomyelitis. She has developed rectal bleeding and has a drop in Hb from 10 to 8.8. She is unable to give a pertinent history so I spoke with her son , Herve. He told me that Mary Lou has never had rectal bleeding braulio ter GI problems. She has never had an EGD or a colonoscopy. He current mental status represents a marked deterioration from a month ago when she was functionally independent. 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: Yes: CVA Cardio/Vascular: Yes: AFIB (Atrial flutter), HTN, Hyperlipdemia - Past Surgical History Past Surgical History: Yes: Joint Replacement (hip replacement) - Alcohol/Substance Use Hx Alcohol Use: Yes (quit 3 yars ago) History of Substance Use: reports: None - Smoking History Smoking history: Former smoker Have you smoked in the past 12 months: No Aproximately how many cigarettes per day: 3 If you are a former smoker, when did you quit?: 2 yrs - Social History Usual Living Arrangement: [facility] (lives with family in house, previously ambulated with RW) ADL: Support Services 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 Place of : [facility] Home Medications - Allergies Allergies/Adverse Reactions: Allergies Allergy/AdvReac Type Severity Reaction Status Date / Time No Known Allergies Allergy Verified 12/01/19 05:34 - Home Medications Home Medications: Ambulatory Orders Amlodipine Besylate [Norvasc -] 10 mg PO DAILY 12/01/19 Carvedilol [Coreg -] 25 mg PO BID 12/01/19 Lisinopril [Prinivil -] 40 mg PO DAILY 12/01/19 Warfarin Sodium [Coumadin] 4 mg PO UTDICT 12/01/19 Warfarin Sodium [Coumadin] 5 mg PO ASDIR 12/01/19 Cyclobenzaprine HCl 5 mg PO PRN 12/02/19 Ipratropium 0.02% Nebulizer [Atrovent 0.02% Nebulizer -] 0.5 mg IH PRN #1 vial.neb. 12/09/19 Oxycodone HCl 5 mg PO Q8H PRN #30 tablet MDD 40 12/09/19 Dexamethasone [Decadron] See Taper PO ASDIR 9 Days #18 tablet 12/10/19 Acetaminophen 650 mg PO Q6H 12/19/19 Ceftriaxone 2 gm-D5w Bag 2 gm IV DAILY 12/19/19 Review of Systems Unable to obtain ROS, reason: noncommunicative Physical Exam-GI Vital Signs: Vital Signs Temperature 97.3 F L 12/20/19 09:38 Pulse Rate 75 12/20/19 09:38 Respiratory Rate 20 12/20/19 09:38 Blood Pressure 124/57 L 12/20/19 09:38 O2 Sat by Pulse Oximetry (%) 100 12/20/19 00:03 CBC, BMP 12/20/19 05:30 12/20/19 06:00 Current Medications Generic Name Dose Route Start Last Admin Trade Name Freq PRN Reason Stop Dose Admin Carvedilol 25 mg 12/19/19 22:00 12/20/19 11:01 Coreg - PO 25 mg BID MICHAEL Administration Sodium Chloride 1,000 mls @ 100 mls/hr 12/19/19 19:00 12/19/19 20:13 Normal Saline - IV 100 mls/hr ASDIR MICHAEL Administration Piperacillin Sod/Tazobactam 100 mls @ 200 mls/hr 12/20/19 18:00 Sod 4.5 gm/ Dextrose IVPB Q8H-IV MICHAEL Protocol Lisinopril 40 mg 12/20/19 10:00 12/20/19 11:01 Prinivil PO 40 mg DAILY MICHAEL Administration Pantoprazole Sodium 40 mg 12/19/19 22:00 12/20/19 09:53 Protonix Iv IVPUSH 40 mg BID MICHAEL Administration Constitutional: Yes: Other (noncommunicatoive,. mumbling responses) Eyes: Yes: Conjunctiva Clear HENT: Yes: Atraumatic Neck: Yes: Other (neck brace not removed) Cardiovascular: Yes: Pulse Irregular Respiratory: Yes: CTA Bilaterally Gastrointestinal Inspection: Yes: WNL ...Auscultate: Yes: Normoactive Bowel Sounds ...Palpate: Yes: Soft, Other (nontender) ...Rectal Exam: Yes: Guaiac Positive (hard fecal impaction with fresh blood, palaphble hemorrhoids) Labs: CBC, BMP 12/20/19 05:30 12/20/19 06:00 INR, PTT INR 2.17 (0.83-1.09) H 12/19/19 13:45 Problem List - Problems (1) Hematochezia Code(s): K92.1 - MELENA (2) Fecal impaction in rectum Code(s): K56.41 - FECAL IMPACTION (3) Constipation Code(s): K59.00 - CONSTIPATION, UNSPECIFIED (4) Altered mental status Code(s): R41.82 - ALTERED MENTAL STATUS, UNSPECIFIED (5) Hematuria Code(s): R31.9 - HEMATURIA, UNSPECIFIED (6) Osteomyelitis Code(s): M86.9 - OSTEOMYELITIS, UNSPECIFIED Qualifiers: Osteomyelitis type: unspecified type Osteomyelitis location: other site Qualified Code(s): M86.9 - Osteomyelitis, unspecified (7) Atrial flutter Code(s): I48.92 - UNSPECIFIED ATRIAL FLUTTER Qualifiers: Atrial flutter type: typical Qualified Code(s): I48.3 - Typical atrial flutter (8) Cervical spinal stenosis Code(s): M48.02 - SPINAL STENOSIS, CERVICAL REGION (9) Hypercholesterolemia Code(s): E78.00 - PURE HYPERCHOLESTEROLEMIA, UNSPECIFIED (10) Spondylolisthesis of cervical region Code(s): M43.12 - SPONDYLOLISTHESIS, CERVICAL REGION (11) CVA (cerebral vascular accident) Code(s): I63.9 - CEREBRAL INFARCTION, UNSPECIFIED Qualifiers: CVA mechanism: unspecified Qualified Code(s): I63.9 - Cerebral infarction, unspecified (12) HTN (hypertension) Code(s): I10 - ESSENTIAL (PRIMARY) HYPERTENSION Qualifiers: Hypertension type: essential hypertension Qualified Code(s): I10 - Essential (primary) hypertension Assessment/Plan Assessment: - I suspect that Mary Lou's bleeding is hemorrhoidal in origin but it could alternatively prove to be a stercoral rectal ulcer. I discussed this with her son, Herve and explained that colonoscopy is usually undertaken to investigate bleeding to exclude an underlying neoplasm. He replied that his mother would have refused this and does not want her subjected to colonoscopy. - Part of her anemia may also reflect her hematuria note in her Adamson bag Plan: -- Manual fecal disempaction performed and two mineral oil enemas placed
[2019-12-20] MEDS ORDERED: MINERAL OIL ENEMA 133 ML ENEMA PR ONE (13:13)
[2019-12-20] MEDS ORDERED: VANCOMYCIN 1 GRAM (PRE-DOCKED) 1,000 MG/250 ML BAG IVPB ONE (14:30)
--- NOTE | 2019-12-20 14:45 | PN ---
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, Physician Chief Complaint: EVENTS AND NOTES REVIEWED DR JACKIE HI IN ROOM FOR FECAL DISIMPACTION - Current Medication List Current Medications: Active Medications Carvedilol (Coreg -) 25 mg PO BID [facility] Last Admin: 12/20/19 11:01 Dose: 25 mg Sodium Chloride (Normal Saline -) 1,000 mls @ 100 mls/hr IV ASDIR [facility] Last Admin: 12/19/19 20:13 Dose: 100 mls/hr Piperacillin Sod/Tazobactam (Sod 4.5 gm/ Dextrose) 100 mls @ 200 mls/hr IVPB Q8H-IV MICHAEL; Protocol Vancomycin HCl (Vancomycin (Pre-Docked)) 1,000 mg in 250 mls @ 166.667 mls/hr IVPB ONCE ONE; Protocol Stop: 12/20/19 15:59 Lisinopril (Prinivil) 40 mg PO DAILY [facility] Last Admin: 12/20/19 11:01 Dose: 40 mg Pantoprazole Sodium (Protonix Iv) 40 mg IVPUSH BID [facility] Last Admin: 12/20/19 09:53 Dose: 40 mg Polyethylene Glycol (Miralax (For Daily Use) -) 17 gm PO TID [facility] - Objective Vital Signs: Vital Signs Temperature 97.3 F L 12/20/19 09:38 Pulse Rate 75 12/20/19 09:38 Respiratory Rate 20 12/20/19 09:38 Blood Pressure 124/57 L 12/20/19 09:38 O2 Sat by Pulse Oximetry (%) 99 12/20/19 09:00 Constitutional: Yes: Moderate Distress Neck: Yes: Other (CERVICAL COLLAR) Cardiovascular: Yes: Pulse Irregular Respiratory: Yes: Diminished Gastrointestinal: Yes: Distention Genitourinary: Yes: Adamson Present, Hematuria Musculoskeletal: Yes: Muscle Weakness Integumentary: Yes: Other Neurological: Yes: Pre-Existing Deficit Labs: CBC, BMP 12/20/19 05:30 12/20/19 06:00 INR, PTT INR 2.17 (0.83-1.09) H 12/19/19 13:45 Assessment/Plan GI BLEED ANEMIA HEMATUREA ATRIAL FLUTTER OLD CVA OSTEOMYELITIS FECAL IMPACTION PLAN: HOLD COUMADIN MONITOR LABS AND TRANSFUSE PRBC NEEDED IV ABX PER ID /GI EVAL APPRECIATED ON TELE CARDIAC EVAL APPRECIATED ADVANCED DIRECTIVES NEED TO BE DISCUSSED WITH FAMILY.
[2019-12-20] MEDS: POLYETHYLENE GLYCOL 3350 119 GM BTL PO SCH ×2 (16:18→21:32)
--- NOTE | 2019-12-20 16:23 | CONS ---
INFECTIOUS DISEASE CONSULTATION DATE OF CONSULTATION: DATE OF DICTATION: 12/20/2019 HISTORY OF PRESENT ILLNESS: This is an 84-year-old female. Past medical history of CVA. Recent admission December 01 to December 10. She was found to have cervical osteomyelitis and blood cultures with group B strep. She was started on ceftriaxone and discharged to the long term, on December 10, on long-term ceftriaxone via PICC line. She is now admitted with rectal bleeding, also with hematuria. She had a Adamson in the long term that was reportedly changed in the ER. She was noted to have cloudy, bloody urine. Her INR on December 15 at the long term was elevated over 8, but now yesterday was noted to be 2.1. She had an elevated lactic acid of 2.3, as well, and low blood pressure on arrival to the ER. She was given some fluids. She was given Zosyn for possible UTI. I am asked to see her. GI has been consulted for her GI bleeding. ALLERGIES: She has no known drug allergies. PAST MEDICAL HISTORY: Notable for hypertension, hypercholesterolemia, atrial flutter, CVA with right-sided deficits. She has a history of hyperlipidemia and she has had joint replacement. Most recently, she was diagnosed with the cervical osteomyelitis. SOCIAL HISTORY: There is no history of alcohol use. She is a former smoker. She quit 2 years ago. She was living with her family, and after the last admission, was admitted to the long term. MEDICATIONS: Include amlodipine, Coreg, lisinopril, Coumadin, cyclobenzaprine. She was on a Decadron taper at the time of discharge on December 10 and she was discharged on ceftriaxone 2 g which she was getting via PICC line at the long term. REVIEW OF SYSTEMS: She denies any pain. She is otherwise awake. She has no fever. PHYSICAL EXAMINATION: Vital Signs: Her temperature is 97.3, pulse of 75, blood pressure 124/57, respiratory rate is 20. She is saturating 99%. She has a cervical collar in place. HEENT: She is normocephalic. Her eyes are anicteric. Neck: I cannot evaluate her neck. She is wearing a rigid cervical collar. Lungs: Have diminished breath sounds at the bases. Heart: Regular rate and rhythm. Abdomen: Soft. Genitourinary: She has a Adamson in place that is draining blood-tinged urine. Extremities: Without edema. There is no evidence of any erythema or discomfort at the PICC line site, so she has no signs of PICC line infection. LABORATORY DATA: Notable for a white count of 9000, hemoglobin is 8.9, platelets are 164. INR is 2. BUN and creatinine are 28 and 0.8. Lactic acid was 2.3, is now 1.7. Urinalysis has 3+ leukocyte esterase. Stool occult blood is positive. Urine and blood cultures are pending. IMAGING: Chest x-ray shows satisfactory film with bilateral pleural effusions. In summary, this is an 84-year-old woman with a GI bleed, hematuria, history of cervical osteomyelitis, with group B strep bacteremia, on Rocephin. Cannot rule out UTI. GI consultation is pending. Would consider Neurosurgery followup. She received Zosyn in the ER. For now, will treat with Zosyn to cover both group B strep and possible UTI. Would follow up her cultures. Follow up her sedimentation rate and CRP. Further recommendations to follow. Zhen [id number]
[2019-12-20] MEDS ORDERED: PIPERACILLIN/TAZOBACTAM 4.5 GM VIAL IVPB ONE (17:16)
[2019-12-20] MEDS: PIPERACILLIN/TAZOB 4.5 GM 4.5 GM in DEXTROSE 5%-WATER 100 ML IVPB SCH (17:48)
[2019-12-20] MEDS: SODIUM CHLORIDE 1,000 ML IV SCH ×2 (17:52→21:31)
[2019-12-21] MEDS ORDERED: PIPERACILLIN/TAZOBACTAM 4.5 GM VIAL IVPB ONE ×3 (01:21→17:05)
[2019-12-21] MEDS ORDERED: DEXTROSE 5%-WATER 100 ML IVPB ONE ×3 (01:22→17:05)
[2019-12-21] MEDS: PIPERACILLIN/TAZOB 4.5 GM 4.5 GM in DEXTROSE 5%-WATER 100 ML IVPB SCH ×3 (01:35→17:08)
[2019-12-21] MEDS: POLYETHYLENE GLYCOL 3350 119 GM BTL PO SCH ×3 (06:09→22:16)
[2019-12-21 07:00] LABS: HEMATOCRIT 30.7 % (32.4-45.2); HEMOGLOBIN 9.8 GM/dL (10.7-15.3); MCH 30.7 pg (25.7-33.7); MCHC 31.9 g/dl (32.0-36.0); MEAN CELL VOLUME 96.1 fl (80-96); MEAN PLT VOLUME 9.8 fl (7.5-11.1); PLATELET COUNT 160 K/MM3 (134-434); RDW 14.9 % (11.6-15.6)
[2019-12-21 07:39] LABS: ALBUMIN 1.7 g/dl (3.4-5.0); BILIRUBIN,TOTAL 0.4 mg/dL (0.2-1); BLOOD UREA NITROGEN 27.4 mg/dL (7-18); CALCIUM 7.7 mg/dL (8.5-10.1); CREATININE 0.9 mg/dL (0.55-1.3); POTASSIUM 4.5 mmol/L (3.5-5.1); TOT PROT 4.3 g/dl (6.4-8.2)
[2019-12-21 08:29] LABS: ERYTHROCYTE SEDIMENTATION RATE 23 mm/hr (0-30)
[2019-12-21] MEDS: PANTOPRAZOLE SODIUM 40 MG VIAL IVPUSH SCH ×2 (09:26→22:16)
[2019-12-21] MEDS: LISINOPRIL 20 MG TABLET (FP) PO SCH (09:27)
[2019-12-21] MEDS: CARVEDILOL 25 MG TABLET (FP) PO SCH ×2 (09:27→22:16)
--- NOTE | 2019-12-21 10:14 | PN ---
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, Physician Chief Complaint: AWAKE ALERT IN BED WITH CERVICAL COLLAR OFFERS NO COMPLAINTS - Current Medication List Current Medications: Active Medications Carvedilol (Coreg -) 25 mg PO BID [facility] Last Admin: 12/21/19 09:27 Dose: 25 mg Sodium Chloride (Normal Saline -) 1,000 mls @ 100 mls/hr IV ASDIR [facility] Last Admin: 12/20/19 21:31 Dose: Not Given Piperacillin Sod/Tazobactam (Sod 4.5 gm/ Dextrose) 100 mls @ 200 mls/hr IVPB Q8H-IV MICHAEL; Protocol Last Admin: 12/21/19 09:26 Dose: 200 mls/hr Lisinopril (Prinivil) 40 mg PO DAILY [facility] Last Admin: 12/21/19 09:27 Dose: 40 mg Pantoprazole Sodium (Protonix Iv) 40 mg IVPUSH BID [facility] Last Admin: 12/21/19 09:26 Dose: 40 mg Polyethylene Glycol (Miralax (For Daily Use) -) 17 gm PO TID [facility] Last Admin: 12/21/19 06:09 Dose: 17 grams - Objective Vital Signs: Vital Signs Temperature 98.2 F 12/21/19 09:33 Pulse Rate 72 12/21/19 09:33 Respiratory Rate 20 12/21/19 09:33 Blood Pressure 117/58 L 12/21/19 09:33 O2 Sat by Pulse Oximetry (%) 100 12/21/19 10:00 HENT: Yes: Other (CERVICAL COLLAR) Cardiovascular: Yes: Regular Rate and Rhythm Respiratory: Yes: CTA Bilaterally Gastrointestinal: Yes: Soft Genitourinary: Yes: Adamson Present, Hematuria Musculoskeletal: Yes: Muscle Weakness Neurological: Yes: Pre-Existing Deficit, Weakness Labs: CBC, BMP 12/21/19 05:30 12/21/19 05:30 INR, PTT INR 2.17 (0.83-1.09) H 12/19/19 13:45 Problem List - Problems (1) Altered mental status Code(s): R41.82 - ALTERED MENTAL STATUS, UNSPECIFIED (2) Constipation Code(s): K59.00 - CONSTIPATION, UNSPECIFIED (3) Fecal impaction in rectum Code(s): K56.41 - FECAL IMPACTION (4) GI bleed Code(s): K92.2 - GASTROINTESTINAL HEMORRHAGE, UNSPECIFIED Qualifiers: GI bleed type/associated pathology: anorectal hemorrhage Qualified Code(s) : K62.5 - Hemorrhage of anus and rectum (5) Hematochezia Code(s): K92.1 - MELENA (6) Hematuria Code(s): R31.9 - HEMATURIA, UNSPECIFIED (7) Hyperkalemia Code(s): E87.5 - HYPERKALEMIA (8) Lactic acidosis Code(s): E87.2 - ACIDOSIS (9) Osteomyelitis Code(s): M86.9 - OSTEOMYELITIS, UNSPECIFIED Qualifiers: Osteomyelitis type: unspecified type Osteomyelitis location: other site Qualified Code(s): M86.9 - Osteomyelitis, unspecified (10) Troponin I above reference range Code(s): R79.89 - OTHER SPECIFIED ABNORMAL FINDINGS OF BLOOD CHEMISTRY Assessment/Plan IV ABX PER ID CBC SHOWS H/H STABLE PATIENT IS COMFORTABLE AND GI WORKUP IN PROGRESS FOR HEMATOCHEZIA AND HEMATUREA. PPI IV PROTONIX AND COUMADIN ON HOLD FOR NOW I WILL STOP AC FOR NOW UNTIL WORKUP COMPLETE AND WE WILL NEED TO WEIGH THE BENEFIT VS THE RISKS BEING ON AC. TOLERATING PO DIET ON STOOL SOFTENERS AND HYDRATION
--- NOTE | 2019-12-21 10:45 | PN ---
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 (short form) - Note 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: Imore alert and resonsive no complaints disimpaction yesterday no further rectal bleeding still with blood tinged urine Vital Signs Period Temp Pulse Resp BP Sys/Hutton Pulse Ox Last 24 Hr 96.7 F-98.2 F 72-77 18-20 97-120/50-61 100-100 cor-rrr cervical collar lungs clear abd soft,nt, no ruq pain on exam ext trace edema CBC, BMP 12/21/19 05:30 12/21/19 05:30 Microbiology 12/19/19 13:45 Blood - Peripheral Venous Blood Culture - Preliminary Staphylococcus Coagulase Neg 12/19/19 13:45 Blood - Peripheral Venous Blood Culture - Preliminary NO GROWTH OBTAINED AFTER 24 HOURS, INCUBATION TO CONTINUE FOR 4 DAYS. 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
--- NOTE | 2019-12-21 11:10 | PN ---
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, Physician History of Present Illness: Patient underwent disimpaction yesterday without further rectal bleeding, still with blood tinged urine. - Current Medication List Current Medications: Active Medications Carvedilol (Coreg -) 25 mg PO BID [facility] Last Admin: 12/21/19 09:27 Dose: 25 mg Sodium Chloride (Normal Saline -) 1,000 mls @ 100 mls/hr IV ASDIR [facility] Last Admin: 12/20/19 21:31 Dose: Not Given Piperacillin Sod/Tazobactam (Sod 4.5 gm/ Dextrose) 100 mls @ 200 mls/hr IVPB Q8H-IV MICHAEL; Protocol Lisinopril (Prinivil) 40 mg PO DAILY [facility] Last Admin: 12/21/19 09:27 Dose: 40 mg Pantoprazole Sodium (Protonix Iv) 40 mg IVPUSH BID [facility] Last Admin: 12/21/19 09:26 Dose: 40 mg Polyethylene Glycol (Miralax (For Daily Use) -) 17 gm PO TID [facility] Last Admin: 12/21/19 06:09 Dose: 17 grams - Objective Vital Signs: Vital Signs Temperature 98.2 F 12/21/19 09:33 Pulse Rate 72 12/21/19 09:33 Respiratory Rate 20 12/21/19 09:33 Blood Pressure 117/58 L 12/21/19 09:33 O2 Sat by Pulse Oximetry (%) 100 12/21/19 10:00 Constitutional: Yes: No Distress, Calm, Thin Neck: Yes: Supple Cardiovascular: Yes: Pulse Irregular Respiratory: Yes: Regular, Diminished Gastrointestinal: Yes: Soft, Hypoactive Bowel Sounds Edema: No Labs: CBC, BMP 12/21/19 05:30 12/21/19 05:30 INR, PTT INR 2.17 (0.83-1.09) H 12/19/19 13:45 - ....Imaging EKG: Report Reviewed (Tele: Afib) Problem List - Problems (1) Supratherapeutic INR Code(s): R79.1 - ABNORMAL COAGULATION PROFILE (2) GI bleed Code(s): K92.2 - GASTROINTESTINAL HEMORRHAGE, UNSPECIFIED Qualifiers: GI bleed type/associated pathology: anorectal hemorrhage Qualified Code(s) : K62.5 - Hemorrhage of anus and rectum (3) Hematuria Code(s): R31.9 - HEMATURIA, UNSPECIFIED (4) Hyperkalemia Code(s): E87.5 - HYPERKALEMIA (5) Atrial flutter Code(s): I48.92 - UNSPECIFIED ATRIAL FLUTTER Qualifiers: Atrial flutter type: typical Qualified Code(s): I48.3 - Typical atrial flutter (6) Hypercholesterolemia Code(s): E78.00 - PURE HYPERCHOLESTEROLEMIA, UNSPECIFIED (7) Hypotension Code(s): I95.9 - HYPOTENSION, UNSPECIFIED (8) LVH (left ventricular hypertrophy) Code(s): I51.7 - CARDIOMEGALY (9) Demand ischemia Code(s): I24.8 - OTHER FORMS OF ACUTE ISCHEMIC HEART DISEASE (10) CVA (cerebral vascular accident) Code(s): I63.9 - CEREBRAL INFARCTION, UNSPECIFIED Qualifiers: CVA mechanism: unspecified Qualified Code(s): I63.9 - Cerebral infarction, unspecified (11) HTN (hypertension) Code(s): I10 - ESSENTIAL (PRIMARY) HYPERTENSION Qualifiers: Hypertension type: essential hypertension Qualified Code(s): I10 - Essential (primary) hypertension Assessment/Plan 12/01/19 Normal LV size with severe LVH with normal LV fxn, severe LAE, mild MR , TR, AK, possible infiltrative heart disease 12/04/2019: C spine MRI - multilevel DDD; C5-6 vertebral edema, central disc protrusion C4-5 and C5-6; moderate to marked C5-6 (L > R) central and foramenal stenosis and mild-moderate C4-5 stenosis, extensive spondylosis; loss of lordosis; no clear cord edema or myelomalacia 1. GI bleed and hematuria in context of supratherapeutic INR 2. Cervical spinal cord compression C5/C6 osteomyelitis/discitis, cannot exclude UTI 3. Group B strep bacteremia on rocephin 4. HTN 5. Hypercholesterolemia 6. Paroxysmal atrial fibrillation/flutter [id number] score of 6-7 7. CVA 8. Concentric LVH ? rule out infiltrative heart disease 9. Abnormal ECG suggests CAD 10. Demand ischemia with elevated troponin 11. Abnl LFTs PLAN: 1. Empiric zosyn course via PICC line for both group b strep and possible UTI and C-collar for immobilization, f/u C&S 2. Continue Carvedilol 25 mg BID and Lisinopril 40 mg QD since hyperkalemia resolved with uptitration as hemodynamics tolerate 3. GI consult pending, monitor Hgb 4. Hold Coumadin pending hemostasis, consider switch to DOAC given suboptimal INR management once hemostasis assured 5. May consider Tm99 PYP study to rule out amyloidosis once clinically stable 6. Trend trops to document peak, f/u abd US, Lipitor held due to abnl LFTs
[2019-12-21] MEDS ORDERED: oxyCODONE HCL 5 MG TABLET PO PRN (15:16)
[2019-12-21] MEDS: SODIUM CHLORIDE 1,000 ML IV SCH ×2 (15:35→20:18)
--- NOTE | 2019-12-21 19:11 | HOSP ---
Subjective - Review of Symptoms General: Yes: Other Pulmonary: Yes: Dyspnea Cardiovascular: Yes: Other Gastrointestinal: Yes: Other Musculoskeletal: Yes: Muscle Weakness, Other Neurological: Yes: Weakness Physical Examination Vital Signs: Vital Signs Temperature 97.3 F L 12/21/19 18:00 Pulse Rate 75 12/21/19 18:00 Respiratory Rate 18 12/21/19 18:00 Blood Pressure 108/81 12/21/19 18:00 O2 Sat by Pulse Oximetry (%) 100 12/21/19 10:00 Constitutional: Yes: Calm Labs: CBC, BMP 12/21/19 05:30 12/21/19 05:30 Hospitalist Encounter Assessment: Received a phone call from primary RN to report a call from ultrasound that patient has a right basilic vein thrombus by the region of the picc line. reviewed ultrasound report on exam, patient is awake, alert, in no acute distress right arm edema, mild tenderness, cool to touch + positive pulses right picc line removed intact and discarded, minimally bleeding and sterile pressure dressing applied patient tolerated procedure well vascular consulted per primary RN
[2019-12-22] MEDS ORDERED: PIPERACILLIN/TAZOBACTAM 4.5 GM VIAL IVPB ONE ×3 (00:28→17:56)
[2019-12-22] MEDS ORDERED: DEXTROSE 5%-WATER 100 ML IVPB ONE ×3 (00:29→17:56)
[2019-12-22] MEDS: PIPERACILLIN/TAZOB 4.5 GM 4.5 GM in DEXTROSE 5%-WATER 100 ML IVPB SCH ×3 (01:09→17:56)
[2019-12-22] MEDS: POLYETHYLENE GLYCOL 3350 119 GM BTL PO SCH ×2 (06:28→13:43)
[2019-12-22 07:08] LABS: HEMATOCRIT 29.9 % (32.4-45.2); HEMOGLOBIN 9.5 GM/dL (10.7-15.3); MCH 30.8 pg (25.7-33.7); MCHC 31.9 g/dl (32.0-36.0); MEAN CELL VOLUME 96.3 fl (80-96); MEAN PLT VOLUME 9.5 fl (7.5-11.1); PLATELET COUNT 124 K/MM3 (134-434); WHITE BLOOD COUNT 6.8 K/mm3 (4.0-10.0)
[2019-12-22 07:52] LABS: ALBUMIN 1.6 g/dl (3.4-5.0); BILIRUBIN,TOTAL 0.3 mg/dL (0.2-1); BLOOD UREA NITROGEN 27.4 mg/dL (7-18); CALCIUM 7.8 mg/dL (8.5-10.1); POTASSIUM 4.7 mmol/L (3.5-5.1); TOT PROT 4.3 g/dl (6.4-8.2)
--- NOTE | 2019-12-22 08:20 | PN ---
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, Physician - Current Medication List Current Medications: Active Medications Carvedilol (Coreg -) 25 mg PO BID [facility] Last Admin: 12/21/19 22:16 Dose: 25 mg Sodium Chloride (Normal Saline -) 1,000 mls @ 100 mls/hr IV ASDIR [facility] Last Admin: 12/21/19 20:18 Dose: Not Given Piperacillin Sod/Tazobactam (Sod 4.5 gm/ Dextrose) 100 mls @ 200 mls/hr IVPB Q8H-IV MICHAEL; Protocol Last Admin: 12/22/19 01:09 Dose: 200 mls/hr Lisinopril (Prinivil) 40 mg PO DAILY [facility] Last Admin: 12/21/19 09:27 Dose: 40 mg Oxycodone HCl (Roxicodone -) 5 mg PO Q6H PRN PRN Reason: PAIN LEVEL 5-10 Last Admin: 12/21/19 15:35 Dose: 5 mg Pantoprazole Sodium (Protonix Iv) 40 mg IVPUSH BID [facility] Last Admin: 12/21/19 22:16 Dose: 40 mg Polyethylene Glycol (Miralax (For Daily Use) -) 17 gm PO TID [facility] Last Admin: 12/22/19 06:28 Dose: 17 grams - Objective Vital Signs: Vital Signs Temperature 97.8 F 12/22/19 05:50 Pulse Rate 72 12/22/19 05:50 Respiratory Rate 16 12/22/19 05:50 Blood Pressure 105/62 12/22/19 05:50 O2 Sat by Pulse Oximetry (%) 100 12/21/19 21:00 Labs: CBC, BMP 12/22/19 06:45 12/22/19 06:45 INR, PTT INR 2.17 (0.83-1.09) H 12/19/19 13:45 Problem List - Problems (1) GI bleed Assessment/Plan: FOBT positive with anemia Hgb 8.8 down from 10.7 on admission monitor hold coumadin protonix bid GI consult--noted no colonoscopy per family and pts known wishes bt family Code(s): K92.2 - GASTROINTESTINAL HEMORRHAGE, UNSPECIFIED Qualifiers: GI bleed type/associated pathology: anorectal hemorrhage Qualified Code(s) : K62.5 - Hemorrhage of anus and rectum (2) Afib Assessment/Plan: hold anticoagulation monitor on tele monitor on tele cardiology consulted coumadin on hold for acute bleeding monitor on tele Code(s): I48.91 - UNSPECIFIED ATRIAL FIBRILLATION (3) Bacteremia Assessment/Plan: treated with ceftriaxone 2 grams. continue per ID recommendations--Zosyn ID consulted and noted Blood and urine cultures Microbiology 12/20/19 15:43 Blood - Peripheral Venous Blood Culture - Preliminary NO GROWTH OBTAINED AFTER 24 HOURS, INCUBATION TO CONTINUE FOR 4 DAYS. 12/20/19 15:50 Blood - Peripheral Venous Blood Culture - Preliminary NO GROWTH OBTAINED AFTER 24 HOURS, INCUBATION TO CONTINUE FOR 4 DAYS. 12/19/19 13:45 Blood - Peripheral Venous Blood Culture - Preliminary NO GROWTH OBTAINED AFTER 48 HOURS, INCUBATION TO CONTINUE FOR 3 DAYS. 12/19/19 13:45 Blood - Peripheral Venous Blood Culture - Preliminary Staphylococcus Coagulase Neg 12/19/19 13:45 Urine - Urine Guzman Urine Culture - Final Yeast Like Organism Code(s): R78.81 - BACTEREMIA (4) Constipation Code(s): K59.00 - CONSTIPATION, UNSPECIFIED (5) Hematuria Assessment/Plan: guzman catheter with clearing Continue IVF hydration intake and output Code(s): R31.9 - HEMATURIA, UNSPECIFIED (6) CVA (cerebral vascular accident) Assessment/Plan: physical therapy once more stable Code(s): I63.9 - CEREBRAL INFARCTION, UNSPECIFIED Qualifiers: CVA mechanism: unspecified Qualified Code(s): I63.9 - Cerebral infarction, unspecified (7) Osteomyelitis Assessment/Plan: treated with ceftriaxone 2 grams. continue per ID recommendations--Zosyn ID consulted and noted Blood and urine cultures Microbiology 12/20/19 15:43 Blood - Peripheral Venous Blood Culture - Preliminary NO GROWTH OBTAINED AFTER 24 HOURS, INCUBATION TO CONTINUE FOR 4 DAYS. 12/20/19 15:50 Blood - Peripheral Venous Blood Culture - Preliminary NO GROWTH OBTAINED AFTER 24 HOURS, INCUBATION TO CONTINUE FOR 4 DAYS. 12/19/19 13:45 Blood - Peripheral Venous Blood Culture - Preliminary NO GROWTH OBTAINED AFTER 48 HOURS, INCUBATION TO CONTINUE FOR 3 DAYS. 12/19/19 13:45 Blood - Peripheral Venous Blood Culture - Preliminary Staphylococcus Coagulase Neg 12/19/19 13:45 Urine - Urine Guzman Urine Culture - Final Yeast Like Organism Code(s): M86.9 - OSTEOMYELITIS, UNSPECIFIED Qualifiers: Osteomyelitis type: unspecified type Osteomyelitis location: other site Qualified Code(s): M86.9 - Osteomyelitis, unspecified
[2019-12-22] MEDS: LISINOPRIL 20 MG TABLET (FP) PO SCH (10:05)
[2019-12-22] MEDS: CARVEDILOL 25 MG TABLET (FP) PO SCH (10:05)
[2019-12-22] MEDS: PANTOPRAZOLE SODIUM 40 MG VIAL IVPUSH SCH ×2 (10:05→22:08)
--- NOTE | 2019-12-22 10:35 | PN ---
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, Physician History of Present Illness: Hematuria has cleared. - Current Medication List Current Medications: Active Medications Carvedilol (Coreg -) 25 mg PO BID [facility] Last Admin: 12/22/19 10:05 Dose: 25 mg Sodium Chloride (Normal Saline -) 1,000 mls @ 100 mls/hr IV ASDIR [facility] Last Admin: 12/21/19 20:18 Dose: Not Given Piperacillin Sod/Tazobactam (Sod 4.5 gm/ Dextrose) 100 mls @ 200 mls/hr IVPB Q8H-IV MICHAEL; Protocol Last Admin: 12/22/19 10:05 Dose: 200 mls/hr Lisinopril (Prinivil) 40 mg PO DAILY [facility] Last Admin: 12/22/19 10:05 Dose: 40 mg Oxycodone HCl (Roxicodone -) 5 mg PO Q6H PRN PRN Reason: PAIN LEVEL 5-10 Last Admin: 12/21/19 15:35 Dose: 5 mg Pantoprazole Sodium (Protonix Iv) 40 mg IVPUSH BID [facility] Last Admin: 12/22/19 10:05 Dose: 40 mg Polyethylene Glycol (Miralax (For Daily Use) -) 17 gm PO TID [facility] Last Admin: 12/22/19 06:28 Dose: 17 grams - Objective Vital Signs: Vital Signs Temperature 97.8 F 12/22/19 05:50 Pulse Rate 72 12/22/19 05:50 Respiratory Rate 16 12/22/19 05:50 Blood Pressure 105/62 12/22/19 05:50 O2 Sat by Pulse Oximetry (%) 100 12/21/19 21:00 Constitutional: Yes: No Distress, Calm, Thin Neck: Yes: Supple Cardiovascular: Yes: Pulse Irregular Respiratory: Yes: Regular, Diminished Gastrointestinal: Yes: Soft, Hypoactive Bowel Sounds Genitourinary: Yes: [place] Present Edema: No Labs: CBC, BMP 12/22/19 06:45 12/22/19 06:45 INR, PTT INR 2.17 (0.83-1.09) H 12/19/19 13:45 - ....Imaging EKG: Report Reviewed (Tele: Afib) Problem List - Problems (1) Supratherapeutic INR Code(s): R79.1 - ABNORMAL COAGULATION PROFILE (2) GI bleed Code(s): K92.2 - GASTROINTESTINAL HEMORRHAGE, UNSPECIFIED Qualifiers: GI bleed type/associated pathology: anorectal hemorrhage Qualified Code(s) : K62.5 - Hemorrhage of anus and rectum (3) Hematuria Code(s): R31.9 - HEMATURIA, UNSPECIFIED (4) Hyperkalemia Code(s): E87.5 - HYPERKALEMIA (5) Atrial flutter Code(s): I48.92 - UNSPECIFIED ATRIAL FLUTTER Qualifiers: Atrial flutter type: typical Qualified Code(s): I48.3 - Typical atrial flutter (6) Hypercholesterolemia Code(s): E78.00 - PURE HYPERCHOLESTEROLEMIA, UNSPECIFIED (7) Hypotension Code(s): I95.9 - HYPOTENSION, UNSPECIFIED (8) LVH (left ventricular hypertrophy) Code(s): I51.7 - CARDIOMEGALY (9) Demand ischemia Code(s): I24.8 - OTHER FORMS OF ACUTE ISCHEMIC HEART DISEASE (10) CVA (cerebral vascular accident) Code(s): I63.9 - CEREBRAL INFARCTION, UNSPECIFIED Qualifiers: CVA mechanism: unspecified Qualified Code(s): I63.9 - Cerebral infarction, unspecified (11) HTN (hypertension) Code(s): I10 - ESSENTIAL (PRIMARY) HYPERTENSION Qualifiers: Hypertension type: essential hypertension Qualified Code(s): I10 - Essential (primary) hypertension Assessment/Plan 12/01/19 Normal LV size with severe LVH with normal LV fxn, severe LAE, mild MR , TR, RI, possible infiltrative heart disease 12/04/2019: C spine MRI - multilevel DDD; C5-6 vertebral edema, central disc protrusion C4-5 and C5-6; moderate to marked C5-6 (L > R) central and foramenal stenosis and mild-moderate C4-5 stenosis, extensive spondylosis; loss of lordosis; no clear cord edema or myelomalacia 1. GI bleed and hematuria in context of supratherapeutic INR 2. Cervical spinal cord compression C5/C6 osteomyelitis/discitis, cannot exclude UTI 3. Group B strep bacteremia on rocephin 4. HTN 5. Hypercholesterolemia 6. Paroxysmal atrial fibrillation/flutter [id number] score of 6-7 7. CVA 8. Concentric LVH ? rule out infiltrative heart disease 9. Abnormal ECG suggests CAD 10. Demand ischemia with elevated troponin 11. Abnl LFTs->cholelithiasis 12. Right basilic vein superficial thrombosis post PICC line removal PLAN: 1. Empiric zosyn course via PICC line for both group b strep and possible UTI and C-collar for immobilization, f/u C&S 2. Continue Carvedilol 25 mg BID and Lisinopril 40 mg QD since hyperkalemia resolved with uptitration as hemodynamics tolerate 3. GI consult pending, monitor Hgb 4. Hold Coumadin pending hemostasis, consider switch to DOAC given suboptimal INR management once hemostasis assured 5. May consider Tm99 PYP study to rule out amyloidosis once clinically stable 6. Trops downtrending, Lipitor held due to abnl LFTs
--- NOTE | 2019-12-22 11:20 | CON.GU ---
Consult Consult Specialty:: urology Reason for Consultation:: gross hemturia - History of Present Illness Chief Complaint: gross hematuria History of Present Illness: 84 yo female prior history of cva , recent admission 12/01 to 12/10- found to have cervical osteomyelitis and blood culture with group b strep started on ceftriaxone and discharged to md on 12/10 on long-term ceftriaone via pic line. Patient currrently admitted with elevated INR levels and gross hematuria and GI bleeding. Patient is resting comfortbly in bed with a guzman catheter draining blood tinged urine. Patient had fecal retention and was disimpacted. 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 Cardio/Vascular: Yes: AFIB (Atrial flutter), HTN, Hyperlipdemia - Past Surgical History Past Surgical History: Yes: Joint Replacement (hip replacement) - Alcohol/Substance Use Hx Alcohol Use: Yes (quit 3 yars ago) History of Substance Use: reports: None - Smoking History Smoking history: Former smoker Have you smoked in the past 12 months: No Aproximately how many cigarettes per day: 3 If you are a former smoker, when did you quit?: 2 yrs - Social History Usual Living Arrangement: Senior Care (lives with family in house, previously ambulated with RW) ADL: Support Services 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 Home Medications - Allergies Allergies/Adverse Reactions: Allergies Allergy/AdvReac Type Severity Reaction Status Date / Time No Known Allergies Allergy Verified 12/01/19 05:34 - Home Medications Home Medications: Ambulatory Orders Amlodipine Besylate [Norvasc -] 10 mg PO DAILY 12/01/19 Carvedilol [Coreg -] 25 mg PO BID 12/01/19 Lisinopril [Prinivil -] 40 mg PO DAILY 12/01/19 Warfarin Sodium [Coumadin] 4 mg PO UTDICT 12/01/19 Warfarin Sodium [Coumadin] 5 mg PO ASDIR 12/01/19 Cyclobenzaprine HCl 5 mg PO PRN 12/02/19 Ipratropium 0.02% Nebulizer [Atrovent 0.02% Nebulizer -] 0.5 mg IH PRN #1 vial.neb. 12/09/19 Oxycodone HCl 5 mg PO Q8H PRN #30 tablet MDD 40 01/14/20 Dexamethasone [Decadron] See Taper PO ASDIR 9 Days #18 tablet 12/10/19 Acetaminophen 650 mg PO Q6H 12/19/19 Ceftriaxone 2 gm-D5w Bag 2 gm IV DAILY 12/19/19 Physical Exam- Vital Signs: Vital Signs Temperature 97.8 F 12/22/19 05:50 Pulse Rate 72 12/22/19 05:50 Respiratory Rate 16 12/22/19 05:50 Blood Pressure 105/62 12/22/19 05:50 O2 Sat by Pulse Oximetry (%) 100 12/21/19 21:00 Constitutional: Yes: Calm, Cachectic Eyes: Yes: Conjunctiva Clear, EOM Intact HENT: Yes: Normocephalic Neck: Yes: Trachea Midline (cervical collar in place) Respiratory: Yes: Regular Gastrointestinal: Yes: WNL, Normal Bowel Sounds, Soft Renal/: Yes: WNL Pelvis: Yes: WNL, Bladder Non Palpable (guzman draining blood tinged urine) External Genitalia: Yes: WNL Labs: CBC, BMP 12/22/19 06:45 12/22/19 06:45 Imaging - Results Ultrasound: Image Reviewed Assessment/Plan impression gross hematuria due to elevated coumdin levels GI bleed osteomyelitis plan gross hematuria may be be observed as this is most likely secondary to her elevated INR consider cystoscopy at a later date
[2019-12-22 14:04] LABS: PH,URINE 6.5 (5.0-8.0); URINE APPEARANCE Cloudy; URINE BILIRUBIN Negative (NEGATIVE); URINE COLOR Pink; URINE GLUCOSE (UA) Negative (NEGATIVE); URINE KETONE Negative (NEGATIVE); URINE LEUK ESTERASE Trace (NEGATIVE); URINE NITRITE Negative (NEGATIVE); URINE PROTEIN 2+ (NEGATIVE); URINE UROBILINOGEN 0.2 mg/dL (0.2-1.0)
[2019-12-22] MEDS ORDERED: LACTATED RINGERS SOLUTION 1000 ML INFUS.BAG IV ONE (14:15)
[2019-12-22] MEDS ORDERED: SODIUM CHLORIDE 1,000 ML IV SCH (14:45)
--- NOTE | 2019-12-22 14:59 | CONSULT ---
Consultation: REQUESTING PROVIDER: CONSULT REQUEST: We have been asked to medically evaluate this patient for hypotension. HISTORY OF PRESENT ILLNESS: 84 y/o F with PMH of CVA with residual weakness, aflutter (on coumadin), hypertension, hyperlipidemia, recent cervical spine osteomyelitis with a picc line placement on last admission at [facility] (admitted on 12/01/2019 for sepsis, acute cervical spine osteomyelitis and supratherapeurtic INR. She was discharged on 12/10/2019). She was sent to [facility] on 12/10/2019 to continue Ceftriaxone and physical therapy but was sent back to [facility] today for rectal bleeding and hematuria. 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 She was seen by neurosurgery (Dr. Xiao). She was also seen by Dr. Nascimento (ID) and placed on ceftriaxone 2g daily for 5 weeks for osteomyelitis. We were consulted as pt was hypotensive with lowest BP at 85/38mmHg REVIEW OF SYSTEMS: unable to assess PHYSICAL EXAMINATION Vital Signs - 24 hr 12/21/19 12/21/19 12/21/19 15:23 18:00 21:00 Temperature 98.3 F 97.3 F L Pulse Rate 67 75 Respiratory 20 18 18 Rate Blood Pressure 127/54 L 108/81 O2 Sat by Pulse 100 Oximetry (%) 12/21/19 12/22/19 12/22/19 21:45 05:50 09:00 Temperature 97.6 F 97.8 F Pulse Rate 88 72 Respiratory 18 16 Rate Blood Pressure 120/70 105/62 O2 Sat by Pulse 100 Oximetry (%) 12/22/19 12/22/19 12/22/19 10:00 14:00 14:10 Temperature 97.8 F Pulse Rate 74 76 70 Respiratory 18 18 18 Rate Blood Pressure 96/51 L 85/48 L 90/38 L O2 Sat by Pulse Oximetry (%) 12/22/19 14:15 Temperature Pulse Rate 73 Respiratory 18 Rate Blood Pressure 86/40 L O2 Sat by Pulse Oximetry (%) GENERAL: Awake, alert, but altered HEAD: Normal with no signs of trauma. EYES: Pupils pinpoint EARS, NOSE, THROAT: oropharynx clear without exudates. Moist mucous membranes. NECK: with C collar LUNGS: Breath sounds with rales b/l > at the left. HEART: Regular rate and rhythm, normal S1 and S2 without murmur, rub or gallop. ABDOMEN: Soft, nontender, not distended, normoactive bowel sounds, no guarding, no rebound, no masses. No hepatomegaly or splenomegaly. UPPER EXTREMITIES: limb alert on the right with edema LOWER EXTREMITIES: 2+ pulses, warm, well-perfused. No calf tenderness. No peripheral edema. PSYCHIATRIC: lethargic Laboratory Results - last 24 hr 12/22/19 12/22/19 12/22/19 06:45 06:45 06:45 WBC 6.8 RBC 3.10 L Hgb 9.5 L Hct 29.9 L MCV 96.3 H MCH 30.8 MCHC 31.9 L RDW 16.0 H Plt Count 124 L D MPV 9.5 Sodium 145 Potassium 4.7 Chloride 113 H Carbon Dioxide 28 Anion Gap 4 L BUN 27.4 H Creatinine 1.0 Est GFR (CKD-EPI)AfAm 60.33 Est GFR (CKD-EPI)NonAf 52.06 Random Glucose 93 Calcium 7.8 L Total Bilirubin 0.3 AST 45 H ALT 205 H Alkaline Phosphatase 89 Troponin I 0.19 H C-Reactive Protein 1.0 H Total Protein 4.3 L Albumin 1.6 L Urine Color Urine Appearance Urine pH Ur Specific [place] Urine Protein Urine Glucose (UA) Urine Ketones Urine Blood Urine Nitrite Urine Bilirubin Urine Urobilinogen Ur Leukocyte Esterase 12/22/19 12:00 WBC RBC Hgb Hct MCV MCH MCHC RDW Plt Count MPV Sodium Potassium Chloride Carbon Dioxide Anion Gap BUN Creatinine Est GFR (CKD-EPI)AfAm Est GFR (CKD-EPI)NonAf Random Glucose Calcium Total Bilirubin AST ALT Alkaline Phosphatase Troponin I C-Reactive Protein Total Protein Albumin Urine Color [place] Urine Appearance Cloudy Urine pH 6.5 Ur Specific [place] 1.020 Urine Protein 2+ H Urine Glucose (UA) Negative Urine Ketones Negative Urine Blood 3+ H Urine Nitrite Negative Urine Bilirubin Negative Urine Urobilinogen 0.2 Ur Leukocyte Esterase Trace Active Medications Generic Name Dose Route Start Last Admin Trade Name Freq PRN Reason Stop Dose Admin Piperacillin Sod/Tazobactam 100 mls @ 200 mls/hr 12/21/19 18:00 12/22/19 10: 05 Sod 4.5 gm/ Dextrose IVPB 200 mls/hr Q8H-IV MICHAEL Administration Protocol Sodium Chloride 1,000 mls @ 150 mls/hr 12/22/19 14:45 Normal Saline - IV ASDIR MICHAEL Oxycodone HCl 5 mg 12/21/19 15:16 12/21/19 15:35 Roxicodone - PO 5 mg Q6H PRN Administration PAIN LEVEL 5-10 Pantoprazole Sodium 40 mg 12/19/19 22:00 12/22/19 10:05 Protonix Iv IVPUSH 40 mg BID MICHAEL Administration Polyethylene Glycol 17 gm 12/20/19 14:00 12/22/19 13:43 Miralax (For Daily Use) - PO 17 grams TID MICHAEL Administration ASSESSMENT/PLAN: 84 y/o F with PMH of CVA with residual weakness, aflutter (on coumadin), hypertension, hyperlipidemia, recent cervical spine osteomyelitis found to be hypotensive today by her nurse Plan: Neuro: pt is altered - discussed with pt daughter; she has been waxing and waning for the past 2 days - will d/c oxy for now CV: pt hypotensive in the 80s today. s/p BP meds despite Bp in the 90s in the morning. -currently receiving one LR bolus -hold BP meds - ekg and troponins ordered - will d/c miralax for now in the hypotension resp: pt appears SOB - sat at 99% on 2 L - ABG pH 7.31, pCO2 58.1, pO2 74.1 - will start on high flow oxygen ID: pt was hypothermic at 95F axillary but rectal at 97F later on no White count in the setting of hypothermia and hypotension -change guzman, resend UA, urine & blood cultures, CXR -basic labs -NS @ 150cc/hr -added vancomycin to the zosyn s/p discussion with ID Dr Nascimento Dispo: We will continue to follow the patient. Thank you for this consultative opportunity. Visit type - Emergency Visit Emergency Visit: Yes ED Registration Date: 12/19/19 Care time: The patient presented to the Emergency Department on the above date and was hospitalized for further evaluation of their emergent condition. - New Patient This patient is new to me today: No - Critical Care Critical Care patient: Yes Total Critical Care Time (in minutes): 35 Critical Care Statement: The care of this patient involved high complexity decision making to prevent further life threatening deterioration of the patient 's condition and/or to evaluate & treat vital organ system(s) failure or risk of failure. ATTENDING PHYSICIAN STATEMENT I saw and evaluated the patient. I reviewed the resident's note and discussed the case with the resident. I agree with the resident's findings and plan as documented. SUBJECTIVE: OBJECTIVE: ASSESSMENT AND PLAN:
[2019-12-22 15:13] LABS: ARTERIAL BLD GAS O2 SATURATION 94.1 % (95-98); ARTERIAL BLOOD GAS BASE EXCESS 1.7 meq/l (-2-2); ARTERIAL BLOOD GAS PCO2 58.1 mmHg (35-45); ARTERIAL BLOOD GAS PO2 74.1 mmHg (80-100); ARTERIAL BLOOD GAS pH 7.31 (7.35-7.45)
[2019-12-22 15:16] LABS: ALLENS TEST POSITIVE
[2019-12-22] MEDS ORDERED: VANCOMYCIN 1 GM in D5W (PRE-DOCKED) 1,000 MG/250 ML IVPB ONE (15:16)
--- NOTE | 2019-12-22 15:43 | CONSULT ---
Consult Consult Specialty:: Vascular Surgery - History of Present Illness History of Present Illness: 84 y/o F with recent diagnosis of cervical osteomyelitis treated with IV abx via PICC line in right arm. She [facility] from [facility] for rectal bleeding. Right arm swelling was noted yesterday and Duplex showed clot in basilic vein around PICC. Line was removed. PMH notable for CVA with residual weakness, aflutter (on coumadin), hypertension , hyperlipidemia. 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 Cardio/Vascular: Yes: AFIB (Atrial flutter), HTN, Hyperlipdemia - Past Surgical History Past Surgical History: Yes: Joint Replacement (hip replacement) - Alcohol/Substance Use Hx Alcohol Use: Yes (quit 3 yars ago) History of Substance Use: reports: None - Smoking History Smoking history: Former smoker Have you smoked in the past 12 months: No Aproximately how many cigarettes per day: 3 If you are a former smoker, when did you quit?: 2 yrs - Social History Usual Living Arrangement: Senior Living (lives with family in house, previously ambulated with RW) ADL: Support Services 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 Home Medications - Allergies Allergies/Adverse Reactions: Allergies Allergy/AdvReac Type Severity Reaction Status Date / Time No Known Allergies Allergy Verified 12/01/19 05:34 - Home Medications Home Medications: Ambulatory Orders Amlodipine Besylate [Norvasc -] 10 mg PO DAILY 12/01/19 Carvedilol [Coreg -] 25 mg PO BID 12/01/19 Lisinopril [Prinivil -] 40 mg PO DAILY 12/01/19 Warfarin Sodium [Coumadin] 4 mg PO UTDICT 12/01/19 Warfarin Sodium [Coumadin] 5 mg PO ASDIR 12/01/19 Cyclobenzaprine HCl 5 mg PO PRN 12/02/19 Ipratropium 0.02% Nebulizer [Atrovent 0.02% Nebulizer -] 0.5 mg IH PRN #1 vial.neb. 12/09/19 Oxycodone HCl 5 mg PO Q8H PRN #30 tablet MDD 40 12/09/19 Dexamethasone [Decadron] See Taper PO ASDIR 9 Days #18 tablet 12/10/19 Acetaminophen 650 mg PO Q6H 12/19/19 Ceftriaxone 2 gm-D5w Bag 2 gm IV DAILY 12/19/19 Physical Exam Vital Signs: Vital Signs Temperature 97.1 F L 12/22/19 14:50 Pulse Rate 74 12/22/19 14:50 Respiratory Rate 18 12/22/19 14:50 Blood Pressure 92/42 L 12/22/19 14:50 O2 Sat by Pulse Oximetry (%) 100 12/22/19 09:00 Extremities: Yes: Other (Right arm 3+ edema extending to forearm. No tenderness. Hand warm.) Labs: CBC, BMP 12/22/19 06:45 12/22/19 06:45 Assessment/Plan Superficial thrombophlebitis from indwelling catheter. Line was removed. Currently not receiving Coumadin. If no further bleeding, prophylactic Lovenox should be restarted. When Coumadin is restarted, no additional anticoagulation needed. Elevate arm to reduce swelling.
--- NOTE | 2019-12-22 15:46 | EKG ---
Test Reason : Blood Pressure : / mmHG Vent. Rate : 072 BPM Atrial Rate : 375 BPM P-R Int : 000 ms QRS Dur : 082 ms QT Int : 426 ms P-R-T Axes : 000 -11 150 degrees QTc Int : 466 ms ATRIAL FLUTTER WITH VARIABLE A-V BLOCK ABNORMAL ECG WHEN COMPARED WITH ECG OF 19-DEC-2019 13:07, ATRIAL FLUTTER HAS REPLACED ATRIAL FIBRILLATION NONSPECIFIC T WAVE ABNORMALITY, WORSE IN ANTERIOR LEADS Confirmed by Kerry Coto ([id number]) on 12/22/2019 3:46:16 PM Referred By: DANIELLE VEGA DR Confirmed By:Kerry Coto
[2019-12-22 15:49] LABS: EPI CELLS 9.9 /HPF (0-5/HPF); HYALINE CASTS 7.66 /lpf (0-8); URINE BACTERIA 5.5 /hpf (NEGATIVE); URINE RBC 2655.5 /hpf (0-4); YEAST FEW (NEGATIVE)
--- NOTE | 2019-12-22 16:01 | PN ---
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 (short form) - Note 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: awake and very weak Vital Signs Period Temp Pulse Resp BP Sys/[place]utton Pulse Ox Last 24 Hr 97 F-97.8 F 70-88 16-18 85-120/38-81 100-100 cor-rrr lungs decreased bs at ses abd soft,nt exttrace edema +dvt RUE -picc line removed CBC, BMP 12/22/19 06:45 12/22/19 06:45 Microbiology 12/19/19 13:45 Blood - Peripheral Venous Blood Culture - Preliminary NO GROWTH OBTAINED AFTER 72 HOURS, INCUBATION TO CONTINUE FOR 2 DAYS. 12/20/19 15:43 Blood - Peripheral Venous Blood Culture - Preliminary NO GROWTH OBTAINED AFTER 24 HOURS, INCUBATION TO CONTINUE FOR 4 DAYS. 12/20/19 15:50 Blood - Peripheral Venous Blood Culture - Preliminary NO GROWTH OBTAINED AFTER 24 HOURS, INCUBATION TO CONTINUE FOR 4 DAYS. 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
[2019-12-22 17:28] LABS: EPI CELLS 2.3 /HPF (0-5/HPF); HYALINE CASTS 87 /lpf (0-8); URINE APPEARANCE TURBID; URINE BACTERIA 5.5 /hpf (NEGATIVE); URINE BILIRUBIN NEGATIVE (NEGATIVE); URINE COLOR RED; URINE GLUCOSE (UA) NEGATIVE (NEGATIVE); URINE KETONE NEGATIVE (NEGATIVE); URINE LEUK ESTERASE 2+ (NEGATIVE); URINE NITRITE NEGATIVE (NEGATIVE); URINE PROTEIN 3+ (NEGATIVE); URINE WBC 162 /hpf (0-5)
[2019-12-22 18:35] LABS: URINE RBC 4393.5 /hpf (0-4)
--- NOTE | 2019-12-22 18:49 | CON.NEURO ---
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 - History Source History Provided By: Medical Record Limitations to Obtaining History: Clinical Condition - Past Medical History [employer]: Yes: CVA Cardio/Vascular: Yes: AFIB (Atrial flutter), HTN, Hyperlipdemia - Past Surgical History Past Surgical History: Yes: Joint Replacement (hip replacement) - Alcohol/Substance Use Hx Alcohol Use: Yes (quit 3 yars ago) History of Substance Use: reports: None - Smoking History Smoking history: Former smoker Have you smoked in the past 12 months: No Aproximately how many cigarettes per day: 3 If you are a former smoker, when did you quit?: 2 yrs - Social History Usual Living Arrangement: Skilled Nursing (lives with family in house, previously ambulated with RW) ADL: Support Services 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 Home Medications - Allergies Allergies/Adverse Reactions: Allergies Allergy/AdvReac Type Severity Reaction Status Date / Time No Known Allergies Allergy Verified 12/01/19 05:34 - Home Medications Home Medications: Ambulatory Orders Amlodipine Besylate [Norvasc -] 10 mg PO DAILY 12/01/19 Carvedilol [Coreg -] 25 mg PO BID 12/01/19 Lisinopril [Prinivil -] 40 mg PO DAILY 12/01/19 Warfarin Sodium [Coumadin] 4 mg PO UTDICT 12/01/19 Warfarin Sodium [Coumadin] 5 mg PO ASDIR 12/01/19 Cyclobenzaprine HCl 5 mg PO PRN 12/02/19 Ipratropium 0.02% Nebulizer [Atrovent 0.02% Nebulizer -] 0.5 mg IH PRN #1 vial.neb. 12/09/19 Oxycodone HCl 5 mg PO Q8H PRN #30 tablet MDD 40 12/09/19 Dexamethasone [Decadron] See Taper PO ASDIR 9 Days #18 tablet 12/10/19 Acetaminophen 650 mg PO Q6H 12/19/19 Ceftriaxone 2 gm-D5w Bag 2 gm IV DAILY 12/19/19 Family Medical History Family History: Unremarkable Review of Systems Unable to obtain ROS, reason: ??? Physical Exam-Neuro Vital Signs: Vital Signs Temperature 96.5 F L 12/22/19 18:00 Pulse Rate 77 12/22/19 18:00 Respiratory Rate 18 12/22/19 18:00 Blood Pressure 112/52 L 12/22/19 18:00 O2 Sat by Pulse Oximetry (%) 97 12/22/19 16:24 Labs: CBC, BMP 12/22/19 06:45 12/22/19 06:45 INR, PTT INR 2.17 (0.83-1.09) H 12/19/19 13:45 - Neuro Exam Level Of Consciousness: Yes: Alert, Oriented to Person Eyes: Yes: PERRLA Speech: Garbled Dominant Hand: Right Cranial Nerves II-XII Intact: No Gag: Absent DTR's: 0 Left Bicep, 0 Right Bicep, 0 Left Tricep, 0 Right Tricep, 0 Left Brachioradialis, 0 Right Brachioradialis Babinski: Present Response to light touch: Abnormal Motor Strength: 0/5: Right Arm, Left Leg, Right Leg, 2/5: Left Arm Gait: Deferred Problem List - Problems (1) Altered mental status Code(s): R41.82 - ALTERED MENTAL STATUS, UNSPECIFIED (2) Osteomyelitis Code(s): M86.9 - OSTEOMYELITIS, UNSPECIFIED Qualifiers: Osteomyelitis type: unspecified type Osteomyelitis location: other site Qualified Code(s): M86.9 - Osteomyelitis, unspecified (3) CVA (cerebral vascular accident) Code(s): I63.9 - CEREBRAL INFARCTION, UNSPECIFIED Qualifiers: CVA mechanism: unspecified Qualified Code(s): I63.9 - Cerebral infarction, unspecified Assessment/Plan Very obtunded and less responsive Toxic metabolic Encephalopathy 1. Transfer to MICU 2. neuro check s 3. Ammonia level 4. Head CT no Arthur 5. MRI follow up C spine with Arthur 6. Tight INR control 7. Neuropathy blood work 8. PT Prognosis gaurjake Becker MD
[2019-12-22 21:50] LABS: ALBUMIN 1.6 g/dl (3.4-5.0); BILIRUBIN,TOTAL 0.2 mg/dL (0.2-1); BLOOD UREA NITROGEN 27.4 mg/dL (7-18); CALCIUM 7.4 mg/dL (8.5-10.1); CREATININE 1.1 mg/dL (0.55-1.3); MAGNESIUM 1.9 mg/dL (1.8-2.4); PHOSPHOROUS 3.2 mg/dL (2.5-4.9); POTASSIUM 4.4 mmol/L (3.5-5.1); TOT PROT 4.2 g/dl (6.4-8.2)
[2019-12-22] MEDS ORDERED: oxyCODONE HCL 5 MG TABLET PO ONE (22:42)
[2019-12-23] MEDS ORDERED: DEXTROSE 5%-WATER 100 ML IVPB ONE ×3 (01:55→17:14)
[2019-12-23] MEDS ORDERED: PIPERACILLIN/TAZOBACTAM 4.5 GM VIAL IVPB ONE ×3 (01:55→17:14)
[2019-12-23] MEDS: PIPERACILLIN/TAZOB 4.5 GM 4.5 GM in DEXTROSE 5%-WATER 100 ML IVPB SCH ×3 (02:18→18:20)
[2019-12-23] MEDS ORDERED: SODIUM CHLORIDE 1,000 ML IV SCH (07:13)
--- NOTE | 2019-12-23 07:57 | PN ---
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 (short form) - Note 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: Chief Complaint: Events noted, notes reviewed, no distress, had altered mental status, off of cardiac therapies related to hypotension which persists, atrial fibrillation persists- rate controlled History of Present Illness: Seen and examined in the ICU. Events noted, notes reviewed, no distress, had altered mental status, off of cardiac therapies related to hypotension which persists, atrial fibrillation persists- rate controlled Echocardiography 12/01/19 Normal LV size with severe LVH with normal LV fxn, severe LAE, mild MR, TR, OH, possible infiltrative heart disease Medications: Current Medications Piperacillin Sod/Tazobactam (Sod 4.5 gm/ Dextrose) 100 mls @ 200 mls/hr IVPB Q8H-IV MICHAEL; Protocol Last Admin: 12/23/19 02:18 Dose: 200 mls/hr Sodium Chloride (Normal Saline -) 1,000 mls @ 100 mls/hr IV ASDIR MICHAEL Pantoprazole Sodium (Protonix Iv) 40 mg IVPUSH BID MICHAEL Last Admin: 12/22/19 22:08 Dose: 40 mg Review of Systems Unable to obtain Vital Signs: Last Vital Signs Temp Pulse Resp BP Pulse Ox 97.5 F L 75 17 95/71 100 12/23/19 06:00 12/23/19 06:00 12/23/19 06:00 12/23/19 06:00 12/22/19 21:00 Intake & Output 12/20/19 12/21/19 12/22/19 12/23/19 23:59 23:59 23:59 23:59 Intake Total 1300 60 800 1184 Output Total 700 900 520 150 Balance 600 -730 837 7919 Weight 132 lb Neck: Supple Negative JVD No Bruit Respiratory: scattered rhonchi bilaterally Cardiovascular: S1 S2 irregularly irregular Gastrointestinal: Soft Benign Normal Bowel Sounds Ext: Negative Edema Labs: Troponin, BNP 12/22/19 12/22/19 06:45 20:00 Troponin I 0.19 H 0.18 H CBC, BMP 12/22/19 06:45 12/22/19 20:00 ABG Results ABG pH 7.31 (7.35-7.45) L 12/22/19 14:55 ABG pCO2 at Pt Temp 58.1 mmHg (35-45) H 12/22/19 14:55 ABG pO2 at Pt Temp 74.1 mmHg (80-100) L 12/22/19 14:55 ABG HCO3 28.3 mmol/L (22-27) H 12/22/19 14:55 ABG O2 Sat (Measured) 94.1 % (95-98) L 12/22/19 14:55 ABG O2 Content 13.2 % vol 12/22/19 14:55 ABG Base Excess 1.7 meq/l (-2-2) 12/22/19 14:55 Assessment/Plan ASSESSMENT: 1. Gastrointestinal bleed and hematuria in context of supra-therapeutic INR 2. CAD with evidence of demand ischemic injury angina pectoris 3. Diastolic LV dysfunction with clinical class 0 NYHA classification LV failure Group B strep bacteremia on rocephin 4. Concentric LVH/rule out infiltrative heart disease 5. Persistent atrial fibrillation rate controlled [id number] score of 6-7 currently off of A/C 6. HTN, currently hypotensive- etiology unclear 7. Hypercholesterolemia 8. 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 Cervical spinal cord compression C5/C6 osteomyelitis/discitis 10. Right basilic vein superficial thrombosis post PICC line removal PLAN: 1. Antibiotics as per the primary team 2. IV fluid for management of hypotension +/- pressors 3. Resume Coreg, hemodynamics permitting 4. Resume Lisinopril, hemodynamics permitting 5. Resumption of A/C with DOAC's is recommended once hemostasis is achieved ( avoid Coumadin- related to unstable INR) 6. May consider Tm99 PYP study to rule out Amyloidosis/evaluation of infiltrative heart disease once clinically stable 7. Evaluation of altered mental status as per the primary Jennifer Carreon M.D.
--- NOTE | 2019-12-23 08:44 | PN ---
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 (short form) - Note 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: NEUROSURGERY Asked by ID to see patient In ICU for hypotension In [place] J collar Off AC secondary to decreasing H/H Seen at bedside with Dr Chawla PE: AF, mildly hypotensive Drowsy bu arousable, not following commands HEENT- NC/AT; Neck- supple; Cor-Irreg; Chest- CTA B; Abd- benign; Ext- no C/C/E CN- intact; Motor- flaccid B UE/LE; Sensation- intact LT; DTR- hyporereflexic, no LTS WBC 6.8, Hgb 9.5, Cr 1.1, eGFR 46 Blood culture + 1/2 coag negative staph initial set; negative on subsequent cultures EMG/NCS- B demyelinating neuropathy C4-5 spondylolisthesis/discitis/osteomyelitis with moderate stenosis L > R and mld-moderate C5-6 DDD/degenerative stenosis Pros and cons of cervical decompression and fusion with instrumentation at least C4-5-6 d/w daughter Vero x2 on prior admission this month and family opted against surgery given poor neurological condition/function, degree of compression, cardiac conditions, and prior CVA, as well as need to hold AC for long periods of time chago-operatively Signicant generalized weakness could not be explained by MRI done a couple weeks ago and recommend repeat MRI C spine with dov C-collar for immobilization/comfort On Zosyn per ID/medical team Head CT pending D/w ID by phone yesterday
--- NOTE | 2019-12-23 09:14 | PN ---
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, Physician - Current Medication List Current Medications: Active Medications Piperacillin Sod/Tazobactam (Sod 4.5 gm/ Dextrose) 100 mls @ 200 mls/hr IVPB Q8H-IV MICHAEL; Protocol Last Admin: 12/23/19 02:18 Dose: 200 mls/hr Sodium Chloride (Normal Saline -) 1,000 mls @ 100 mls/hr IV ASDIR MICHAEL Pantoprazole Sodium (Protonix Iv) 40 mg IVPUSH BID MICHAEL Last Admin: 12/22/19 22:08 Dose: 40 mg - Objective Vital Signs: Vital Signs Temperature 97.5 F L 12/23/19 06:00 Pulse Rate 75 12/23/19 06:00 Respiratory Rate 17 12/23/19 06:00 Blood Pressure 95/71 12/23/19 06:00 O2 Sat by Pulse Oximetry (%) 100 12/22/19 21:00 Cardiovascular: Yes: S1, S2 Respiratory: Yes: CTA Bilaterally, Diminished Gastrointestinal: Yes: Normal Bowel Sounds, Soft Edema: No Neurological: Yes: Alert, Weakness, Other (extremities flaccid) Labs: CBC, BMP 12/22/19 06:45 12/22/19 20:00 INR, PTT INR 2.17 (0.83-1.09) H 12/19/19 13:45 Problem List - Problems (1) GI bleed Assessment/Plan: FOBT positive with anemia Hgb 8.8 down from 10.7 on admission monitor hold coumadin protonix bid GI consult--noted no colonoscopy per family and pts known wishes bt family Code(s): K92.2 - GASTROINTESTINAL HEMORRHAGE, UNSPECIFIED Qualifiers: GI bleed type/associated pathology: anorectal hemorrhage Qualified Code(s) : K62.5 - Hemorrhage of anus and rectum (2) Afib Assessment/Plan: hold anticoagulation monitor on tele cardiology consulted--noted coumadin on hold for acute bleeding monitor on tele Code(s): I48.91 - UNSPECIFIED ATRIAL FIBRILLATION (3) Bacteremia Assessment/Plan: treated with ceftriaxone 2 grams. continue per ID recommendations--Zosyn ID consulted and noted Blood and urine cultures Microbiology 12/20/19 15:43 Blood - Peripheral Venous Blood Culture - Preliminary NO GROWTH OBTAINED AFTER 24 HOURS, INCUBATION TO CONTINUE FOR 4 DAYS. 12/20/19 15:50 Blood - Peripheral Venous Blood Culture - Preliminary NO GROWTH OBTAINED AFTER 24 HOURS, INCUBATION TO CONTINUE FOR 4 DAYS. 12/19/19 13:45 Blood - Peripheral Venous Blood Culture - Preliminary NO GROWTH OBTAINED AFTER 48 HOURS, INCUBATION TO CONTINUE FOR 3 DAYS. 12/19/19 13:45 Blood - Peripheral Venous Blood Culture - Preliminary Staphylococcus Coagulase Neg 12/19/19 13:45 Urine - Urine Guzman Urine Culture - Final Yeast Like Organism Code(s): R78.81 - BACTEREMIA (4) Constipation Code(s): K59.00 - CONSTIPATION, UNSPECIFIED (5) Hematuria Assessment/Plan: guzman catheter with clearing Continue IVF hydration intake and output Code(s): R31.9 - HEMATURIA, UNSPECIFIED (6) CVA (cerebral vascular accident) Assessment/Plan: physical therapy once more stable Code(s): I63.9 - CEREBRAL INFARCTION, UNSPECIFIED Qualifiers: CVA mechanism: unspecified Qualified Code(s): I63.9 - Cerebral infarction, unspecified (7) Osteomyelitis Assessment/Plan: treated with ceftriaxone 2 grams. continue per ID recommendations--Zosyn ID consulted and noted Blood and urine cultures neuro noted--mri cspine Microbiology 12/20/19 15:43 Blood - Peripheral Venous Blood Culture - Preliminary NO GROWTH OBTAINED AFTER 24 HOURS, INCUBATION TO CONTINUE FOR 4 DAYS. 12/20/19 15:50 Blood - Peripheral Venous Blood Culture - Preliminary NO GROWTH OBTAINED AFTER 24 HOURS, INCUBATION TO CONTINUE FOR 4 DAYS. 12/19/19 13:45 Blood - Peripheral Venous Blood Culture - Preliminary NO GROWTH OBTAINED AFTER 48 HOURS, INCUBATION TO CONTINUE FOR 3 DAYS. 12/19/19 13:45 Blood - Peripheral Venous Blood Culture - Preliminary Staphylococcus Coagulase Neg 12/19/19 13:45 Urine - Urine Guzman Urine Culture - Final Yeast Like Organism Code(s): M86.9 - OSTEOMYELITIS, UNSPECIFIED Qualifiers: Osteomyelitis type: unspecified type Osteomyelitis location: other site Qualified Code(s): M86.9 - Osteomyelitis, unspecified (8) Weakness Assessment/Plan: neuro and neuro surgery on board ct head and mri cspine Code(s): R53.1 - WEAKNESS (9) Hypotension Assessment/Plan: cultures done on iv abx cardio echo Code(s): I95.9 - HYPOTENSION, UNSPECIFIED
--- NOTE | 2019-12-23 10:24 | PN ---
Teaching Attending Note Name of Resident: Jose Beaulieu ATTENDING PHYSICIAN STATEMENT I saw and evaluated the patient. I reviewed the resident's note and discussed the case with the resident. I agree with the resident's findings and plan as documented. SUBJECTIVE: Patient seen and examined in the ICU. Letghargic but arousable. Not able to appropriately answer questions or follow commands. Seen by Neurosurgery this AM. Intake & Output 12/20/19 12/21/19 12/22/19 12/23/19 23:59 23:59 23:59 23:59 Intake Total 1300 60 800 1184 Output Total 700 900 520 150 Balance 600 -864 514 2462 Weight 132 lb Last Vital Signs Temp Pulse Resp BP Pulse Ox 97.5 F L 75 17 95/71 100 12/23/19 06:00 12/23/19 06:00 12/23/19 06:00 12/23/19 06:00 12/22/19 21:00 Active Medications Piperacillin Sod/Tazobactam (Sod 4.5 gm/ Dextrose) 100 mls @ 200 mls/hr IVPB Q8H-IV MICHAEL; Protocol Last Admin: 12/23/19 02:18 Dose: 200 mls/hr Sodium Chloride (Normal Saline -) 1,000 mls @ 100 mls/hr IV ASDIR MICHAEL Pantoprazole Sodium (Protonix Iv) 40 mg IVPUSH BID MICHAEL GENERAL: Lethargic, not able to answer questions HEAD: Normal with no signs of trauma. EYES: Pupils pinpoint EARS, NOSE, THROAT: oropharynx clear without exudates. Moist mucous membranes. NECK: C collar intact LUNGS: HFOT, few scattered rhonchi HEART: Regular rate and rhythm, normal S1 and S2 without murmur, rub or gallop. ABDOMEN: Soft, nontender, not distended, normoactive bowel sounds, no guarding, no rebound, no masses. No hepatomegaly or splenomegaly. UPPER EXTREMITIES: limb alert on the right with edema LOWER EXTREMITIES: 2+ pulses, warm, well-perfused. No calf tenderness. No peripheral edema. PSYCHIATRIC: lethargic Laboratory Results - last 24 hr 12/22/19 12/22/19 12/22/19 12:00 14:55 16:15 Anticoagulation Therapy No Result Required. Puncture Site Left radial ABG pH 7.31 L ABG pCO2 at Pt Temp 58.1 H ABG pO2 at Pt Temp 74.1 L ABG HCO3 28.3 H ABG O2 Sat (Measured) 94.1 L ABG O2 Content 13.2 ABG Base Excess 1.7 Diogenes Test Positive O2 Delivery Device No Result Required. Oxygen Flow Rate 2l Vent Mode No Result Required. Vent Rate No Result Required. Mechanical Rate No Result Required. Pressure Support Vent No Result Required. Sodium Potassium Chloride Carbon Dioxide Anion Gap BUN Creatinine Est GFR (CKD-EPI)AfAm Est GFR (CKD-EPI)NonAf Random Glucose Lactic Acid Calcium Phosphorus Magnesium Total Bilirubin GGT AST ALT Alkaline Phosphatase Ammonia Troponin I Total Protein Albumin Vitamin B12 Urine Color [place] Red Urine Appearance Cloudy Turbid Urine pH 6.5 6.0 Ur Specific [place] 1.020 1.019 Urine Protein 2+ H 3+ H Urine Glucose (UA) Negative Negative Urine Ketones Negative Negative Urine Blood 3+ H 3+ H Urine Nitrite Negative Negative Urine Bilirubin Negative Negative Urine Urobilinogen 0.2 1.0 Ur Leukocyte Esterase Trace 2+ H Urine WBC (Auto) 43.0 162 Urine RBC (Auto) 2655.5 4393.5 Urine Casts (Auto) 7.66 87 U Pathogenic Cast Auto None U Epithel Cells (Auto) 9.9 2.3 Urine Bacteria (Auto) 5.5 5.5 Urine Yeast (Auto) Few 12/22/19 12/22/19 12/22/19 20:00 20:00 20:00 Anticoagulation Therapy Puncture Site ABG pH ABG pCO2 at Pt Temp ABG pO2 at Pt Temp ABG HCO3 ABG O2 Sat (Measured) ABG O2 Content ABG Base Excess Diogenes Test O2 Delivery Device Oxygen Flow Rate Vent Mode Vent Rate Mechanical Rate Pressure Support Vent Sodium 147 H Potassium 4.4 Chloride 114 H Carbon Dioxide 30 Anion Gap 2 L BUN 27.4 H Creatinine 1.1 Est GFR (CKD-EPI)AfAm 53.77 Est GFR (CKD-EPI)NonAf 46.39 Random Glucose 127 H Lactic Acid 0.5 Calcium 7.4 L Phosphorus 3.2 Magnesium 1.9 Total Bilirubin 0.2 GGT 56 AST 37 ALT 172 H Alkaline Phosphatase 79 Ammonia Cancelled Troponin I 0.18 H Total Protein 4.2 L Albumin 1.6 L Vitamin B12 1011 H Urine Color Urine Appearance Urine pH Ur Specific [place] Urine Protein Urine Glucose (UA) Urine Ketones Urine Blood Urine Nitrite Urine Bilirubin Urine Urobilinogen Ur Leukocyte Esterase Urine WBC (Auto) Urine RBC (Auto) Urine Casts (Auto) U Pathogenic Cast Auto U Epithel Cells (Auto) Urine Bacteria (Auto) Urine Yeast (Auto) ASSESSMENT/PLAN: R/O Sepsis: source unclear Hypotension: (?) due to Sepsis versus BP/pain meds History of CVA with residual weakness Aflutter Hypertension Hyperlipidemia Recent history of cervical spine osteomyelitis Hypothermia IVF ABX per ID HFOT Check ABG Aspiration precautions Need to discuss GOC with the family. Hard collar to remain in place ICU for hemodynamic and airway monitoring Dr Martino
[2019-12-23] MEDS: PANTOPRAZOLE SODIUM 40 MG VIAL IVPUSH SCH ×2 (10:59→21:00)
[2019-12-23 11:44] LABS: BASO % 0.4 % (0-2.0); EOS % 0.5 % (0-4.5); HEMATOCRIT 33.6 % (32.4-45.2); HEMOGLOBIN 10.7 GM/dL (10.7-15.3); LYMPH % 4.6 % (8-40); MCH 30.7 pg (25.7-33.7); MCHC 31.8 g/dl (32.0-36.0); MEAN CELL VOLUME 96.4 fl (80-96); MEAN PLT VOLUME 9.9 fl (7.5-11.1); MONO % 6.4 % (3.8-10.2); NEUT % 88.1 % (42.8-82.8); PLATELET COUNT 122 K/MM3 (134-434); RBC 3.48 M/mm3 (3.60-5.2); RDW 15.4 % (11.6-15.6); WHITE BLOOD COUNT 7.3 K/mm3 (4.0-10.0)
--- NOTE | 2019-12-23 11:44 | PN ---
Physical Exam: SUBJECTIVE: Patient seen and examined in the morning. Patient was transferred to the ICU yesterday after hypotensive episode. No acute events afterwards, no events on cardiac monitoring. Patient does not respond to questions about pain, is just moaning and groaning. OBJECTIVE: Vital Signs Period Temp Pulse Resp BP Sys/[place] Pulse Ox Last 24 Hr 96.5 F-97.5 F 66-84 14-18 85-115/38-71 97-100 GENERAL: The patient is awake and alert. Altered mental status. HEAD: Normal with no signs of trauma. EYES: PERRLA NECK: C-Collar in place. LUNGS: Breath sounds with crackles bilaterally. HEART: Regular rate and rhythm, S1, S2 without murmur, rub or gallop. ABDOMEN: Soft, nontender, nondistended, normoactive bowel sounds, no guarding, no rebound, no hepatosplenomegaly, no masses. EXTREMITIES: 2+ pulses, warm, well-perfused, no edema. NEUROLOGICAL:Not responding to command. PSYCH: Normal mood, normal affect. SKIN: Warm, dry, normal turgor, no rashes or lesions noted Laboratory Results - last 24 hr 12/22/19 12/22/19 12/22/19 12:00 14:55 16:15 Anticoagulation Therapy No Result Required. Puncture Site Left radial ABG pH 7.31 L ABG pCO2 at Pt Temp 58.1 H ABG pO2 at Pt Temp 74.1 L ABG HCO3 28.3 H ABG O2 Sat (Measured) 94.1 L ABG O2 Content 13.2 ABG Base Excess 1.7 Diogenes Test Positive O2 Delivery Device No Result Required. Oxygen Flow Rate 2l Vent Mode No Result Required. Vent Rate No Result Required. Mechanical Rate No Result Required. Pressure Support Vent No Result Required. Sodium Potassium Chloride Carbon Dioxide Anion Gap BUN Creatinine Est GFR (CKD-EPI)AfAm Est GFR (CKD-EPI)NonAf Random Glucose Lactic Acid Calcium Phosphorus Magnesium Total Bilirubin GGT AST ALT Alkaline Phosphatase Ammonia Troponin I Total Protein Albumin Vitamin B12 Urine Color [place] Red Urine Appearance Cloudy Turbid Urine pH 6.5 6.0 Ur Specific [place] 1.020 1.019 Urine Protein 2+ H 3+ H Urine Glucose (UA) Negative Negative Urine Ketones Negative Negative Urine Blood 3+ H 3+ H Urine Nitrite Negative Negative Urine Bilirubin Negative Negative Urine Urobilinogen 0.2 1.0 Ur Leukocyte Esterase Trace 2+ H Urine WBC (Auto) 43.0 162 Urine RBC (Auto) 2655.5 4393.5 Urine Casts (Auto) 7.66 87 U Pathogenic Cast Auto None U Epithel Cells (Auto) 9.9 2.3 Urine Bacteria (Auto) 5.5 5.5 Urine Yeast (Auto) Few 12/22/19 12/22/19 12/22/19 20:00 20:00 20:00 Anticoagulation Therapy Puncture Site ABG pH ABG pCO2 at Pt Temp ABG pO2 at Pt Temp ABG HCO3 ABG O2 Sat (Measured) ABG O2 Content ABG Base Excess Diogenes Test O2 Delivery Device Oxygen Flow Rate Vent Mode Vent Rate Mechanical Rate Pressure Support Vent Sodium 147 H Potassium 4.4 Chloride 114 H Carbon Dioxide 30 Anion Gap 2 L BUN 27.4 H Creatinine 1.1 Est GFR (CKD-EPI)AfAm 53.77 Est GFR (CKD-EPI)NonAf 46.39 Random Glucose 127 H Lactic Acid 0.5 Calcium 7.4 L Phosphorus 3.2 Magnesium 1.9 Total Bilirubin 0.2 GGT 56 AST 37 ALT 172 H Alkaline Phosphatase 79 Ammonia Cancelled Troponin I 0.18 H Total Protein 4.2 L Albumin 1.6 L Vitamin B12 1011 H Urine Color Urine Appearance Urine pH Ur Specific [place] Urine Protein Urine Glucose (UA) Urine Ketones Urine Blood Urine Nitrite Urine Bilirubin Urine Urobilinogen Ur Leukocyte Esterase Urine WBC (Auto) Urine RBC (Auto) Urine Casts (Auto) U Pathogenic Cast Auto U Epithel Cells (Auto) Urine Bacteria (Auto) Urine Yeast (Auto) Active Medications Generic Name Dose Route Start Last Admin Trade Name Herberthq PRN Reason Stop Dose Admin Piperacillin Sod/Tazobactam 100 mls @ 200 mls/hr 12/21/19 18:00 12/23/19 10: 59 Sod 4.5 gm/ Dextrose IVPB 200 mls/hr Q8H-IV MICHAEL Administration Protocol Sodium Chloride 1,000 mls @ 100 mls/hr 12/23/19 07:13 Normal Saline - IV ASDIR MICHAEL Pantoprazole Sodium 40 mg 12/19/19 22:00 12/23/19 10:59 Protonix Iv IVPUSH 40 mg BID MICHAEL Administration ASSESSMENT/PLAN: 84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 Neuro: -Pt is altered -Oxy d/c'd -Head CT showed no acute changes -C-spine MRI pending Cardiovascular -Patient has been normotensive. -On NS @100, has been fluid responsive -EKG was unchanged -Troponin negative Pulmonary - High flow oxygen 40/40. -ABG pending GI -Patient is stable, no acute events Renal -BUN/Creatinine 27.4/1.1 -Monitor electrolytes -Hematuria still present ID -Patient was hypothermic 95.9 on rectal temp -Follow up cultures -Continue zoysn -Vancomycin given yesterday F: NS @ 100 E: Monitor CMP N: Tube feed osmolite 1.2. Lines: Adamson switched 12/22. Peripheral IV in place. Dispo: Continue ICU monitoring. Visit type - Emergency Visit Emergency Visit: Yes ED Registration Date: 12/19/19 Care time: The patient presented to the Emergency Department on the above date and was hospitalized for further evaluation of their emergent condition. - New Patient This patient is new to me today: Yes Date on this admission: 12/23/19 - Critical Care Critical Care patient: Yes Total Critical Care Time (in minutes): 45 Critical Care Statement: The care of this patient involved high complexity decision making to prevent further life threatening deterioration of the patient 's condition and/or to evaluate & treat vital organ system(s) failure or risk of failure. ATTENDING PHYSICIAN STATEMENT I saw and evaluated the patient. I reviewed the resident's note and discussed the case with the resident. I agree with the resident's findings and plan as documented. SUBJECTIVE: OBJECTIVE: ASSESSMENT AND PLAN:
[2019-12-23 12:43] LABS: ARTERIAL BLOOD GAS BASE EXCESS 0.7 meq/l (-2-2); ARTERIAL BLOOD GAS PCO2 54.1 mmHg (35-45); ARTERIAL BLOOD GAS PO2 95.2 mmHg (80-100); ARTERIAL BLOOD GAS pH 7.32 (7.35-7.45)
[2019-12-23 12:44] LABS: ALLENS TEST POSITIVE
[2019-12-23 13:21] LABS: ALBUMIN 1.6 g/dl (3.4-5.0); BILIRUBIN,TOTAL 0.6 mg/dL (0.2-1); BLOOD UREA NITROGEN 26.7 mg/dL (7-18); CALCIUM 7.4 mg/dL (8.5-10.1); CREATININE 1.1 mg/dL (0.55-1.3); POTASSIUM 4.5 mmol/L (3.5-5.1); TOT PROT 4.2 g/dl (6.4-8.2)
--- NOTE | 2019-12-23 16:09 | ECHO ---
Version: 1 Name: MICHAEL LEE Exam: Adult Echocardiogram Study Date: 12/23/2019, 2:04 PM Age: 84 Years MMode/2D Measurements & Calculations IVSd: 2.42 cm LVIDs: 1.75 cm LVIDd: 3.1 cm LVPWd: 1.71 cm LAV (MOD-bp): 138.0 ml ACS: 1.27 cm Ao root diam: 3.0 cm LVOT diam: 1.97 cm LA dimension: 5.2 cm Doppler Measurements & Calculations MV E max feliciano: 73.7 cm/sec Med E/e': 23.1 MV A max feliciano: 37.2 cm/sec Med Peak E' Feliciano: 3.2 cm/sec MV E/A: 1.98 Lat E/e': 16.3 Lat Peak E' Feliciano: 4.5 cm/sec MR max P.3 mmHg Ao max P.4 mmHg ABDIRAHMAN(I,D): 2.20 cm Ao mean P.5 mmHg LV V1 mean: 47.4 cm/sec Ao V2 max: 116.1 cm/sec LV V1 mean P.14 mmHg PI end-d feliciano: 122.2 cm/sec TR max feliciano: 270.5 cm/sec TR max P.7 mmHg Left Ventricle The left ventricular cavity is small. There is severe concentric left ventricular hypertrophy. Granu lar sparkling appearance of myocardium with increased myocardial echogenicity,, suggesting cardiac amylo idosis. The left ventricle is hyperdynamic. Ejection Fraction = >75%. The transmitral spectral Doppler flow pattern is suggestive of restrictive physiology. Right Ventricle The right ventricle is normal in size and function. Atria The left atrium is severely dilated. The right atrium is mildly dilated. Mitral Valve There is moderate mitral valve thickening. Tricuspid Valve The tricuspid valve is not well visualized, but is grossly normal. There was insufficient TR detecte d to calculate RV systolic pressure. Aortic Valve There is moderate aortic sclerosis.;. No hemodynamically significant valvular aortic stenosis. Pulmonic Valve The pulmonic valve is not well visualized. Great Vessels The aortic root is normal size. Pericardium/Pleura There is a mild pericardial effusion. There is a pleural effusion present. Summary Statements The left ventricular cavity is small. There is severe concentric left ventricular hypertrophy. Granu lar sparkling appearance of myocardium with increased myocardial echogenicity,, suggesting cardiac amylo idosis. The left ventricle is hyperdynamic. Ejection Fraction = >75%. The transmitral spectral Doppler flow pattern is suggestive of restrictive physiology. The right ventricle is normal in size and function. The left atrium is severely dilated. The right atrium is mildly dilated. There is moderate aortic sclerosis.; No hemodynamically significant valvular aortic stenosis. There is moderate mitral valve thickening. There is a mild pericardial effusion. There is a pleural effusion present. 12/23/2019, 4:08 MD Jeanie Diamond PM Ordering Physician: Warren Chawla Referring Physician: WARREN CHAWLA Performed By: Marci Grijalva
[2019-12-23] MEDS ORDERED: ACETAMINOPHEN 1000 MG/100 ML VIAL (NON FORMULARY) IVPB PRN (16:34)
--- NOTE | 2019-12-23 16:42 | PN ---
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 (short form) - Note 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: transferred to ICU on high flow oxygen BP is improved lethargic, opens eyes to voice, intermittently tries to answer cervicl collar in place daughter states she was not eating at the [place] Vital Signs Period Temp Pulse Resp BP Sys/Hutton Pulse Ox Last 24 Hr 96.5 F-97.5 F 66-77 14-18 93-112/52-71 100-100 cor-rrr lungs decreased bs at bases abd soft,nt ext trace edema CBC, BMP 12/23/19 11:00 12/23/19 12:00 Microbiology 12/20/19 15:43 Blood - Peripheral Venous Blood Culture - Preliminary NO GROWTH OBTAINED AFTER 72 HOURS, INCUBATION TO CONTINUE FOR 2 DAYS. 12/20/19 15:50 Blood - Peripheral Venous Blood Culture - Preliminary NO GROWTH OBTAINED AFTER 72 HOURS, INCUBATION TO CONTINUE FOR 2 DAYS. 12/22/19 14:47 Blood - Peripheral Venous Blood Culture - Preliminary NO GROWTH OBTAINED AFTER 24 HOURS, INCUBATION TO CONTINUE FOR 4 DAYS. 12/22/19 14:47 Blood - Peripheral Venous Blood Culture - Preliminary NO GROWTH OBTAINED AFTER 24 HOURS, INCUBATION TO CONTINUE FOR 4 DAYS. 12/19/19 13:45 Blood - Peripheral Venous Blood Culture - Preliminary NO GROWTH OBTAINED AFTER 96 HOURS, INCUBATION TO CONTINUE FOR 1 DAYS. 12/19/19 13:45 Blood - Peripheral Venous Blood Culture - Final Staph Hominis Sub Sp Hominis 12/19/19 13:45 Urine - Urine Adamson Urine Culture - Final Yeast Like Organism head ct no acute event cervical MRI ordered and pending a/p hypotension resolved ?aspiration GI bleed hematuria history of cervical osteomyelitis with group b strep bacteremia- on rocephin at [place] continue zosyn f/u cxray overall status is guarded doing poorly albumin is 1.6
--- NOTE | 2019-12-23 18:41 | PN ---
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, Physician History of Present Illness: events noted Chart reviewed Alert seen in MICU Still critical gasping for air Tachypnic and hyopthermic No seizure Anemia is better Reviewed her CT - Current Medication List Current Medications: Active Medications Acetaminophen (Ofirmev Injection -) 1,000 mg IVPB Q6H PRN PRN Reason: PAIN LEVEL 6-10 Stop: 12/24/19 16:34 Last Admin: 12/23/19 18:18 Dose: 1,000 mg Piperacillin Sod/Tazobactam (Sod 4.5 gm/ Dextrose) 100 mls @ 200 mls/hr IVPB Q8H-IV MICHAEL; Protocol Last Admin: 12/23/19 18:20 Dose: 200 mls/hr Pantoprazole Sodium (Protonix Iv) 40 mg IVPUSH BID MICHAEL Last Admin: 12/23/19 10:59 Dose: 40 mg - Objective Vital Signs: Vital Signs Temperature 97.5 F L 12/23/19 06:00 Pulse Rate 75 12/23/19 12:00 Respiratory Rate 18 12/23/19 12:00 Blood Pressure 93/57 L 12/23/19 10:00 O2 Sat by Pulse Oximetry (%) 100 12/23/19 09:00 Constitutional: Yes: Well Nourished Eyes: Yes: WNL HENT: Yes: WNL Neurological: Yes: Alert, Oriented, Babinski positive ...Motor Strength: LUE (0), LLE (0) Labs: CBC, BMP 12/23/19 11:00 12/23/19 12:00 INR, PTT INR 2.17 (0.83-1.09) H 12/19/19 13:45 Problem List - Problems (1) Altered mental status Code(s): R41.82 - ALTERED MENTAL STATUS, UNSPECIFIED (2) Osteomyelitis Code(s): M86.9 - OSTEOMYELITIS, UNSPECIFIED Qualifiers: Osteomyelitis type: unspecified type Osteomyelitis location: other site Qualified Code(s): M86.9 - Osteomyelitis, unspecified (3) CVA (cerebral vascular accident) Code(s): I63.9 - CEREBRAL INFARCTION, UNSPECIFIED Qualifiers: CVA mechanism: unspecified Qualified Code(s): I63.9 - Cerebral infarction, unspecified Assessment/Plan 1. Repeat [facility] NCV and compare to one done 12/01 to look for progressive demylination with F waves 2. Tight INR control 3. MRI C spine when stable 4. Seziure precautions 5. PT at bedside 6. Follow up with ID
[2019-12-24] MEDS: PIPERACILLIN/TAZOB 4.5 GM 4.5 GM in DEXTROSE 5%-WATER 100 ML IVPB SCH ×3 (03:00→18:21)
[2019-12-24] MEDS ORDERED: PIPERACILLIN/TAZOBACTAM 4.5 GM VIAL IVPB ONE ×4 (03:13→21:20)
[2019-12-24] MEDS ORDERED: DEXTROSE 5%-WATER 100 ML IVPB ONE ×4 (03:14→21:20)
[2019-12-24] MEDS: LACTATED RINGERS SOLUTION 1,000 ML/1,000 ML INFUS.BAG IV SCH (06:41)
--- NOTE | 2019-12-24 08:11 | PN ---
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 (short form) - Note 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: NEUROSURGERY In ICU PE: Tmax 97,5, AF, BP trending better generally; O2 sat 98% Drowsy but arousable, not following commands HEENT- NC/AT; Neck- supple; Cor-Irreg; Chest- CTA B, irregular breathing pattern ; Abd- benign; Ext- no C/C/E CN- intact; Motor- flaccid B UE/LE; Sensation- intact LT; DTR- hyporereflexic, no LTS Blood culture + 1/2 staph homiis; negative on subsequent cultures EMG/NCS- B demyelinating neuropathy head CT- no acute bleed or large territorial infarct, chronic ischemic disease C4-5 spondylolisthesis/discitis/osteomyelitis with moderate stenosis L > R and mld-moderate C5-6 DDD/degenerative stenosis Significant generalized weakness could not be explained by cervical MRI done a couple weeks ago and recommend repeat MRI C spine with dov r/o progressive demyelinating neuropathy C-collar for immobilization/comfort On Zosyn per ID/medical team Neurology f/u MRI C spine pending
--- NOTE | 2019-12-24 09:10 | PN ---
Teaching Attending Note Name of Resident: Jose Beaulieu ATTENDING PHYSICIAN STATEMENT I saw and evaluated the patient. I reviewed the resident's note and discussed the case with the resident. I agree with the resident's findings and plan as documented. SUBJECTIVE: Patient seen and examined in the ICU. Lethargic but more arousable, agitated. On HFOT. Intake & Output 12/21/19 12/22/19 12/23/19 12/24/19 23:59 23:59 23:59 23:59 Intake Total 60 800 2734 644 Output Total 900 520 550 400 Balance -905 484 0870 244 Weight 132 lb 147 lb 11.355 oz Last Vital Signs Temp Pulse Resp BP Pulse Ox 97.2 F L 78 18 74/43 L 100 12/24/19 06:00 12/24/19 08:00 12/24/19 08:00 12/24/19 08:00 12/23/19 20:15 Active Medications Acetaminophen (Ofirmev Injection -) 1,000 mg IVPB Q6H PRN PRN Reason: PAIN LEVEL 6-10 Stop: 12/24/19 16:34 Last Admin: 12/23/19 18:18 Dose: 1,000 mg Piperacillin Sod/Tazobactam (Sod 4.5 gm/ Dextrose) 100 mls @ 200 mls/hr IVPB Q8H-IV MICHAEL; Protocol Last Admin: 12/24/19 03:00 Dose: 200 mls/hr Lactated Ringer's (Lactated Ringers Solution) 1,000 ml in 1,000 mls @ 83 mls/ hr IV ASDIR MICHAEL Last Admin: 12/24/19 06:41 Dose: 83 mls/hr Pantoprazole Sodium (Protonix Iv) 40 mg IVPUSH BID [facility] Last Admin: 12/23/19 21:00 Dose: 40 mg GENERAL: Lethargic, arousable HEAD: Normal with no signs of trauma. EYES: Pupils pinpoint EARS, NOSE, THROAT: oropharynx clear without exudates. Moist mucous membranes. NECK: C collar intact LUNGS: HFOT, few scattered rhonchi HEART: Regular rate and rhythm, normal S1 and S2 without murmur, rub or gallop. ABDOMEN: Soft, nontender, not distended, normoactive bowel sounds, no guarding, no rebound, no masses. No hepatomegaly or splenomegaly. UPPER EXTREMITIES: limb alert on the right with edema LOWER EXTREMITIES: 2+ pulses, warm, well-perfused. No calf tenderness. No peripheral edema. PSYCHIATRIC: lethargic Laboratory Results - last 24 hr 12/22/19 12/23/19 12/23/19 20:00 11:00 12:00 WBC 7.3 RBC 3.48 L Hgb 10.7 Hct 33.6 MCV 96.4 H MCH 30.7 MCHC 31.8 L RDW 15.4 Plt Count 122 L MPV 9.9 Absolute Neuts (auto) 6.4 Neutrophils % 88.1 H Lymphocytes % 4.6 L D Monocytes % 6.4 Eosinophils % 0.5 D Basophils % 0.4 Nucleated RBC % 0 Anticoagulation Therapy Puncture Site ABG pH ABG pCO2 at Pt Temp ABG pO2 at Pt Temp ABG HCO3 ABG O2 Sat (Measured) ABG O2 Content ABG Base Excess Diogenes Test O2 Delivery Device Oxygen Flow Rate Vent Mode Vent Rate Mechanical Rate Pressure Support Vent Sodium 146 H Potassium 4.5 Chloride 114 H Carbon Dioxide 27 Anion Gap 5 L BUN 26.7 H Creatinine 1.1 Est GFR (CKD-EPI)AfAm 53.77 Est GFR (CKD-EPI)NonAf 46.39 Random Glucose 106 Calcium 7.4 L Total Bilirubin 0.6 AST 27 ALT 144 H Alkaline Phosphatase 76 Total Protein 4.2 L Albumin 1.6 L Carcinoembryonic Ag 9.8 H TSH 1.69 12/23/19 12:00 WBC RBC Hgb Hct MCV MCH MCHC RDW Plt Count MPV Absolute Neuts (auto) Neutrophils % Lymphocytes % Monocytes % Eosinophils % Basophils % Nucleated RBC % Anticoagulation Therapy No Result Required. Puncture Site Left radial ABG pH 7.32 L ABG pCO2 at Pt Temp 54.1 H ABG pO2 at Pt Temp 95.2 ABG HCO3 26.8 ABG O2 Sat (Measured) 97.0 ABG O2 Content 12.7 ABG Base Excess 0.7 Diogenes Test Positive O2 Delivery Device No Result Required. Oxygen Flow Rate 40 Vent Mode No Result Required. Vent Rate No Result Required. Mechanical Rate No Result Required. Pressure Support Vent No Result Required. Sodium Potassium Chloride Carbon Dioxide Anion Gap BUN Creatinine Est GFR (CKD-EPI)AfAm Est GFR (CKD-EPI)NonAf Random Glucose Calcium Total Bilirubin AST ALT Alkaline Phosphatase Total Protein Albumin Carcinoembryonic Ag TSH ASSESSMENT/PLAN: R/O Sepsis: source unclear Hypotension: (?) due to Sepsis versus BP/pain meds History of CVA with residual weakness Aflutter Hypertension Hyperlipidemia Recent history of cervical spine osteomyelitis Hypothermia Wean HFOT IVF ABX per ID Aspiration precautions Further GOC to be discussed with the family. Hard collar to remain in place 4W / 4S monitoring Overall outcome appears poor Dr Martino
[2019-12-24 09:55] LABS: BASO % 0.2 % (0-2.0); EOS % 0.3 % (0-4.5); HEMATOCRIT 25.4 % (32.4-45.2); HEMOGLOBIN 8.1 GM/dL (10.7-15.3); LYMPH % 4.1 % (8-40); MCH 30.7 pg (25.7-33.7); MEAN CELL VOLUME 95.9 fl (80-96); MEAN PLT VOLUME 9.8 fl (7.5-11.1); MONO % 5.3 % (3.8-10.2); NEUT % 90.1 % (42.8-82.8); PLATELET COUNT 98 K/MM3 (134-434); RBC 2.65 M/mm3 (3.60-5.2); RDW 15.9 % (11.6-15.6); WHITE BLOOD COUNT 6.3 K/mm3 (4.0-10.0)
[2019-12-24] MEDS: PANTOPRAZOLE SODIUM 40 MG VIAL IVPUSH SCH ×2 (10:02→21:26)
[2019-12-24] MEDS ORDERED: LACTATED RINGERS SOLUTION 1,000 ML/1,000 ML INFUS.BAG IV STA (10:03)
[2019-12-24 10:52] LABS: ALBUMIN 1.1 g/dl (3.4-5.0); BILIRUBIN,TOTAL 0.2 mg/dL (0.2-1); BLOOD UREA NITROGEN 22.8 mg/dL (7-18); CALCIUM 7.1 mg/dL (8.5-10.1); CREATININE 0.9 mg/dL (0.55-1.3); MAGNESIUM 1.6 mg/dL (1.8-2.4); PHOSPHOROUS 2.6 mg/dL (2.5-4.9); POTASSIUM 4.2 mmol/L (3.5-5.1); TOT PROT 3.1 g/dl (6.4-8.2)
--- NOTE | 2019-12-24 11:28 | PN ---
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, Physician Chief Complaint: IN ICU ROUNDING WITH ICU TEAM PATIENT AWAKE AROUSABLE IN MODERATE DISTRESS EVENTS AND NOTES REVIEWED - Current Medication List Current Medications: Active Medications Acetaminophen (Ofirmev Injection -) 1,000 mg IVPB Q6H PRN PRN Reason: PAIN LEVEL 6-10 Stop: 12/24/19 16:34 Last Admin: 12/23/19 18:18 Dose: 1,000 mg Piperacillin Sod/Tazobactam (Sod 4.5 gm/ Dextrose) 100 mls @ 200 mls/hr IVPB Q8H-IV MICHAEL; Protocol Last Admin: 12/24/19 10:02 Dose: 200 mls/hr Lactated Ringer's (Lactated Ringers Solution) 1,000 ml in 1,000 mls @ 83 mls/ hr IV ASDIR MICHAEL Last Admin: 12/24/19 06:41 Dose: 83 mls/hr Magnesium Sulfate (Magnesium Sulfate) 1 gm IVPB ONCE ONE Stop: 12/24/19 11:24 Pantoprazole Sodium (Protonix Iv) 40 mg IVPUSH BID MICHAEL Last Admin: 12/24/19 10:02 Dose: 40 mg - Objective Vital Signs: Vital Signs Temperature 97.2 F L 12/24/19 06:00 Pulse Rate 83 12/24/19 08:15 Respiratory Rate 18 12/24/19 09:00 Blood Pressure 74/43 L 12/24/19 08:00 O2 Sat by Pulse Oximetry (%) 100 12/24/19 09:00 Constitutional: Yes: Moderate Distress Neck: Yes: Other (CERVICAL COLLAR) Cardiovascular: Yes: Pulse Irregular Respiratory: Yes: On Nasal O2 (ON AIRVO 50%) Gastrointestinal: Yes: Soft Genitourinary: Yes: Adamson Present, Hematuria Musculoskeletal: Yes: Muscle Weakness Neurological: Yes: Confusion, Pre-Existing Deficit, Weakness Labs: CBC, BMP 12/24/19 09:37 12/24/19 09:37 INR, PTT INR 2.17 (0.83-1.09) H 12/19/19 13:45 Problem List - Problems (1) Altered mental status Code(s): R41.82 - ALTERED MENTAL STATUS, UNSPECIFIED (2) Constipation Code(s): K59.00 - CONSTIPATION, UNSPECIFIED (3) Fecal impaction in rectum Code(s): K56.41 - FECAL IMPACTION (4) GI bleed Code(s): K92.2 - GASTROINTESTINAL HEMORRHAGE, UNSPECIFIED Qualifiers: GI bleed type/associated pathology: anorectal hemorrhage Qualified Code(s) : K62.5 - Hemorrhage of anus and rectum (5) Hematochezia Code(s): K92.1 - MELENA (6) Hematuria Code(s): R31.9 - HEMATURIA, UNSPECIFIED (7) Hyperkalemia Code(s): E87.5 - HYPERKALEMIA (8) Lactic acidosis Code(s): E87.2 - ACIDOSIS (9) Osteomyelitis Code(s): M86.9 - OSTEOMYELITIS, UNSPECIFIED Qualifiers: Osteomyelitis type: unspecified type Osteomyelitis location: other site Qualified Code(s): M86.9 - Osteomyelitis, unspecified (10) Troponin I above reference range Code(s): R79.89 - OTHER SPECIFIED ABNORMAL FINDINGS OF BLOOD CHEMISTRY Assessment/Plan ON ZOSYN FOR SEPSIS TREATMENT ID AND CULTURES F/U MONITOR H/H MRI CSPINE PENDING ON AIRVO FOR 02 SUPPORT WILL NEED ADVANCED DIRECTIVE DISCUSSION WITH FAMILY DVT PROPHYLAXIS NEUROSURGERY/ICU TEAM F/U APPRECIATED FULL CODE
[2019-12-24] MEDS ORDERED: MAGNESIUM SULF 50% (8.12 MEQ/2 ML-1 GM VIAL) IVPB ONE (11:30)
--- NOTE | 2019-12-24 11:37 | PN ---
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 (short form) - Note 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: on high flow oxygen weak and lethargic Vital Signs Period Temp Pulse Resp BP Sys/Hutton Pulse Ox Last 24 Hr 97.2 F-98.2 F 72-86 2-23 74-129/37-95 100-100 cor-rrr lungs decreased bs at bases abd soft,nt ext trace edema CBC, BMP 12/24/19 09:37 12/24/19 09:37 Microbiology 12/22/19 16:15 Urine - Urine Adamson Urine Culture - Final Yeast Like Organism 12/20/19 15:43 Blood - Peripheral Venous Blood Culture - Preliminary NO GROWTH OBTAINED AFTER 72 HOURS, INCUBATION TO CONTINUE FOR 2 DAYS. 12/20/19 15:50 Blood - Peripheral Venous Blood Culture - Preliminary NO GROWTH OBTAINED AFTER 72 HOURS, INCUBATION TO CONTINUE FOR 2 DAYS. 12/22/19 14:47 Blood - Peripheral Venous Blood Culture - Preliminary NO GROWTH OBTAINED AFTER 24 HOURS, INCUBATION TO CONTINUE FOR 4 DAYS. 12/22/19 14:47 Blood - Peripheral Venous Blood Culture - Preliminary NO GROWTH OBTAINED AFTER 24 HOURS, INCUBATION TO CONTINUE FOR 4 DAYS. 12/19/19 13:45 Blood - Peripheral Venous Blood Culture - Preliminary NO GROWTH OBTAINED AFTER 96 HOURS, INCUBATION TO CONTINUE FOR 1 DAYS. 12/19/19 13:45 Blood - Peripheral Venous Blood Culture - Final Staph Hominis Sub Sp Hominis 12/19/19 13:45 Urine - Urine Adamson Urine Culture - Final Yeast Like Organism cxray bibasilar infiltrate/effusion head ct no acute event cervical MRI ordered and pending a/p ?aspiration pneumonia GI bleed hematuria history of cervical osteomyelitis with group b strep bacteremia- on rocephin at [place] continue zosyn f/u cxray overall status is guarded doing poorly albumin is 1.6
--- NOTE | 2019-12-24 13:20 | PN ---
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, Physician History of Present Illness: Placed on HFO2, borderline hemodynamics, BP meds held. Lethargic yet arousable. - Current Medication List Current Medications: Active Medications Acetaminophen (Ofirmev Injection -) 1,000 mg IVPB Q6H PRN PRN Reason: PAIN LEVEL 6-10 Stop: 12/24/19 16:34 Last Admin: 12/23/19 18:18 Dose: 1,000 mg Piperacillin Sod/Tazobactam (Sod 4.5 gm/ Dextrose) 100 mls @ 200 mls/hr IVPB Q8H-IV MICHAEL; Protocol Last Admin: 12/24/19 10:02 Dose: 200 mls/hr Lactated Ringer's (Lactated Ringers Solution) 1,000 ml in 1,000 mls @ 83 mls/ hr IV ASDIR MICHAEL Last Admin: 12/24/19 06:41 Dose: 83 mls/hr Pantoprazole Sodium (Protonix Iv) 40 mg IVPUSH BID MICHAEL Last Admin: 12/24/19 10:02 Dose: 40 mg - Objective Vital Signs: Vital Signs Temperature 97.2 F L 12/24/19 06:00 Pulse Rate 83 12/24/19 08:15 Respiratory Rate 18 12/24/19 09:00 Blood Pressure 74/43 L 12/24/19 08:00 O2 Sat by Pulse Oximetry (%) 100 12/24/19 09:00 Constitutional: Yes: No Distress, Calm, Thin Neck: Yes: Supple Cardiovascular: Yes: Regular Rate and Rhythm Respiratory: Yes: Regular, Diminished, On Nasal O2 Gastrointestinal: Yes: Soft, Hypoactive Bowel Sounds Edema: No Labs: CBC, BMP 12/24/19 09:37 12/24/19 09:37 INR, PTT INR 2.17 (0.83-1.09) H 12/19/19 13:45 - ....Imaging Chest X-ray: Report Reviewed (Bilateral effusions) Problem List - Problems (1) Supratherapeutic INR Code(s): R79.1 - ABNORMAL COAGULATION PROFILE (2) GI bleed Code(s): K92.2 - GASTROINTESTINAL HEMORRHAGE, UNSPECIFIED Qualifiers: GI bleed type/associated pathology: anorectal hemorrhage Qualified Code(s) : K62.5 - Hemorrhage of anus and rectum (3) Hematuria Code(s): R31.9 - HEMATURIA, UNSPECIFIED (4) Hyperkalemia Code(s): E87.5 - HYPERKALEMIA (5) Atrial flutter Code(s): I48.92 - UNSPECIFIED ATRIAL FLUTTER Qualifiers: Atrial flutter type: typical Qualified Code(s): I48.3 - Typical atrial flutter (6) Hypercholesterolemia Code(s): E78.00 - PURE HYPERCHOLESTEROLEMIA, UNSPECIFIED (7) Hypotension Code(s): I95.9 - HYPOTENSION, UNSPECIFIED (8) LVH (left ventricular hypertrophy) Code(s): I51.7 - CARDIOMEGALY (9) Demand ischemia Code(s): I24.8 - OTHER FORMS OF ACUTE ISCHEMIC HEART DISEASE (10) CVA (cerebral vascular accident) Code(s): I63.9 - CEREBRAL INFARCTION, UNSPECIFIED Qualifiers: CVA mechanism: unspecified Qualified Code(s): I63.9 - Cerebral infarction, unspecified (11) HTN (hypertension) Code(s): I10 - ESSENTIAL (PRIMARY) HYPERTENSION Qualifiers: Hypertension type: essential hypertension Qualified Code(s): I10 - Essential (primary) hypertension Assessment/Plan 12/23/2019 Echo: Small LV size with severe LVH suspect cardiac amyloidosis, hyperdynamic LVEF>75%, restrictive physiology, normal RV size and fxn, severe LAE, mild LORNA, pleural effusion 12/01/19 Normal LV size with severe LVH with normal LV fxn, severe LAE, mild MR , TR, DC, possible infiltrative heart disease 12/04/2019: C spine MRI - multilevel DDD; C5-6 vertebral edema, central disc protrusion C4-5 and C5-6; moderate to marked C5-6 (L > R) central and foramenal stenosis and mild-moderate C4-5 stenosis, extensive spondylosis; loss of lordosis; no clear cord edema or myelomalacia 1. GI bleed and hematuria in context of supratherapeutic INR 2. Cervical spinal cord compression C5/C6 osteomyelitis/discitis, cannot exclude UTI 3. Group B strep bacteremia previously on rocephin 4. HTN 5. Hypercholesterolemia 6. Paroxysmal atrial fibrillation/flutter [id number] score of 6-7 7. CVA 8. Concentric LVH ? rule out infiltrative heart disease 9. Abnormal ECG suggests CAD 10. Demand ischemia with elevated troponin 11. Abnl LFTs->cholelithiasis 12. Right basilic vein superficial thrombosis post PICC line removal 13. Diastolic dysfunction PLAN: 1. Empiric zosyn course via PICC line for both group b strep and possible UTI and C-collar for immobilization, f/u C&S 2. Resume Carvedilol and lisinopril as hemodynamics tolerate as hyperkalemia resolved 3. Hold Coumadin pending hemostasis, consider switch to DOAC given suboptimal INR management once hemostasis assured 4. May consider Tm99 PYP study to rule out amyloidosis once clinically stable 5. Trops downtrending, Lipitor held due to abnl LFTs 6. Wean HFO2, aspiration precautions
[2019-12-24 13:36] LABS: INR 5.66 (0.83-1.09)
[2019-12-24] MEDS ORDERED: PROPOFOL 20 ML ONE (13:38)
[2019-12-24] MEDS ORDERED: SUCCINYLCHOLINE CHLORIDE 200 MG/10 ML SYRINGE ONE (13:38)
[2019-12-24] MEDS ORDERED: SUCCINYLCHOLINE CHLORIDE 200 MG/10 ML VIAL IVPUSH ONE (13:44)
[2019-12-24] MEDS ORDERED: PROPOFOL 200 MG/20 ML VIAL IVPUSH ONE (13:44)
--- NOTE | 2019-12-24 14:23 | RAPID ---
Physical Examination Vital Signs: Vital Signs Temperature 97.2 F L 12/24/19 06:00 Pulse Rate 83 12/24/19 08:15 Respiratory Rate 18 12/24/19 09:00 Blood Pressure 74/43 L 12/24/19 08:00 O2 Sat by Pulse Oximetry (%) 100 12/24/19 09:00 Labs: CBC, BMP 12/24/19 09:37 12/24/19 09:37 Rapid Response - Rapid Response Assessment: Code 99 called overhead at 14:06 and the rapid response team responded immediately. Pt reported to have no pulse. ACLS protocol initiated immediately. Pt achieved ROSC at 14:09. For complete details refer to code sheet.
[2019-12-24] MEDS ORDERED: PT OWN MED DRAWER 7, Y5N ONE (14:29)
[2019-12-24] MEDS ORDERED: VASOPRESSIN 20 UNITS/ML VIAL IV ONE (14:30)
--- NOTE | 2019-12-24 14:50 | PN ---
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 (short form) - Note 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: [facility] Notified by nursing that pt lethargic, hypoxic to 60s. Pt unarousable to noxious stimuli. Decision made to intubate. Oxygenation improved post intubation with thick secretions in the ETT, blood noted in the airway. Shortly after, pt without palpable pulse, ROSC achieved after 1 round epinephrine, starting on vasopressin gtt until can get central access. Vital Signs Period Temp Pulse Resp BP Sys/Hutton Pulse Ox Last 24 Hr 97.2 F-98.2 F 72-86 2-23 74-129/37-95 100-100 Intake & Output 12/21/19 12/22/19 12/23/19 12/24/19 23:59 23:59 23:59 23:59 Intake Total 60 800 2734 644 Output Total 900 520 550 400 Balance -275 657 8809 244 Weight 59.874 kg 67 kg Gen: intubated, sedated Heart: RRR Lung: scattered rhonchi Abd: soft, nontender Ext: no edema CBC, BMP 12/24/19 09:37 12/24/19 09:37 INR, PTT INR 5.66 (0.83-1.09) H* 12/24/19 12:20 Active Medications Acetaminophen (Ofirmev Injection -) 1,000 mg IVPB Q6H PRN PRN Reason: PAIN LEVEL 6-10 Stop: 12/24/19 16:34 Last Admin: 12/23/19 18:18 Dose: 1,000 mg Piperacillin Sod/Tazobactam (Sod 4.5 gm/ Dextrose) 100 mls @ 200 mls/hr IVPB Q8H-IV MICHAEL; Protocol Last Admin: 12/24/19 10:02 Dose: 200 mls/hr Lactated Ringer's (Lactated Ringers Solution) 1,000 ml in 1,000 mls @ 83 mls/ hr IV ASDIR MICHAEL Last Admin: 12/24/19 06:41 Dose: 83 mls/hr Pantoprazole Sodium (Protonix Iv) 40 mg IVPUSH BID MICHAEL Last Admin: 12/24/19 10:02 Dose: 40 mg A/P Acute Hypoxic Respiratory Failure Likely Aspiration Pneumonia Septic Shock GI Bleed Supratherapeutic INR Cervical Cord Compression with Osteomyelitis Bacteremia Paroxysmal Atrial Fibrilatoin LV Diastolic Dysfunction CAD HTN Hypercholesterolemia h/o CVA - pt intubated - continue antibiotics - send sputum cultures - will need central access - pressors to maintain MAP >65 - O2 to keep Spo2 >90% - monitor CBC, INR - transfuse as needed - assist control - DVT/GI prophylaxis - ICU monitoring - prognosis guarded critical care time spent in reviewing chart, evaluating patient and formulating plan 35 min
--- NOTE | 2019-12-24 14:51 | PROC ---
Intubation - Intubation Reason for Intubation: Respiratory Failure Time of Intubation: 13:40 Intubation Method: orotracheal Blade used: Glidescope (4 blade) Tube Size (cm): 7.5 Tube position @ lip (cm): 22 Tube position confirmed by: Direct visualization, CO2 detector, Breath sounds Breath Sounds after Intubation: equal Post Intubation Xray: Yes
[2019-12-24] MEDS ORDERED: morphine SULFATE 4 MG/ML VIAL ONE (15:25)
[2019-12-24] MEDS ORDERED: MIDAZOLAM HCL 5 MG/1 ML Single Dose Vial ONE (15:26)
[2019-12-24] MEDS ORDERED: NOREPINEPHRINE BITARTRATE 4 MG/4 ML ML IV ONE ×2 (15:26→17:49)
[2019-12-24] MEDS ORDERED: morphine SULFATE 4 MG/ML VIAL IVPUSH ONE (16:00)
[2019-12-24] MEDS ORDERED: MIDAZOLAM HCL 5 MG/1 ML Single Dose Vial IVPUSH ONE (16:00)
--- NOTE | 2019-12-24 16:02 | PN ---
Physical Exam: SUBJECTIVE: Patient seen and examined in the morning. Patient was transferred to the ICU yesterday after hypotensive episode. No acute events afterwards, no events on cardiac monitoring. Patient is not responding to questioning. Patient had code 99 called 14:06; ROSC was achieved. OBJECTIVE: Vital Signs Period Temp Pulse Resp BP Sys/Hutton Pulse Ox Last 24 Hr 97.2 F-98.2 F 72-86 2-23 68-129/37-95 96-100 GENERAL: The patient is awake and alert. Altered mental status. HEAD: Normal with no signs of trauma. EYES: PERRLA NECK: C-Collar in place. LUNGS: Breath sounds with crackles bilaterally. HEART: Regular rate and rhythm, S1, S2 without murmur, rub or gallop. ABDOMEN: Soft, nontender, nondistended, normoactive bowel sounds, no guarding, no rebound, no hepatosplenomegaly, no masses. EXTREMITIES: 2+ pulses, warm, well-perfused, no edema. NEUROLOGICAL:Not responding to command. PSYCH: Normal mood, normal affect. SKIN: Warm, dry, normal turgor, no rashes or lesions noted Laboratory Results - last 24 hr 12/22/19 12/24/19 12/24/19 20:00 09:37 09:37 WBC 6.3 RBC 2.65 L Hgb 8.1 L Hct 25.4 L D MCV 95.9 MCH 30.7 MCHC 32.0 RDW 15.9 H Plt Count 98 L MPV 9.8 Absolute Neuts (auto) 5.6 Neutrophils % 90.1 H Lymphocytes % 4.1 L Monocytes % 5.3 Eosinophils % 0.3 Basophils % 0.2 Nucleated RBC % 0 PT with INR INR Sodium 144 Potassium 4.2 Chloride 113 H Carbon Dioxide 24 Anion Gap 8 BUN 22.8 H Creatinine 0.9 Est GFR (CKD-EPI)AfAm 68.53 Est GFR (CKD-EPI)NonAf 59.13 Random Glucose 159 H Calcium 7.1 L Phosphorus 2.6 Magnesium 1.6 L Total Bilirubin 0.2 AST 26 ALT 95 H Alkaline Phosphatase 60 Total Protein 3.1 L Albumin 1.1 L Carcinoembryonic Ag 9.8 H 12/24/19 12:20 WBC RBC Hgb Hct MCV MCH MCHC RDW Plt Count MPV Absolute Neuts (auto) Neutrophils % Lymphocytes % Monocytes % Eosinophils % Basophils % Nucleated RBC % PT with INR 68.00 H INR 5.66 H* Sodium Potassium Chloride Carbon Dioxide Anion Gap BUN Creatinine Est GFR (CKD-EPI)AfAm Est GFR (CKD-EPI)NonAf Random Glucose Calcium Phosphorus Magnesium Total Bilirubin AST ALT Alkaline Phosphatase Total Protein Albumin Carcinoembryonic Ag Active Medications Generic Name Dose Route Start Last Admin Trade Name Freq PRN Reason Stop Dose Admin Acetaminophen 1,000 mg 12/23/19 16:34 12/23/19 18:18 Ofirmev Injection - IVPB 12/24/19 16:34 1,000 mg Q6H PRN Administration PAIN LEVEL 6-10 Piperacillin Sod/Tazobactam 100 mls @ 200 mls/hr 12/21/19 18:00 12/24/19 10: 02 Sod 4.5 gm/ Dextrose IVPB 200 mls/hr Q8H-IV MICHAEL Administration Protocol Lactated Ringer's 1,000 ml in 1,000 mls @ 83 mls/hr 12/24/19 05:30 12/24/19 06:41 Lactated Ringers Solution IV 83 mls/hr ASDIR MICHAEL Administration Pantoprazole Sodium 40 mg 12/19/19 22:00 12/24/19 10:02 Protonix Iv IVPUSH 40 mg BID MICHAEL Administration ASSESSMENT/PLAN: 84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 Neuro: -Pt is altered, non verbal -Oxy d/c'd -Head CT showed no acute changes -C-spine MRI pending -Patient given morphine for pain -Propofol sedation ordered -Sedation vacations as tolerated Cardiovascular -Patient hypotensive today. PEA for code 99. Resolved with ROSC after 3 minutes. -Stable now -Fluid boluses given earlier in the day. -Norepinephrine drip -Vasopressin drip -Echo shows EF => 75%, left ventricle is suggestive of restrictive pathology, moderate . granular appearance of myocardium suggestive of amyloidosis. Mild pericardial effusion Pulmonary -Required intubation -Vent settings: Vt: 450, RR 18, Fio2 60. Peep 5 -Wean trials as tolerated GI -Patient is stable, no acute events Renal -BUN/Creatinine 27.4/1.1 -Monitor electrolytes -Hematuria still present Heme/Onc -INR of 5.66 -FFP given -F/U INR in morning. ID -Urine culture growing yeast like organism -Continue zoysn F: NS @ 100 E: Monitor CMP N: Tube feed osmolite 1.2. Lines: Adamson switched 12/22. Left subclavian 12/24/2019. Dispo: Continue ICU monitoring. Visit type - Emergency Visit Emergency Visit: Yes ED Registration Date: 12/19/19 Care time: The patient presented to the Emergency Department on the above date and was hospitalized for further evaluation of their emergent condition. - New Patient This patient is new to me today: No - Critical Care Critical Care patient: Yes Total Critical Care Time (in minutes): 45 Critical Care Statement: The care of this patient involved high complexity decision making to prevent further life threatening deterioration of the patient 's condition and/or to evaluate & treat vital organ system(s) failure or risk of failure. ATTENDING PHYSICIAN STATEMENT I saw and evaluated the patient. I reviewed the resident's note and discussed the case with the resident. I agree with the resident's findings and plan as documented. SUBJECTIVE: OBJECTIVE: ASSESSMENT AND PLAN:
--- NOTE | 2019-12-24 16:25 | PROC ---
<Elizabeth Zamora - Last Filed: 12/24/19 16:24> Central Line Insertion Indication: Vasopressor Risks and Benefits Explained: Yes Consent on Chart: Yes Central Line: Triple Lumen Catheter Anesthesia: 1% Lidocaine Sterile Technique: Yes Ultrasound Guided Assistance: Yes Position: Left Subclavian Post Insertion: Yes: Bilateral Breath Sounds, Bilateral Chest Expansion, Chest X-Ray Ordered Sterile Dressing Applied: Yes <Hipolito Galindo MD - Last Filed: 12/24/19 17:52> Procedure Note Procedure: I supervised and was present during the entire procedure. Hipolito Galindo MD
[2019-12-24 16:59] LABS: HEMATOCRIT 24.1 % (32.4-45.2); HEMOGLOBIN 7.8 GM/dL (10.7-15.3); MCHC 32.2 g/dl (32.0-36.0); MEAN CELL VOLUME 96.2 fl (80-96); MEAN PLT VOLUME 10.8 fl (7.5-11.1); PLATELET COUNT 92 K/MM3 (134-434); RDW 15.4 % (11.6-15.6); WHITE BLOOD COUNT 7.7 K/mm3 (4.0-10.0)
[2019-12-24] MEDS: PROPOFOL 1,000,000 MCG/100 ML VIAL IVPB SCH (18:23)
[2019-12-24] MEDS ORDERED: ACETAMINOPHEN 1000 MG/100 ML VIAL (NON FORMULARY) IVPB PRN (20:42)
[2019-12-24] MEDS: VASOPRESSIN 50 UNITS in SODIUM CHLORIDE 97.5 ML IVPB SCH (21:26)
[2019-12-25] MEDS: PIPERACILLIN/TAZOB 4.5 GM 4.5 GM in DEXTROSE 5%-WATER 100 ML IVPB SCH ×3 (02:00→18:38)
[2019-12-25] MEDS ORDERED: PT OWN MED DRAWER 7, Y5N ONE (06:26)
[2019-12-25] MEDS: LACTATED RINGERS SOLUTION 1,000 ML/1,000 ML INFUS.BAG IV SCH (06:47)
[2019-12-25 06:54] LABS: BASO % 0.2 % (0-2.0); EOS % 0.3 % (0-4.5); HEMOGLOBIN 7.9 GM/dL (10.7-15.3); LYMPH % 6.7 % (8-40); MCH 30.8 pg (25.7-33.7); MEAN CELL VOLUME 93.1 fl (80-96); MEAN PLT VOLUME 10.8 fl (7.5-11.1); MONO % 4.9 % (3.8-10.2); NEUT % 87.9 % (42.8-82.8); PLATELET COUNT 88 K/MM3 (134-434); RBC 2.58 M/mm3 (3.60-5.2); RDW 14.8 % (11.6-15.6); WHITE BLOOD COUNT 7.4 K/mm3 (4.0-10.0)
[2019-12-25 07:07] LABS: PROTHROMBIN TIME (PATIENT) 23.8 SEC (9.7-13.0)
[2019-12-25 07:13] LABS: ALBUMIN 1.7 g/dl (3.4-5.0); BILIRUBIN,TOTAL 0.9 mg/dL (0.2-1); BLOOD UREA NITROGEN 26.6 mg/dL (7-18); CALCIUM 7.7 mg/dL (8.5-10.1); CREATININE 1.3 mg/dL (0.55-1.3); MAGNESIUM 1.9 mg/dL (1.8-2.4); PHOSPHOROUS 1.7 mg/dL (2.5-4.9); POTASSIUM 3.4 mmol/L (3.5-5.1); TOT PROT 4.3 g/dl (6.4-8.2)
[2019-12-25] MEDS ORDERED: PIPERACILLIN/TAZOBACTAM 4.5 GM VIAL IVPB ONE ×2 (08:41→16:28)
[2019-12-25] MEDS ORDERED: DEXTROSE 5%-WATER 100 ML IVPB ONE ×2 (08:41→16:28)
[2019-12-25] MEDS: PANTOPRAZOLE SODIUM 40 MG VIAL IVPUSH SCH ×2 (08:59→21:35)
[2019-12-25] MEDS ORDERED: POTASSIUM PHOSPHATE 20 MM in SODIUM CHLORIDE 250 ML IVPB ONE (09:00)
[2019-12-25] MEDS: PROPOFOL 1,000,000 MCG/100 ML VIAL IVPB SCH ×2 (09:56→21:35)
--- NOTE | 2019-12-25 10:16 | PN ---
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, Physician History of Present Illness: Placed on HFO2, borderline hemodynamics, BP meds held, lethargic, hypoxic to 60s. Pt unarousable to noxious stimuli. Decision made to intubate. Oxygenation improved post intubation with thick secretions in the ETT, blood noted in the airway. Shortly after, pt without palpable pulse, ROSC achieved after 1 round epinephrine, started on vasopressin gtt sinced weaned off. Currently sedated on vent AC 50% PEEP 5. - Current Medication List Current Medications: Active Medications Acetaminophen (Ofirmev Injection -) 1,000 mg IVPB Q6H PRN PRN Reason: FEVER Stop: 12/25/19 20:43 Piperacillin Sod/Tazobactam (Sod 4.5 gm/ Dextrose) 100 mls @ 200 mls/hr IVPB Q8H-IV MICHAEL; Protocol Last Admin: 12/25/19 08:59 Dose: 200 mls/hr Lactated Ringer's (Lactated Ringers Solution) 1,000 ml in 1,000 mls @ 83 mls/ hr IV ASDIR MICHAEL Last Admin: 12/25/19 06:47 Dose: Not Given Propofol (Diprivan -) 1,000,000 mcg in 100 mls @ 2.01 mls/hr IVPB TITR MICHAEL; Protocol Last Admin: 12/25/19 09:56 Dose: 14.92 mcg/kg/min, 6 mls/hr Vasopressin 50 units/ Sodium (Chloride) 100 mls @ 4 mls/hr IVPB ASDIR MICHAEL; Protocol Last Titration: 12/25/19 05:57 Dose: 0 units/hr, 0 mls/hr Potassium Phosphate 20 mm/ (Sodium Chloride) 256.6667 mls @ 62.5 mls/hr IVPB ONCE ONE Stop: 12/25/19 13:06 Last Admin: 12/25/19 08:48 Dose: 62.5 mls/hr Pantoprazole Sodium (Protonix Iv) 40 mg IVPUSH BID MICHAEL Last Admin: 12/25/19 08:59 Dose: 40 mg - Objective Vital Signs: Vital Signs Temperature 98 F 12/25/19 08:57 Pulse Rate 68 12/25/19 10:00 Respiratory Rate 18 12/25/19 10:00 Blood Pressure 112/62 12/25/19 10:00 O2 Sat by Pulse Oximetry (%) 100 12/25/19 07:38 Constitutional: Yes: No Distress, Calm, Thin Neck: Yes: Supple Cardiovascular: Yes: Pulse Irregular Respiratory: Yes: Intubated, Mechanically Ventilated, Rhonchi Gastrointestinal: Yes: Soft, Hypoactive Bowel Sounds Edema: No Labs: CBC, BMP 12/25/19 05:30 12/25/19 05:30 INR, PTT INR 2.00 (0.83-1.09) H 12/25/19 05:30 - ....Imaging Chest X-ray: Report Reviewed (Left base ATX) EKG: Report Reviewed (Tele: Afib) Problem List - Problems (1) Supratherapeutic INR Code(s): R79.1 - ABNORMAL COAGULATION PROFILE (2) GI bleed Code(s): K92.2 - GASTROINTESTINAL HEMORRHAGE, UNSPECIFIED Qualifiers: GI bleed type/associated pathology: anorectal hemorrhage Qualified Code(s) : K62.5 - Hemorrhage of anus and rectum (3) Hematuria Code(s): R31.9 - HEMATURIA, UNSPECIFIED (4) Atrial flutter Code(s): I48.92 - UNSPECIFIED ATRIAL FLUTTER Qualifiers: Atrial flutter type: typical Qualified Code(s): I48.3 - Typical atrial flutter (5) Hypercholesterolemia Code(s): E78.00 - PURE HYPERCHOLESTEROLEMIA, UNSPECIFIED (6) Hypotension Code(s): I95.9 - HYPOTENSION, UNSPECIFIED (7) LVH (left ventricular hypertrophy) Code(s): I51.7 - CARDIOMEGALY (8) Demand ischemia Code(s): I24.8 - OTHER FORMS OF ACUTE ISCHEMIC HEART DISEASE (9) CVA (cerebral vascular accident) Code(s): I63.9 - CEREBRAL INFARCTION, UNSPECIFIED Qualifiers: CVA mechanism: unspecified Qualified Code(s): I63.9 - Cerebral infarction, unspecified (10) HTN (hypertension) Code(s): I10 - ESSENTIAL (PRIMARY) HYPERTENSION Qualifiers: Hypertension type: essential hypertension Qualified Code(s): I10 - Essential (primary) hypertension (11) Acute respiratory failure with hypoxia and hypercapnia Code(s): J96.01 - ACUTE RESPIRATORY FAILURE WITH HYPOXIA; J96.02 - ACUTE RESPIRATORY FAILURE WITH HYPERCAPNIA Assessment/Plan 12/23/2019 Echo: Small LV size with severe LVH suspect cardiac amyloidosis, hyperdynamic LVEF>75%, restrictive physiology, normal RV size and fxn, severe LAE, mild LORNA, pleural effusion 12/01/19 Normal LV size with severe LVH with normal LV fxn, severe LAE, mild MR , TR, DC, possible infiltrative heart disease 12/04/2019: C spine MRI - multilevel DDD; C5-6 vertebral edema, central disc protrusion C4-5 and C5-6; moderate to marked C5-6 (L > R) central and foramenal stenosis and mild-moderate C4-5 stenosis, extensive spondylosis; loss of lordosis; no clear cord edema or myelomalacia 1. Acute Hypoxic and Hypercapneic Respiratory Failure 2. Likely Aspiration Pneumonia 3. GI bleed and hematuria in context of supratherapeutic INR 4. 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 Group B strep bacteremia previously on rocephin 6. HTN 7. Hypercholesterolemia 8. Paroxysmal atrial fibrillation/flutter [id number] score of 6-7 9. CVA 10. Concentric LVH ? rule out infiltrative heart disease 11. Abnormal ECG suggests CAD 12. Demand ischemia with elevated troponin 13. Abnl LFTs->cholelithiasis 14. Right basilic vein superficial thrombosis post PICC line removal 15. Diastolic dysfunction 16. ISHMAEL due to hemodynamics alteration PLAN: 1. Vent management per ABG 2. Pressors weaned off to maintain MAP >65 3. Empiric zosyn course via PICC line for both group b strep and possible UTI and C-collar for immobilization, f/u C&S 4. Resume Carvedilol and lisinopril once hemodynamics stabilize and hyperkalemia resolved 5. Hold Coumadin pending hemostasis, consider switch to DOAC given suboptimal INR management once hemostasis assured 6. May consider Tm99 PYP study to rule out amyloidosis once clinically stable 7. Trops downtrending, Lipitor held due to abnl LFTs, replete K
--- NOTE | 2019-12-25 10:29 | PN ---
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, Physician Chief Complaint: ASLEEP IN BED ICU 2 NO ACUTE EVENTS OVERNIGHT - Current Medication List Current Medications: Active Medications Acetaminophen (Ofirmev Injection -) 1,000 mg IVPB Q6H PRN PRN Reason: FEVER Stop: 12/25/19 20:43 Piperacillin Sod/Tazobactam (Sod 4.5 gm/ Dextrose) 100 mls @ 200 mls/hr IVPB Q8H-IV MICHAEL; Protocol Last Admin: 12/25/19 08:59 Dose: 200 mls/hr Lactated Ringer's (Lactated Ringers Solution) 1,000 ml in 1,000 mls @ 83 mls/ hr IV ASDIR MICHAEL Last Admin: 12/25/19 06:47 Dose: Not Given Propofol (Diprivan -) 1,000,000 mcg in 100 mls @ 2.01 mls/hr IVPB TITR MICHAEL; Protocol Last Admin: 12/25/19 09:56 Dose: 14.92 mcg/kg/min, 6 mls/hr Vasopressin 50 units/ Sodium (Chloride) 100 mls @ 4 mls/hr IVPB ASDIR MICHAEL; Protocol Last Titration: 12/25/19 05:57 Dose: 0 units/hr, 0 mls/hr Potassium Phosphate 20 mm/ (Sodium Chloride) 256.6667 mls @ 62.5 mls/hr IVPB ONCE ONE Stop: 12/25/19 13:06 Last Admin: 12/25/19 08:48 Dose: 62.5 mls/hr Pantoprazole Sodium (Protonix Iv) 40 mg IVPUSH BID MICHAEL Last Admin: 12/25/19 08:59 Dose: 40 mg - Objective Vital Signs: Vital Signs Temperature 98.4 F 12/25/19 10:00 Pulse Rate 68 12/25/19 10:00 Respiratory Rate 18 12/25/19 10:00 Blood Pressure 112/62 12/25/19 10:00 O2 Sat by Pulse Oximetry (%) 100 12/25/19 07:38 Constitutional: Yes: Mild Distress HENT: Yes: Other (COLLAR TO CERVICAL SPINE) Cardiovascular: Yes: Pulse Irregular Respiratory: Yes: Diminished, On Nasal O2 Gastrointestinal: Yes: Soft Genitourinary: Yes: Adamson Present, Hematuria Musculoskeletal: Yes: Muscle Weakness Edema: No Wound/Incision: Yes: Dressing Dry and Intact Neurological: Yes: Pre-Existing Deficit Psychiatric: Yes: Other Labs: CBC, BMP 12/25/19 05:30 12/25/19 05:30 INR, PTT INR 2.00 (0.83-1.09) H 12/25/19 05:30 Problem List - Problems (1) Altered mental status Code(s): R41.82 - ALTERED MENTAL STATUS, UNSPECIFIED (2) Constipation Code(s): K59.00 - CONSTIPATION, UNSPECIFIED (3) Fecal impaction in rectum Code(s): K56.41 - FECAL IMPACTION (4) GI bleed Code(s): K92.2 - GASTROINTESTINAL HEMORRHAGE, UNSPECIFIED Qualifiers: GI bleed type/associated pathology: anorectal hemorrhage Qualified Code(s) : K62.5 - Hemorrhage of anus and rectum (5) Hematochezia Code(s): K92.1 - MELENA (6) Hematuria Code(s): R31.9 - HEMATURIA, UNSPECIFIED (7) Hyperkalemia Code(s): E87.5 - HYPERKALEMIA (8) Lactic acidosis Code(s): E87.2 - ACIDOSIS (9) Osteomyelitis Code(s): M86.9 - OSTEOMYELITIS, UNSPECIFIED Qualifiers: Osteomyelitis type: unspecified type Osteomyelitis location: other site Qualified Code(s): M86.9 - Osteomyelitis, unspecified (10) Troponin I above reference range Code(s): R79.89 - OTHER SPECIFIED ABNORMAL FINDINGS OF BLOOD CHEMISTRY Assessment/Plan ON ZOSYN FOR SEPSIS TREATMENT ID AND CULTURES F/U MONITOR H/H DROPPING INR 2.0 TODAY MRI CSPINE PENDING ON AIRVO FOR 02 SUPPORT WILL NEED ADVANCED DIRECTIVE DISCUSSION WITH FAMILY DVT PROPHYLAXIS NEUROSURGERY/ICU TEAM F/U APPRECIATED FULL CODE
[2019-12-25 11:14] LABS: BASO % 0.2 % (0-2.0); EOS % 0.2 % (0-4.5); HEMATOCRIT 24.4 % (32.4-45.2); HEMOGLOBIN 8.1 GM/dL (10.7-15.3); LYMPH % 6.5 % (8-40); MCH 31.2 pg (25.7-33.7); MCHC 33.1 g/dl (32.0-36.0); MEAN CELL VOLUME 94.3 fl (80-96); MEAN PLT VOLUME 10.8 fl (7.5-11.1); MONO % 3.6 % (3.8-10.2); NEUT % 89.5 % (42.8-82.8); PLATELET COUNT 86 K/MM3 (134-434); RBC 2.59 M/mm3 (3.60-5.2); RDW 15.1 % (11.6-15.6); WHITE BLOOD COUNT 8.6 K/mm3 (4.0-10.0)
--- NOTE | 2019-12-25 12:13 | PN ---
Teaching Attending Note Name of Resident: Evelyn Mott ATTENDING PHYSICIAN STATEMENT I saw and evaluated the patient. I reviewed the resident's note and discussed the case with the resident. I agree with the resident's findings and plan as documented. SUBJECTIVE: Patient seen and examined in the ICU. Decompensated and required intubation. AC Mode of vent. Currently off pressors for Hemodynamic support. Intake & Output 12/22/19 12/23/19 12/24/19 12/25/19 23:59 23:59 23:59 23:59 Intake Total 800 2734 4247 730 Output Total 520 550 700 800 Balance 280 2184 3547 -70 Weight 147 lb 11.355 oz 151 lb Last Vital Signs Temp Pulse Resp BP Pulse Ox 98.4 F 78 18 99/61 100 12/25/19 10:00 12/25/19 11:56 12/25/19 11:56 12/25/19 11:00 12/25/19 07:38 Active Medications Acetaminophen (Ofirmev Injection -) 1,000 mg IVPB Q6H PRN PRN Reason: FEVER Stop: 12/25/19 20:43 Piperacillin Sod/Tazobactam (Sod 4.5 gm/ Dextrose) 100 mls @ 200 mls/hr IVPB Q8H-IV MICHAEL; Protocol Last Admin: 12/25/19 08:59 Dose: 200 mls/hr Lactated Ringer's (Lactated Ringers Solution) 1,000 ml in 1,000 mls @ 83 mls/ hr IV ASDIR MICHAEL Last Admin: 12/25/19 06:47 Dose: Not Given Propofol (Diprivan -) 1,000,000 mcg in 100 mls @ 2.01 mls/hr IVPB TITR MICHAEL; Protocol Last Admin: 12/25/19 09:56 Dose: 14.92 mcg/kg/min, 6 mls/hr Vasopressin 50 units/ Sodium (Chloride) 100 mls @ 4 mls/hr IVPB ASDIR MICHAEL; Protocol Last Titration: 12/25/19 05:57 Dose: 0 units/hr, 0 mls/hr Potassium Phosphate 20 mm/ (Sodium Chloride) 256.6667 mls @ 62.5 mls/hr IVPB ONCE ONE Stop: 12/25/19 13:06 Last Admin: 12/25/19 08:48 Dose: 62.5 mls/hr Pantoprazole Sodium (Protonix Iv) 40 mg IVPUSH BID MICHAEL Last Admin: 12/25/19 08:59 Dose: 40 mg GENERAL: Intubated and sedated. HEAD: Normal with no signs of trauma. EYES: Pupils pinpoint EARS, NOSE, THROAT: oropharynx clear without exudates. Moist mucous membranes. NECK: C collar intact LUNGS: bilateral rhonchi HEART: Regular rate and rhythm, normal S1 and S2 without murmur, rub or gallop. ABDOMEN: Soft, nontender, not distended, normoactive bowel sounds, no guarding, no rebound, no masses. No hepatomegaly or splenomegaly. UPPER EXTREMITIES: limb alert on the right with edema LOWER EXTREMITIES: 2+ pulses, warm, well-perfused. No calf tenderness. No peripheral edema. PSYCHIATRIC: sedated Laboratory Results - last 24 hr 12/24/19 12/24/19 12/24/19 12:20 16:00 16:00 WBC 7.7 RBC 2.50 L Hgb 7.8 L Hct 24.1 L MCV 96.2 H MCH 31.0 MCHC 32.2 RDW 15.4 Plt Count 92 L MPV 10.8 D Absolute Neuts (auto) Neutrophils % Lymphocytes % Monocytes % Eosinophils % Basophils % Nucleated RBC % PT with INR 68.00 H INR 5.66 H* Sodium Potassium Chloride Carbon Dioxide Anion Gap BUN Creatinine Est GFR (CKD-EPI)AfAm Est GFR (CKD-EPI)NonAf Random Glucose Calcium Phosphorus Magnesium Total Bilirubin AST ALT Alkaline Phosphatase Total Protein Albumin Blood Type O POSITIVE Antibody Screen Negative 12/25/19 12/25/19 12/25/19 05:30 05:30 05:30 WBC 7.4 RBC 2.58 L Hgb 7.9 L Hct 24.0 L MCV 93.1 MCH 30.8 MCHC 33.0 RDW 14.8 Plt Count 88 L MPV 10.8 Absolute Neuts (auto) 6.5 Neutrophils % 87.9 H Lymphocytes % 6.7 L D Monocytes % 4.9 Eosinophils % 0.3 Basophils % 0.2 Nucleated RBC % 0 PT with INR 23.80 H INR 2.00 H Sodium 145 Potassium 3.4 L Chloride 110 H Carbon Dioxide 26 Anion Gap 9 BUN 26.6 H Creatinine 1.3 Est GFR (CKD-EPI)AfAm 43.93 Est GFR (CKD-EPI)NonAf 37.91 Random Glucose 150 H Calcium 7.7 L Phosphorus 1.7 L Magnesium 1.9 Total Bilirubin 0.9 AST 28 ALT 91 H Alkaline Phosphatase 88 Total Protein 4.3 L Albumin 1.7 L Blood Type Antibody Screen 12/25/19 10:00 WBC 8.6 RBC 2.59 L Hgb 8.1 L Hct 24.4 L MCV 94.3 MCH 31.2 MCHC 33.1 RDW 15.1 Plt Count 86 L MPV 10.8 Absolute Neuts (auto) 7.7 Neutrophils % 89.5 H Lymphocytes % 6.5 L Monocytes % 3.6 L Eosinophils % 0.2 Basophils % 0.2 Nucleated RBC % 0 PT with INR INR Sodium Potassium Chloride Carbon Dioxide Anion Gap BUN Creatinine Est GFR (CKD-EPI)AfAm Est GFR (CKD-EPI)NonAf Random Glucose Calcium Phosphorus Magnesium Total Bilirubin AST ALT Alkaline Phosphatase Total Protein Albumin Blood Type Antibody Screen ASSESSMENT/PLAN: Acute Respiratory Failure Suspected Sepsis: source unclear Hypotension: (?) due to Sepsis versus BP/pain meds History of CVA with residual weakness Aflutter Hypertension Hyperlipidemia Recent history of cervical spine osteomyelitis Hypothermia AC Mode of vent. Follow ABG IVF ABX per ID Aspiration precautions Further GOC to be discussed with the family. Hard collar to remain in place Overall outcome appears poor Dr Martino Critical care time spent in reviewing chart, evaluating patient and formulating plan - 36 minutes.
--- NOTE | 2019-12-25 13:25 | PN ---
Physical Exam: SUBJECTIVE: Patient seen and examined. pt remains intubated. No acute event since achieving ROSC yesterday. OBJECTIVE: Vital Signs Period Temp Pulse Resp BP Sys/Hutton Pulse Ox Last 24 Hr 98 F-100.5 F 51-79 18-20 68-165/48-82 91-100 GENERAL: Intubated and sedated. HEAD: Normal with no signs of trauma. EYES: Pupils pinpoint EARS, NOSE, THROAT: oropharynx clear without exudates. Moist mucous membranes. NECK: C collar intact LUNGS: bilateral rhonchi HEART: Regular rate and rhythm, normal S1 and S2 without murmur, rub or gallop. ABDOMEN: Soft, nontender, not distended, normoactive bowel sounds, no guarding, no rebound, no masses. No hepatomegaly or splenomegaly. UPPER EXTREMITIES: limb alert on the right with edema LOWER EXTREMITIES: 2+ pulses, warm, well-perfused. No calf tenderness. No peripheral edema. PSYCHIATRIC: sedated Laboratory Results - last 24 hr 12/24/19 12/24/19 12/24/19 12:20 16:00 16:00 WBC 7.7 RBC 2.50 L Hgb 7.8 L Hct 24.1 L MCV 96.2 H MCH 31.0 MCHC 32.2 RDW 15.4 Plt Count 92 L MPV 10.8 D Absolute Neuts (auto) Neutrophils % Lymphocytes % Monocytes % Eosinophils % Basophils % Nucleated RBC % PT with INR INR 5.66 H* Sodium Potassium Chloride Carbon Dioxide Anion Gap BUN Creatinine Est GFR (CKD-EPI)AfAm Est GFR (CKD-EPI)NonAf Random Glucose Calcium Phosphorus Magnesium Total Bilirubin AST ALT Alkaline Phosphatase Total Protein Albumin Blood Type O POSITIVE Antibody Screen Negative 12/25/19 12/25/19 12/25/19 05:30 05:30 05:30 WBC 7.4 RBC 2.58 L Hgb 7.9 L Hct 24.0 L MCV 93.1 MCH 30.8 MCHC 33.0 RDW 14.8 Plt Count 88 L MPV 10.8 Absolute Neuts (auto) 6.5 Neutrophils % 87.9 H Lymphocytes % 6.7 L D Monocytes % 4.9 Eosinophils % 0.3 Basophils % 0.2 Nucleated RBC % 0 PT with INR 23.80 H INR 2.00 H Sodium 145 Potassium 3.4 L Chloride 110 H Carbon Dioxide 26 Anion Gap 9 BUN 26.6 H Creatinine 1.3 Est GFR (CKD-EPI)AfAm 43.93 Est GFR (CKD-EPI)NonAf 37.91 Random Glucose 150 H Calcium 7.7 L Phosphorus 1.7 L Magnesium 1.9 Total Bilirubin 0.9 AST 28 ALT 91 H Alkaline Phosphatase 88 Total Protein 4.3 L Albumin 1.7 L Blood Type Antibody Screen 12/25/19 12/25/19 10:00 10:00 WBC 8.6 RBC 2.59 L Hgb 8.1 L Hct 24.4 L MCV 94.3 MCH 31.2 MCHC 33.1 RDW 15.1 Plt Count 86 L MPV 10.8 Absolute Neuts (auto) 7.7 Neutrophils % 89.5 H Lymphocytes % 6.5 L Monocytes % 3.6 L Eosinophils % 0.2 Basophils % 0.2 Nucleated RBC % 0 PT with INR INR Sodium Potassium Chloride Carbon Dioxide Anion Gap BUN Creatinine Est GFR (CKD-EPI)AfAm Est GFR (CKD-EPI)NonAf Random Glucose Calcium Phosphorus Magnesium Total Bilirubin AST ALT Alkaline Phosphatase Total Protein Albumin Blood Type O POSITIVE Antibody Screen Negative Active Medications Generic Name Dose Route Start Last Admin Trade Name Freq PRN Reason Stop Dose Admin Acetaminophen 1,000 mg 12/24/19 20:42 Ofirmev Injection - IVPB 12/25/19 20:43 Q6H PRN FEVER Piperacillin Sod/Tazobactam 100 mls @ 200 mls/hr 12/21/19 18:00 12/25/19 08: 59 Sod 4.5 gm/ Dextrose IVPB 200 mls/hr Q8H-IV MICHAEL Administration Protocol Lactated Ringer's 1,000 ml in 1,000 mls @ 83 mls/hr 12/24/19 05:30 12/25/19 06:47 Lactated Ringers Solution IV Not Given ASDIR MICHAEL Propofol 1,000,000 mcg in 100 mls @ 2.01 mls/hr 12/24/19 17:15 12/25/19 09:56 Diprivan - IVPB 14.92 mcg/kg/min TITR MICHAEL 6 mls/hr Administration Protocol 5 MCG/KG/MIN Vasopressin 50 units/ Sodium 100 mls @ 4 mls/hr 12/24/19 20:45 12/25/19 05:57 Chloride IVPB 0 units/hr ASDIR MICHAEL 0 mls/hr Titration Protocol 2 UNITS/HR Pantoprazole Sodium 40 mg 12/19/19 22:00 12/25/19 08:59 Protonix Iv IVPUSH 40 mg BID MICHAEL Administration ASSESSMENT/PLAN: 84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 Neuro: -Pt is altered, non verbal -Oxy d/c'd -Head CT showed no acute changes -C-spine MRI pending -Propofol for sedation -Sedation vacations as tolerated Cardiovascular -Stable now -s/p hypotension then PEA for code 99. Resolved with ROSC after 3 minutes yesterday -Fluid boluses given earlier in the day. -s/p Norepinephrine and Vasopressin drip -map holding >65 -Echo shows EF => 75%, left ventricle is suggestive of restrictive pathology, moderate . granular appearance of myocardium suggestive of amyloidosis. Mild pericardial effusion -Per Cardio:Resume Carvedilol and lisinopril once hemodynamics stabilize and hyperkalemia resolved Hold Coumadin pending hemostasis, consider switch to DOAC given suboptimal INR management once hemostasis assured May consider Tm99 PYP study to rule out amyloidosis once clinically stable Trops downtrending, Lipitor held due to abnl LFTs Pulmonary -Required intubation -Vent settings: Vt: 450, RR 18, Fio2 50. Peep 5 -Wean trials as tolerated GI -Patient is stable, no acute events -BS remain hypoactive Renal -BUN/Creatinine 26.6/1.3 -s/p potassium and phosphate repletion -Monitor electrolytes -Hematuria still present Heme/Onc -INR of 5.66-> 2.0 today -s/p 2 FFP given -plt dropped to 88 ID -Urine culture growing yeast like organism -blood culture neg x2days. initial was positive for staph hominis -Continue zoysn F: NS @ 100 E: Monitor CMP N: Tube feed osmolite 1.2. Lines: Adamson switched 12/22. Left subclavian 12/24/2019. Dispo: Continue ICU monitoring. Visit type - Emergency Visit Emergency Visit: Yes ED Registration Date: 12/19/19 Care time: The patient presented to the Emergency Department on the above date and was hospitalized for further evaluation of their emergent condition. - New Patient This patient is new to me today: No - Critical Care Critical Care patient: Yes Total Critical Care Time (in minutes): 36 Critical Care Statement: The care of this patient involved high complexity decision making to prevent further life threatening deterioration of the patient 's condition and/or to evaluate & treat vital organ system(s) failure or risk of failure. ATTENDING PHYSICIAN STATEMENT I saw and evaluated the patient. I reviewed the resident's note and discussed the case with the resident. I agree with the resident's findings and plan as documented. SUBJECTIVE: OBJECTIVE: ASSESSMENT AND PLAN:
[2019-12-25 13:45] LABS: BLOOD UREA NITROGEN 24.5 mg/dL (7-18); CALCIUM 7.4 mg/dL (8.5-10.1); CREATININE 1.2 mg/dL (0.55-1.3); MAGNESIUM 1.8 mg/dL (1.8-2.4); PHOSPHOROUS 3.2 mg/dL (2.5-4.9); POTASSIUM 3.6 mmol/L (3.5-5.1)
--- NOTE | 2019-12-25 14:22 | PN ---
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 (short form) - Note 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: s/p code, she was intubated off pressors Vital Signs Period Temp Pulse Resp BP Sys/Hutton Pulse Ox Last 24 Hr 98 F-100.5 F 51-79 18-20 88-165/48-82 91-100 cor-rrr lulngs decreased bs at bases abd soft,nt ext bilateral lower ext edema CBC, BMP 12/25/19 10:00 12/25/19 13:00 Microbiology 12/20/19 15:43 Blood - Peripheral Venous Blood Culture - Preliminary NO GROWTH OBTAINED AFTER 96 HOURS, INCUBATION TO CONTINUE FOR 1 DAYS. 12/20/19 15:50 Blood - Peripheral Venous Blood Culture - Preliminary NO GROWTH OBTAINED AFTER 96 HOURS, INCUBATION TO CONTINUE FOR 1 DAYS. 12/22/19 14:47 Blood - Peripheral Venous Blood Culture - Preliminary NO GROWTH OBTAINED AFTER 48 HOURS, INCUBATION TO CONTINUE FOR 3 DAYS. 12/22/19 14:47 Blood - Peripheral Venous Blood Culture - Preliminary NO GROWTH OBTAINED AFTER 48 HOURS, INCUBATION TO CONTINUE FOR 3 DAYS. 12/19/19 13:45 Blood - Peripheral Venous Blood Culture - Final NO GROWTH AFTER 5 DAYS INCUBATION 12/22/19 16:15 Urine - Urine Adamson Urine Culture - Final Yeast Like Organism 12/19/19 13:45 Blood - Peripheral Venous Blood Culture - Final Staph Hominis Sub Sp Hominis 12/19/19 13:45 Urine - Urine Adamson Urine Culture - Final Yeast Like Organism Current Medications Acetaminophen (Ofirmev Injection -) 1,000 mg IVPB Q6H PRN PRN Reason: FEVER Stop: 12/25/19 20:43 Piperacillin Sod/Tazobactam (Sod 4.5 gm/ Dextrose) 100 mls @ 200 mls/hr IVPB Q8H-IV MICHAEL; Protocol Last Admin: 12/25/19 08:59 Dose: 200 mls/hr Lactated Ringer's (Lactated Ringers Solution) 1,000 ml in 1,000 mls @ 83 mls/ hr IV ASDIR MICHAEL Last Admin: 12/25/19 06:47 Dose: Not Given Propofol (Diprivan -) 1,000,000 mcg in 100 mls @ 2.01 mls/hr IVPB TITR MICHAEL; Protocol Last Admin: 12/25/19 09:56 Dose: 14.92 mcg/kg/min, 6 mls/hr Vasopressin 50 units/ Sodium (Chloride) 100 mls @ 4 mls/hr IVPB ASDIR MICHAEL; Protocol Last Titration: 12/25/19 05:57 Dose: 0 units/hr, 0 mls/hr Pantoprazole Sodium (Protonix Iv) 40 mg IVPUSH BID MICHAEL Last Admin: 12/25/19 08:59 Dose: 40 mg cxray bibasilar infiltrate/effusion head ct no acute event cervical MRI ordered and pending a/p s/p code aspiration pneumonia GI bleed hematuria cervical osteomyelitis with group b strep bacteremia- continue zosyn overall status is guarded doing poorly albumin is 1.6 d/w daughter and son at bedside at length
--- NOTE | 2019-12-25 14:24 | PN ---
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 progressive demyelinating neuropathy C-collar for immobilization/comfort On Zosyn per ID/medical team MRI C spine on hold given respiratory status
[2019-12-25] MEDS: VASOPRESSIN 50 UNITS in SODIUM CHLORIDE 97.5 ML IVPB SCH ×2 (15:15→21:35)
[2019-12-25] MEDS ORDERED: VASOPRESSIN 20 UNITS/ML VIAL IV ONE (15:32)
[2019-12-26] MEDS ORDERED: DEXTROSE 5%-WATER 100 ML IVPB ONE ×2 (01:47→08:50)
[2019-12-26] MEDS ORDERED: PIPERACILLIN/TAZOBACTAM 4.5 GM VIAL IVPB ONE ×2 (01:47→08:50)
[2019-12-26] MEDS: LACTATED RINGERS SOLUTION 1,000 ML/1,000 ML INFUS.BAG IV SCH ×2 (01:56→10:25)
[2019-12-26] MEDS: PIPERACILLIN/TAZOB 4.5 GM 4.5 GM in DEXTROSE 5%-WATER 100 ML IVPB SCH (01:56)
[2019-12-26 06:53] LABS: BASO % 0.1 % (0-2.0); EOS % 0.2 % (0-4.5); HEMATOCRIT 23.1 % (32.4-45.2); HEMOGLOBIN 7.8 GM/dL (10.7-15.3); LYMPH % 6.1 % (8-40); MCH 31.2 pg (25.7-33.7); MCHC 33.8 g/dl (32.0-36.0); MEAN CELL VOLUME 92.5 fl (80-96); MEAN PLT VOLUME 10.4 fl (7.5-11.1); MONO % 4.4 % (3.8-10.2); NEUT % 89.2 % (42.8-82.8); PLATELET COUNT 79 K/MM3 (134-434); RBC 2.49 M/mm3 (3.60-5.2); RDW 14.9 % (11.6-15.6); WHITE BLOOD COUNT 7.8 K/mm3 (4.0-10.0)
[2019-12-26 07:38] LABS: ALBUMIN 1.6 g/dl (3.4-5.0); BILIRUBIN,TOTAL 0.5 mg/dL (0.2-1); BLOOD UREA NITROGEN 21.9 mg/dL (7-18); CALCIUM 7.3 mg/dL (8.5-10.1); CREATININE 1.1 mg/dL (0.55-1.3); MAGNESIUM 1.7 mg/dL (1.8-2.4); TOT PROT 4.3 g/dl (6.4-8.2)
--- NOTE | 2019-12-26 08:42 | PN ---
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 (short form) - Note 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: NEUROSURGERY In ICU Intubated PE: 98.6, VSS Drowsy, not following commands HEENT- NC/AT; Neck- supple; Cor-Irreg; Chest- decreased BS at bases; LT; DTR- hyporereflexic, no LTS BC negative on subsequent cultures UC- yeast head CT- no acute bleed or large territorial infarct, chronic ischemic disease C4-5 spondylolisthesis/discitis/osteomyelitis with moderate stenosis L > R and mld-moderate C5-6 DDD/degenerative stenosis Significant generalized weakness could not be explained by recent cervical MRI ? progressive demyelinating neuropathy C-collar for immobilization/comfort ID f/u MRI C spine on hold given respiratory status
[2019-12-26] MEDS ORDERED: MAGNESIUM SULF 50% (8.12 MEQ/2 ML-1 GM VIAL) IVPB ONE (09:30)
--- NOTE | 2019-12-26 09:32 | PN ---
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 (short form) - Note 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: remains intubated Vital Signs Period Temp Pulse Resp BP Sys/Hutton Pulse Ox Last 24 Hr 98.0 F-98.8 F 58-80 16-19 83-141/40-80 cor-rrr llungs decreased bs at bases abd soft,nt ext +edema +cervical collar CBC, BMP 12/26/19 06:00 12/26/19 06:00 Microbiology 12/24/19 16:30 Sputum - Endotrachea Suction/Ventilator Gram Stain - Final 12/24/19 16:30 Sputum - Endotrachea Suction/Ventilator Sputum Culture - Preliminary Lactose Fermenting Neg Bacilli Non Lactose Fermenting Gnb Yeast Like Organism 12/20/19 15:43 Blood - Peripheral Venous Blood Culture - Final NO GROWTH AFTER 5 DAYS INCUBATION 12/20/19 15:50 Blood - Peripheral Venous Blood Culture - Final NO GROWTH AFTER 5 DAYS INCUBATION 12/22/19 14:47 Blood - Peripheral Venous Blood Culture - Preliminary NO GROWTH OBTAINED AFTER 72 HOURS, INCUBATION TO CONTINUE FOR 2 DAYS. 12/22/19 14:47 Blood - Peripheral Venous Blood Culture - Preliminary NO GROWTH OBTAINED AFTER 72 HOURS, INCUBATION TO CONTINUE FOR 2 DAYS. 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
[2019-12-26] MEDS ORDERED: POTASSIUM CHLORIDE 20 MEQ PREMIX IVPB 100 ML IVPB ONE (10:00)
--- NOTE | 2019-12-26 10:05 | PN ---
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, Physician History of Present Illness: Remains on vasopressin gtt 1 U/hr. Currently sedated on vent AC 50% PEEP 5. - Current Medication List Current Medications: Active Medications Lactated Ringer's (Lactated Ringers Solution) 1,000 ml in 1,000 mls @ 83 mls/ hr IV ASDIR MICHAEL Last Admin: 12/26/19 01:56 Dose: 83 mls/hr Propofol (Diprivan -) 1,000,000 mcg in 100 mls @ 2.01 mls/hr IVPB TITR MICHAEL; Protocol Last Admin: 12/25/19 21:35 Dose: 25 mcg/kg/min, 10.05 mls/hr Vasopressin 50 units/ Sodium (Chloride) 100 mls @ 4 mls/hr IVPB ASDIR MICHAEL; Protocol Last Admin: 12/25/19 21:35 Dose: Not Given Potassium Phosphate 15 mm/ (Sodium Chloride) 255 mls @ 62.5 mls/hr IVPB ONCE ONE Stop: 12/26/19 14:34 Cefepime HCl (Maxipime 2gm Ivpb (Premix)) 2 gm in 50 mls @ 100 mls/hr IVPB BID MICHAEL; Protocol Pantoprazole Sodium (Protonix Iv) 40 mg IVPUSH BID MICHAEL Last Admin: 12/25/19 21:35 Dose: 40 mg - Objective Vital Signs: Vital Signs Temperature 98.6 F 12/26/19 06:00 Pulse Rate 58 L 12/26/19 06:00 Respiratory Rate 18 12/26/19 08:20 Blood Pressure 134/80 12/26/19 06:00 O2 Sat by Pulse Oximetry (%) 100 12/25/19 07:38 Constitutional: Yes: No Distress, Calm, Thin Neck: Yes: Supple Cardiovascular: Yes: Pulse Irregular Respiratory: Yes: Intubated, Mechanically Ventilated Gastrointestinal: Yes: Soft, Hypoactive Bowel Sounds Edema: No Labs: CBC, BMP 12/26/19 06:00 12/26/19 06:00 INR, PTT INR 2.00 (0.83-1.09) H 12/25/19 05:30 - ....Imaging Chest X-ray: Report Reviewed (Left base improved) EKG: Report Reviewed (Tele: Afib) Problem List - Problems (1) Supratherapeutic INR Code(s): R79.1 - ABNORMAL COAGULATION PROFILE (2) GI bleed Code(s): K92.2 - GASTROINTESTINAL HEMORRHAGE, UNSPECIFIED Qualifiers: GI bleed type/associated pathology: anorectal hemorrhage Qualified Code(s) : K62.5 - Hemorrhage of anus and rectum (3) Hematuria Code(s): R31.9 - HEMATURIA, UNSPECIFIED (4) Atrial flutter Code(s): I48.92 - UNSPECIFIED ATRIAL FLUTTER Qualifiers: Atrial flutter type: typical Qualified Code(s): I48.3 - Typical atrial flutter (5) Hypercholesterolemia Code(s): E78.00 - PURE HYPERCHOLESTEROLEMIA, UNSPECIFIED (6) Hypotension Code(s): I95.9 - HYPOTENSION, UNSPECIFIED (7) LVH (left ventricular hypertrophy) Code(s): I51.7 - CARDIOMEGALY (8) Demand ischemia Code(s): I24.8 - OTHER FORMS OF ACUTE ISCHEMIC HEART DISEASE (9) CVA (cerebral vascular accident) Code(s): I63.9 - CEREBRAL INFARCTION, UNSPECIFIED Qualifiers: CVA mechanism: unspecified Qualified Code(s): I63.9 - Cerebral infarction, unspecified (10) HTN (hypertension) Code(s): I10 - ESSENTIAL (PRIMARY) HYPERTENSION Qualifiers: Hypertension type: essential hypertension Qualified Code(s): I10 - Essential (primary) hypertension (11) Acute respiratory failure with hypoxia and hypercapnia Code(s): J96.01 - ACUTE RESPIRATORY FAILURE WITH HYPOXIA; J96.02 - ACUTE RESPIRATORY FAILURE WITH HYPERCAPNIA Assessment/Plan 12/23/2019 Echo: Small LV size with severe LVH suspect cardiac amyloidosis, hyperdynamic LVEF>75%, restrictive physiology, normal RV size and fxn, severe LAE, mild LORNA, pleural effusion 12/01/19 Normal LV size with severe LVH with normal LV fxn, severe LAE, mild MR , TR, MO, possible infiltrative heart disease 12/04/2019: C spine MRI - multilevel DDD; C5-6 vertebral edema, central disc protrusion C4-5 and C5-6; moderate to marked C5-6 (L > R) central and foramenal stenosis and mild-moderate C4-5 stenosis, extensive spondylosis; loss of lordosis; no clear cord edema or myelomalacia 1. Acute Hypoxic and Hypercapneic Respiratory Failure 2. Likely Aspiration Pneumonia 3. GI bleed and hematuria in context of supratherapeutic INR 4. 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 Group B strep bacteremia previously on rocephin 6. HTN 7. Hypercholesterolemia 8. Paroxysmal atrial fibrillation/flutter [id number] score of 6-7 9. History of CVA with residual weakness 10. Concentric LVH ? rule out infiltrative heart disease 11. Abnormal ECG suggests CAD 12. Demand ischemia with elevated troponin 13. Abnl LFTs->cholelithiasis 14. Right basilic vein superficial thrombosis post PICC line removal 15. Diastolic dysfunction 16. ISHMAEL due to hemodynamics alteration PLAN: 1. Vent management per ABG, NGT for enteral feeds 2. Wean off pressors to maintain MAP >65 3. Empiric zosyn course via PICC line for both group b strep and possible UTI and C-collar for immobilization, f/u C&S 4. Resume Carvedilol and lisinopril once hemodynamics stabilize and hyperkalemia resolved 5. Hold Coumadin pending hemostasis, consider switch to DOAC given suboptimal INR management once hemostasis assured 6. May consider Tm99 PYP study to rule out amyloidosis once clinically stable 7. Trops downtrending, Lipitor held due to abnl LFTs, replete K
--- NOTE | 2019-12-26 10:16 | PN ---
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, Physician Chief Complaint: INTUBATED SEDATED EVENTS AND NOTES REVIEWED - Current Medication List Current Medications: Active Medications Lactated Ringer's (Lactated Ringers Solution) 1,000 ml in 1,000 mls @ 83 mls/ hr IV ASDIR MICHAEL Last Admin: 12/26/19 01:56 Dose: 83 mls/hr Propofol (Diprivan -) 1,000,000 mcg in 100 mls @ 2.01 mls/hr IVPB TITR MICHAEL; Protocol Last Admin: 12/25/19 21:35 Dose: 25 mcg/kg/min, 10.05 mls/hr Vasopressin 50 units/ Sodium (Chloride) 100 mls @ 4 mls/hr IVPB ASDIR MICHAEL; Protocol Last Admin: 12/25/19 21:35 Dose: Not Given Potassium Phosphate 15 mm/ (Sodium Chloride) 255 mls @ 62.5 mls/hr IVPB ONCE ONE Stop: 12/26/19 14:34 Cefepime HCl (Maxipime 2gm Ivpb (Premix)) 2 gm in 50 mls @ 100 mls/hr IVPB BID MICHAEL; Protocol Pantoprazole Sodium (Protonix Iv) 40 mg IVPUSH BID MICHAEL Last Admin: 12/25/19 21:35 Dose: 40 mg - Objective Vital Signs: Vital Signs Temperature 98.6 F 12/26/19 06:00 Pulse Rate 58 L 12/26/19 06:00 Respiratory Rate 18 12/26/19 08:20 Blood Pressure 134/80 12/26/19 06:00 O2 Sat by Pulse Oximetry (%) 100 12/25/19 07:38 Constitutional: Yes: Mild Distress Neck: Yes: Other (CERVICAL COLLAR) Cardiovascular: Yes: Pulse Irregular Respiratory: Yes: Mechanically Ventilated Genitourinary: Yes: Adamson Present Musculoskeletal: Yes: Muscle Weakness Labs: CBC, BMP 12/26/19 06:00 12/26/19 06:00 INR, PTT INR 2.00 (0.83-1.09) H 12/25/19 05:30 Problem List - Problems (1) Altered mental status Code(s): R41.82 - ALTERED MENTAL STATUS, UNSPECIFIED (2) Constipation Code(s): K59.00 - CONSTIPATION, UNSPECIFIED (3) Fecal impaction in rectum Code(s): K56.41 - FECAL IMPACTION (4) GI bleed Code(s): K92.2 - GASTROINTESTINAL HEMORRHAGE, UNSPECIFIED Qualifiers: GI bleed type/associated pathology: anorectal hemorrhage Qualified Code(s) : K62.5 - Hemorrhage of anus and rectum (5) Hematochezia Code(s): K92.1 - MELENA (6) Hematuria Code(s): R31.9 - HEMATURIA, UNSPECIFIED (7) Hyperkalemia Code(s): E87.5 - HYPERKALEMIA (8) Lactic acidosis Code(s): E87.2 - ACIDOSIS (9) Osteomyelitis Code(s): M86.9 - OSTEOMYELITIS, UNSPECIFIED Qualifiers: Osteomyelitis type: unspecified type Osteomyelitis location: other site Qualified Code(s): M86.9 - Osteomyelitis, unspecified (10) Troponin I above reference range Code(s): R79.89 - OTHER SPECIFIED ABNORMAL FINDINGS OF BLOOD CHEMISTRY Assessment/Plan ON ZOSYN FOR SEPSIS TREATMENT ID AND CULTURES F/U MONITOR H/H DROPPING MRI CSPINE PENDING INTUBATED ON VENT SUPPORT WILL NEED ADVANCED DIRECTIVE DISCUSSION WITH FAMILY DVT PROPHYLAXIS NEUROSURGERY/ICU TEAM F/U APPRECIATED FULL CODE
[2019-12-26] MEDS: PROPOFOL 1,000,000 MCG/100 ML VIAL IVPB SCH ×2 (10:21→21:48)
[2019-12-26] MEDS: PANTOPRAZOLE SODIUM 40 MG VIAL IVPUSH SCH ×2 (10:22→21:34)
[2019-12-26] MEDS ORDERED: POTASSIUM PHOSPHATE 15 MM in SODIUM CHLORIDE 250 ML IVPB ONE (10:30)
--- NOTE | 2019-12-26 10:50 | PN ---
Teaching Attending Note Name of Resident: Jose Beaulieu ATTENDING PHYSICIAN STATEMENT I saw and evaluated the patient. I reviewed the resident's note and discussed the case with the resident. I agree with the resident's findings and plan as documented. SUBJECTIVE: Patient seen and examined in the ICU. Remains intubated and sedated on AC Mode of vent, 40% FiO2. 1 unit of Vasopressin for hemodynamic support. Intake & Output 12/23/19 12/24/19 12/25/19 12/26/19 23:59 23:59 23:59 23:59 Intake Total 2734 4247 1652 1074 Output Total 309 703 4049 1500 Balance 2184 3547 452 -426 Weight 147 lb 11.355 oz 151 lb 150 lb 6.4 oz Last Vital Signs Temp Pulse Resp BP Pulse Ox 98.6 F 58 L 18 134/80 100 12/26/19 06:00 12/26/19 06:00 12/26/19 08:20 12/26/19 06:00 12/25/19 07:38 Active Medications Lactated Ringer's (Lactated Ringers Solution) 1,000 ml in 1,000 mls @ 83 mls/ hr IV ASDIR MICHAEL Last Admin: 12/26/19 10:25 Dose: 83 mls/hr Propofol (Diprivan -) 1,000,000 mcg in 100 mls @ 2.01 mls/hr IVPB TITR MICHAEL; Protocol Last Admin: 12/26/19 10:21 Dose: 25 mcg/kg/min, 10.05 mls/hr Vasopressin 50 units/ Sodium (Chloride) 100 mls @ 4 mls/hr IVPB ASDIR MICHAEL; Protocol Last Admin: 12/25/19 21:35 Dose: Not Given Potassium Phosphate 15 mm/ (Sodium Chloride) 255 mls @ 62.5 mls/hr IVPB ONCE ONE Stop: 12/26/19 14:34 Cefepime HCl 2 gm/ Dextrose 100 mls @ 200 mls/hr IVPB BID MICHAEL; Protocol Pantoprazole Sodium (Protonix Iv) 40 mg IVPUSH BID MICHAEL Last Admin: 12/26/19 10:22 Dose: 40 mg GENERAL: Intubated and sedated. HEAD: Normal with no signs of trauma. EYES: Pupils pinpoint EARS, NOSE, THROAT: oropharynx clear without exudates. Moist mucous membranes. NECK: C collar intact LUNGS: bilateral rhonchi HEART: Regular rate and rhythm, normal S1 and S2 without murmur, rub or gallop. ABDOMEN: Soft, nontender, not distended, normoactive bowel sounds, no guarding, no rebound, no masses. No hepatomegaly or splenomegaly. UPPER EXTREMITIES: limb alert on the right with edema LOWER EXTREMITIES: 2+ pulses, warm, well-perfused. No calf tenderness. No peripheral edema. PSYCHIATRIC: sedated Laboratory Results - last 24 hr 12/25/19 12/25/19 12/25/19 10:00 10:00 13:00 WBC 8.6 RBC 2.59 L Hgb 8.1 L Hct 24.4 L MCV 94.3 MCH 31.2 MCHC 33.1 RDW 15.1 Plt Count 86 L MPV 10.8 Absolute Neuts (auto) 7.7 Neutrophils % 89.5 H Lymphocytes % 6.5 L Monocytes % 3.6 L Eosinophils % 0.2 Basophils % 0.2 Nucleated RBC % 0 Sodium 145 Potassium 3.6 Chloride 112 H Carbon Dioxide 26 Anion Gap 8 BUN 24.5 H Creatinine 1.2 Est GFR (CKD-EPI)AfAm 48.40 Est GFR (CKD-EPI)NonAf 41.76 Random Glucose 158 H Calcium 7.4 L Phosphorus 3.2 Magnesium 1.8 Total Bilirubin AST ALT Alkaline Phosphatase Total Protein Albumin Blood Type O POSITIVE Antibody Screen Negative 12/26/19 12/26/19 06:00 06:00 WBC 7.8 RBC 2.49 L Hgb 7.8 L Hct 23.1 L MCV 92.5 MCH 31.2 MCHC 33.8 RDW 14.9 Plt Count 79 L MPV 10.4 Absolute Neuts (auto) 6.9 Neutrophils % 89.2 H Lymphocytes % 6.1 L Monocytes % 4.4 Eosinophils % 0.2 Basophils % 0.1 Nucleated RBC % 0 Sodium 144 Potassium 3.0 L Chloride 110 H Carbon Dioxide 27 Anion Gap 8 BUN 21.9 H Creatinine 1.1 Est GFR (CKD-EPI)AfAm 53.77 Est GFR (CKD-EPI)NonAf 46.39 Random Glucose 139 H Calcium 7.3 L Phosphorus 2.0 L Magnesium 1.7 L Total Bilirubin 0.5 AST 23 ALT 78 H Alkaline Phosphatase 91 Total Protein 4.3 L Albumin 1.6 L Blood Type Antibody Screen ASSESSMENT/PLAN: Acute Respiratory Failure Septic Shock due to Aspiration PNA History of CVA with residual weakness Aflutter Hypertension Hyperlipidemia Recent history of cervical spine osteomyelitis Hypothermia AC Mode of vent. ABX per ID Insert NGT and start eneteral feeds Aspiration precautions Further GOC to be discussed with the family. Hard collar to remain in place Overall outcome appears poor Dr Martino Critical care time spent in reviewing chart, evaluating patient and formulating plan - 36 minutes.
[2019-12-26] MEDS ORDERED: PT OWN MED DRAWER 7, Y5N ONE ×2 (11:25→21:28)
[2019-12-26] MEDS: CEFEPIME 2 GM in DEXTROSE 5%-WATER 100 ML IVPB SCH ×2 (11:33→21:31)
[2019-12-26 13:24] VITALS: BMI 25.7
--- NOTE | 2019-12-26 13:58 | PN ---
Physical Exam: SUBJECTIVE: Patient seen and examined in the morning. No acute events overnight. Patient is sedate and intubated. Does not respond to questions regarding pain or discomfort. OBJECTIVE: Vital Signs Period Temp Pulse Resp BP Sys/Hutton Pulse Ox Last 24 Hr 98.0 F-98.8 F 58-80 16-19 83-141/40-80 GENERAL: The patient is sedated and intubated HEAD: Normal with no signs of trauma. EYES: Eyes shut, pinpoint pupils. ENT: Patient with secretions and intubated NECK: C-Collar in place. LUNGS: Breath sounds with crackles bilaterally. HEART: Regular rate and rhythm, S1, S2 without murmur, rub or gallop. ABDOMEN: Soft, nontender, nondistended, normoactive bowel sounds, no guarding, no rebound, no hepatosplenomegaly, no masses. EXTREMITIES: 2+ pulses, warm, well-perfused, no edema. NEUROLOGICAL:Not responding to command. PSYCH: Normal mood, normal affect. SKIN: Warm, dry, normal turgor, no rashes or lesions noted Laboratory Results - last 24 hr 12/22/19 12/26/19 12/26/19 20:00 06:00 06:00 WBC 7.8 RBC 2.49 L Hgb 7.8 L Hct 23.1 L MCV 92.5 MCH 31.2 MCHC 33.8 RDW 14.9 Plt Count 79 L MPV 10.4 Absolute Neuts (auto) 6.9 Neutrophils % 89.2 H Lymphocytes % 6.1 L Monocytes % 4.4 Eosinophils % 0.2 Basophils % 0.1 Nucleated RBC % 0 Sodium 144 Potassium 3.0 L Chloride 110 H Carbon Dioxide 27 Anion Gap 8 BUN 21.9 H Creatinine 1.1 Est GFR (CKD-EPI)AfAm 53.77 Est GFR (CKD-EPI)NonAf 46.39 Random Glucose 139 H Calcium 7.3 L Phosphorus 2.0 L Magnesium 1.7 L Total Bilirubin 0.5 AST 23 ALT 78 H Alkaline Phosphatase 91 Total Protein 4.3 L Albumin 1.6 L Homocysteine 9.6 Active Medications Generic Name Dose Route Start Last Admin Trade Name Freq PRN Reason Stop Dose Admin Amino Acids 30 ml 12/26/19 13:45 Prosource No Carb Liquid Pkt PO DAILY MICHAEL Lactated Ringer's 1,000 ml in 1,000 mls @ 83 mls/hr 12/24/19 05:30 12/26/19 10:25 Lactated Ringers Solution IV 83 mls/hr ASDIR MICHAEL Administration Propofol 1,000,000 mcg in 100 mls @ 2.01 mls/hr 12/24/19 17:15 12/26/19 10:21 Diprivan - IVPB 25 mcg/kg/min TITR MICHAEL 10.05 mls/hr Administration Protocol 5 MCG/KG/MIN Vasopressin 50 units/ Sodium 100 mls @ 4 mls/hr 12/24/19 20:45 12/25/19 21:35 Chloride IVPB Not Given ASDIR MICHAEL Protocol 2 UNITS/HR Potassium Phosphate 15 mm/ 255 mls @ 62.5 mls/hr 12/26/19 10:30 12/26/19 11: 33 Sodium Chloride IVPB 12/26/19 14:34 62.5 mls/hr ONCE ONE Administration Cefepime HCl 2 gm/ Dextrose 100 mls @ 200 mls/hr 12/26/19 11:00 12/26/19 11: 33 IVPB 200 mls/hr BID MICHAEL Administration Protocol Pantoprazole Sodium 40 mg 12/19/19 22:00 12/26/19 10:22 Protonix Iv IVPUSH 40 mg BID MICHAEL Administration ASSESSMENT/PLAN: 84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 Neuro: -Pt is altered, non verbal -Oxy d/c'd -Head CT showed no acute changes -C-spine MRI pending -Patient given morphine for pain -Propofol sedation ordered -Sedation vacations as tolerated Cardiovascular -Patient hypotensive today. PEA for code 99. Resolved with ROSC after 3 minutes. -Stable now -Fluid boluses given earlier in the day. -Vasopressin drip @ 1 unit. -Echo shows EF => 75%, left ventricle is suggestive of restrictive pathology, moderate . granular appearance of myocardium suggestive of amyloidosis. Mild pericardial effusion Pulmonary -Required intubation -Vent settings: Vt: 450, RR 18, Fio2 60. Peep 5 -Wean trials as tolerated GI -Patient is stable, no acute events -OG tube placed, confirmed. Renal -BUN/Creatinine 27.4/1.1 -Monitor electrolytes -Hematuria still present Heme/Onc -FFP given during admission. -Last INR was 2. -H&H 7.8. ID -Urine culture growing yeast like organism -Continue zoysn F: NS@ 83 E: Monitor CMP N: Tube feed osmolite 1.2. Prosource supplemented. Lines: Adamson switched 12/22. Left subclavian 12/24/2019. Dispo: Continue ICU monitoring. Visit type - Emergency Visit Emergency Visit: Yes ED Registration Date: 12/19/19 Care time: The patient presented to the Emergency Department on the above date and was hospitalized for further evaluation of their emergent condition. - New Patient This patient is new to me today: No - Critical Care Critical Care patient: Yes Total Critical Care Time (in minutes): 35 Critical Care Statement: The care of this patient involved high complexity decision making to prevent further life threatening deterioration of the patient 's condition and/or to evaluate & treat vital organ system(s) failure or risk of failure. ATTENDING PHYSICIAN STATEMENT I saw and evaluated the patient. I reviewed the resident's note and discussed the case with the resident. I agree with the resident's findings and plan as documented. SUBJECTIVE: OBJECTIVE: ASSESSMENT AND PLAN:
[2019-12-26] MEDS: AMINO ACIDS/PROTEIN HYDROLYS 30 ML LIQUID.PKT PO SCH (14:41)
[2019-12-26] MEDS: VASOPRESSIN 50 UNITS in SODIUM CHLORIDE 97.5 ML IVPB SCH (21:30)
[2019-12-27] MEDS ORDERED: PT OWN MED DRAWER 7, Y5N ONE ×3 (00:17→09:30)
[2019-12-27 07:21] LABS: BASO % 0.1 % (0-2.0); EOS % 0.4 % (0-4.5); HEMATOCRIT 23.2 % (32.4-45.2); HEMOGLOBIN 7.8 GM/dL (10.7-15.3); LYMPH % 6.1 % (8-40); MCH 31.1 pg (25.7-33.7); MCHC 33.7 g/dl (32.0-36.0); MEAN CELL VOLUME 92.4 fl (80-96); MEAN PLT VOLUME 11.1 fl (7.5-11.1); MONO % 2.3 % (3.8-10.2); NEUT % 91.1 % (42.8-82.8); PLATELET COUNT 75 K/MM3 (134-434); RBC 2.51 M/mm3 (3.60-5.2); RDW 15.5 % (11.6-15.6); WHITE BLOOD COUNT 7.5 K/mm3 (4.0-10.0)
[2019-12-27] MEDS: LACTATED RINGERS SOLUTION 1,000 ML/1,000 ML INFUS.BAG IV SCH ×2 (07:22→21:51)
--- NOTE | 2019-12-27 07:33 | PN ---
Physical Exam: SUBJECTIVE: Patient seen and examined at bedside. No acute event overnight. Pt remains intubated and sedated on Propofol. Pt attempted to wean off vasopressin, however MAPs drop to 50s. OBJECTIVE: Vital Signs Period Temp Pulse Resp BP Sys/Hutton Pulse Ox Last 24 Hr 97.2 F-98 F 57-79 18-19 65-140/50-87 97-100 GENERAL: Sedated and intubated. HEAD: Normal with no signs of trauma. EYES: Eyes shut, pinpoint pupils. ENT: Patient with secretions and intubated NECK: C-Collar in place. LUNGS: Breath sounds with crackles bilaterally. HEART: Regular rate and rhythm, S1, S2 without murmur, rub or gallop. ABDOMEN: Soft, nontender, nondistended, normoactive bowel sounds, no guarding, no rebound, no hepatosplenomegaly, no masses. EXTREMITIES: 2+ pulses, warm, well-perfused, no edema. NEUROLOGICAL: Sedated on Propofol. Not responding to command. PSYCH: Normal mood, normal affect. SKIN: Warm, dry, normal turgor, no rashes or lesions noted Laboratory Results - last 24 hr 12/22/19 12/22/19 12/26/19 12:00 20:00 06:00 WBC 7.8 RBC 2.49 L Hgb 7.8 L Hct 23.1 L MCV 92.5 MCH 31.2 MCHC 33.8 RDW 14.9 Plt Count 79 L MPV 10.4 Absolute Neuts (auto) 6.9 Neutrophils % 89.2 H Lymphocytes % 6.1 L Monocytes % 4.4 Eosinophils % 0.2 Basophils % 0.1 Nucleated RBC % 0 Sodium Potassium Chloride Carbon Dioxide Anion Gap BUN Creatinine Est GFR (CKD-EPI)AfAm Est GFR (CKD-EPI)NonAf Random Glucose Calcium Phosphorus Magnesium Total Bilirubin AST ALT Alkaline Phosphatase Total Protein Albumin Zhewa-8-Gomgyuwkx (%) Cancelled Ejiqq-2-Skdsmkkpk (%) Cancelled Beta Globulins (%) Cancelled Gamma Globulins (%) Cancelled M-Obdulio % Cancelled Homocysteine 9.6 Urine Total Protein Cancelled Urine PEP Interpret Cancelled Ref Test Comments Cancelled 12/26/19 06:00 WBC RBC Hgb Hct MCV MCH MCHC RDW Plt Count MPV Absolute Neuts (auto) Neutrophils % Lymphocytes % Monocytes % Eosinophils % Basophils % Nucleated RBC % Sodium 144 Potassium 3.0 L Chloride 110 H Carbon Dioxide 27 Anion Gap 8 BUN 21.9 H Creatinine 1.1 Est GFR (CKD-EPI)AfAm 53.77 Est GFR (CKD-EPI)NonAf 46.39 Random Glucose 139 H Calcium 7.3 L Phosphorus 2.0 L Magnesium 1.7 L Total Bilirubin 0.5 AST 23 ALT 78 H Alkaline Phosphatase 91 Total Protein 4.3 L Albumin 1.6 L Zwqof-3-Jawnjqtbz (%) Dskbr-0-Rkhblqwwi (%) Beta Globulins (%) Gamma Globulins (%) M-Obdulio % Homocysteine Urine Total Protein Urine PEP Interpret Ref Test Comments Active Medications Generic Name Dose Route Start Last Admin Trade Name Freq PRN Reason Stop Dose Admin Amino Acids 30 ml 12/26/19 13:45 12/26/19 14:41 Prosource No Carb Liquid Pkt PO 30 ml DAILY MICHAEL Administration Lactated Ringer's 1,000 ml in 1,000 mls @ 83 mls/hr 12/24/19 05:30 12/27/19 07:22 Lactated Ringers Solution IV Not Given ASDIR MICHAEL Propofol 1,000,000 mcg in 100 mls @ 2.01 mls/hr 12/24/19 17:15 12/26/19 21:48 Diprivan - IVPB 25 mcg/kg/min TITR MICHAEL 10.05 mls/hr Administration Protocol 5 MCG/KG/MIN Vasopressin 50 units/ Sodium 100 mls @ 4 mls/hr 12/24/19 20:45 12/27/19 07:17 Chloride IVPB 2 units/hr ASDIR MICHAEL 4 mls/hr Titration Protocol 2 UNITS/HR Cefepime HCl 2 gm/ Dextrose 100 mls @ 200 mls/hr 12/26/19 11:00 12/26/19 21:31 IVPB 200 mls/hr BID MICHAEL Administration Protocol Pantoprazole Sodium 40 mg 12/19/19 22:00 12/26/19 21:34 Protonix Iv IVPUSH 40 mg BID MICHAEL Administration ASSESSMENT/PLAN: 84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 On Vasopressin 0.6, will switch to Levo and titrate accordingly to maintain >65 mmHg -Echo shows EF => 75%, left ventricle is suggestive of restrictive pathology, moderate . Granular appearance of myocardium suggestive of amyloidosis. Mild pericardial effusion. -Hold AC for now in setting of elevated INR. Per cardio, consider DOAcs once hemodynamically stable Pulmonary Acute Hypoxic Respiratory Failure Aspiration Pneumonia -S/p intubation on 12/24; current vent settings 450/18/60/5 -Weaning trials as tolerated GI GI Bleed Supratherapeutic INR (s/p 2U FFP) Elevated LFTs; ischemic vs. cholelithiasis -Pt seen by GI on admission. GI bleed was likely hemorrhoidal in origin, but could be stercoral rectal ulcer. For further evaluation, colonoscopy would be next step; however, family deferred procedure at this time due as per pt's wishes not to undergo any such procedures. -INR today 2.05; no acute events overnight. Hold home Coumadin for now. -Tube feeds started via OG -trend LFTs Renal Hematuria Hypokalemia Hypomagnesemia Hypophosphatemia -Pt still seen with clots and hematuria; however H/H remains stable. -BUN/Creatinine 20.8/0.9 -Monitor electrolytes; K, Mg, Phos repleted today; cont repletion PRN Heme/Onc Thrombocytopenia; may be due to underlying sepsis Supratherapeutic INR; s/p 2U FFP -Last INR was 2.05 -H/H 7.8/23.2 ID Septic Shock 2/2 Aspiration PNA Hx of Cervical spine Osteomyelitis Hx of Group B Strep Bacteremia -UCx +yeast-like organism -Per ID, cont Cefepime 2gm BID; f/u ID recs -LR @ 83 -Continue zoysn Prophylaxis GI: Protonix 40 BID DVT: Hold for now in setting of GI bleed/supratherapeutic INR F: LR @ 83 E: Monitor CMP N: Tube feed osmolite 1.2. Prosource supplemented. Lines: Adamson switched 12/22. Left subclavian 12/24/2019. Intubated 12/24. Dispo: Continue ICU monitoring Visit type - Emergency Visit Emergency Visit: Yes ED Registration Date: 12/19/19 Care time: The patient presented to the Emergency Department on the above date and was hospitalized for further evaluation of their emergent condition. - New Patient This patient is new to me today: No - Critical Care Critical Care patient: Yes Total Critical Care Time (in minutes): 36 Critical Care Statement: The care of this patient involved high complexity decision making to prevent further life threatening deterioration of the patient's condition and/or to evaluate & treat vital organ system(s) failure or risk of failure. ATTENDING PHYSICIAN STATEMENT I saw and evaluated the patient. I reviewed the resident's note and discussed the case with the resident. I agree with the resident's findings and plan as documented. SUBJECTIVE: OBJECTIVE: ASSESSMENT AND PLAN:
[2019-12-27 07:43] LABS: INR 2.05 (0.83-1.09); PROTHROMBIN TIME (PATIENT) 24.4 SEC (9.7-13.0)
[2019-12-27 07:48] LABS: ALBUMIN 1.5 g/dl (3.4-5.0); BILIRUBIN,TOTAL 0.5 mg/dL (0.2-1); BLOOD UREA NITROGEN 20.8 mg/dL (7-18); CREATININE 0.9 mg/dL (0.55-1.3); MAGNESIUM 1.8 mg/dL (1.8-2.4); PHOSPHOROUS 2.5 mg/dL (2.5-4.9); POTASSIUM 3.1 mmol/L (3.5-5.1); TOT PROT 4.1 g/dl (6.4-8.2)
[2019-12-27 08:35] LABS: CALCIUM 6.9 mg/dL (8.5-10.1)
[2019-12-27] MEDS ORDERED: POTASSIUM CHLORIDE 20 MEQ PREMIX IVPB 100 ML IVPB ONE (08:40)
[2019-12-27] MEDS ORDERED: MAGNESIUM SULF 50% (8.12 MEQ/2 ML-1 GM VIAL) IVPB ONE (08:41)
[2019-12-27] MEDS ORDERED: POTASSIUM PHOSPHATE 30 MM in SODIUM CHLORIDE 250 ML IVPB ONE (09:00)
[2019-12-27] MEDS: PROPOFOL 1,000,000 MCG/100 ML VIAL IVPB SCH ×2 (09:00→18:57)
[2019-12-27] MEDS: AMINO ACIDS/PROTEIN HYDROLYS 30 ML LIQUID.PKT PO SCH (09:01)
[2019-12-27] MEDS: PANTOPRAZOLE SODIUM 40 MG VIAL IVPUSH SCH ×2 (09:01→21:50)
[2019-12-27] MEDS: CEFEPIME 2 GM in DEXTROSE 5%-WATER 100 ML IVPB SCH ×2 (10:12→21:39)
[2019-12-27 10:33] LABS: ANISOCYTOSIS 2+; MACROCYTOSIS 0; OVALOCYTE 1+; PLATELET ESTIMATE DECREASED; TEAR DROP CELLS 1+
--- NOTE | 2019-12-27 11:00 | PN ---
Teaching Attending Note Name of Resident: Elizabeth Zamora ATTENDING PHYSICIAN STATEMENT I saw and evaluated the patient. I reviewed the resident's note and discussed the case with the resident. I agree with the resident's findings and plan as documented. SUBJECTIVE: Pt seen and examined in the ICU. Remains intubated, sedated. On low dose vasopressin gtt. OBJECTIVE: Vital Signs Period Temp Pulse Resp BP Sys/Hutton Pulse Ox Last 24 Hr 97.2 F-98.0 F 57-79 18-19 65-140/50-87 Intake & Output 12/24/19 12/25/19 12/26/19 12/27/19 23:59 23:59 23:59 23:59 Intake Total 4247 1652 2538.5 984 Output Total 700 1200 2400 400 Balance 3547 452 138.5 584 Weight 67 kg 68.492 kg 68.22 kg 69.9 kg Gen: intubated, sedated Heart: RRR Lung: scattered rhonchi Abd: soft, nontender Ext: no edema CBC, BMP 12/27/19 05:50 12/27/19 05:50 Active Medications Amino Acids (Prosource No Carb Liquid Pkt) 30 ml PO DAILY MICHAEL Last Admin: 12/27/19 09:01 Dose: 30 ml Lactated Ringer's (Lactated Ringers Solution) 1,000 ml in 1,000 mls @ 83 mls/ hr IV ASDIR MICHAEL Last Admin: 12/27/19 07:22 Dose: Not Given Propofol (Diprivan -) 1,000,000 mcg in 100 mls @ 2.01 mls/hr IVPB TITR MICHAEL; Protocol Last Admin: 12/27/19 09:00 Dose: 25 mcg/kg/min, 10.05 mls/hr Vasopressin 50 units/ Sodium (Chloride) 100 mls @ 4 mls/hr IVPB ASDIR MICHAEL; Protocol Last Titration: 12/27/19 08:24 Dose: 0.6 units/hr, 1.2 mls/hr Cefepime HCl 2 gm/ Dextrose 100 mls @ 200 mls/hr IVPB BID MICHAEL; Protocol Last Admin: 12/27/19 10:12 Dose: 200 mls/hr Potassium Phosphate 30 mm/ (Sodium Chloride) 260 mls @ 62.5 mls/hr IVPB ONCE ONE Stop: 12/27/19 13:09 Last Admin: 12/27/19 10:48 Dose: 62.5 mls/hr Pantoprazole Sodium (Protonix Iv) 40 mg IVPUSH BID [facility] Last Admin: 12/27/19 09:01 Dose: 40 mg ASSESSMENT AND PLAN: Acute Hypoxic Respiratory Failure Likely Aspiration Pneumonia Septic Shock GI Bleed Anemia/Thrombocytopenia Supratherapeutic INR Cervical Cord Compression with Osteomyelitis Bacteremia Paroxysmal Atrial Fibrilatoin LV Diastolic Dysfunction CAD HTN Hypercholesterolemia h/o CVA - continue antibiotics - f/u cultures - IVF to keep CVP 8-12 - taper pressors to maintain MAP >65 - O2 to keep Spo2 >90% - monitor CBC, INR - replete lytes - transfuse as needed - continue assist control - DVT/GI prophylaxis - ICU monitoring critical care time spent in reviewing chart, evaluating patient and formulating plan 35 min
--- NOTE | 2019-12-27 11:06 | PN ---
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, Physician - Current Medication List Current Medications: Active Medications Amino Acids (Prosource No Carb Liquid Pkt) 30 ml PO DAILY MICHAEL Last Admin: 12/27/19 09:01 Dose: 30 ml Lactated Ringer's (Lactated Ringers Solution) 1,000 ml in 1,000 mls @ 83 mls/ hr IV ASDIR MICHAEL Last Admin: 12/27/19 07:22 Dose: Not Given Propofol (Diprivan -) 1,000,000 mcg in 100 mls @ 2.01 mls/hr IVPB TITR MICHAEL; Protocol Last Admin: 12/27/19 09:00 Dose: 25 mcg/kg/min, 10.05 mls/hr Vasopressin 50 units/ Sodium (Chloride) 100 mls @ 4 mls/hr IVPB ASDIR MICHAEL; Protocol Last Titration: 12/27/19 08:24 Dose: 0.6 units/hr, 1.2 mls/hr Cefepime HCl 2 gm/ Dextrose 100 mls @ 200 mls/hr IVPB BID MICHAEL; Protocol Last Admin: 12/27/19 10:12 Dose: 200 mls/hr Potassium Phosphate 30 mm/ (Sodium Chloride) 260 mls @ 62.5 mls/hr IVPB ONCE ONE Stop: 12/27/19 13:09 Last Admin: 12/27/19 10:48 Dose: 62.5 mls/hr Pantoprazole Sodium (Protonix Iv) 40 mg IVPUSH BID MICHAEL Last Admin: 12/27/19 09:01 Dose: 40 mg - Objective Vital Signs: Vital Signs Temperature 98.0 F 12/27/19 10:00 Pulse Rate 62 12/27/19 10:00 Respiratory Rate 18 12/27/19 10:00 Blood Pressure 109/55 L 12/27/19 10:00 O2 Sat by Pulse Oximetry (%) 97 12/26/19 10:20 Eyes: Yes: WNL, Conjunctiva Clear, EOM Intact HENT: Yes: WNL, Atraumatic, Normocephalic Neck: Yes: WNL, Supple, Trachea Midline Cardiovascular: Yes: WNL, Regular Rate and Rhythm Respiratory: Yes: Diminished, Intubated, Mechanically Ventilated Gastrointestinal: Yes: WNL, Normal Bowel Sounds Genitourinary: Yes: WNL Musculoskeletal: Yes: WNL Extremities: Yes: WNL Edema: No Integumentary: Yes: WNL ...Motor Strength: WNL Psychiatric: Yes: WNL Labs: CBC, BMP 12/27/19 05:50 12/27/19 05:50 INR, PTT INR 2.05 (0.83-1.09) H 12/27/19 05:50 Assessment/Plan - Problems (1) Supratherapeutic INR Code(s): R79.1 - ABNORMAL COAGULATION PROFILE (2) GI bleed Code(s): K92.2 - GASTROINTESTINAL HEMORRHAGE, UNSPECIFIED Qualifiers: GI bleed type/associated pathology: anorectal hemorrhage Qualified Code(s) : K62.5 - Hemorrhage of anus and rectum (3) Hematuria Code(s): R31.9 - HEMATURIA, UNSPECIFIED (4) Atrial flutter Code(s): I48.92 - UNSPECIFIED ATRIAL FLUTTER Qualifiers: Atrial flutter type: typical Qualified Code(s): I48.3 - Typical atrial flutter (5) Hypercholesterolemia Code(s): E78.00 - PURE HYPERCHOLESTEROLEMIA, UNSPECIFIED (6) Hypotension Code(s): I95.9 - HYPOTENSION, UNSPECIFIED (7) LVH (left ventricular hypertrophy) Code(s): I51.7 - CARDIOMEGALY (8) Demand ischemia Code(s): I24.8 - OTHER FORMS OF ACUTE ISCHEMIC HEART DISEASE (9) CVA (cerebral vascular accident) Code(s): I63.9 - CEREBRAL INFARCTION, UNSPECIFIED Qualifiers: CVA mechanism: unspecified Qualified Code(s): I63.9 - Cerebral infarction, unspecified (10) HTN (hypertension) Code(s): I10 - ESSENTIAL (PRIMARY) HYPERTENSION Qualifiers: Hypertension type: essential hypertension Qualified Code(s): I10 - Essential (primary) hypertension (11) Acute respiratory failure with hypoxia and hypercapnia Code(s): J96.01 - ACUTE RESPIRATORY FAILURE WITH HYPOXIA; J96.02 - ACUTE RESPIRATORY FAILURE WITH HYPERCAPNIA Assessment/Plan 12/23/2019 Echo: Small LV size with severe LVH suspect cardiac amyloidosis, hyperdynamic LVEF>75%, restrictive physiology, normal RV size and fxn, severe LAE, mild LORNA, pleural effusion 12/01/19 Normal LV size with severe LVH with normal LV fxn, severe LAE, mild MR , TR, AL, possible infiltrative heart disease 12/04/2019: C spine MRI - multilevel DDD; C5-6 vertebral edema, central disc protrusion C4-5 and C5-6; moderate to marked C5-6 (L > R) central and foramenal stenosis and mild-moderate C4-5 stenosis, extensive spondylosis; loss of lordosis; no clear cord edema or myelomalacia 1. Acute Hypoxic and Hypercapneic Respiratory Failure 2. Likely Aspiration Pneumonia 3. GI bleed and hematuria in context of supratherapeutic INR 4. 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 Group B strep bacteremia previously on rocephin 6. HTN 7. Hypercholesterolemia 8. Paroxysmal atrial fibrillation/flutter [id number] score of 6-7 9. History of CVA with residual weakness 10. Concentric LVH ? rule out infiltrative heart disease 11. Abnormal ECG suggests CAD 12. Demand ischemia with elevated troponin 13. Abnl LFTs->cholelithiasis 14. Right basilic vein superficial thrombosis post PICC line removal 15. Diastolic dysfunction 16. ISHMAEL due to hemodynamics alteration PLAN: 1. Vent management per ABG, NGT for enteral feeds 2. Wean off pressors to maintain MAP >65 3. Empiric zosyn course via PICC line for both group b strep and possible UTI and C-collar for immobilization, f/u C&S 4. Resume Carvedilol and lisinopril once hemodynamics stabilize and hyperkalemia resolved 5. Hold Coumadin pending hemostasis, consider switch to DOAC given suboptimal INR management once hemostasis assured 6. May consider Tm99 PYP study to rule out amyloidosis once clinically stable 7. Trops downtrending, Lipitor held due to abnl LFTs, replete K Coverage for dr. Fermin CC time spent 36 min
--- NOTE | 2019-12-27 11:55 | PN ---
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 (short form) - Note 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: NEUROSURGERY In ICU Intubated PE: AFF, VSS Drowsy, not following commands HEENT- NC/AT; Neck- supple; Cor-Irreg; Chest- decreased BS at bases; LT; DTR- hyporereflexic, no LTS WBC 7.5, Hgb 7,8 BC negative on subsequent cultures UC- yeast head CT- no acute bleed or large territorial infarct, chronic ischemic disease C4-5 spondylolisthesis/discitis/osteomyelitis with moderate stenosis L > R and mld-moderate C5-6 DDD/degenerative stenosis Significant generalized weakness could not be explained by recent cervical MRI ? progressive demyelinating neuropathy Cont C-collar for immobilization/comfort MRI C spine on hold given respiratory status
--- NOTE | 2019-12-27 12:01 | PN ---
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, Physician History of Present Illness: POORLY RESPONSIVE ON VENTILATOR AFEBRILE PLATELETS REMAIN LOW - Current Medication List Current Medications: Active Medications Amino Acids (Prosource No Carb Liquid Pkt) 30 ml PO DAILY [facility] Last Admin: 12/27/19 09:01 Dose: 30 ml Lactated Ringer's (Lactated Ringers Solution) 1,000 ml in 1,000 mls @ 83 mls/ hr IV ASDIR MICHAEL Last Admin: 12/27/19 07:22 Dose: Not Given Propofol (Diprivan -) 1,000,000 mcg in 100 mls @ 2.01 mls/hr IVPB TITR MICHAEL; Protocol Last Admin: 12/27/19 09:00 Dose: 25 mcg/kg/min, 10.05 mls/hr Vasopressin 50 units/ Sodium (Chloride) 100 mls @ 4 mls/hr IVPB ASDIR MICHAEL; Protocol Last Titration: 12/27/19 11:32 Dose: 1 units/hr, 2 mls/hr Cefepime HCl 2 gm/ Dextrose 100 mls @ 200 mls/hr IVPB BID MICHAEL; Protocol Last Admin: 12/27/19 10:12 Dose: 200 mls/hr Potassium Phosphate 30 mm/ (Sodium Chloride) 260 mls @ 62.5 mls/hr IVPB ONCE ONE Stop: 12/27/19 13:09 Last Admin: 12/27/19 10:48 Dose: 62.5 mls/hr Pantoprazole Sodium (Protonix Iv) 40 mg IVPUSH BID [facility] Last Admin: 12/27/19 09:01 Dose: 40 mg - Objective Vital Signs: Vital Signs Temperature 98.0 F 12/27/19 10:00 Pulse Rate 83 12/27/19 11:32 Respiratory Rate 18 12/27/19 10:00 Blood Pressure 88/45 L 12/27/19 11:32 O2 Sat by Pulse Oximetry (%) 97 12/26/19 10:20 Constitutional: Yes: No Distress Eyes: Yes: Conjunctiva Clear Cardiovascular: Yes: Regular Rate and Rhythm, S1, S2 Respiratory: Yes: Mechanically Ventilated Gastrointestinal: Yes: Normal Bowel Sounds, Soft. No: Tenderness Labs: CBC, BMP 12/27/19 05:50 12/27/19 05:50 INR, PTT INR 2.05 (0.83-1.09) H 02/01/20 05:50 Assessment/Plan RESP FAILURE ? ASP PNEUMONIA THROMBOCYTOPENIA VERTEBRAL OSTEOMYELITIS GRP B STREP BACTEREMIA CONTINUE CEFEPIME VENTILATORY SUPPORT
[2019-12-27] MEDS ORDERED: NOREPINEPHRINE BITARTRATE 4 MG/4 ML ML IV ONE (12:17)
[2019-12-27] MEDS: NOREPINEPHRINE BITARTRATE 4,000 MCG in DEXTROSE 5%-WATER - 496 ML IV SCH (12:25)
--- NOTE | 2019-12-27 15:36 | PN ---
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, Physician Chief Complaint: GI Bleed Sepsis Aflutter History of Present Illness: Previous notes and events reviewed intubated and sedated mecahnically ventilated Levophed drip Hg 7.8 no leukocytosis - Current Medication List Current Medications: Active Medications Amino Acids (Prosource No Carb Liquid Pkt) 30 ml PO DAILY [facility]HAEL Last Admin: 12/27/19 09:01 Dose: 30 ml Lactated Ringer's (Lactated Ringers Solution) 1,000 ml in 1,000 mls @ 83 mls/ hr IV ASDIR MICHAEL Last Admin: 12/27/19 07:22 Dose: Not Given Propofol (Diprivan -) 1,000,000 mcg in 100 mls @ 2.01 mls/hr IVPB TITR [facility]HAEL; Protocol Last Admin: 12/27/19 09:00 Dose: 25 mcg/kg/min, 10.05 mls/hr Cefepime HCl 2 gm/ Dextrose 100 mls @ 200 mls/hr IVPB BID MICHAEL; Protocol Last Admin: 12/27/19 10:12 Dose: 200 mls/hr Norepinephrine Bitartrate 4, (000 mcg/ Dextrose) 500 mls @ 37.5 mls/hr IV TITR MICHAEL; Protocol Last Titration: 12/27/19 14:31 Dose: 3 mcg/min, 22.5 mls/hr Pantoprazole Sodium (Protonix Iv) 40 mg IVPUSH BID [facility]HAEL Last Admin: 12/27/19 09:01 Dose: 40 mg - Objective Vital Signs: Vital Signs Temperature 98.1 F 12/27/19 14:00 Pulse Rate 92 H 12/27/19 14:31 Respiratory Rate 18 12/27/19 15:07 Blood Pressure 87/47 L 12/27/19 14:31 O2 Sat by Pulse Oximetry (%) 100 12/27/19 14:20 Constitutional: Yes: No Distress, Calm HENT: Yes: Atraumatic Cardiovascular: Yes: Pulse Irregular Respiratory: Yes: Regular, Mechanically Ventilated, Wheezes Gastrointestinal: Yes: Normal Bowel Sounds, Soft Genitourinary: Yes: Adamson Present Musculoskeletal: Yes: Muscle Weakness Extremities: Yes: WNL Edema: Yes Edema: LUE: 2+, RUE: 2+ Neurological: Yes: Other (sedated) Labs: CBC, BMP 12/27/19 05:50 12/27/19 05:50 INR, PTT INR 2.05 (0.83-1.09) H 12/27/19 05:50 Microbiology 12/22/19 14:47 Blood - Peripheral Venous Blood Culture - Final NO GROWTH AFTER 5 DAYS INCUBATION 12/22/19 14:47 Blood - Peripheral Venous Blood Culture - Final NO GROWTH AFTER 5 DAYS INCUBATION 12/24/19 16:30 Sputum - Endotrachea Suction/Ventilator Gram Stain - Final 12/24/19 16:30 Sputum - Endotrachea Suction/Ventilator Sputum Culture - Preliminary Enterobacter Aerogenes Stenotrophomon.(X.)Maltophilia Yeast Like Organism 12/20/19 15:43 Blood - Peripheral Venous Blood Culture - Final NO GROWTH AFTER 5 DAYS INCUBATION 12/20/19 15:50 Blood - Peripheral Venous Blood Culture - Final NO GROWTH AFTER 5 DAYS INCUBATION 12/19/19 13:45 Blood - Peripheral Venous Blood Culture - Final NO GROWTH AFTER 5 DAYS INCUBATION 12/22/19 16:15 Urine - Urine Adamson Urine Culture - Final Yeast Like Organism 12/19/19 13:45 Blood - Peripheral Venous Blood Culture - Final Staph Hominis Sub Sp Hominis 12/19/19 13:45 Urine - Urine Adamson Urine Culture - Final Yeast Like Organism Problem List - Problems (1) Acute respiratory failure with hypoxia and hypercapnia Assessment/Plan: -Pulmonary on board -intubated and mechanically ventilated -keep SpO2 >90% Code(s): J96.01 - ACUTE RESPIRATORY FAILURE WITH HYPOXIA; J96.02 - ACUTE RESPIRATORY FAILURE WITH HYPERCAPNIA (2) Afib Assessment/Plan: -coumadin on hold due to GI bleed Code(s): I48.91 - UNSPECIFIED ATRIAL FIBRILLATION (3) Bacteremia Assessment/Plan: -ID on board -sputum culture positive -initial BC positive, repeat negative -no leukocytosis -afebrile -CXR from 12/25/19 shows new atelectasis or infiltrate at left base -Cefepime Code(s): R78.81 - BACTEREMIA (4) GI bleed Assessment/Plan: -Coumadin on hold -monitor Hg daily -Hg 7.8 -transfuse for Hg <7.0 to avoid fluid overload -Stool OB positive Code(s): K92.2 - GASTROINTESTINAL HEMORRHAGE, UNSPECIFIED Qualifiers: GI bleed type/associated pathology: anorectal hemorrhage Qualified Code(s) : K62.5 - Hemorrhage of anus and rectum (5) Group B streptococcal infection Assessment/Plan: -ID on board -no leukocytosis -afebrile -Cefepime -repeat BC neg Code(s): A49.1 - STREPTOCOCCAL INFECTION, UNSPECIFIED SITE (6) Hematuria Assessment/Plan: -resolved -Hg 7.8 -monitor Hg daily and transfuse for Hg <7.0 Code(s): R31.9 - HEMATURIA, UNSPECIFIED (7) Osteomyelitis Assessment/Plan: -ID on board -Cefepime -no leukocytosis -afebrile -pending cervical spine MRI Code(s): M86.9 - OSTEOMYELITIS, UNSPECIFIED Qualifiers: Osteomyelitis type: unspecified type Osteomyelitis location: other site Qualified Code(s): M86.9 - Osteomyelitis, unspecified (8) Sepsis Assessment/Plan: -ID on board -sputum culture positive -initial BC positive, repeat negative -no leukocytosis -afebrile -CXR from 12/25/19 shows new atelectasis or infiltrate at left base -Cefepime -LA 2.2~0.5 Code(s): A41.9 - SEPSIS, UNSPECIFIED ORGANISM Qualifiers: Sepsis type: sepsis due to unspecified organism Sepsis acute organ dysfunction status: without acute organ dysfunction Qualified Code(s): A41.9 - Sepsis, unspecified organism (9) Troponin I above reference range Assessment/Plan: -Cardiology on board -tele monitoring -trop 0.15~0.18 Code(s): R79.89 - OTHER SPECIFIED ABNORMAL FINDINGS OF BLOOD CHEMISTRY (10) Hypotension Assessment/Plan: -Levophed drip -keep MAP >65 -monitor BP -cardiology on board Code(s): I95.9 - HYPOTENSION, UNSPECIFIED Assessment/Plan see problem list
[2019-12-27] MEDS: BANATROL PLUS POWDER PACKET PO SCH ×2 (18:58→21:38)
[2019-12-28] MEDS: PROPOFOL 1,000,000 MCG/100 ML VIAL IVPB SCH ×3 (06:28→17:15)
[2019-12-28] MEDS: LACTATED RINGERS SOLUTION 1,000 ML/1,000 ML INFUS.BAG IV SCH ×2 (06:29→14:49)
[2019-12-28] MEDS: BANATROL PLUS POWDER PACKET PO SCH ×3 (06:30→21:08)
[2019-12-28 07:20] LABS: HEMATOCRIT 24.8 % (32.4-45.2); HEMOGLOBIN 8.2 GM/dL (10.7-15.3); MCH 30.9 pg (25.7-33.7); MCHC 33.1 g/dl (32.0-36.0); MEAN CELL VOLUME 93.2 fl (80-96); PLATELET COUNT 78 K/MM3 (134-434); RBC 2.66 M/mm3 (3.60-5.2); RDW 15.5 % (11.6-15.6); WHITE BLOOD COUNT 9.1 K/mm3 (4.0-10.0)
--- NOTE | 2019-12-28 08:24 | PN ---
Physical Exam: SUBJECTIVE: Patient seen and examined this AM. Remains Intubated and sedated on pressor support. No acute overnight events. OBJECTIVE: Vital Signs Period Temp Pulse Resp BP Sys/Hutton Pulse Ox Last 24 Hr 98 F-98.2 F 60-92 18-18 71-179/45-89 100 GENERAL: Intubated, Sedated HEAD: NCAT EYES: Pinpoint pupils ENT: Moist mucous membranes NECK: C-Collar in place LUNGS: Mechanical vent sounds HEART: Regular rate and rhythm, S1, S2 without murmur ABDOMEN: Soft, nontender, nondistended, + bowel sounds, no guarding EXTREMITIES: No edema. NEUROLOGICAL: Sedated SKIN: Warm, dry Laboratory Results - last 24 hr 12/27/19 12/27/19 12/28/19 05:50 05:50 06:00 WBC 9.1 RBC 2.66 L Hgb 8.2 L Hct 24.8 L MCV 93.2 MCH 30.9 MCHC 33.1 RDW 15.5 Plt Count 78 L MPV 11.0 Neutrophils % (Manual) 89.8 H Band Neutrophils % 4.1 Lymphocytes % (Manual) 4.1 L D Monocytes % (Manual) 2 L Eosinophils % (Manual) 0.0 Basophils % (Manual) 0.0 Myelocytes % (Man) 0 Promyelocytes % (Man) 0 Blast Cells % (Manual) 0 Nucleated RBC % 0 Metamyelocytes 0 Hypochromia 0 Platelet Estimate Decreased Platelet Comment Present Polychromasia 1+ Poikilocytosis 1+ Basophilic Stippling 1+ Anisocytosis 2+ Microcytosis 2+ Macrocytosis 0 Tear Drop Cells 1+ Ovalocytes 1+ Becki Cells 2+ Acanthocytes (Spur) 1+ Schistocytes 1+ Calcium 6.9 L* Microbiology 12/22/19 14:47 Blood - Peripheral Venous Blood Culture - Final NO GROWTH AFTER 5 DAYS INCUBATION 12/22/19 14:47 Blood - Peripheral Venous Blood Culture - Final NO GROWTH AFTER 5 DAYS INCUBATION 12/24/19 16:30 Sputum - Endotrachea Suction/Ventilator Gram Stain - Final 12/24/19 16:30 Sputum - Endotrachea Suction/Ventilator Sputum Culture - Preliminary Enterobacter Aerogenes Stenotrophomon.(X.)Maltophilia Yeast Like Organism 12/20/19 15:43 Blood - Peripheral Venous Blood Culture - Final NO GROWTH AFTER 5 DAYS INCUBATION 12/20/19 15:50 Blood - Peripheral Venous Blood Culture - Final NO GROWTH AFTER 5 DAYS INCUBATION 12/19/19 13:45 Blood - Peripheral Venous Blood Culture - Final NO GROWTH AFTER 5 DAYS INCUBATION 12/22/19 16:15 Urine - Urine Adamson Urine Culture - Final Yeast Like Organism 12/19/19 13:45 Blood - Peripheral Venous Blood Culture - Final Staph Hominis Sub Sp Hominis 12/19/19 13:45 Urine - Urine Adamson Urine Culture - Final Yeast Like Organism Active Medications Amino Acids (Prosource No Carb Liquid Pkt) 30 ml PO DAILY MICHAEL Last Admin: 12/27/19 09:01 Dose: 30 ml Lactated Ringer's (Lactated Ringers Solution) 1,000 ml in 1,000 mls @ 83 mls/hr IV ASDIR MICHAEL Last Admin: 12/28/19 06:29 Dose: 83 mls/hr Propofol (Diprivan -) 1,000,000 mcg in 100 mls @ 2.01 mls/hr IVPB TITR MICHAEL; Protocol Last Admin: 12/28/19 06:28 Dose: 25 mcg/kg/min, 10.05 mls/hr Cefepime HCl 2 gm/ Dextrose 100 mls @ 200 mls/hr IVPB BID MICHAEL; Protocol Last Admin: 12/27/19 21:39 Dose: 200 mls/hr Norepinephrine Bitartrate 4, (000 mcg/ Dextrose) 500 mls @ 37.5 mls/hr IV TITR MICHAEL; Protocol Last Titration: 12/27/19 19:00 Dose: 4 mcg/min, 30 mls/hr Pantoprazole Sodium (Protonix Iv) 40 mg IVPUSH BID MICHAEL Last Admin: 12/27/19 21:50 Dose: 40 mg ASSESSMENT/PLAN: 84 y/o F with PMHx CVA with residual weakness, AFlutter (on coumadin), HTN, HLD, recent c-spine osteomyelitis, transferred to ICU after being found to be hypotensive and hypothermic. 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 Per cardio, consider DOACs once hemodynamically stable -Hold home dose anti-hypertensives in the setting of hypotension #Pulmonary Acute Hypoxic Respiratory Failure Aspiration Pneumonia -S/P Intubation (12/24); current vent settings 450/18/40%/5 -Weaning trials as tolerated -Check Daily CXR #GI GI Bleed in the setting of Supratherapeutic INR, Resolved Elevated LFTs; ischemic vs. cholelithiasis -Now s/p 2U FFP; Normal transfusion threshold -GI Consulted, appreciate rec's, Colonoscopy declined as per family -Trend INR, LFTs -Tube feeds via OGT #Renal Hematuria, Resolved Hypokalemia Hypomagnesemia Hypophosphatemia -Monitor for further signs of bleeding -Trend H&H, Monitor Cr, Replete lytes -Urology consulted, Appreciate rec's #Heme/Onc Thrombocytopenia in the setting of sepsis Supratherapeutic INR -Trend INR, H&H -Monitor for signs of bleeding #ID Septic Shock 2/ Aspiration PNA Hx of C-spine Osteomyelitis, GBS Bacteremia -Micro noted above -ID Consulted, appreciate rec's, Continue Cefepime #PPx -GI: PPI -DVT: SCDs #FEN -LR @ 83 -Replete lytes PRN -Tube feed osmolite 1.2. Prosource supplemented. #LTD -Adamson Changed 12/22 -Left subclavian 12/24/2019 -Intubated 12/24 Dispo: Continue ICU monitoring. Palliative care consulted to discuss further GOC. Visit type - Emergency Visit Emergency Visit: Yes ED Registration Date: 12/19/19 Care time: The patient presented to the Emergency Department on the above date and was hospitalized for further evaluation of their emergent condition. - New Patient This patient is new to me today: No - Critical Care Critical Care patient: Yes Total Critical Care Time (in minutes): 36 Critical Care Statement: The care of this patient involved high complexity decision making to prevent further life threatening deterioration of the patient's condition and/or to evaluate & treat vital organ system(s) failure or risk of failure. ATTENDING PHYSICIAN STATEMENT I saw and evaluated the patient. I reviewed the resident's note and discussed the case with the resident. I agree with the resident's findings and plan as documented. SUBJECTIVE: OBJECTIVE: ASSESSMENT AND PLAN:
[2019-12-28 08:33] LABS: ALBUMIN 1.3 g/dl (3.4-5.0); BILIRUBIN,TOTAL 0.3 mg/dL (0.2-1); BLOOD UREA NITROGEN 22.8 mg/dL (7-18); CREATININE 0.9 mg/dL (0.55-1.3); MAGNESIUM 1.8 mg/dL (1.8-2.4); PHOSPHOROUS 3.2 mg/dL (2.5-4.9); POTASSIUM 3.4 mmol/L (3.5-5.1); TOT PROT 3.9 g/dl (6.4-8.2)
--- NOTE | 2019-12-28 08:58 | PN ---
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, Physician Chief Complaint: INTUBATED SEDATED EVENTS AND NOTES REVIEWED - Current Medication List Current Medications: Active Medications Amino Acids (Prosource No Carb Liquid Pkt) 30 ml PO DAILY [facility] Last Admin: 12/27/19 09:01 Dose: 30 ml Lactated Ringer's (Lactated Ringers Solution) 1,000 ml in 1,000 mls @ 83 mls/ hr IV ASDIR MICHAEL Last Admin: 12/28/19 06:29 Dose: 83 mls/hr Propofol (Diprivan -) 1,000,000 mcg in 100 mls @ 2.01 mls/hr IVPB TITR MICHAEL; Protocol Last Admin: 12/28/19 06:28 Dose: 25 mcg/kg/min, 10.05 mls/hr Cefepime HCl 2 gm/ Dextrose 100 mls @ 200 mls/hr IVPB BID MICHAEL; Protocol Last Admin: 12/27/19 21:39 Dose: 200 mls/hr Norepinephrine Bitartrate 4, (000 mcg/ Dextrose) 500 mls @ 37.5 mls/hr IV TITR [facility]; Protocol Last Titration: 12/27/19 19:00 Dose: 4 mcg/min, 30 mls/hr Potassium Chloride (Potassium Chloride 10 Meq Premix Ivpb -) 10 meq in 100 mls @ 100 mls/hr IVPB Q60M [facility] Stop: 12/28/19 11:59 Magnesium Sulfate (Magnesium Sulfate) 1 gm IVPB ONCE ONE Stop: 12/28/19 08:53 Pantoprazole Sodium (Protonix Iv) 40 mg IVPUSH BID [facility] Last Admin: 12/27/19 21:50 Dose: 40 mg Potassium Chloride (Potassium Chloride Oral Liquid) 40 meq PO ONCE ONE Stop: 12/28/19 08:48 - Objective Vital Signs: Vital Signs Temperature 97.9 F 12/28/19 08:00 Pulse Rate 71 12/28/19 05:55 Respiratory Rate 18 12/28/19 08:00 Blood Pressure 82/53 L 12/28/19 08:00 O2 Sat by Pulse Oximetry (%) 100 12/27/19 14:20 Constitutional: Yes: Other Cardiovascular: Yes: Pulse Irregular Respiratory: Yes: Mechanically Ventilated Gastrointestinal: Yes: Soft Genitourinary: Yes: Adamson Present Musculoskeletal: Yes: Muscle Weakness Edema: Yes Neurological: Yes: Unresponsive (SEDATED) Labs: CBC, BMP 12/28/19 06:00 12/28/19 06:00 INR, PTT INR 2.05 (0.83-1.09) H 12/27/19 05:50 Problem List - Problems (1) Altered mental status Code(s): R41.82 - ALTERED MENTAL STATUS, UNSPECIFIED (2) Constipation Code(s): K59.00 - CONSTIPATION, UNSPECIFIED (3) Fecal impaction in rectum Code(s): K56.41 - FECAL IMPACTION (4) GI bleed Code(s): K92.2 - GASTROINTESTINAL HEMORRHAGE, UNSPECIFIED Qualifiers: GI bleed type/associated pathology: anorectal hemorrhage Qualified Code(s) : K62.5 - Hemorrhage of anus and rectum (5) Hematochezia Code(s): K92.1 - MELENA (6) Hematuria Code(s): R31.9 - HEMATURIA, UNSPECIFIED (7) Hyperkalemia Code(s): E87.5 - HYPERKALEMIA (8) Lactic acidosis Code(s): E87.2 - ACIDOSIS (9) Osteomyelitis Code(s): M86.9 - OSTEOMYELITIS, UNSPECIFIED Qualifiers: Osteomyelitis type: unspecified type Osteomyelitis location: other site Qualified Code(s): M86.9 - Osteomyelitis, unspecified (10) Troponin I above reference range Code(s): R79.89 - OTHER SPECIFIED ABNORMAL FINDINGS OF BLOOD CHEMISTRY Assessment/Plan ON ZOSYN FOR SEPSIS TREATMENT ID AND CULTURES F/U MONITOR H/H DROPPING REPLETE KCL INTUBATED ON VENT SUPPORT WILL NEED ADVANCED DIRECTIVE DISCUSSION WITH FAMILY DVT PROPHYLAXIS NEUROSURGERY/ICU TEAM F/U APPRECIATED FULL CODE
[2019-12-28] MEDS ORDERED: POTASSIUM CHLORIDE ORAL LIQUID 20 MEQ/15 ML PO ONE ×2 (09:15→10:15)
[2019-12-28 09:20] LABS: CALCIUM 6.4 mg/dL (8.5-10.1)
[2019-12-28] MEDS ORDERED: KCL 10 MEQ IVPB 10 MEQ/100 ML INFUS.BAG IVPB SCH (09:30)
[2019-12-28] MEDS ORDERED: MAGNESIUM SULF 50% (8.12 MEQ/2 ML-1 GM VIAL) IVPB ONE (09:30)
[2019-12-28] MEDS ORDERED: PT OWN MED DRAWER 7, Y5N ONE (09:49)
--- NOTE | 2019-12-28 09:57 | PN ---
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, Physician History of Present Illness: SEDATED ON VENTILATOR TEMPS REMAIN DOWN AFEBRILE WBC WNL PLATELETS REMAIN LOW - Current Medication List Current Medications: Active Medications Amino Acids (Prosource No Carb Liquid Pkt) 30 ml PO DAILY [facility] Last Admin: 12/27/19 09:01 Dose: 30 ml Lactated Ringer's (Lactated Ringers Solution) 1,000 ml in 1,000 mls @ 83 mls/ hr IV ASDIR MICHAEL Last Admin: 12/28/19 06:29 Dose: 83 mls/hr Propofol (Diprivan -) 1,000,000 mcg in 100 mls @ 2.01 mls/hr IVPB TITR MICHAEL; Protocol Last Admin: 12/28/19 06:28 Dose: 25 mcg/kg/min, 10.05 mls/hr Cefepime HCl 2 gm/ Dextrose 100 mls @ 200 mls/hr IVPB BID MICHAEL; Protocol Last Admin: 12/27/19 21:39 Dose: 200 mls/hr Norepinephrine Bitartrate 4, (000 mcg/ Dextrose) 500 mls @ 37.5 mls/hr IV TITR MICHAEL; Protocol Last Titration: 12/27/19 19:00 Dose: 4 mcg/min, 30 mls/hr Potassium Chloride (Potassium Chloride 10 Meq Premix Ivpb -) 10 meq in 100 mls @ 100 mls/hr IVPB Q60M [facility] Stop: 12/28/19 12:29 Pantoprazole Sodium (Protonix Iv) 40 mg IVPUSH BID [facility] Last Admin: 12/27/19 21:50 Dose: 40 mg - Objective Vital Signs: Vital Signs Temperature 97.9 F 12/28/19 08:00 Pulse Rate 71 12/28/19 05:55 Respiratory Rate 18 12/28/19 09:13 Blood Pressure 82/53 L 12/28/19 08:00 O2 Sat by Pulse Oximetry (%) 100 12/28/19 09:13 Constitutional: Yes: No Distress Eyes: Yes: Conjunctiva Clear Cardiovascular: Yes: Regular Rate and Rhythm, S1, S2 Respiratory: Yes: Mechanically Ventilated Gastrointestinal: Yes: Normal Bowel Sounds, Soft. No: Tenderness Edema: Yes Labs: CBC, BMP 12/28/19 06:00 12/28/19 06:00 INR, PTT INR 2.05 (0.83-1.09) H 12/27/19 05:50 Assessment/Plan RESP FAILURE ? ASP PNEUMONIA THROMBOCYTOPENIA VERTEBRAL OSTEOMYELITIS GRP B STREP BACTEREMIA CONTINUE CEFEPIME VENTILATORY SUPPORT
--- NOTE | 2019-12-28 10:18 | PN ---
Teaching Attending Note Name of Resident: Juanita Nash ATTENDING PHYSICIAN STATEMENT I saw and evaluated the patient. I reviewed the resident's note and discussed the case with the resident. I agree with the resident's findings and plan as documented. SUBJECTIVE: Pt seen and examined in the ICU. Remains intubated, sedated. On levophed gtt. No fevers recorded. OBJECTIVE: Vital Signs Period Temp Pulse Resp BP Sys/Hutton Pulse Ox Last 24 Hr 97.9 F-98.2 F 64-92 18-18 71-179/45-89 100-100 Intake & Output 12/25/19 12/26/19 12/27/19 12/28/19 23:59 23:59 23:59 23:59 Intake Total 1652 2538.5 1424 1700 Output Total 1200 2400 900 400 Balance 452 138.5 524 1300 Weight 68.492 kg 68.22 kg 69.9 kg 72.575 kg Gen: intubated, sedated Heart: RRR Lung: decreased breath sounds at the bases Abd: soft, nontender Ext: no edema CBC, BMP 12/28/19 06:00 12/28/19 06:00 Active Medications Amino Acids (Prosource No Carb Liquid Pkt) 30 ml PO DAILY [facility] Last Admin: 12/27/19 09:01 Dose: 30 ml Lactated Ringer's (Lactated Ringers Solution) 1,000 ml in 1,000 mls @ 83 mls/ hr IV ASDIR MICHAEL Last Admin: 12/28/19 06:29 Dose: 83 mls/hr Propofol (Diprivan -) 1,000,000 mcg in 100 mls @ 2.01 mls/hr IVPB TITR [facility]; Protocol Last Admin: 12/28/19 06:28 Dose: 25 mcg/kg/min, 10.05 mls/hr Cefepime HCl 2 gm/ Dextrose 100 mls @ 200 mls/hr IVPB BID MICHAEL; Protocol Last Admin: 12/27/19 21:39 Dose: 200 mls/hr Norepinephrine Bitartrate 4, (000 mcg/ Dextrose) 500 mls @ 37.5 mls/hr IV TITR [facility]HA[facility]; Protocol Last Titration: 12/27/19 19:00 Dose: 4 mcg/min, 30 mls/hr Pantoprazole Sodium (Protonix Iv) 40 mg IVPUSH BID [facility] Last Admin: 12/27/19 21:50 Dose: 40 mg ASSESSMENT AND PLAN: Acute Hypoxic Respiratory Failure Likely Aspiration Pneumonia Septic Shock GI Bleed Anemia/Thrombocytopenia Supratherapeutic INR Cervical Cord Compression with Osteomyelitis Bacteremia Paroxysmal Atrial Fibrilatoin LV Diastolic Dysfunction CAD HTN Hypercholesterolemia h/o CVA - continue antibiotics - IVF to keep CVP 8-12 - taper pressors to maintain MAP >65 - O2 to keep Spo2 >90% - monitor CBC, INR - replete lytes - transfuse as needed - daily sedation vacations to assess mental status - spontaneous breathing trials as tolerated - enteral feeds - DVT/GI prophylaxis - ICU monitoring critical care time spent in reviewing chart, evaluating patient and formulating plan 35 min
[2019-12-28] MEDS: AMINO ACIDS/PROTEIN HYDROLYS 30 ML LIQUID.PKT PO SCH (10:24)
[2019-12-28] MEDS: PANTOPRAZOLE SODIUM 40 MG VIAL IVPUSH SCH ×2 (10:24→21:08)
--- NOTE | 2019-12-28 10:38 | PN ---
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, Physician - Current Medication List Current Medications: Active Medications Amino Acids (Prosource No Carb Liquid Pkt) 30 ml PO DAILY [facility] Last Admin: 12/28/19 10:24 Dose: 30 ml Lactated Ringer's (Lactated Ringers Solution) 1,000 ml in 1,000 mls @ 83 mls/ hr IV ASDIR [facility] Last Admin: 12/28/19 06:29 Dose: 83 mls/hr Propofol (Diprivan -) 1,000,000 mcg in 100 mls @ 2.01 mls/hr IVPB TITR [facility]; Protocol Last Admin: 12/28/19 06:28 Dose: 25 mcg/kg/min, 10.05 mls/hr Cefepime HCl 2 gm/ Dextrose 100 mls @ 200 mls/hr IVPB BID [facility]; Protocol Last Admin: 12/27/19 21:39 Dose: 200 mls/hr Norepinephrine Bitartrate 4, (000 mcg/ Dextrose) 500 mls @ 37.5 mls/hr IV TITR [facility]; Protocol Last Titration: 12/27/19 19:00 Dose: 4 mcg/min, 30 mls/hr Pantoprazole Sodium (Protonix Iv) 40 mg IVPUSH BID [facility] Last Admin: 12/28/19 10:24 Dose: 40 mg - Objective Vital Signs: Vital Signs Temperature 97.9 F 12/28/19 08:00 Pulse Rate 71 12/28/19 05:55 Respiratory Rate 18 12/28/19 09:13 Blood Pressure 82/53 L 12/28/19 08:00 O2 Sat by Pulse Oximetry (%) 100 12/28/19 09:13 Eyes: Yes: WNL, Conjunctiva Clear, EOM Intact HENT: Yes: WNL, Atraumatic, Normocephalic Neck: Yes: WNL, Supple, Trachea Midline Cardiovascular: Yes: Pulse Irregular, S1, S2 Respiratory: Yes: Diminished, Intubated, Mechanically Ventilated Gastrointestinal: Yes: WNL, Normal Bowel Sounds Genitourinary: Yes: WNL Musculoskeletal: Yes: WNL Extremities: Yes: WNL Edema: No Integumentary: Yes: WNL Neurological: Yes: WNL, Alert, Oriented ...Motor Strength: WNL Psychiatric: Yes: WNL Labs: CBC, BMP 12/28/19 06:00 12/28/19 06:00 INR, PTT INR 2.05 (0.83-1.09) H 12/27/19 05:50 Assessment/Plan - Problems (1) Supratherapeutic INR Code(s): R79.1 - ABNORMAL COAGULATION PROFILE (2) GI bleed Code(s): K92.2 - GASTROINTESTINAL HEMORRHAGE, UNSPECIFIED Qualifiers: GI bleed type/associated pathology: anorectal hemorrhage Qualified Code(s) : K62.5 - Hemorrhage of anus and rectum (3) Hematuria Code(s): R31.9 - HEMATURIA, UNSPECIFIED (4) Atrial flutter Code(s): I48.92 - UNSPECIFIED ATRIAL FLUTTER Qualifiers: Atrial flutter type: typical Qualified Code(s): I48.3 - Typical atrial flutter (5) Hypercholesterolemia Code(s): E78.00 - PURE HYPERCHOLESTEROLEMIA, UNSPECIFIED (6) Hypotension Code(s): I95.9 - HYPOTENSION, UNSPECIFIED (7) LVH (left ventricular hypertrophy) Code(s): I51.7 - CARDIOMEGALY (8) Demand ischemia Code(s): I24.8 - OTHER FORMS OF ACUTE ISCHEMIC HEART DISEASE (9) CVA (cerebral vascular accident) Code(s): I63.9 - CEREBRAL INFARCTION, UNSPECIFIED Qualifiers: CVA mechanism: unspecified Qualified Code(s): I63.9 - Cerebral infarction, unspecified (10) HTN (hypertension) Code(s): I10 - ESSENTIAL (PRIMARY) HYPERTENSION Qualifiers: Hypertension type: essential hypertension Qualified Code(s): I10 - Essential (primary) hypertension (11) Acute respiratory failure with hypoxia and hypercapnia Code(s): J96.01 - ACUTE RESPIRATORY FAILURE WITH HYPOXIA; J96.02 - ACUTE RESPIRATORY FAILURE WITH HYPERCAPNIA Assessment/Plan 12/23/2019 Echo: Small LV size with severe LVH suspect cardiac amyloidosis, hyperdynamic LVEF>75%, restrictive physiology, normal RV size and fxn, severe LAE, mild LORNA, pleural effusion 12/01/19 Normal LV size with severe LVH with normal LV fxn, severe LAE, mild MR , TR, TN, possible infiltrative heart disease 12/04/2019: C spine MRI - multilevel DDD; C5-6 vertebral edema, central disc protrusion C4-5 and C5-6; moderate to marked C5-6 (L > R) central and foramenal stenosis and mild-moderate C4-5 stenosis, extensive spondylosis; loss of lordosis; no clear cord edema or myelomalacia 1. Acute Hypoxic and Hypercapneic Respiratory Failure 2. Likely Aspiration Pneumonia 3. GI bleed and hematuria in context of supratherapeutic INR 4. 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 Group B strep bacteremia previously on rocephin 6. HTN 7. Hypercholesterolemia 8. Paroxysmal atrial fibrillation/flutter [id number] score of 6-7 9. History of CVA with residual weakness 10. Concentric LVH ? rule out infiltrative heart disease 11. Abnormal ECG suggests CAD 12. Demand ischemia with elevated troponin 13. Abnl LFTs->cholelithiasis 14. Right basilic vein superficial thrombosis post PICC line removal 15. Diastolic dysfunction 16. ISHMAEL due to hemodynamics alteration PLAN: 1. Vent management per ABG, NGT for enteral feeds 2. Wean off pressors to maintain MAP >65 3. Empiric zosyn course via PICC line for both group b strep and possible UTI and C-collar for immobilization, f/u C&S 4. Resume Carvedilol and lisinopril once hemodynamics stabilize and hyperkalemia resolved 5. Hold Coumadin pending hemostasis, consider switch to DOAC given suboptimal INR management once hemostasis assured 6. May consider Tm99 PYP study to rule out amyloidosis once clinically stable 7. Trops downtrending, Lipitor held due to abnl LFTs, replete K Coverage for dr. Fermin CC time spent 36 min
[2019-12-28] MEDS: CEFEPIME 2 GM in DEXTROSE 5%-WATER 100 ML IVPB SCH ×2 (10:52→21:07)
[2019-12-28] MEDS ORDERED: ENOXAPARIN NA (PORCINE) 40 MG/0.4 ML DISP.SYRIN SQ SCH (11:00)
--- NOTE | 2019-12-28 11:08 | PN ---
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 (short form) - Note 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: NEUROSURGERY In ICU Intubated PE: T 98, AF, VSS, cvp 9 Not following commands; Eyes open at times HEENT- NC/AT; Neck- supple; Cor-Irreg; Chest- decreased BS at bases; LT; DTR- hyporereflexic, no LTS BC negative on subsequent cultures UC- yeast Resp Cx- multiple organisms inc yeast head CT- no acute bleed or large territorial infarct, chronic ischemic disease C4-5 spondylolisthesis/discitis/osteomyelitis with moderate stenosis L > R and mld-moderate C5-6 DDD/degenerative stenosis Significant generalized weakness could not be explained by recent cervical MRI ? progressive demyelinating neuropathy Not a surgical candidate from neurosurgical standpoint, will sign off
[2019-12-28] MEDS: NOREPINEPHRINE BITARTRATE 4,000 MCG in DEXTROSE 5%-WATER - 496 ML IV SCH ×2 (12:21→14:49)
[2019-12-28] MEDS: ENOXAPARIN NA (PORCINE) 80 MG/0.8 ML DISP.SYRIN SQ SCH ×2 (13:03→21:07)
[2019-12-29] MEDS: BANATROL PLUS POWDER PACKET PO SCH ×3 (05:09→21:05)
[2019-12-29] MEDS: NOREPINEPHRINE BITARTRATE 4,000 MCG in DEXTROSE 5%-WATER - 496 ML IV SCH ×2 (05:10→12:00)
[2019-12-29] MEDS: LACTATED RINGERS SOLUTION 1,000 ML/1,000 ML INFUS.BAG IV SCH (06:34)
[2019-12-29 07:00] LABS: BASO % 0.3 % (0-2.0); EOS % 0.4 % (0-4.5); HEMATOCRIT 23.8 % (32.4-45.2); LYMPH % 7.2 % (8-40); MCH 31.1 pg (25.7-33.7); MCHC 33.4 g/dl (32.0-36.0); MEAN CELL VOLUME 93.1 fl (80-96); MEAN PLT VOLUME 11.4 fl (7.5-11.1); MONO % 3.9 % (3.8-10.2); NEUT % 88.2 % (42.8-82.8); PLATELET COUNT 74 K/MM3 (134-434); RBC 2.56 M/mm3 (3.60-5.2); RDW 16.1 % (11.6-15.6); WHITE BLOOD COUNT 8.1 K/mm3 (4.0-10.0)
[2019-12-29 07:12] LABS: INR 1.54 (0.83-1.09); PROTHROMBIN TIME (PATIENT) 18.3 SEC (9.7-13.0)
[2019-12-29 07:26] LABS: ALBUMIN 1.1 g/dl (3.4-5.0); BILIRUBIN,TOTAL 0.3 mg/dL (0.2-1); BLOOD UREA NITROGEN 27.8 mg/dL (7-18); TOT PROT 3.8 g/dl (6.4-8.2)
[2019-12-29 07:29] LABS: CALCIUM 6.5 mg/dL (8.5-10.1)
--- NOTE | 2019-12-29 07:42 | PN ---
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, Physician Chief Complaint: AWAKE INTUBATED NO NEW EVENTS OVERNIGHT - Current Medication List Current Medications: Active Medications Amino Acids (Prosource No Carb Liquid Pkt) 30 ml PO DAILY [facility] Last Admin: 12/28/19 10:24 Dose: 30 ml Enoxaparin Sodium (Lovenox -) 70 mg SQ BID [facility] Last Admin: 12/28/19 21:07 Dose: 70 mg Lactated Ringer's (Lactated Ringers Solution) 1,000 ml in 1,000 mls @ 83 mls/ hr IV ASDIR [facility] Last Admin: 12/29/19 06:34 Dose: Not Given Propofol (Diprivan -) 1,000,000 mcg in 100 mls @ 2.01 mls/hr IVPB TITR [facility]; Protocol Last Admin: 12/28/19 17:15 Dose: Not Given Cefepime HCl 2 gm/ Dextrose 100 mls @ 200 mls/hr IVPB BID [facility]; Protocol Last Admin: 12/28/19 21:07 Dose: 200 mls/hr Norepinephrine Bitartrate 4, (000 mcg/ Dextrose) 500 mls @ 37.5 mls/hr IV TITR [facility]; Protocol Last Titration: 12/29/19 06:35 Dose: 12 mcg/min, 90 mls/hr Pantoprazole Sodium (Protonix Iv) 40 mg IVPUSH BID [facility] Last Admin: 12/28/19 21:08 Dose: 40 mg - Objective Vital Signs: Vital Signs Temperature 98.1 F 12/29/19 06:00 Pulse Rate 96 H 12/29/19 06:35 Respiratory Rate 19 12/29/19 06:00 Blood Pressure 94/51 L 12/29/19 06:35 O2 Sat by Pulse Oximetry (%) 100 12/28/19 21:00 Constitutional: Yes: Mild Distress HENT: Yes: Other (CERVICAL COLLAR) Cardiovascular: Yes: Pulse Irregular Respiratory: Yes: Mechanically Ventilated Gastrointestinal: Yes: Soft Genitourinary: Yes: Adamson Present Musculoskeletal: Yes: Muscle Weakness Edema: Yes Integumentary: Yes: Other Neurological: Yes: Pre-Existing Deficit ...Motor Strength: LLE, RLE Psychiatric: Yes: Other Labs: CBC, BMP 12/29/19 06:00 12/29/19 06:00 INR, PTT INR 1.54 (0.83-1.09) H 12/29/19 06:00 Problem List - Problems (1) Altered mental status Code(s): R41.82 - ALTERED MENTAL STATUS, UNSPECIFIED (2) Constipation Code(s): K59.00 - CONSTIPATION, UNSPECIFIED (3) Fecal impaction in rectum Code(s): K56.41 - FECAL IMPACTION (4) GI bleed Code(s): K92.2 - GASTROINTESTINAL HEMORRHAGE, UNSPECIFIED Qualifiers: GI bleed type/associated pathology: anorectal hemorrhage Qualified Code(s) : K62.5 - Hemorrhage of anus and rectum (5) Hematochezia Code(s): K92.1 - MELENA (6) Hematuria Code(s): R31.9 - HEMATURIA, UNSPECIFIED (7) Hyperkalemia Code(s): E87.5 - HYPERKALEMIA (8) Lactic acidosis Code(s): E87.2 - ACIDOSIS (9) Osteomyelitis Code(s): M86.9 - OSTEOMYELITIS, UNSPECIFIED Qualifiers: Osteomyelitis type: unspecified type Osteomyelitis location: other site Qualified Code(s): M86.9 - Osteomyelitis, unspecified (10) Troponin I above reference range Code(s): R79.89 - OTHER SPECIFIED ABNORMAL FINDINGS OF BLOOD CHEMISTRY Assessment/Plan WILL ATTEMPT TO WEAN OFF VENT TODAY UNLIKELY BECAUSE OF DECREASED RESPIRATORY EFFORT. NOREPINEPHRINE FOR BP SUPPORT TITRATE DOWN TOLERATED. NGT FEEDS CONTINUE DVT PROPHYLAXIS SEPSIS WORKUP ON IV ABX WILL D/W FAMILY ABOUT ADVANCED DIRECTIVES
[2019-12-29] MEDS ORDERED: PT OWN MED DRAWER 7, Y5N ONE ×2 (07:46→09:34)
[2019-12-29] MEDS: ENOXAPARIN NA (PORCINE) 80 MG/0.8 ML DISP.SYRIN SQ SCH ×2 (09:00→21:05)
[2019-12-29] MEDS: PANTOPRAZOLE SODIUM 40 MG VIAL IVPUSH SCH ×2 (09:00→21:05)
[2019-12-29] MEDS: AMINO ACIDS/PROTEIN HYDROLYS 30 ML LIQUID.PKT PO SCH (09:01)
--- NOTE | 2019-12-29 09:23 | PN ---
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 (short form) - Note 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: NEUROSURGERY In ICU Intubated On NE drip adn cefepime PE: T 98.7, AF, VSS Not following commands HEENT- NC/AT; Neck- supple; Cor-Irreg; Chest- decreased BS at bases; LT; DTR- hyporereflexic, no LTS BC negative on multiple subsequent cultures UC- yeast Resp Cx- multiple organisms inc yeast C4-5 spondylolisthesis/discitis/osteomyelitis with moderate stenosis L > R and mild-moderate C5-6 DDD/degenerative stenosis Significant generalized weakness could not be explained by recent cervical MRI Care and condition d/w family previously Prognosis very poor given multiple med conditions and current issues Not a surgical candidate from neurosurgical standpoint, will sign off, reconsult prn
[2019-12-29] MEDS: CEFEPIME 2 GM in DEXTROSE 5%-WATER 100 ML IVPB SCH ×2 (09:38→21:05)
[2019-12-29] MEDS ORDERED: NOREPINEPHRINE BITARTRATE 4 MG/4 ML ML IV ONE ×2 (09:45→15:51)
--- NOTE | 2019-12-29 11:49 | PN ---
Teaching Attending Note Name of Resident: Jose Beaulieu ATTENDING PHYSICIAN STATEMENT I saw and evaluated the patient. I reviewed the resident's note and discussed the case with the resident. I agree with the resident's findings and plan as documented. SUBJECTIVE: Pt seen and examined in the ICU. Remains intubated, awake off sedation. Alert, tracks with eyes. Remains on levophed gtt. Still with thick secretions. OBJECTIVE: Vital Signs Period Temp Pulse Resp BP Sys/Hutton Pulse Ox Last 24 Hr 96.8 F-98.7 F 68-103 16-21 80-122/47-71 97-100 Intake & Output 12/26/19 12/27/19 12/28/19 12/29/19 23:59 23:59 23:59 23:59 Intake Total 2538.5 1424 4525.2 1750 Output Total 2400 900 1200 Balance 138.5 524 3325.2 1750 Weight 68.22 kg 69.9 kg 72.575 kg 80 kg Gen: intubated, awake Heart: RRR Lung: scattered rhonchi Abd: soft, nontender Ext: no edema CBC, BMP 12/29/19 06:00 12/29/19 06:00 Active Medications Amino Acids (Prosource No Carb Liquid Pkt) 30 ml PO DAILY [facility] Last Admin: 12/29/19 09:01 Dose: 30 ml Enoxaparin Sodium (Lovenox -) 70 mg SQ BID [facility] Last Admin: 12/29/19 09:00 Dose: 70 mg Lactated Ringer's (Lactated Ringers Solution) 1,000 ml in 1,000 mls @ 83 mls/ hr IV ASDIR [facility] Last Admin: 12/29/19 06:34 Dose: Not Given Propofol (Diprivan -) 1,000,000 mcg in 100 mls @ 2.01 mls/hr IVPB TITR [facility]; Protocol Last Admin: 12/28/19 17:15 Dose: Not Given Cefepime HCl 2 gm/ Dextrose 100 mls @ 200 mls/hr IVPB BID [facility]; Protocol Last Admin: 12/29/19 09:38 Dose: 200 mls/hr Norepinephrine Bitartrate 4, (000 mcg/ Dextrose) 500 mls @ 37.5 mls/hr IV TITR [facility]; Protocol Last Titration: 12/29/19 08:59 Dose: 10 mcg/min, 75 mls/hr Pantoprazole Sodium (Protonix Iv) 40 mg IVPUSH BID [facility] Last Admin: 12/29/19 09:00 Dose: 40 mg ASSESSMENT AND PLAN: Acute Hypoxic Respiratory Failure Likely Aspiration Pneumonia Septic Shock GI Bleed Anemia/Thrombocytopenia Supratherapeutic INR Cervical Cord Compression with Osteomyelitis Bacteremia Paroxysmal Atrial Fibrilatoin LV Diastolic Dysfunction CAD HTN Hypercholesterolemia h/o CVA - continue antibiotics - IVF to keep CVP 8-12 - taper pressors to maintain MAP >65 - O2 to keep Spo2 >90% - replete lytes - rate control - continue anticoagulation - daily sedation vacations to assess mental status - spontaneous breathing trials as tolerated - enteral feeds - DVT/GI prophylaxis - ICU monitoring - continue discussions with family regarding goals of care, will likely need tracheostomy due to inability to protect airway critical care time spent in reviewing chart, evaluating patient and formulating plan 35 min
--- NOTE | 2019-12-29 15:17 | PN ---
Physical Exam: SUBJECTIVE: Patient seen and examined in the morning. No acute events overnight, no events on cardiac monitoring. Patient was taken off of sedation, nods head yes to pain, but unable to localize. OBJECTIVE: Vital Signs Period Temp Pulse Resp BP Sys/Hutton Pulse Ox Last 24 Hr 97.3 F-98.7 F 68-103 18-21 77-122/47-71 97-100 GENERAL: The patient is sedated and intubated HEAD: Normal with no signs of trauma. EYES: Eyes open, tracks and blinks. ENT: Patient with secretions and intubated NECK: C-Collar in place. LUNGS: Breath sounds with crackles bilaterally. HEART: Regular rate and rhythm, S1, S2 without murmur, rub or gallop. ABDOMEN: Soft, nontender, nondistended, normoactive bowel sounds, no guarding, no rebound, no hepatosplenomegaly, no masses. EXTREMITIES: 2+ pulses, warm, well-perfused, no edema. NEUROLOGICAL: Is not able to move extremities. SKIN: Warm, dry, normal turgor, no rashes or lesions noted Laboratory Results - last 24 hr 12/29/19 12/29/19 12/29/19 06:00 06:00 06:00 WBC 8.1 RBC 2.56 L Hgb 8.0 L Hct 23.8 L MCV 93.1 MCH 31.1 MCHC 33.4 RDW 16.1 H Plt Count 74 L MPV 11.4 H Absolute Neuts (auto) 7.2 Neutrophils % 88.2 H Lymphocytes % 7.2 L Monocytes % 3.9 Eosinophils % 0.4 Basophils % 0.3 Nucleated RBC % 0 PT with INR 18.30 H INR 1.54 H Sodium 139 Potassium 4.0 Chloride 108 H Carbon Dioxide 25 Anion Gap 6 L BUN 27.8 H Creatinine 1.0 Est GFR (CKD-EPI)AfAm 60.33 Est GFR (CKD-EPI)NonAf 52.06 Random Glucose 114 H Calcium 6.5 L* Total Bilirubin 0.3 AST 15 ALT 40 Alkaline Phosphatase 107 Total Protein 3.8 L Albumin 1.1 L Active Medications Generic Name Dose Route Start Last Admin Trade Name Freq PRN Reason Stop Dose Admin Amino Acids 30 ml 12/26/19 13:45 12/29/19 09:01 Prosource No Carb Liquid Pkt PO 30 ml DAILY [facility] Administration Enoxaparin Sodium 70 mg 12/28/19 12:00 12/29/19 09:00 Lovenox - SQ 70 mg BID [facility] Administration Lactated Ringer's 1,000 ml in 1,000 mls @ 83 mls/hr 12/24/19 05:30 12/29/19 06:34 Lactated Ringers Solution IV Not Given ASDIR MICHAEL Propofol 1,000,000 mcg in 100 mls @ 2.01 mls/hr 12/24/19 17:15 12/28/19 17:15 Diprivan - IVPB Not Given TITR [facility] Protocol 5 MCG/KG/MIN Cefepime HCl 2 gm/ Dextrose 100 mls @ 200 mls/hr 12/26/19 11:00 12/29/19 09:38 IVPB 200 mls/hr BID [facility] Administration Protocol Norepinephrine Bitartrate 4, 500 mls @ 37.5 mls/hr 12/27/19 12:15 12/29/19 12:00 000 mcg/ Dextrose IV 12 mcg/min TITR [facility] 90 mls/hr Administration Protocol 5 MCG/MIN Pantoprazole Sodium 40 mg 12/19/19 22:00 12/29/19 09:00 Protonix Iv IVPUSH 40 mg BID [facility] Administration ASSESSMENT/PLAN: 84F with PMH of CVA with residual weakness, aflutter (on coumadin), HTN, HLD, recent cervical spine osteomyelitis, found to be hypotensive and hypothermic y esterday and was transferred to the ICU. Neuro: -Pt is altered, non verbal -Oxy d/c'd -Head CT showed no acute changes -C-spine MRI pending -Patient given morphine for pain -Propofol sedation ordered -Sedation vacations as tolerated -F/U Neuro recommendations. Cardiovascular -Patient hypotensive, still on levophed drip. -Stable now -Echo shows EF => 75%, left ventricle is suggestive of restrictive pathology, moderate . granular appearance of myocardium suggestive of amyloidosis. Mild pericardial effusion Pulmonary -Acute hypoxic respiratory failure. -Vent settings: Vt: 450, RR 18, Fio2 60. Peep 5 -Wean trials as tolerated GI -Patient is stable, no acute events -OG tube placed, confirmed. -Tube feeds Renal -BUN/Creatinine 27.8/1 -Monitor electrolytes -Hematuria resolved Heme/Onc -FFP given during admission. -Last INR was 1.54. -H&H 07/18.8. ID -Urine culture growing yeast like organism -Continue cefepime F: LR@ 83 E: Monitor CMP N: Tube feed osmolite 1.2. Prosource supplemented. Lines: Adamson switched 12/22. Left subclavian 12/24/2019. Dispo: Continue ICU monitoring. Visit type - Emergency Visit Emergency Visit: Yes ED Registration Date: 12/19/19 Care time: The patient presented to the Emergency Department on the above date and was hospitalized for further evaluation of their emergent condition. - New Patient This patient is new to me today: No - Critical Care Critical Care patient: Yes Total Critical Care Time (in minutes): 35 Critical Care Statement: The care of this patient involved high complexity decision making to prevent further life threatening deterioration of the patient's condition and/or to evaluate & treat vital organ system(s) failure or risk of failure. ATTENDING PHYSICIAN STATEMENT I saw and evaluated the patient. I reviewed the resident's note and discussed the case with the resident. I agree with the resident's findings and plan as documented. SUBJECTIVE: OBJECTIVE: ASSESSMENT AND PLAN:
--- NOTE | 2019-12-29 15:21 | PN ---
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, Physician Chief Complaint: Events noted Remains in ICU currently on mechanical ventilator and sedated History of Present Illness: Patient was seen and examined. Chart was reviewed Pressor support. Vent support - Current Medication List Current Medications: Active Medications Amino Acids (Prosource No Carb Liquid Pkt) 30 ml PO DAILY [facility] Last Admin: 12/29/19 09:01 Dose: 30 ml Enoxaparin Sodium (Lovenox -) 70 mg SQ BID [facility] Last Admin: 12/29/19 09:00 Dose: 70 mg Lactated Ringer's (Lactated Ringers Solution) 1,000 ml in 1,000 mls @ 83 mls/ hr IV ASDIR [facility] Last Admin: 12/29/19 06:34 Dose: Not Given Propofol (Diprivan -) 1,000,000 mcg in 100 mls @ 2.01 mls/hr IVPB TITR [facility]; Protocol Last Admin: 12/28/19 17:15 Dose: Not Given Cefepime HCl 2 gm/ Dextrose 100 mls @ 200 mls/hr IVPB BID [facility]; Protocol Last Admin: 12/29/19 09:38 Dose: 200 mls/hr Norepinephrine Bitartrate 4, (000 mcg/ Dextrose) 500 mls @ 37.5 mls/hr IV TITR [facility]; Protocol Last Admin: 12/29/19 12:00 Dose: 12 mcg/min, 90 mls/hr Pantoprazole Sodium (Protonix Iv) 40 mg IVPUSH BID [facility] Last Admin: 12/29/19 09:00 Dose: 40 mg - Objective Vital Signs: Vital Signs Temperature 97.4 F L 12/29/19 12:00 Pulse Rate 100 H 12/29/19 14:00 Respiratory Rate 18 12/29/19 14:00 Blood Pressure 118/67 12/29/19 14:00 O2 Sat by Pulse Oximetry (%) 97 12/29/19 09:00 Neck: Yes: Supple Cardiovascular: Yes: Pulse Irregular, S1, S2 Respiratory: Yes: Diminished, Mechanically Ventilated Gastrointestinal: Yes: Normal Bowel Sounds, Soft. No: Tenderness Edema: Yes Labs: CBC, BMP 12/29/19 06:00 12/29/19 06:00 INR, PTT INR 1.54 (0.83-1.09) H 12/29/19 06:00 Problem List - Problems (1) Acute respiratory failure with hypoxia and hypercapnia Code(s): J96.01 - ACUTE RESPIRATORY FAILURE WITH HYPOXIA; J96.02 - ACUTE RESPIRATORY FAILURE WITH HYPERCAPNIA (2) Afib Code(s): I48.91 - UNSPECIFIED ATRIAL FIBRILLATION (3) Bacteremia Code(s): R78.81 - BACTEREMIA (4) Group B streptococcal infection Code(s): A49.1 - STREPTOCOCCAL INFECTION, UNSPECIFIED SITE (5) Hyperkalemia Code(s): E87.5 - HYPERKALEMIA (6) UTI (urinary tract infection) Code(s): N39.0 - URINARY TRACT INFECTION, SITE NOT SPECIFIED (7) Cervical spinal stenosis Code(s): M48.02 - SPINAL STENOSIS, CERVICAL REGION (8) Hypercholesterolemia Code(s): E78.00 - PURE HYPERCHOLESTEROLEMIA, UNSPECIFIED (9) Hypotension Code(s): I95.9 - HYPOTENSION, UNSPECIFIED (10) Demand ischemia Code(s): I24.8 - OTHER FORMS OF ACUTE ISCHEMIC HEART DISEASE (11) CVA (cerebral vascular accident) Code(s): I63.9 - CEREBRAL INFARCTION, UNSPECIFIED Qualifiers: CVA mechanism: unspecified Qualified Code(s): I63.9 - Cerebral infarction, unspecified (12) HTN (hypertension) Code(s): I10 - ESSENTIAL (PRIMARY) HYPERTENSION Qualifiers: Hypertension type: essential hypertension Qualified Code(s): I10 - Essential (primary) hypertension Assessment/Plan 1. Acute Hypoxic and Hypercapneic Respiratory Failure 2. Aspiration Pneumonia 3. GI bleed and hematuria in context of supratherapeutic INR 4. Cervical spinal cord compression C5/C6 osteomyelitis/discitis 5. Group B strep bacteremia 6. HTN 7. Hypercholesterolemia 8. Paroxysmal atrial fibrillation/flutter [id number] score of 6-7 9. History of CVA with residual weakness 10. Concentric LVH ? rule out infiltrative heart disease 11. Abnormal ECG suggests CAD 12. Demand ischemia with elevated troponin 13. Abnl LFTs with cholelithiasis 14. Right basilic vein superficial thrombosis post PICC line removal 15. Diastolic dysfunction 16. ISHMAEL due to hemodynamics alteration 17. UTI PLAN: 1. Vent support, Pressor support 2. Antibiotic coverage and C-collar for immobilization 3. Resume Carvedilol and Lisinopril once hemodynamics stabilize and hyperkalemia resolved 4. Hold Coumadin pending hemostasis, consider switch to DOAC given suboptimal INR management once hemostasis assured 5. May consider Tm99 PYP study to rule out amyloidosis once clinically stable Supportive care Seth Castaneda MD
--- NOTE | 2019-12-29 20:19 | PN ---
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 (short form) - Note 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: I MET WITH THE PATIENT'S FAMILY AND REVIEWED THE PLAN OF CARE AND THEIR MOM'S PROGNOSIS. I EXPLAINED THAT WITH BLOOD PRESSURE SUPPORT ON LEVOPHED AND RESPIRATORY SUPPORT INTUBATED THEIR MOM IS TO UNSTABLE MEDICALLY TO STOP EITHER OF THEM. I EXPLAINED THAT THEIR MOM WILL NEED A TRACHEOSTOMY AND THE DAUGHTER TOLD ME THIS IS NOT WHAT HER MOM WOULD HAVE WANTED. THEIR MOM WAS AGAINST BEING MAINTAINED ON [employer] SUPPORT AND THEY WOULD SPEAK TO THE REST OF THE FAMILY AND TOMORROW MAKE A DECISION. Problem List - Problems (1) Altered mental status Code(s): R41.82 - ALTERED MENTAL STATUS, UNSPECIFIED (2) Constipation Code(s): K59.00 - CONSTIPATION, UNSPECIFIED (3) Fecal impaction in rectum Code(s): K56.41 - FECAL IMPACTION (4) GI bleed Code(s): K92.2 - GASTROINTESTINAL HEMORRHAGE, UNSPECIFIED Qualifiers: GI bleed type/associated pathology: anorectal hemorrhage Qualified Code(s) : K62.5 - Hemorrhage of anus and rectum (5) Hematochezia Code(s): K92.1 - MELENA (6) Hematuria Code(s): R31.9 - HEMATURIA, UNSPECIFIED (7) Hyperkalemia Code(s): E87.5 - HYPERKALEMIA (8) Lactic acidosis Code(s): E87.2 - ACIDOSIS (9) Osteomyelitis Code(s): M86.9 - OSTEOMYELITIS, UNSPECIFIED Qualifiers: Osteomyelitis type: unspecified type Osteomyelitis location: other site Qualified Code(s): M86.9 - Osteomyelitis, unspecified (10) Troponin I above reference range Code(s): R79.89 - OTHER SPECIFIED ABNORMAL FINDINGS OF BLOOD CHEMISTRY
[2019-12-29] MEDS: PROPOFOL 1,000,000 MCG/100 ML VIAL IVPB SCH (21:04)
[2019-12-30] MEDS ORDERED: PT OWN MED DRAWER 7, Y5N ONE ×4 (02:14→22:39)
[2019-12-30] MEDS: LACTATED RINGERS SOLUTION 1,000 ML/1,000 ML INFUS.BAG IV SCH ×3 (05:43→12:00)
[2019-12-30] MEDS: BANATROL PLUS POWDER PACKET PO SCH ×3 (05:44→22:43)
[2019-12-30 07:42] LABS: BASO % 0.3 % (0-2.0); EOS % 0.5 % (0-4.5); HEMATOCRIT 22.3 % (32.4-45.2); HEMOGLOBIN 7.5 GM/dL (10.7-15.3); LYMPH % 7.3 % (8-40); MCH 31.4 pg (25.7-33.7); MCHC 33.6 g/dl (32.0-36.0); MEAN CELL VOLUME 93.4 fl (80-96); MONO % 3.9 % (3.8-10.2); PLATELET COUNT 82 K/MM3 (134-434); RBC 2.38 M/mm3 (3.60-5.2); RDW 15.7 % (11.6-15.6); WHITE BLOOD COUNT 8.8 K/mm3 (4.0-10.0)
[2019-12-30] MEDS: NOREPINEPHRINE BITARTRATE 4,000 MCG in DEXTROSE 5%-WATER - 496 ML IV SCH ×3 (07:58→20:00)
[2019-12-30] MEDS ORDERED: MORPHINE SULFATE 2 MG/ML VIAL IVPUSH PRN (08:04)
[2019-12-30] MEDS ORDERED: MORPHINE SULFATE 2 MG/ML VIAL ONE (08:14)
[2019-12-30 08:15] LABS: BILIRUBIN,TOTAL 0.4 mg/dL (0.2-1); BLOOD UREA NITROGEN 30.9 mg/dL (7-18); PHOSPHOROUS 3.3 mg/dL (2.5-4.9); POTASSIUM 4.5 mmol/L (3.5-5.1); TOT PROT 3.8 g/dl (6.4-8.2)
[2019-12-30 08:22] LABS: CALCIUM 6.5 mg/dL (8.5-10.1)
[2019-12-30] MEDS ORDERED: SCOPOLAMINE HYDROBROMIDE 1 PATCH PATCH.TD72 TD SCH (09:00)
[2019-12-30] MEDS: ENOXAPARIN NA (PORCINE) 80 MG/0.8 ML DISP.SYRIN SQ SCH ×2 (09:14→22:36)
[2019-12-30] MEDS: AMINO ACIDS/PROTEIN HYDROLYS 30 ML LIQUID.PKT PO SCH (09:14)
[2019-12-30] MEDS: PANTOPRAZOLE SODIUM 40 MG VIAL IVPUSH SCH ×2 (09:14→22:37)
[2019-12-30] MEDS: CEFEPIME 2 GM in DEXTROSE 5%-WATER 100 ML IVPB SCH ×2 (09:15→22:43)
--- NOTE | 2019-12-30 12:21 | PN ---
Teaching Attending Note Name of Resident: Jose Beaulieu ATTENDING PHYSICIAN STATEMENT I saw and evaluated the patient. I reviewed the resident's note and discussed the case with the resident. I agree with the resident's findings and plan as documented. SUBJECTIVE: Pt seen and examined in the ICU. Remains intubated, awake off sedation on levophed gtt. Placed on CPAP/PS 15/5 but still with tachypnea and low tidal volumes. OBJECTIVE: Vital Signs Period Temp Pulse Resp BP Sys/Hutton Pulse Ox Last 24 Hr 96.9 F-98.6 F 76-107 12-19 83-137/48-77 97-100 Intake & Output 12/27/19 12/28/19 12/29/19 12/30/19 23:59 23:59 23:59 23:59 Intake Total 1424 4525.2 4646.6 2762 Output Total 900 1200 800 300 Balance 524 3325.2 3846.6 2462 Weight 69.9 kg 72.575 kg 80 kg 80.7 kg Gen: intubated, awake Heart: RRR Lung: scattered rhonchi Abd: soft, nontender Ext: no edema CBC, BMP 12/30/19 05:30 12/30/19 06:00 Active Medications Amino Acids (Prosource No Carb Liquid Pkt) 30 ml PO DAILY [facility] Last Admin: 12/30/19 09:14 Dose: 30 ml Enoxaparin Sodium (Lovenox -) 70 mg SQ BID [facility] Last Admin: 12/30/19 09:14 Dose: 70 mg Propofol (Diprivan -) 1,000,000 mcg in 100 mls @ 2.01 mls/hr IVPB TITR [facility]; Protocol Last Titration: 12/30/19 07:00 Dose: 20 mcg/kg/min, 8.04 mls/hr Cefepime HCl 2 gm/ Dextrose 100 mls @ 200 mls/hr IVPB BID [facility]; Protocol Last Admin: 12/30/19 09:15 Dose: 200 mls/hr Norepinephrine Bitartrate 4, (000 mcg/ Dextrose) 500 mls @ 37.5 mls/hr IV TITR [facility]; Protocol Last Titration: 12/30/19 10:30 Dose: 12 mcg/min, 90 mls/hr Lactated Ringer's (Lactated Ringers Solution) 1,000 ml in 1,000 mls @ 100 mls/ hr IV [facility]IR [facility] Last Admin: 12/30/19 06:51 Dose: 100 mls/hr Morphine Sulfate (Morphine Sulfate) 2 mg IVPUSH Q6H PRN PRN Reason: PAIN LEVEL 6-10 Last Admin: 12/30/19 08:15 Dose: 2 mg Pantoprazole Sodium (Protonix Iv) 40 mg IVPUSH BID [facility] Last Admin: 12/30/19 09:14 Dose: 40 mg Scopolamine HBr (Transderm-Scop -) 1 patch TD Q72H [facility] Last Admin: 12/30/19 09:15 Dose: 1 patch ASSESSMENT AND PLAN: Acute Hypoxic Respiratory Failure Likely Aspiration Pneumonia Septic Shock GI Bleed Anemia/Thrombocytopenia Supratherapeutic INR Cervical Cord Compression with Osteomyelitis Bacteremia Paroxysmal Atrial Fibrilatoin LV Diastolic Dysfunction CAD HTN Hypercholesterolemia h/o CVA - continue antibiotics - IVF to keep CVP 8-12 - taper pressors to maintain MAP >65 - O2 to keep Spo2 >90% - replete lytes - rate control - continue anticoagulation - daily sedation vacations to assess mental status - spontaneous breathing trials as tolerated - enteral feeds - DVT/GI prophylaxis - ICU monitoring - continue discussions with family regarding goals of care, will likely need tracheostomy due to inability to protect airway and failure to wean critical care time spent in reviewing chart, evaluating patient and formulating plan 35 min
--- NOTE | 2019-12-30 12:41 | PN ---
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, Physician Chief Complaint: Events noted Remains in ICU currently on mechanical ventilator and sedated History of Present Illness: Patient was seen and examined. Chart was reviewed Pressor support. Vent support - Current Medication List Current Medications: Active Medications Amino Acids (Prosource No Carb Liquid Pkt) 30 ml PO DAILY [facility] Last Admin: 12/30/19 09:14 Dose: 30 ml Enoxaparin Sodium (Lovenox -) 70 mg SQ BID [facility] Last Admin: 12/30/19 09:14 Dose: 70 mg Propofol (Diprivan -) 1,000,000 mcg in 100 mls @ 2.01 mls/hr IVPB TITR [facility]; Protocol Last Titration: 12/30/19 07:00 Dose: 20 mcg/kg/min, 8.04 mls/hr Cefepime HCl 2 gm/ Dextrose 100 mls @ 200 mls/hr IVPB BID [facility]; Protocol Last Admin: 12/30/19 09:15 Dose: 200 mls/hr Norepinephrine Bitartrate 4, (000 mcg/ Dextrose) 500 mls @ 37.5 mls/hr IV TITR [facility]; Protocol Last Titration: 12/30/19 10:30 Dose: 12 mcg/min, 90 mls/hr Lactated Ringer's (Lactated Ringers Solution) 1,000 ml in 1,000 mls @ 100 mls/ hr IV ASDIR [facility] Last Admin: 12/30/19 06:51 Dose: 100 mls/hr Morphine Sulfate (Morphine Sulfate) 2 mg IVPUSH Q6H PRN PRN Reason: PAIN LEVEL 6-10 Last Admin: 12/30/19 08:15 Dose: 2 mg Pantoprazole Sodium (Protonix Iv) 40 mg IVPUSH BID [facility] Last Admin: 12/30/19 09:14 Dose: 40 mg Scopolamine HBr (Transderm-Scop -) 1 patch TD Q72H [facility] Last Admin: 12/30/19 09:15 Dose: 1 patch - Objective Vital Signs: Vital Signs Temperature 96.9 F L 12/30/19 12:00 Pulse Rate 103 H 12/30/19 12:00 Respiratory Rate 18 12/30/19 12:00 Blood Pressure 93/64 12/30/19 12:00 O2 Sat by Pulse Oximetry (%) 100 12/30/19 10:10 Cardiovascular: Yes: Regular Rate and Rhythm, S1, S2 Respiratory: Yes: Mechanically Ventilated, Rhonchi Gastrointestinal: Yes: Normal Bowel Sounds, Soft. No: Tenderness Edema: No Labs: CBC, BMP 12/30/19 05:30 12/30/19 06:00 INR, PTT INR 1.54 (0.83-1.09) H 12/29/19 06:00 Problem List - Problems (1) Acute respiratory failure with hypoxia and hypercapnia Code(s): J96.01 - ACUTE RESPIRATORY FAILURE WITH HYPOXIA; J96.02 - ACUTE RESPIRATORY FAILURE WITH HYPERCAPNIA (2) Afib Code(s): I48.91 - UNSPECIFIED ATRIAL FIBRILLATION (3) Bacteremia Code(s): R78.81 - BACTEREMIA (4) Group B streptococcal infection Code(s): A49.1 - STREPTOCOCCAL INFECTION, UNSPECIFIED SITE (5) Hyperkalemia Code(s): E87.5 - HYPERKALEMIA (6) UTI (urinary tract infection) Code(s): N39.0 - URINARY TRACT INFECTION, SITE NOT SPECIFIED (7) Cervical spinal stenosis Code(s): M48.02 - SPINAL STENOSIS, CERVICAL REGION (8) Hypercholesterolemia Code(s): E78.00 - PURE HYPERCHOLESTEROLEMIA, UNSPECIFIED (9) Hypotension Code(s): I95.9 - HYPOTENSION, UNSPECIFIED (10) Demand ischemia Code(s): I24.8 - OTHER FORMS OF ACUTE ISCHEMIC HEART DISEASE (11) CVA (cerebral vascular accident) Code(s): I63.9 - CEREBRAL INFARCTION, UNSPECIFIED Qualifiers: CVA mechanism: unspecified Qualified Code(s): I63.9 - Cerebral infarction, unspecified (12) HTN (hypertension) Code(s): I10 - ESSENTIAL (PRIMARY) HYPERTENSION Qualifiers: Hypertension type: essential hypertension Qualified Code(s): I10 - Essential (primary) hypertension Assessment/Plan 1. Acute Hypoxic and Hypercapneic Respiratory Failure 2. Aspiration Pneumonia 3. GI bleed and hematuria in context of supratherapeutic INR 4. Cervical spinal cord compression C5/C6 osteomyelitis/discitis 5. Group B strep bacteremia 6. HTN 7. Hypercholesterolemia 8. Paroxysmal atrial fibrillation/flutter [id number] score of 6-7 9. History of CVA with residual weakness 10. Concentric LVH ? rule out infiltrative heart disease 11. Abnormal ECG suggests CAD 12. Demand ischemia with elevated troponin 13. Abnl LFTs with cholelithiasis 14. Right basilic vein superficial thrombosis post PICC line removal 15. Diastolic dysfunction 16. ISHMAEL due to hemodynamics alteration 17. UTI PLAN: 1. Vent support, Pressor support. Eventually will need tracheostomy 2. Antibiotic coverage and C-collar for immobilization 3. Resume Carvedilol and Lisinopril once hemodynamics stabilize and hyperkalemia resolved 4. Hold Coumadin pending hemostasis, consider switch to DOAC given suboptimal INR management once hemostasis assured 5. May consider Tm99 PYP study to rule out amyloidosis once clinically stable Supportive care. Seth Castaneda MD
--- NOTE | 2019-12-30 13:31 | PN ---
Physical Exam: SUBJECTIVE: Patient seen and examined in the morning. No acute events overnight, patient is sedated and intubated. Discussion with family and Palliative care. Patient was made DNR today, with discussion ongoing for compassionate wean/ trial of extubation. OBJECTIVE: Vital Signs Period Temp Pulse Resp BP Sys/Hutton Pulse Ox Last 24 Hr 96.9 F-98.6 F 76-107 12-19 83-137/48-77 97-100 GENERAL: The patient is sedated and intubated HEAD: Normal with no signs of trauma. EYES: Eyes open, tracks and blinks. ENT: Patient with secretions and intubated NECK: C-Collar in place. LUNGS: Breath sounds with crackles bilaterally. HEART: Regular rate and rhythm, S1, S2 without murmur, rub or gallop. ABDOMEN: Soft, nontender, nondistended, normoactive bowel sounds, no guarding, no rebound, no hepatosplenomegaly, no masses. EXTREMITIES: 2+ pulses, warm, well-perfused, no edema. NEUROLOGICAL: Is not able to move extremities. SKIN: Warm, dry, normal turgor, no rashes or lesions noted Laboratory Results - last 24 hr 12/30/19 12/30/19 05:30 06:00 WBC 8.8 RBC 2.38 L Hgb 7.5 L Hct 22.3 L MCV 93.4 MCH 31.4 MCHC 33.6 RDW 15.7 H Plt Count 82 L MPV 11.0 Absolute Neuts (auto) 7.8 Neutrophils % 88.0 H Lymphocytes % 7.3 L Monocytes % 3.9 Eosinophils % 0.5 Basophils % 0.3 Nucleated RBC % 0 Sodium 136 Potassium 4.5 Chloride 106 Carbon Dioxide 24 Anion Gap 6 L BUN 30.9 H Creatinine 1.0 Est GFR (CKD-EPI)AfAm 60.33 Est GFR (CKD-EPI)NonAf 52.06 Random Glucose 109 H Calcium 6.5 L* Phosphorus 3.3 Magnesium 2.0 Total Bilirubin 0.4 AST 18 ALT 37 Alkaline Phosphatase 96 Total Protein 3.8 L Albumin 1.0 L Active Medications Generic Name Dose Route Start Last Admin Trade Name Freq PRN Reason Stop Dose Admin Amino Acids 30 ml 12/26/19 13:45 12/30/19 09:14 Prosource No Carb Liquid Pkt PO 30 ml DAILY [facility] Administration Enoxaparin Sodium 70 mg 12/28/19 12:00 12/30/19 09:14 Lovenox - SQ 70 mg BID [facility] Administration Propofol 1,000,000 mcg in 100 mls @ 2.01 mls/hr 12/24/19 17:15 12/30/19 07:00 Diprivan - IVPB 20 mcg/kg/min TITR [facility] 8.04 mls/hr Titration Protocol 5 MCG/KG/MIN Cefepime HCl 2 gm/ Dextrose 100 mls @ 200 mls/hr 12/26/19 11:00 12/30/19 09:15 IVPB 200 mls/hr BID [facility] Administration Protocol Norepinephrine Bitartrate 4, 500 mls @ 37.5 mls/hr 12/27/19 12:15 12/30/19 10:30 000 mcg/ Dextrose IV 12 mcg/min TITR [facility] 90 mls/hr Titration Protocol 5 MCG/MIN Lactated Ringer's 1,000 ml in 1,000 mls @ 100 mls/hr 12/30/19 05:53 12/30/19 06:51 Lactated Ringers Solution IV 100 mls/hr ASDIR [facility] Administration Morphine Sulfate 2 mg 12/30/19 08:04 12/30/19 08:15 Morphine Sulfate IVPUSH 2 mg Q6H PRN Administration PAIN LEVEL 6-10 Pantoprazole Sodium 40 mg 12/19/19 22:00 12/30/19 09:14 Protonix Iv IVPUSH 40 mg BID [facility] Administration Scopolamine HBr 1 patch 12/30/19 09:00 12/30/19 09:15 Transderm-Scop - TD 1 patch Q72H [facility] Administration ASSESSMENT/PLAN: 84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 Neuro: -Pt is altered, non verbal -Oxy d/c'd -Head CT showed no acute changes -C-spine MRI pending -Patient given morphine for pain -Propofol sedation ordered, at 20 now. -Sedation vacations as tolerated -Neurosurgery signed off -Neurology consulted,appreciate recs Cardiovascular -Patient hypotensive, still on levophed drip of 12. -Echo shows EF => 75%, left ventricle is suggestive of restrictive pathology, moderate . granular appearance of myocardium suggestive of amyloidosis. Mild pericardial effusion Pulmonary -Acute hypoxic respiratory failure. -Vent settings: Vt: 450, RR 18, Fio2 60. Peep 5 -Wean trials as tolerated GI -Patient is stable, no acute events -OG tube placed, confirmed. -Tube feeds Renal -BUN/Creatinine 27.8/1 -Monitor electrolytes -Hematuria present Heme/Onc -FFP given during admission. -Last INR was 1.54. -H&H 07/18.8. ID -Urine culture growing yeast like organism -Continue cefepime F: LR@ 83 E: Monitor CMP N: Tube feed osmolite 1.2. Prosource supplemented. Lines: Adamson switched 12/22. Left subclavian 12/24/2019. Dispo: ICU care CODE STATUS: DNR. Visit type - Emergency Visit Emergency Visit: Yes ED Registration Date: 12/19/19 Care time: The patient presented to the Emergency Department on the above date and was hospitalized for further evaluation of their emergent condition. - New Patient This patient is new to me today: No - Critical Care Critical Care patient: Yes Total Critical Care Time (in minutes): 45 Critical Care Statement: The care of this patient involved high complexity decision making to prevent further life threatening deterioration of the patient's condition and/or to evaluate & treat vital organ system(s) failure or risk of failure. ATTENDING PHYSICIAN STATEMENT I saw and evaluated the patient. I reviewed the resident's note and discussed the case with the resident. I agree with the resident's findings and plan as documented. SUBJECTIVE: OBJECTIVE: ASSESSMENT AND PLAN:
--- NOTE | 2019-12-30 15:34 | PN ---
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, Physician Chief Complaint: I MET WITH JESSIKA DAUGHTER THIS MORNING THE FAMILY IS CONTEMPLATING DNR/DNI AND COMPASSIONATE WEANING OFF THE VENT - Current Medication List Current Medications: Active Medications Amino Acids (Prosource No Carb Liquid Pkt) 30 ml PO DAILY [facility] Last Admin: 12/30/19 09:14 Dose: 30 ml Enoxaparin Sodium (Lovenox -) 70 mg SQ BID [facility] Last Admin: 12/30/19 09:14 Dose: 70 mg Propofol (Diprivan -) 1,000,000 mcg in 100 mls @ 2.01 mls/hr IVPB TITR [facility]; Protocol Last Titration: 12/30/19 07:00 Dose: 20 mcg/kg/min, 8.04 mls/hr Cefepime HCl 2 gm/ Dextrose 100 mls @ 200 mls/hr IVPB BID [facility]; Protocol Last Admin: 12/30/19 09:15 Dose: 200 mls/hr Norepinephrine Bitartrate 4, (000 mcg/ Dextrose) 500 mls @ 37.5 mls/hr IV TITR [facility]; Protocol Last Admin: 12/30/19 13:29 Dose: 12 mcg/min, 90 mls/hr Lactated Ringer's (Lactated Ringers Solution) 1,000 ml in 1,000 mls @ 100 mls/ hr IV ASDIR [facility] Last Admin: 12/30/19 12:00 Dose: 100 mls/hr Morphine Sulfate (Morphine Sulfate) 2 mg IVPUSH Q6H PRN PRN Reason: PAIN LEVEL 6-10 Last Admin: 12/30/19 08:15 Dose: 2 mg Pantoprazole Sodium (Protonix Iv) 40 mg IVPUSH BID [facility] Last Admin: 12/30/19 09:14 Dose: 40 mg Scopolamine HBr (Transderm-Scop -) 1 patch TD Q72H [facility] Last Admin: 12/30/19 09:15 Dose: 1 patch - Objective Vital Signs: Vital Signs Temperature 97.2 F L 12/30/19 13:49 Pulse Rate 97 H 12/30/19 13:49 Respiratory Rate 18 12/30/19 13:49 Blood Pressure 97/56 L 12/30/19 13:49 O2 Sat by Pulse Oximetry (%) 100 12/30/19 10:10 Constitutional: Yes: Other Cardiovascular: Yes: Pulse Irregular Respiratory: Yes: Diminished, Mechanically Ventilated Genitourinary: Yes: Adamson Present Musculoskeletal: Yes: Muscle Weakness Edema: Yes Neurological: Yes: Confusion Labs: CBC, BMP 12/30/19 05:30 12/30/19 06:00 INR, PTT INR 1.54 (0.83-1.09) H 12/29/19 06:00 Problem List - Problems (1) Altered mental status Code(s): R41.82 - ALTERED MENTAL STATUS, UNSPECIFIED (2) Constipation Code(s): K59.00 - CONSTIPATION, UNSPECIFIED (3) Fecal impaction in rectum Code(s): K56.41 - FECAL IMPACTION (4) GI bleed Code(s): K92.2 - GASTROINTESTINAL HEMORRHAGE, UNSPECIFIED Qualifiers: GI bleed type/associated pathology: anorectal hemorrhage Qualified Code(s) : K62.5 - Hemorrhage of anus and rectum (5) Hematochezia Code(s): K92.1 - MELENA (6) Hematuria Code(s): R31.9 - HEMATURIA, UNSPECIFIED (7) Hyperkalemia Code(s): E87.5 - HYPERKALEMIA (8) Lactic acidosis Code(s): E87.2 - ACIDOSIS (9) Osteomyelitis Code(s): M86.9 - OSTEOMYELITIS, UNSPECIFIED Qualifiers: Osteomyelitis type: unspecified type Osteomyelitis location: other site Qualified Code(s): M86.9 - Osteomyelitis, unspecified (10) Troponin I above reference range Code(s): R79.89 - OTHER SPECIFIED ABNORMAL FINDINGS OF BLOOD CHEMISTRY Assessment/Plan I SPENT THE LAST 2 DAYS MEETING WITH FAMILY AND DISCUSSING ADVANCED DIRECTIVES AND PLAN OF CARE. PATIENT HAS DECIDED ON DNR. THEY WILL RETURN TODAY WITH A DECISION FOR COMPASSIONATE WEANING OFF RESPIRATORY VENTILLATOR. SCOPALOMINE PATCH FOR SECRETIONS MORPHINE PRN CONTINUE ABX AND BLOOD PRESSURE SUPPORT FOR NOW I SPENT 55 MINUTES WITH THE FAMILY AND ANSWERED ALL QUESTIONS
[2019-12-30] MEDS: PROPOFOL 1,000,000 MCG/100 ML VIAL IVPB SCH (18:43)
[2019-12-31] MEDS: LACTATED RINGERS SOLUTION 1,000 ML/1,000 ML INFUS.BAG IV SCH
[2019-12-31] MEDS: NOREPINEPHRINE BITARTRATE 4,000 MCG in DEXTROSE 5%-WATER - 496 ML IV SCH ×3 (01:59→12:45)
[2019-12-31] MEDS ORDERED: PT OWN MED DRAWER 7, Y5N ONE ×2 (05:36→10:20)
[2019-12-31] MEDS: BANATROL PLUS POWDER PACKET PO SCH (05:40)
[2019-12-31] MEDS: PROPOFOL 1,000,000 MCG/100 ML VIAL IVPB SCH (05:58)
[2019-12-31] MEDS: ENOXAPARIN NA (PORCINE) 80 MG/0.8 ML DISP.SYRIN SQ SCH (10:08)
[2019-12-31] MEDS: AMINO ACIDS/PROTEIN HYDROLYS 30 ML LIQUID.PKT PO SCH (10:09)
[2019-12-31] MEDS: PANTOPRAZOLE SODIUM 40 MG VIAL IVPUSH SCH (10:10)
[2019-12-31] MEDS: CEFEPIME 2 GM in DEXTROSE 5%-WATER 100 ML IVPB SCH (10:25)
[2019-12-31 11:07] VITALS: TEMP 97.8
--- NOTE | 2019-12-31 11:24 | PN ---
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, Physician Chief Complaint: AWAKE INTUBATED STILL NOW DNR AND FORMS SIGNED - Current Medication List Current Medications: Active Medications Amino Acids (Prosource No Carb Liquid Pkt) 30 ml PO DAILY [facility] Last Admin: 12/31/19 10:09 Dose: 30 ml Enoxaparin Sodium (Lovenox -) 70 mg SQ BID [facility] Last Admin: 12/31/19 10:08 Dose: 70 mg Propofol (Diprivan -) 1,000,000 mcg in 100 mls @ 2.01 mls/hr IVPB TITR [facility]; Protocol Last Titration: 12/31/19 10:26 Dose: 18 mcg/kg/min, 7.236 mls/hr Cefepime HCl 2 gm/ Dextrose 100 mls @ 200 mls/hr IVPB BID [facility]; Protocol Last Admin: 12/31/19 10:25 Dose: 200 mls/hr Norepinephrine Bitartrate 4, (000 mcg/ Dextrose) 500 mls @ 37.5 mls/hr IV TITR [facility]; Protocol Last Admin: 12/31/19 07:05 Dose: 6 mcg/min, 45 mls/hr Lactated Ringer's (Lactated Ringers Solution) 1,000 ml in 1,000 mls @ 100 mls/ hr IV ASDIR [facility] Last Admin: 12/31/19 00:00 Dose: 100 mls/hr Morphine Sulfate (Morphine Sulfate) 2 mg IVPUSH Q6H PRN PRN Reason: PAIN LEVEL 6-10 Last Admin: 12/30/19 08:15 Dose: 2 mg Pantoprazole Sodium (Protonix Iv) 40 mg IVPUSH BID [facility] Last Admin: 12/31/19 10:10 Dose: 40 mg Scopolamine HBr (Transderm-Scop -) 1 patch TD Q72H [facility] Last Admin: 12/30/19 09:15 Dose: 1 patch - Objective Vital Signs: Vital Signs Temperature 97.8 F 12/31/19 10:00 Pulse Rate 98 H 12/31/19 10:00 Respiratory Rate 18 12/31/19 10:00 Blood Pressure 98/55 L 12/31/19 10:00 O2 Sat by Pulse Oximetry (%) 95 12/31/19 09:32 Constitutional: Yes: Mild Distress HENT: Yes: WNL Neck: Yes: WNL Cardiovascular: Yes: Pulse Irregular Respiratory: Yes: Mechanically Ventilated Gastrointestinal: Yes: WNL Genitourinary: Yes: Adamson Present, Hematuria Musculoskeletal: Yes: Muscle Weakness Edema: Yes Labs: CBC, BMP 12/30/19 05:30 12/30/19 06:00 INR, PTT INR 1.54 (0.83-1.09) H 12/29/19 06:00 Problem List - Problems (1) Altered mental status Code(s): R41.82 - ALTERED MENTAL STATUS, UNSPECIFIED (2) Constipation Code(s): K59.00 - CONSTIPATION, UNSPECIFIED (3) Fecal impaction in rectum Code(s): K56.41 - FECAL IMPACTION (4) GI bleed Code(s): K92.2 - GASTROINTESTINAL HEMORRHAGE, UNSPECIFIED Qualifiers: GI bleed type/associated pathology: anorectal hemorrhage Qualified Code(s) : K62.5 - Hemorrhage of anus and rectum (5) Hematochezia Code(s): K92.1 - MELENA (6) Hematuria Code(s): R31.9 - HEMATURIA, UNSPECIFIED (7) Hyperkalemia Code(s): E87.5 - HYPERKALEMIA (8) Lactic acidosis Code(s): E87.2 - ACIDOSIS (9) Osteomyelitis Code(s): M86.9 - OSTEOMYELITIS, UNSPECIFIED Qualifiers: Osteomyelitis type: unspecified type Osteomyelitis location: other site Qualified Code(s): M86.9 - Osteomyelitis, unspecified (10) Troponin I above reference range Code(s): R79.89 - OTHER SPECIFIED ABNORMAL FINDINGS OF BLOOD CHEMISTRY Assessment/Plan I SPENT THE LAST 2 DAYS MEETING WITH FAMILY AND DISCUSSING ADVANCED DIRECTIVES AND PLAN OF CARE. PATIENT HAS DECIDED ON DNR. THEY WILL RETURN TODAY WITH A DECISION FOR COMPASSIONATE WEANING OFF RESPIRATORY VENTILLATOR. SCOPALOMINE PATCH FOR SECRETIONS MORPHINE PRN CONTINUE ABX AND BLOOD PRESSURE SUPPORT FOR NOW I SPENT 55 MINUTES WITH THE FAMILY AND ANSWERED ALL QUESTIONS AWAITING FINAL DECISION TODAY FROM FAMILY
--- NOTE | 2019-12-31 11:45 | PN ---
Teaching Attending Note Name of Resident: Serena Cortez ATTENDING PHYSICIAN STATEMENT I saw and evaluated the patient. I reviewed the resident's note and discussed the case with the resident. I agree with the resident's findings and plan as documented. SUBJECTIVE: Pt seen and examined in the ICU. Remains intubated, sedated on levophed gtt. Unable to wean. Family leaning towards comfort measures. OBJECTIVE: Vital Signs Period Temp Pulse Resp BP Sys/Hutton Pulse Ox Last 24 Hr 96.6 F-97.9 F 83-117 18-19 71-130/46-74 95-100 Intake & Output 12/28/19 12/29/19 12/30/19 12/31/19 23:59 23:59 23:59 23:59 Intake Total 4525.2 4646.6 6246.4 3370 Output Total 1014 703 5866 900 Balance 3325.2 3846.6 3996.4 2470 Weight 72.575 kg 80 kg 80.7 kg 83.28 kg Gen: intubated, sedated Heart: RRR Lung: scattered rhonchi Abd: soft, nontender Ext: + edema CBC, BMP 12/30/19 05:30 12/30/19 06:00 Active Medications Amino Acids (Prosource No Carb Liquid Pkt) 30 ml PO DAILY [facility] Last Admin: 12/31/19 10:09 Dose: 30 ml Enoxaparin Sodium (Lovenox -) 70 mg SQ BID [facility] Last Admin: 12/31/19 10:08 Dose: 70 mg Propofol (Diprivan -) 1,000,000 mcg in 100 mls @ 2.01 mls/hr IVPB TITR [facility]; Protocol Last Titration: 12/31/19 10:26 Dose: 18 mcg/kg/min, 7.236 mls/hr Cefepime HCl 2 gm/ Dextrose 100 mls @ 200 mls/hr IVPB BID [facility]; Protocol Last Admin: 12/31/19 10:25 Dose: 200 mls/hr Norepinephrine Bitartrate 4, (000 mcg/ Dextrose) 500 mls @ 37.5 mls/hr IV TITR [facility]; Protocol Last Admin: 12/31/19 07:05 Dose: 6 mcg/min, 45 mls/hr Lactated Ringer's (Lactated Ringers Solution) 1,000 ml in 1,000 mls @ 100 mls/ hr IV ASDIR [facility] Last Admin: 12/31/19 00:00 Dose: 100 mls/hr Morphine Sulfate (Morphine Sulfate) 2 mg IVPUSH Q6H PRN PRN Reason: PAIN LEVEL 6-10 Last Admin: 12/30/19 08:15 Dose: 2 mg Pantoprazole Sodium (Protonix Iv) 40 mg IVPUSH BID [facility] Last Admin: 12/31/19 10:10 Dose: 40 mg Scopolamine HBr (Transderm-Scop -) 1 patch TD Q72H [facility] Last Admin: 12/30/19 09:15 Dose: 1 patch ASSESSMENT AND PLAN: Acute Hypoxic Respiratory Failure Likely Aspiration Pneumonia Septic Shock GI Bleed Anemia/Thrombocytopenia Supratherapeutic INR Cervical Cord Compression with Osteomyelitis Bacteremia Paroxysmal Atrial Fibrilatoin LV Diastolic Dysfunction CAD HTN Hypercholesterolemia h/o CVA - continue antibiotics - IVF to keep CVP 8-12 - taper pressors to maintain MAP >65 - O2 to keep Spo2 >90% - replete lytes - rate control - continue anticoagulation - daily sedation vacations to assess mental status - spontaneous breathing trials as tolerated - enteral feeds - DVT/GI prophylaxis - ICU monitoring - continue discussions with family regarding goals of care, family leaning towards comfort measures critical care time spent in reviewing chart, evaluating patient and formulating plan 35 min
[2019-12-31] MEDS ORDERED: morphine SULFATE 4 MG/ML VIAL IVPUSH ONE (11:46)
[2019-12-31] MEDS ORDERED: MORPHINE SULFATE/0.9% NACL/PF 100 MG/100 ML BAG IVPB SCH (12:00)
[2019-12-31] MEDS ORDERED: LORazepam 2 MG/ML SDV VIAL IVPUSH SCH (12:00)
[2019-12-31] MEDS ORDERED: LORazepam 2 MG/ML SDV VIAL IVPUSH PRN (12:03)
[2019-12-31 13:00] VITALS: BP 98/65; PULSE 114
--- NOTE | 2019-12-31 15:18 | DS ---
Physical Examination Vital Signs: Vital Signs Temperature 97.8 F 12/31/19 10:00 Pulse Rate 114 H 12/31/19 12:00 Respiratory Rate 20 12/31/19 12:00 Blood Pressure 98/65 12/31/19 12:00 O2 Sat by Pulse Oximetry (%) 95 12/31/19 09:32 Findings/Remarks: COMPASSIONATE WEAN DONE Labs: CBC, BMP 12/30/19 05:30 12/30/19 06:00 Discharge Summary Problems reviewed: Yes Reason For Visit: ATRIAL FLUTTER Condition: Stable - Instructions Referrals: Irma Miller MD [Primary Care Provider] - Disposition: - Home Medications Comprehensive Discharge Medication List: Ambulatory Orders Amlodipine Besylate [Norvasc -] 10 mg PO DAILY 12/01/19 Carvedilol [Coreg -] 25 mg PO BID 12/01/19 Lisinopril [Prinivil -] 40 mg PO DAILY 12/01/19 Warfarin Sodium [Coumadin] 4 mg PO UTDICT 12/01/19 Warfarin Sodium [Coumadin] 5 mg PO ASDIR 12/01/19 Cyclobenzaprine HCl 5 mg PO PRN 12/02/19 Ipratropium 0.02% Nebulizer [Atrovent 0.02% Nebulizer -] 0.5 mg IH PRN #1 vial.neb. 12/09/19 Oxycodone HCl 5 mg PO Q8H PRN #30 tablet MDD 40 12/09/19 Dexamethasone [Decadron] See Taper PO ASDIR 9 Days #18 tablet 12/10/19 Acetaminophen 650 mg PO Q6H 12/19/19 Ceftriaxone 2 gm-D5w Bag 2 gm IV DAILY 12/19/19
--- NOTE | 2019-12-31 15:22 | PN ---
Physical Exam: SUBJECTIVE: Patient seen and examined. pt remains intubated and on pressors. family leaning towards comfort measures. OBJECTIVE: Vital Signs Period Temp Pulse Resp BP Sys/Hutton Pulse Ox Last 24 Hr 96.6 F-97.9 F 83-117 18-20 71-130/46-74 95-100 GENERAL: The patient is sedated and intubated HEAD: Normal with no signs of trauma. EYES: Eyes open, tracks and blinks. ENT: Patient with secretions and intubated NECK: C-Collar in place. LUNGS: Breath sounds with crackles bilaterally. HEART: Regular rate and rhythm, S1, S2 without murmur, rub or gallop. ABDOMEN: Soft, nontender, nondistended, normoactive bowel sounds, no guarding, no rebound, no hepatosplenomegaly, no masses. EXTREMITIES: 2+ pulses, warm, well-perfused, no edema. NEUROLOGICAL: Is not able to move extremities. 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 Neuro: -unchanged -sedated with propofol 20 Cardiovascular -Patient remained on levophed drip. VS low but stable -Echo shows EF => 75%, left ventricle is suggestive of restrictive pathology, moderate . granular appearance of myocardium suggestive of amyloidosis. Mild pericardial effusion. Pulmonary -Acute hypoxic respiratory failure. -Vent settings: Vt: 450, RR 18, Fio2 60. Peep 5 -compassionate wean scheduled today per family wishes GI -Patient is stable, no acute events -OG tube placed, confirmed. -Tube feeds Renal -BUN/Creatinine 30.9/1 -Monitor electrolytes -Hematuria present Heme/Onc -Hb dropped to 7.5 today -monitor. no transfusion unless <7 ID -Urine culture growing yeast like organism -Continue cefepime F: LR@ 83 E: Monitor CMP N: Tube feed osmolite 1.2. Prosource supplemented. Lines: Adamson switched 12/22. Left subclavian 12/24/2019. Dispo: ICU care CODE STATUS: DNR and comfort care Visit type - Emergency Visit Emergency Visit: Yes ED Registration Date: 12/19/19 Care time: The patient presented to the Emergency Department on the above date and was hospitalized for further evaluation of their emergent condition. - New Patient This patient is new to me today: No - Critical Care Critical Care patient: Yes Total Critical Care Time (in minutes): 36 Critical Care Statement: The care of this patient involved high complexity decision making to prevent further life threatening deterioration of the patient's condition and/or to evaluate & treat vital organ system(s) failure or risk of failure. ATTENDING PHYSICIAN STATEMENT I saw and evaluated the patient. I reviewed the resident's note and discussed the case with the resident. I agree with the resident's findings and plan as documented. SUBJECTIVE: OBJECTIVE: ASSESSMENT AND PLAN:
== END 2019-12-31 12:59 | disposition expired | DRG 870 ==
LOC: SUPCPDRO 11:48 → JER 11:48 → JERBED 14:21 → J4S 19:50 → JICU 12-22 19:01
PROVIDERS: ADMIT Internal Medicine; ATTEND Family Medicine
PROC: 5A1955Z Respiratory Ventilation, Greater than 96 Consecutive Hours (ICD-10-PCS; principal; 2019-12-24)
PROC: 0BH17EZ Insertion of Endotracheal Airway into Trachea, Via Natural or Artificial Opening (ICD-10-PCS; 2019-12-24)
PROC: 05H633Z Insertion of Infusion Device into Left Subclavian Vein, Percutaneous Approach (ICD-10-PCS; 2019-12-24)
PROC: 5A12012 Performance of Cardiac Output, Single, Manual (ICD-10-PCS; 2019-12-24)
PROC: 30233K1 Transfusion of Nonautologous Frozen Plasma into Peripheral Vein, Percutaneous Approach (ICD-10-PCS; 2019-12-24)
PROC: 30233K1 Transfusion of Nonautologous Frozen Plasma into Peripheral Vein, Percutaneous Approach (ICD-10-PCS; 2019-12-24)
DX: A41.9 Sepsis, unspecified organism (principal); J96.01 Acute respiratory failure with hypoxia; J69.0 Pneumonitis due to inhalation of food and vomit; R65.21 Severe sepsis with septic shock; J96.02 Acute respiratory failure with hypercapnia; G93.41 Metabolic encephalopathy; E87.2 Acidosis; I69.351 Hemiplegia and hemiparesis following cerebral infarction affecting right dominant side; I48.92 Unspecified atrial flutter; K92.2 Gastrointestinal hemorrhage, unspecified; I24.8 Other forms of acute ischemic heart disease; N17.9 Acute kidney failure, unspecified; N39.0 Urinary tract infection, site not specified; M46.20 Osteomyelitis of vertebra, site unspecified; I10 Essential (primary) hypertension; E78.5 Hyperlipidemia, unspecified; D69.6 Thrombocytopenia, unspecified; I48.0 Paroxysmal atrial fibrillation; I25.10 Atherosclerotic heart disease of native coronary artery without angina pectoris; K59.00 Constipation, unspecified; E87.5 Hyperkalemia; R31.9 Hematuria, unspecified; I95.9 Hypotension, unspecified; E87.6 Hypokalemia; E83.42 Hypomagnesemia; E83.39 Other disorders of phosphorus metabolism; D64.9 Anemia, unspecified
CPT/HCPCS: 31500; 36415; 36430; 36600; 70450-TC; 71045-TC-FY; 76705-TC; 76856-TC; 80048; 80053; 81003; 82272; 82378; 82550; 82607; 82803; 82977; 83090; 83540; 83550; 83605; 83735; 84100; 84132; 84156; 84157; 84443; 84484; 85025; 85027; 85610; 85651; 85730; 86140; 86850; 86900; 86901; 87040; 87070; 87077; 87086; 87186; 87205; 93005; 93010; 93306-TC; 93971; 94002; 99284-25; J0131; J7030; P9017